=== PATIENT | male | born 1975 | race Caucasian/White ===

== ENCOUNTER → 2016-12-11 | Outpatient (CLI) | payer OTHER, MEDICARE ==
[~2016-12-11] MED LIST: CEFD300C3 PO
== END ==
LOC: NWCC 10:12
PROVIDERS: ATTEND Surgery
DX: L89.893 Pressure ulcer of other site, stage 3 (principal); G82.21 Paraplegia, complete
CPT/HCPCS: 97605; A6209; A6237

== ENCOUNTER → 2016-12-15 | Outpatient (CLI) | payer OTHER, MEDICARE | LOC: NWCC 13:33 | PROVIDERS: ATTEND Surgery | DX: L89.893 Pressure ulcer of other site, stage 3 (principal); G82.21 Paraplegia, complete | CPT/HCPCS: 97605; A6237 ==

== ENCOUNTER → 2016-12-18 | Outpatient (CLI) | payer OTHER, MEDICARE | LOC: NWCC 10:17 | PROVIDERS: ATTEND Surgery | DX: L89.893 Pressure ulcer of other site, stage 3 (principal); G82.21 Paraplegia, complete | CPT/HCPCS: 97605 ==

== ENCOUNTER → 2016-12-22 | Outpatient (CLI) | payer OTHER, MEDICARE | LOC: NWCC 10:47 | PROVIDERS: ATTEND Surgery | DX: L89.894 Pressure ulcer of other site, stage 4 (principal); G82.21 Paraplegia, complete | CPT/HCPCS: 11042; 97605 ==

== ENCOUNTER 2016-12-25 12:00 | Inpatient (IN) | payer MEDICARE, OTHER ==
[~2016-12-25] VITALS: Ht 175.3 cm; Wt 105.8 kg
[~2016-12-25 12:00] MED LIST changes: -ACET-2723 PO; -ASCO500T9 PO; -BISA10SU8 RECTALLY; -CEFT2FRO3 IV; -Calcium Acetate PO; -FERR324T4 PO; -MAGN400O4 PO; -METR500T PO; -NYST10PO TOP; -POLY17PO18 PO; -VITA1TAB15 PO
--- NOTE | 2016-12-25 12:05 | NUR ---
ADMISSION TO MEDICAL UNIT LOW GRADE TEMP 99.0, TACHYCARDIC IN THE 120S. OTHERWISE, VSS. DENIES PAIN. TRANSFERRED SELF FROM WHEELCHAIR TO BED. PATIENT IS A PARAPLEGIC BUT VERY INDEPENDENT. ISSAC RIZO RN PRESENT TO PLACE NEW WOUND VAC.
--- OUTSIDE RECORDS SUMMARY | 2016-12-25 12:05 | XMS REPORT | Referral Summary ---
Author Author [facility] Organization [facility] Address Unknown Phone Unavailable Care Team Providers Care Nozzle Tender Name Role Phone Ariela Rio Primary Care Physician [phone] Encounter Date(s): 10/16/16 - 10/16/16 [facility] [address] [place], [place] [address] Discharge Diagnosis: S/P plastic surgery Discharge Disposition: 01-Home or Self Care Attending Physician: Kang Braxton MD Admitting Physician: Kang Braxton MD Vital Signs No data available for this section Problem List Condition Effective Dates Status Health Status Informant Obesity(Confirmed) Active patient Paraplegia following Resolved spinal cord injury(Confirmed)1 Decubitus ulcer of Active right ischial area(Confirmed) 1Forklift accident/traumatic injury on 07/19/2002. Injury at the T7-T8 level with subsequent paralysis distal to that. Allergies, Adverse Reactions, Alerts Substance Reaction Severity Status Keflex Rash Active Levaquin Active Medications Daily Multivitamins oral tablet 1 tabs, Oral, Daily, # 30 tabs, 0 Refill(s) Start Date: 07/03/16 Status: Ordered Results No data available for this section Immunizations No data available for this section Procedures Procedure Date Related Diagnosis Body Site Excision, ischial pressure ulcer, with 09/10/16 ostectomy, in preparation for muscle or myocutaneous flap or skin graft closure1 Cystoscopy using panendoscope 06/10/15 Stabilization of spinal dislocation2 1Right Buttock Pressure Ulcer DX 689.319 done @ [facility] 2Following spinal injury in 2001 Social History Social History Type Response Smoking Status Former smoker; Type: Cigarettes Assessment and Plan Extracted from: Title: Office Visit Note Author: Kang Braxton MD Date: 10/16/16 Assessment/Plan The patient can discontinue bedrest at this time. He will be sent for seat mapping of theRoho pillow. Patient has no restrictions at this time.
--- OUTSIDE RECORDS SUMMARY | 2016-12-25 12:05 | XMS REPORT | Continuity of Care Document ---
Author Author [facility] Address Unknown Phone Unavailable Allergies Active Description Code Type Severity Reaction Onset Reported/Identified Relationship to Patient Clinical Status Yes Levaquin NKMA N/A N/A 04/17/2014 Yes levofloxacin [id number] Drug Allergy Severe Severe Diarrhea 05/25/2015 Yes Keflex NKMA N/A Rash 07/03/2016 Medications Problems Procedures Results Encounters ACCT No. Visit Date/Time Discharge Status Pt. Type Provider Facility Loc./Unit Complaint [id number] 05/25/2015 19:48:00 2014 20:41:00 [facility]
--- OUTSIDE RECORDS SUMMARY | 2016-12-25 12:05 | XMS REPORT | Continuity of Care Document ---
Author Author [facility] Organization [facility] Address Unknown Phone Unavailable Support Name Relationship Address Phone FEBRUARYYSABEL DO Caregiver [address] [facility] [place] [address] Unavailable EREN SO MD Caregiver [address] [place] [address] Unavailable ERIKA RODRIGUEZ Next Of Kin [address] [place] [address] Insurance Providers Guarantor Duncan Rodriguez V Address [address] [place] [address] Email [email or web address] Policy Number [id number] Subscriber's Name Erika Rodriguez E Relationship 01 Spouse Group Number [id number] Payer Medicare Policy Number [id number] Subscriber's Name Duncan Rodriguez V Relationship 18 Self Chief Complaint and Reason for Visit Chief Complaint Lower Extremity Injury Reason for Visit Open wound of toe with avulsion of toenail Problems Active Problems Medical Problem Onset Date Status Anemia Unknown Chronic urinary tract infection Unknown Chronic Neurogenic bladder Unknown Chronic Neurogenic bowel Unknown Chronic Obesity (BMI 30-39.9) Unknown Chronic Paraplegia at T9 level Unknown Chronic Pressure ulcer of left buttock, stage 4 Unknown Sepsis Unknown Resolved Past Problems Medical Problem Onset Date Ankle sprain Unknown Decubitus ulcer of buttock, stage 4 ~03/2016 Encounter for removal of urinary catheter Unknown Erosion of penis Unknown Open wound of toe with avulsion of toenail Unknown UTI (urinary tract infection) Unknown Medications Current Home Medications Medication Dose Units Route Directions Days Qty Instructions Start Date Cefdinir 300 Mg Capsule 300 Mg Oral Twice A Day 14 07/10/16 Past Home Medications Medication Directions Ordered Status Cephalexin (Keflex) 500 Mg Capsule, 1 Cap Oral Twice A Day for Uti 06/30/16 Discontinued No Routine Meds , 06/24/16 Discontinued Social History Social History Problem Response Recorded Date/Time Onset Date Status Hx Substance Use No 07/10/2016 11:10pm Not Applicable Not Applicable Hx Alcohol Use No 07/10/2016 11:10pm Not Applicable Not Applicable Has the pt used tobacco in the last 12 months No 04/30/2016 4:25pm Not Applicable Not Applicable Tobacco Usage none 03/26/2016 10:06am Not Applicable Not Applicable Query Response Start Date Stop Date Smoking Status Never smoker Hospital Discharge Instructions No hospital discharge instructions. Plan of Care Discharge Date 07/10/16 11:39pm Disposition 01 DISCHARGED HOME, SELF-CARE Condition at Discharge Improved Instructions/Education Provided DI for Nail Avulsion Injury Prescriptions See Medication Section Referrals EREN SO MD Address: [address] [address] Additional Instructions/Education Wash toes gently daily. Apply triple antibiotic ointment to wound/nail bed, telfa and 4x4 daily. Check with your physician for when you last tetanus was on Wednesday. Follow treatment plan. Monitor for signs/symptoms of infection (fever, chill, swelling, streaking up foot/leg, pus drainage from wound). Follow with [facility] wound care center on Wednesday appointment for evaluation of left great toe. Care Plan and Goals Physician Care Plan Problem: Avulsion injury with open wound to toe Goal: Follow up with primary care provider Instructions: Take medications and follow care plan as discussed/written Functional Status No functional status results. Allergies, Adverse Reactions, Alerts Allergen Type Severity Reaction Status Last Updated Cephalexin Allergy Unknown HIVES Active 07/10/16 Levofloxacin Adverse Reaction Unknown SEVERE GI DISTRESS Active 07/10/16 Immunizations Query Response on File Recorded Date/Time Hx Influenza Vaccination No 04/30/16 4:25pm Hx Pneumococcal Vaccination No 04/30/16 4:25pm Hx Influenza Vaccination No 04/30/16 4:25pm Influenza Vaccine Hx declines 07/10/16 11:10pm Tdap Vaccine Hx UNKNOWN 06/24/16 12:30pm Vital Signs Acute Vital Signs Vital Response Date/Time Temperature (Fahrenheit) 99.0 deg F (96.8 - 99.1) 07/10/2016 11:39pm Temperature (Calculated Celsius) 37.97069 degrees C (36.0 - 37.3) 07/10/2016 11:39pm Temperature Source Oral 04/23/2016 3:08pm Pulse Rate (adult) 101 bpm (60 - 100) 07/10/2016 11:39pm Respiratory Rate 18 breaths/min (10 - 20) 07/10/2016 11:39pm O2 Sat by Pulse Oximetry 100 % (90 - 100) 07/10/2016 11:39pm Oxygen Delivery Method Room Air 04/23/2016 5:15pm Oxygen Delivery Method Room Air 05/05/2016 1:14pm Blood Pressure 163/92 mm Hg 07/10/2016 11:39pm Blood Pressure Source Automatic Cuff 05/05/2016 1:14pm Height (Feet) 5 feet 07/10/2016 10:06pm Height (Inches) 9.00 inches 07/10/2016 10:06pm Weight (Kilograms) 104.500 kg 07/10/2016 10:06pm Body Mass Index (BMI) 34.0 07/10/2016 10:06pm Results Laboratory Results Test Name Result Units Flags Reference Collection Date/Time Result Date/ Time Comments White Blood Count 8.8 T/MM3 4.5-11.0 05/05/2016 1:30pm 05/05/2016 1: 52pm Red Blood Count 4.03 M/MM3 L 4.50-5.90 05/05/2016 1:30pm 05/05/2016 1: 52pm Hemoglobin 11.0 GM/DL L 13.5-17.5 05/05/2016 1:30pm 05/05/2016 1:52pm Hematocrit 35.5 % L 41-53 05/05/2016 1:30pm 05/05/2016 1:52pm Mean Corpuscular Volume 88.1 UM3 80-100 05/05/2016 1:30pm 05/05/2016 1: 52pm Mean Corpuscular Hemoglobin 27.3 UUG 26-34 05/05/2016 1:30pm 2015 1:52pm Mean Corpuscular Hemoglobin Concent 31.0 GM/DL 31-37 05/05/2016 1:30pm 05/05/2016 1:52pm RDW Standard Deviation 40.0 FL 36.9-50.2 05/05/2016 1:30pm 05/05/2016 1 :52pm Platelet Count 470 T/MM3 H 130-400 05/05/2016 1:30pm 05/05/2016 1:52pm Mean Platelet Volume 8.5 UM3 L 9.4-12.4 05/05/2016 1:30pm 05/05/2016 1: 52pm Neutrophils % (Manual) 75.0 % H 33-66 05/05/2016 1:30pm 05/05/2016 2: 03pm Band Neutrophils % 2.0 % 0-6 05/05/2016 1:30pm 05/05/2016 2:03pm Lymphocytes % (Manual) 16.0 % L 23-45 05/05/2016 1:30pm 05/05/2016 2: 03pm Monocytes % (Manual) 6.0 % 0-9.0 05/05/2016 1:30pm 05/05/2016 2:03pm Eosinophils % (Manual) 1.0 % 0-4 05/05/2016 1:30pm 05/05/2016 2:03pm Basophils % (Manual) 1.0 % 0-2 04/30/2016 3:54pm 04/30/2016 4:20pm Band Neutrophils # 0.2 T/MM3 05/05/2016 1:30pm 05/05/2016 2:03pm Absolute Neutrophils (Manual) 6.6 T/MM3 1.8-7.7 05/05/2016 1:30pm 05/05 2:03pm Lymphocytes # (Manual) 1.4 T/MM3 1-4.8 05/05/2016 1:30pm 05/05/2016 2: 03pm Monocytes # (Manual) 0.5 T/MM3 0-0.8 05/05/2016 1:30pm 05/05/2016 2: 03pm Eosinophils # (Manual) 0.1 T/MM3 0-0.5 05/05/2016 1:30pm 05/05/2016 2: 03pm Basophils # (Manual) 0.1 T/MM3 0-0.2 04/30/2016 3:54pm 04/30/2016 4: 20pm Red Cell Morphology Comment NORMAL 05/05/2016 1:30pm 05/05/2016 2: 03pm Icterus Index < 2 0-7 05/05/2016 1:30pm 05/05/2016 3:02pm Chemistry Specimen Hemolysis < 15 0-25 05/05/2016 1:30pm 05/05/2016 3 :02pm 0-25: Specimen Exhibited No Hemolysis. Turbidity < 20 0-20 05/05/2016 1:30pm 05/05/2016 3:02pm Sodium Level 141 MEQ/L 134-144 05/05/2016 1:30pm 05/05/2016 3:02pm Potassium Level 4.0 MEQ/L 3.6-5 05/05/2016 1:30pm 05/05/2016 3:02pm Chloride Level 104 MEQ/L 98-107 05/05/2016 1:30pm 05/05/2016 3:02pm Carbon Dioxide Level 25 MEQ/L -05/05/2016 1:30pm 05/05/2016 3: 02pm Anion Gap 12 MEQ/L 5-05/05/2016 1:30pm 05/05/2016 3:02pm Blood Urea Nitrogen 6.0 MG/DL L 9-05/05/2016 1:30pm 05/05/2016 3: 02pm Creatinine 0.7 MG/DL L 0.8-1.5 05/05/2016 1:30pm 05/05/2016 3:02pm BUN/Creatinine Ratio 9 RATIO 04-0505/05/2016 1:30pm 05/05/2016 3:02pm Glomerular Filtration Rate Calc 126 05/05/2016 1:30pm 05/05/2016 3: 02pm Glucose Level 85 MG/DL 75-110 05/05/2016 1:30pm 05/05/2016 3:02pm Calculated Osmolality 268 MOSM/KG 261-280 05/05/2016 1:30pm 05/05/2016 3:02pm Calcium Level 8.2 MG/DL L 8.4-10.2 05/05/2016 1:30pm 05/05/2016 3:02pm C-Reactive Protein 52.5 MG/L H 0-9 05/05/2016 1:30pm 05/05/2016 3:02pm Vancomycin Level Trough 39.73 UG/ML H 15-05/05/2016 1:30pm 2015 2:07pm Erythrocyte Sedimentation Rate 101 mm/h H 0-15 05/05/2016 1:30pm 2015 10:34pm Sedimentation Rate performed at [facility] Reference Lab, [address] , [place] [address] Neurocritical Care Physician Destiny Willingham DO Urine Collection Type STRAIGHT CATH 06/30/2016 12:17pm 06/30/2016 12:30pm Urine Color YELLOW YELLOW 06/30/2016 12:17pm 06/30/2016 12:30pm Urine Turbidity CLOUDY CLEAR 06/30/2016 12:17pm 06/30/2016 12:30pm Urine Specific [place] >=1.030 H 1.015-1.025 06/30/2016 12:17pm 2015 12:30pm Urine pH 5.5 5.0-8.0 06/30/2016 12:17pm 06/30/2016 12:30pm Urine Leukocyte Esterase 2+ A NEGATIVE 06/30/2016 12:17pm 06/30/2016 12:30pm Urine Nitrite POSITIVE A NEGATIVE 06/30/2016 12:17pm 06/30/2016 12: 30pm Urine Protein 1+ A NEGATIVE 06/30/2016 12:17pm 06/30/2016 12:30pm Urine Glucose (UA) NEGATIVE NEGATIVE 06/30/2016 12:17pm 06/30/2016 12 :30pm Urine Ketones NEGATIVE NEGATIVE 06/30/2016 12:17pm 06/30/2016 12: 30pm Urine Urobilinogen 1.0 EU/DL NORMAL 06/30/2016 12:17pm 06/30/2016 12: 30pm Urine Bilirubin NEGATIVE NEGATIVE 06/30/2016 12:17pm 06/30/2016 12: 30pm Urine Blood 3+ A NEGATIVE 06/30/2016 12:17pm 06/30/2016 12:30pm Urine WBC TNTC /HPF H 0-5 06/30/2016 12:17pm 06/30/2016 12:43pm Urine RBC 5-10 /HPF H 0-3 06/30/2016 12:17pm 06/30/2016 12:43pm Urine Bacteria 1+ H NEGATIVE 06/30/2016 12:17pm 06/30/2016 12:43pm Urine Culture Indicated CULT REFLEXED &SETUP 06/30/2016 12:17pm 12:43pm Microbiology Results Procedure Source Organism/Result Collection Date/Time Result Date/Time Result Status Surgical Culture Bone, Ischium BACTEROIDES FRAGILIS 04/23/2016 1:43pm 04/27 9:17am Final KLEBSIELLA OXYTOCA 04/23/2016 1:43pm 04/27/2016 9:17am Final STAPHYLOCOCCUS EPIDERMIDIS 04/23/2016 1:43pm 04/27/2016 9:17am Final ENTEROCOC FAECALIS - (GROUP D) 04/23/2016 1:43pm 04/27/2016 9:17am Final Urine Culture Urine, Straight Cath PROTEUS SPECIES 06/30/2016 12:43pm 6:33am Final PSEUDOMONAS AERUGINOSA 06/30/2016 12:43pm 07/03/2016 6:33am Final SERRATIA MARCESCENS 06/30/2016 12:43pm 07/03/2016 6:33am Final Procedures Procedure Status Date Provider(s) MIRTA SUBQ TISSUE 20 SQ CM/< Completed 04/14/16 NEG PRESS WOUND TX </=50 CM Completed 04/14/16 698875"ADHESIVE BORDER, EACH DRESSING" Completed 04/14/16 NEG PRESS WOUND TX </=50 CM Completed 04/17/16 921293"ADHESIVE BORDER, EACH DRESSING" Completed 04/17/16 MIRTA MUSC/FASCIA 20 SQ CM/< Completed 04/21/16 NEG PRESS WOUND TX </=50 CM Completed 04/21/16 941871"OSTOMY SKIN BARRIER, PECTIN-BASED, PASTE, PER OUNCE" Completed 385737"ADHESIVE BORDER, EACH DRESSING" Completed 04/21/16 NEG PRESS WOUND TX </=50 CM Completed 04/27/16 MIRTA BONE 20 SQ CM/< Completed 04/23/16 NATHANIEL QUINTANILLA MD, FACS, CWS CULTURE OTHR SPECIMN AEROBIC Completed 04/23/16 CULTR BACTERIA EXCEPT BLOOD Completed 04/23/16 CULTURE ANAEROBE IDENT EACH Completed 04/23/16 CULTURE AEROBIC IDENTIFY Completed 04/23/16 CULTURE AEROBIC IDENTIFY Completed 04/23/16 CULTURE AEROBIC IDENTIFY Completed 04/23/16 MICROBE SUSCEPTIBLE DIFFUSE Completed 04/23/16 MICROBE SUSCEPTIBLE DIFFUSE Completed 04/23/16 MICROBE SUSCEPTIBLE DIFFUSE Completed 04/23/16 MICROBE SUSCEPTIBLE DIFFUSE Completed 04/23/16 MICROBE SUSCEPTIBLE MAKAYLA Completed 04/23/16 MICROBE SUSCEPTIBLE MAKAYLA Completed 04/23/16 MICROBE SUSCEPTIBLE MAKAYLA Completed 04/23/16 SMEAR GRAM STAIN Completed 04/23/16 088238"EQUAL TO 48 SQ. IN., WITHOUT ADHESIVE BORDER, EACH DR Completed 721391"ADHESIVE BORDER, EACH DRESSING" Completed 04/23/16 674429"INJECTION, CEFAZOLIN SODIUM, 500 MG" Completed 04/23/16 525212"INJECTION, MIDAZOLAM HYDROCHLORIDE, PER 1 MG" Completed 04/23/16 731955"INJECTION, FENTANYL CITRATE, 0.1 MG" Completed 04/23/16 854641"INJECTION, FENTANYL CITRATE, 0.1 MG" Completed 04/23/16 538210"INFUSION, NORMAL SALINE SOLUTION , 250 CC" Completed 04/23/16 529088"RINGERS LACTATE INFUSION, UP TO 1000 CC" Completed 04/23/16 935037"INJECTION, BUPIVICAINE HYDROCHLORIDE, 30 ML" Completed 04/23/16 MIRTA BONE 20 SQ CM/< Completed 05/05/16 839004"ADHESIVE BORDER, EACH DRESSING" Completed 05/05/16 NEG PRESS WOUND TX </=50 CM Completed 04/30/16 OFFICE/OUTPATIENT VISIT EST Completed 04/30/16 808634"ADHESIVE BORDER, EACH DRESSING" Completed 04/30/16 INSERT PICC CATH Completed 04/30/16 CLAYTON ACOSTA MD COLLECT BLOOD FROM PICC Completed 04/30/16 CLAYTON ACOSTA MD FLUOROGUIDE FOR VEIN DEVICE Completed 04/30/16 METABOLIC PANEL TOTAL CA Completed 04/30/16 BL SMEAR W/DIFF WBC COUNT Completed 04/30/16 COMPLETE CBC AUTOMATED Completed 04/30/16 RBC SED RATE AUTOMATED Completed 04/30/16 C-REACTIVE PROTEIN Completed 04/30/16 THER/PROPH/DIAG IV INF INIT Completed 04/30/16 THER/PROPH/DIAG IV INF ADDON Completed 04/30/16 THER/PROPH/DIAG IV INF ADDON Completed 04/30/16 318106"ELECTROPHYSIOLOGICAL, NON-LASER" Completed 04/30/16 592511"INJECTION, ERTAPENEM SODIUM, 500 MG" Completed 04/30/16 886676"INJECTION, VANCOMYCIN HCL, 500 MG" Completed 04/30/16 127501"INFUSION, NORMAL SALINE SOLUTION , 250 CC" Completed 04/30/16 METABOLIC PANEL TOTAL CA Completed 04/30/16 ASSAY OF VANCOMYCIN Completed 04/30/16 BL SMEAR W/DIFF WBC COUNT Completed 04/30/16 COMPLETE CBC AUTOMATED Completed 04/30/16 RBC SED RATE AUTOMATED Completed 04/30/16 C-REACTIVE PROTEIN Completed 04/30/16 OFFICE/OUTPATIENT VISIT EST Completed 04/30/16 NEG PRESS WOUND TX </=50 CM Completed 06/18/16 006860"ADHESIVE BORDER, EACH DRESSING" Completed 06/18/16 NEG PRESS WOUND TX </=50 CM Completed 06/25/16 OFFICE/OUTPATIENT VISIT EST Completed 06/25/16 404338"CONVEXITY, EACH" Completed 06/25/16 852248"COLLAGEN DRESSING, PAD SIZE 16 SQ. IN. OR LESS, EACH" Completed 646069"BORDER, EACH DRESSING" Completed 06/25/16 OFFICE/OUTPATIENT VISIT EST Completed 06/30/16 488223"OSTOMY SKIN BARRIER, PECTIN-BASED, PASTE, PER OUNCE" Completed 741406"BORDER, EACH DRESSING" Completed 06/30/16 556960"ADHESIVE BORDER, EACH DRESSING" Completed 06/30/16 X-RAY EXAM OF ANKLE Completed 06/24/16 X-RAY EXAM OF FOOT Completed 06/24/16 EMERGENCY DEPT VISIT Completed 06/24/16 NEG PRESS WOUND TX </=50 CM Completed 07/06/16 OFFICE/OUTPATIENT VISIT EST Completed 07/06/16 103987"BORDER, EACH DRESSING" Completed 07/06/16690466"ADHESIVE BORDER, EACH DRESSING" Completed 07/06/16 INSERT BLADDER CATHETER Completed 06/30/16 SARAH VERNON DO URINALYSIS AUTO W/SCOPE Completed 06/30/16 URINE CULTURE/COLONY COUNT Completed 06/30/16 EMERGENCY DEPT VISIT Completed 06/30/16 Encounters Encounter Location Arrival/Admit Date Discharge/Depart Date Attending Provider Departed Emergency Room [facility] 07/10/16 9:58pm 07/10/16 11: 39pm YSABEL MONTOYA DO [facility] 07/06/16 1:44pm NATHANIEL QUINTANILLA FACS, MD Departed Emergency Room [facility] 06/30/16 11:08am 06/30/16 1: 09pm SARAH VERNON DO Registered [facility] 06/30/16 9:04am NATHANIEL QUINTANILLA FACS, MD Registered [facility] 06/25/16 1:12pm NATHANIEL QUINTANILLA FACS, MD Departed Emergency Room [facility] 06/24/16 12:03pm 06/24/16 1: 27pm YSABEL MONTOYA DO [facility] 06/18/16 1:23pm NATHANIEL QUINTANILLA FACS, MD Registered [facility] 05/05/16 10:57am NATHANIEL QUINTANILLA FACS, MD Discharged Recurring [facility] 04/30/16 2:11pm 06/19/16 11:59pm CLAYTON ACOSTA MD Registered [facility] 04/30/16 1:23pm NATHANIEL QUINTANILLA FACS, MD Registered [facility] 04/29/16 9:05am CLAYTON ACOSTA MD Registered [facility] 04/27/16 10:13am NATHANIEL QUINTANILLA FACS, MD Departed Surgical Day Care [facility] 04/23/16 8:37am 04/23/16 5: 40pm NATHANIEL QUINTANILLA FACS, MD Registered [facility] 04/21/16 10:16am NATHANIEL QUINTANILLA FACS, MD Registered [facility] 04/17/16 10:32am NATHANIEL QUINTANILLA FACS, MD Registered [facility] 04/14/16 11:10am NATHANIEL QUINTANILLA FACS, MD Recent Diagnosis
--- OUTSIDE RECORDS SUMMARY | 2016-12-25 12:05 | XMS REPORT | Referral Summary ---
Author Author [facility] Organization [facility] Address Unknown Phone Unavailable Care Team Providers Care Meat Specialist Name Role Phone Ariela Rio Primary Care Physician [phone] Encounter Date(s): 07/03/16 - 07/03/16 [facility] [address] [place], [place] [address] Discharge Diagnosis: Decubitus ulcer of ischial area Discharge Disposition: 01-Home or Self Care Attending Physician: Kang Braxton MD Admitting Physician: Kang Braxton MD Referring Physician: Sourav Tyson MD Vital Signs No data available for this section Problem List Condition Effective Dates Status Health Status Informant Obesity(Confirmed) Active patient Paraplegia following Resolved spinal cord injury(Confirmed)1 1Forklift accident/traumatic injury on 07/19/2002. Injury at [...] Procedures Procedure Date Related Diagnosis Body Site Cystoscopy using panendoscope 06/10/15 Stabilization of spinal dislocation1 1Following spinal injury in 2001 Social History Social History Type Response Smoking Status Former smoker; Type: Cigarettes Assessment and Plan Extracted from: Title: Office Visit Note Author: Kang Braxton MD Date: 07/03/16 Assessment/Plan 40-year-old with rightinitial wound. This is a very clean appearing wound. Don't see any exposed bone at this time. There is definitely fascia and muscle that is exposed. The area is large enough for think a posterior thigh flap would be a good option for him. I like to set up a debridementfrom Dr. Tyson prior to theclosure. We'll get himwashed out one more time and cultures taken. As long as these are negative then we'll close this with a flap. I expect the patient that he'll require bed rest for 6 weeks after the operation. He'll be in thespital for 6-7 days followed by 5 more days of bedrest on a [place] bed. I explained to him that the surgery willbe performed under general anesthesia. The biggest risks of the procedure would be loss of flap, continued wound,infection, need for further surgery. I explained that this will be done as an inpatient setting. We'll get the patient scheduled and set up a time that works best for both myself and Dr. Thornton.
--- OUTSIDE RECORDS SUMMARY | 2016-12-25 12:05 | XMS REPORT | Continuity of Care Document ---
Author Author [facility] Organization [facility] Address Unknown Phone Unavailable Support Name Relationship Address Phone EREN SO MD Caregiver [address] [place] [address] JENNIFER CLIVE Next Of Kin [address] [place] [address] Insurance Providers Payer Name Policy Number Subscriber Name Relationship Self Pay JenniferDuncan V 18 Self / Same As Patient Chief Complaint and Reason for Visit Chief Complaint Skin Condition Reason for Visit [id number] Problems Medical Problems Problem Onset Date Status Paronychia of third finger, left ~05/25/2015 Active Medications Medication Dose Route Sig Days/Qty Instructions Order Date Discontinued Date Status [No home medications] 05/25/15 Active Cephalexin 500 Mg ORAL TWICE A DAY 05/25/15 Active Sulfamethoxazole/Trimethoprim 1 Tab ORAL TWICE A DAY 10 Days 05/25/15 Active Mupirocin (Bactroban Ointment) 22 Gm TOPICAL TWICE A DAY 22 Qty Active Social History No social history. Hospital Discharge Instructions No hospital discharge instructions. Plan of Care Discharge Date 05/25/15 8:41pm Disposition 01 HOME OR SELF-CARE Condition at Discharge Stable Instructions/Education Provided Paronychia (ED) Prescriptions See Medications Section Additional Instructions/Education Stop Keflex. Bactrim DS as Rx'd, twice a day for 10 days, one refill. Bactroban Ointment as Rx'd, twice a day topically until healed. Cultured tonight; results should be available by Wednesday. Daily soap and water, air dry, then Bactroban. Follow up in office as needed for this issue. Some of your test results may not be complete prior to your leaving the Emergency Department. The Emergency Department is not authorized to give test results over the phone. Please contact the doctor's office listed in this packet of information for your final results. Follow up with your primary care physician or return to the Emergency Department for worsening or worrisome symptoms. * Emergency Department phone number: [phone], x [phone]* MEDICAL RECORD If you need copies of your X-rays, call [phone]. If you need copies of your medical record, including lab results, a signed authorization for release of records will be required. A telephone call for release of Health Information is not allowed. BILLING Billing can sometimes be confusing and frustrating. To help avoid confusion in the future, please take a moment to acquaint yourself with the billing parties for services. [facility]ICE [employer] Emergency Room Services [facility] Physician Services [facility] X-rays [facility] Patients will receive bills for services from the appropriate provider. If you have any questions about your [facility] bill, our staff will be happy to assist you. Please call [phone], and ask for the billing department. THANK YOU for choosing [facility] as your emergency care provider! Functional Status No functional status results. Allergies, Adverse Reactions, Alerts Allergen Type Severity Reaction Status Last Updated levofloxacin Allergy Severe Severe Diarrhea, dehydration Active 05/25/15 Immunizations No immunization records. Vital Signs Acute Vital Signs Vital Response Date/Time Temperature (Fahrenheit) 98.0 Pulse 88 bpm Respirations 18 Height 5 ft 9 in Weight 219 lb Body Mass Index 32.0 kg/m^2 Results No known relevant diagnostic tests, laboratory data and/or discharge summary. Procedures No known history of procedures. Encounters Encounter Location Date/Time Departed Emergency Room [facility] 05/25/15 7:48pm Recent Diagnosis
[2016-12-25 12:13] VITALS: BP 129/66; PULSE 121; RESP 18; TEMP 99; O2SAT 98
[2016-12-25 12:18] VITALS: Ht 175.3 cm; Wt 105.8 kg
[2016-12-25 12:27] VITALS: PULSE 121; RESP 18
--- NOTE | 2016-12-25 13:09 | HPPDOC ---
HANS HUGO V GYROSCOPE REPAIRER 12/25/16 1309: HPI - Adult Date DATE: 12/25/16 TIME: 13:09 General Chief Complaint: Right hip/buttock wound History of Present Illness Joe is a very pleasant 41-year-old gentleman who has been under the care of outpatient wound center since July 2016. He had previously had a decubitus ulcer to the right ischium in March 2016. This was initially treated and had a surgical flap placed over this area last fall. Patient did well following this treatment. However, last July developed a secondary wound in the right posterior upper thigh/buttock region at different location. He has continued with the outpatient wound treatments. However, today upon evaluation was found to have worsening wound with tunneling and concern for osteomyelitis. The hospitalist services were contacted and accepted patient for direct admission for further evaluation and treatment. Labs were obtained this morning. The WBC count was found to be slightly elevated at 12.9, hemoglobin 11.4, hematocrit 36.3, platelet count 551, 79% neutrophils. Sodium is 140, potassium 3.7, BUN 10 , creatinine 0.8. CRP 260.7. Venous lactate was found to be 1.3, and pro- calcitonin 0.39. Blood cultures were obtained at that time. On arrival to the medical unit. Patient was found to be tachycardic with a pulse of 101, temperature 90.9, respiration rate 18, blood pressure 126/66, room air saturations 98%. Patient is seen on initial examination. He is alert and oriented and pleasant. He reports having a fever early this morning of 101 and did take some Aleve prior to coming to the wound care center. Past Medical History Past Medical History Paraplegia at T9 neurogenic bladder- chronic straight catheter neurogenic bowel chronic urinary tract infections History of decubitus ulcer to the right buttock Hx C-diff Surgical History Patient's Surgical History: Right Knee Scope (95?) Maxx placement T7-T9 (2001) - following accident August 2016- Skin flap to right Buttock Allergies: Coded Allergies: cephalexin (Verified Allergy, Unknown, HIVES, 07/10/16) levofloxacin (Verified Adverse Reaction, Unknown, SEVERE GI DISTRESS, 12/25) Family History Family History: Mother - Alive and well Father - Alive and well Daughter (13) - Alive and Well Paternal Great Grandfather - Diabetes Social History Smoking Status: Never smoker Does patient use chewing tobac: No Substance Use Type: does not use Alcohol Intake: none Sexuality: female partner Housing: house Household Members: significant other Service: No Occupational Hazard: No Advance Directives: No DPOA for Healthcare Only Social History Comments Primary care provider, Dr. Morales in [place] Review of Systems Constitutional: REPORTS: chills, fever Pulmonary Respiratory: cough Integumentary Comments Right hip/ posterior thigh All Other Systems All Other Systems: Reviewed (remainder of 10-point ROS Neg.) Physical Exam General General Nourishment: well nourished, well developed Vital Signs Vital Signs Date Time Temp Pulse Resp B/P Pulse Ox O2 Delivery O2 Flow Rate FiO2 12/25/16 12:27 121 18 12/25/16 12:13 99.0 129/66 98 Room Air Height (Feet): 5 Height (Inches): 9.00 Eyes Brief: FOUND: EOMI, PERRL Neck Brief: FOUND: midline, NOT FOUND: adenopathy, carotid bruits, tracheal deviation Respiratory Brief: FOUND: clear all burroughs, equal bilaterally, NOT FOUND: wheezes Cardiovascular (brief) Cardiac Brief: FOUND: regular rate, regular rhythm, NOT FOUND: murmur, pedal edema Abdomen (brief) Abdominal Brief: FOUND: BS normo active x4, soft, NOT FOUND: distended, tender Integumentary (brief) Integumentary Brief: FOUND: dry, pink, warm Comments Right posterior hip, thigh, pressure ulcer, wound VAC intact Neurologic (brief) Neurological Brief: FOUND: cranial 2-12 intact Neurologic RN Documented GCS Eye Opening: Verbal: Motor: Total: Psychiatric (brief) FOUND: alert, attentive, normal affect, oriented Sepsis Diagnostic Criteria Sepsis Confirmed/Suspected Infection: Yes SIRS Criteria: Pulse >= 90 beats/min, WBC >=12,000 or <=4,000 Assessment & Plan Problems: (1) Sepsis Status: Acute Assessment & Plan: Manifestations of sepsis include the following- 1. Right buttock/hip wound-worsening with tunneling 2. Leukocytosis, W BBC count 12.9 3. Tachycardia- 121 on admission (2) Pressure ulcer of right buttock Status: Chronic (3) Coughing Status: Acute (4) Neurogenic bowel Status: Chronic (5) Neurogenic bladder Status: Chronic (6) Paraplegia at T9 level Status: Chronic (7) Chronic urinary tract infection Status: Chronic Plan/Intensity of Service Place patient to inpatient status under the care of Dr. Herbert for sepsis, right hip/buttocks wound, pressure ulcer We'll continue with consultation with wound center and with Dr. Tyson for ongoing treatment. Did discuss case with Dr. Palma, and she is planning to see patient later today. Will start vancomycin now. Place Pinto catheter given the patient has a history of urine. Neurogenic bladder and requires frequent straight caths Given coughing will obtain chest xray. Also obtain UA on admission IV fluids, 500 ml bolus and then 100ml/hr for ongoing hydration. Will recheck a venous lactate at 1630 per sepsis protocol. Will have infusion team place a PICC line, as patient will likely need long- term antibiotics. SCDs to bilateral lower extremity for DVT prophylaxis. Patient may have regular diet. Will monitor patient on cardiac telemetry given tachycardia. Will recheck CBC and BMP tomorrow morning to follow blood counts, renal function and electrolytes. Will discuss further plan of care with Dr Herbert. At time of discharge medical care will return to primary care provider, Dr. Morales DVT Prophylaxis: SCD'S Code Status Hospital Course Summary Disclaimer The hospital course summary below is not to be considered part of the above Progress Note. Hospital Course Summary Place patient to inpatient status under the care of Dr. Herbert for sepsis, right hip/buttocks wound, pressure ulcer We'll continue with consultation with wound center and with Dr. Tyson for ongoing treatment. Did discuss case with Dr. Palma, and she is planning to see patient later today. Will start vancomycin now. Place Pinto catheter given the patient has a history of urine. Neurogenic bladder and requires frequent straight caths Given coughing will obtain chest xray. Also obtain UA on admission IV fluids, 500 ml bolus and then 100ml/hr for ongoing hydration. Will recheck a venous lactate at 1630 per sepsis protocol. Will have infusion team place a PICC line, as patient will likely need long- term antibiotics. SCDs to bilateral lower extremity for DVT prophylaxis. Patient may have regular diet. Will monitor patient on cardiac telemetry given tachycardia. Will recheck CBC and BMP tomorrow morning to follow blood counts, renal function and electrolytes. Will discuss further plan of care with Dr Herbert. At time of discharge medical care will return to primary care provider, CARLOS ALBERTO Tabares MD 12/25/16 3856: Past Medical History Allergies: Coded Allergies: cephalexin (Verified Allergy, Unknown, HIVES, 07/10/16) levofloxacin (Verified Adverse Reaction, Unknown, SEVERE GI DISTRESS, 12/25) Assessment & Plan Problems: (1) Sepsis Status: Acute Assessment & Plan: Manifestations of sepsis include the following- 1. Right buttock/hip wound-worsening with tunneling 2. Leukocytosis, W BBC count 12.9 3. Tachycardia- 121 on admission (2) Pressure ulcer of right buttock Status: Chronic Assessment & Plan: Appears to be infected with increased amount of drainage, increased purulence and increased foul smell (3) Coughing Status: Acute (4) Neurogenic bowel Status: Chronic (5) Neurogenic bladder Status: Chronic (6) Paraplegia at T9 level Status: Chronic (7) Chronic urinary tract infection Status: Chronic (8) Thrombocytosis Status: Chronic (9) Microcytic anemia Status: Acute Assessment 12/25/2016-I reviewed this chart, the patient history, and the GYROSCOPE REPAIRER's/PA's documented findings as above. We discussed and formulated the assessment and plan as above with the additions below.-Dr. Herbert Patient states that he started feeling fatigued yesterday and checked his temperature and noted he had a fever. This morning his temperature was 101. He went into the wound clinic and was found to have tachycardia but fever had resolved after taking Aleve at home. In the wound care clinic his wound was evaluated and he was found to have tunneling down to bone with concerns for osteomyelitis. He was noted to have increased amount and increased purulence of drainage as well as increase in foul smell of his wound. I was called and asked to admit the patient for infected decubitus wound/osteomyelitis and possible sepsis. The patient states that he is feeling okay at this time. He has had a cough but denies any shortness of breath. He has been eating and drinking okay. He has felt fatigued. He denies any nausea, vomiting or diarrhea. He straight catheters himself and notices that his urine is darker than usual. He denies any other recent symptoms or complaints. Patient states he is on no home medications On exam he is alert and oriented 3 and in no acute distress. HEENT reveals sclerae to be anicteric and oropharynx is moist. Neck is supple. Chest is clear to auscultation. Cardiovascular reveals a regular rate and rhythm without murmur. Abdomen is soft and nontender with positive bowel sounds. Extremities are free of edema. Wound VAC is in place over the right buttock and there is some mild surrounding erythema. Impression Osteomyelitis/infected decubitus wound right buttock Fever Cough Probably chronic UTI Paraplegia Thrombocytosis Microcytic anemia neurogenic bladder Neurogenic colon Plan Admit as inpatient. Consult Dr. Palma for IV antibiotic recommendations. Consult Dr. Tyson regarding wound. Continue wound VAC for now. PICC line placement. Check viral respiratory panel regarding cough and fever. Cautious IV fluids. Repeat lactate. Urine culture and wound culture are pending. Check iron panel regarding microcytic anemia. Recheck lab tomorrow. Pinto catheter placed for urinary retention. HANS HUGO APRN Dec 25, 2016 13:09 CARLOS ALBERTO HERBERT MD Dec 25, 2016 16:48
--- NOTE | 2016-12-25 13:44 | PDWOUND ---
Wound Documentation Wound Management Wound : Location Modifier: Right, Upper Wound Location: Thigh Wound Type: Pressure Ulcer Wound Dressing Frequency: two times per week Wound Duration: > one month Wound Dressing Status: FOUND: Moist Wound Drainage Amount: Copious Wound Drainage Description: Purulent Wound Drainage Odor: Foul Odor Wound General Appearance: FOUND Draining, FOUND Muscle Visible, FOUND Reddened, FOUND Unapproximated Wound Bed: gran red, slough Periwound Description: Dark Red, Purple Wound Length (cm): 10 Wound Width (cm): 7 Wound Depth (cm): 6 Exposed: bone Wound Cleanser: NS Wound Solution/Irrigant: Saline Irrigant Wound Packing Type: FOUND: Black Foam Wound Primary Dressing Type: Clear Adhesive Cover Wound Tunneling : Sinus/Tunnels (cm): 7 Tunneling Location (o'clock): 12 Wound Undermining : Wound Undermining (cm): 3 Undermining Location (o'clock): 12-4 Comments Pt is well known to the wound clinic, this wound is POA from wound clinic. When pt placed in room wound clinic RN in to place a Veraflow wound vac. NS instillation 150cc, Q 3 hrs for 20min dwell time. Pt tolerated placed well. Also verbalized understanding of laying on his sides to offload wound. Dr Tyson gave a verbal order to start Veraflow Instill vac on pt, upon arrival. ATTUM RIZO RN Dec 25, 2016 13:43
--- NOTE | 2016-12-25 13:59 | NUR ---
CULTURES THIS RN CONFIRMED WITH LAB THAT BLOOD AND WOUND CULTURES WERE DRAWN IN WOUND CENTER PRIOR TO ADMISSION TO [facility].
[2016-12-25] MEDS ORDERED: ACETAMINOPHEN 500 MG TABLET PO PRN (14:00)
[2016-12-25] MEDS: VANCOMYCIN 2,000 MG in NORMAL SALINE 500 ML IV SCH (14:23)
[2016-12-25] MEDS: NORMAL SALINE 1,000 ML IV SCH (14:23)
[2016-12-25] MEDS ORDERED: NORMAL SALINE 500 ML IV SCH (14:30)
--- NOTE | 2016-12-25 14:42 | CONSPD ---
Consultation Info Date DATE: 12/25/16 TIME: 14:33 Date of Consultation: Dec 25, 2016 Reason for Consultation: wound care HPI - Adult Date DATE: 12/25/16 TIME: 14:33 General Chief Complaint: Right hip/buttock wound History of Present Illness per Dr. Tyson Past Medical History Past Medical History Patient's Medical History: (1) Pressure ulcer of left buttock, stage 4 (2) Anemia (3) Sepsis (4) Paraplegia at T9 level (5) Obesity (BMI 30-39.9) (6) Chronic urinary tract infection (7) Neurogenic bladder (8) Neurogenic bowel Surgical History Patient's Surgical History: Right Knee Scope (95?) Maxx placement T7-T9 (2001) - following accident 04-24-2016 surgical debridemnt of stage IV ulcer right buttock/ischium and placement of wound vac Allergies: Coded Allergies: cephalexin (Verified Allergy, Unknown, HIVES, 07/10/16) levofloxacin (Verified Adverse Reaction, Unknown, SEVERE GI DISTRESS, 12/25) Family History Family History: Mother - Alive and well Father - Alive and well Daughter (13) - Alive and Well Paternal Great Grandfather - Diabetes maternal grandfather -prostate cancer Social History Smoking Status: Former smoker Does patient use chewing tobac: No Substance Use Type: does not use Alcohol Intake: none Sexuality: female partner Housing: house Household Members: significant other Service: No Occupational Hazard: No Advance Directives: No DPOA for Healthcare Only GS Review of Systems General REPORTS fever Gastrointestional REPORTS other (neuroggenic bowel) Genitourinary REPORTS other (frequent/chronic UTI, neurgenic bladder and self cths) Neurological REPORTS other (T7-T9 paraplegia) 10-point Review of Systems otherwise negative except HPI GS Physical Exam Vital Signs Date Time Temp Pulse Resp B/P Pulse Ox O2 Delivery O2 Flow Rate FiO2 12/25/16 12:27 121 18 12/25/16 12:13 99.0 129/66 98 Room Air Height (Feet): 5 Height (Inches): 9.00 Weight (Kilograms): 97.800 BMI 31.8 Wound Management Wound : Location Modifier: Right, Upper Wound Location: Thigh Wound Type: Pressure Ulcer Wound Dressing Frequency: two times per week Wound Duration: > one month Wound Dressing Status: FOUND: Moist Wound Drainage Amount: Copious Wound Drainage Description: Purulent Wound Drainage Odor: Foul Odor Wound General Appearance: FOUND Draining, FOUND Muscle Visible, FOUND Reddened, FOUND Unapproximated Wound Bed: gran red, slough Periwound Description: Dark Red, Purple Wound Length (cm): 10 Wound Width (cm): 7 Wound Depth (cm): 6 Exposed: bone Wound Cleanser: NS Wound Solution/Irrigant: Saline Irrigant Wound Packing Type: FOUND: Black Foam Wound Primary Dressing Type: Clear Adhesive Cover Wound Tunneling : Sinus/Tunnels (cm): 7 Tunneling Location (o'clock): 12 Wound Undermining : Wound Undermining (cm): 3 Undermining Location (o'clock): 12-4 SHARRI VILLEDA APRN, [facility] Dec 25, 2016 14:36
[2016-12-25] MEDS: MENTHOL COUGH DROPS (RICOLA) MM PRN ×2 (14:52→21:06)
--- NOTE | 2016-12-25 14:52 | NUR ---
DE SOUZA CATHETER 16 F DE SOUZA CATHETER INSERTED WITHOUT PROBLEM. PT TOLERATED WELL. ELMA CARE DONE PRIOR TO INSERTION. STERILE TECHNIQUE USED. IMMEDIATELY RECEIVED CLOUDY, STRAW COLORED URINE WITH SEDIMENT. UA COLLECTED.
[2016-12-25 15:06] LABS: BLOOD, URINE 2+ (NEGATIVE); COLOR,URINE YELLOW (YELLOW); LEUKOCYTE ESTERASE ,URINE 2+ (NEGATIVE); NITRITE,URINE POSITIVE (NEGATIVE)
[2016-12-25 15:17] LABS: BACTERIA,URINE 3+ (NEGATIVE); RBC,URINE 50-200 /HPF (0-3); WBC,URINE TNTC /HPF (0-5)
[2016-12-25 15:27] VITALS: PULSE 95; RESP 18
--- NOTE | 2016-12-25 15:42 | NUR ---
STATUS TACHYCARDIA IMPROVING, NOW 90S, SR. DE SOUZA CATHETER PATENT AND DRAINING. ABX INFUSING IN PERIPHERAL. INFUSION THERAPY CURRENTLY PLACING PICC. PATIENT HAS A GOOD APPETITE. RESTING IN BED.
[2016-12-25 16:00] VITALS: BP 119/67; PULSE 96; RESP 20; TEMP 100.1
[2016-12-25] MEDS: PIPERACILLIN/TAZOBACTAM 3.375 G in NORMAL SALINE 100 ML IV SCH ×2 (17:48→21:00)
--- NOTE | 2016-12-25 18:12 | NUR ---
SHIFT SUMMARY PICC LINE PLACED IN LEFT ARM WITH FLUIDS RUNNING. PT ALERT AND ORIENTATED X3, TRANSFERS SELF FROM WHEELCHAIR TO BED, PARAPLEGIC. DE SOUZA WITH ADEQUATE OUTPUT. WOUND VAC ON RIGHT SIDE FOR ISCHIAL WOUND, STAGE 4. PT ON ROOM AIR AND TELE. SCDS AND CARSON HOSE IN USE. HX OF C.DIFF. PT REPORTED COUGH WHEN ON LEFT SIDE. CALL LIGHT WITHIN REACH.
--- NOTE | 2016-12-25 18:12 | CONSF ---
DATE OF CONSULTATION 12/25/2016 FINDINGS Mr. Cosby is a 41-year-old gentleman who is very well known to my wound care/surgical practice. Mr. Cosby presented to the wound care facility today in followup in regards to progressive necrosis of his myocutaneous flap involving his right buttock/posterior thigh region. The patient had shared with staff that he has been intermittently having fevers over the course of the last couple of the evenings. He did not appear his "normal self." Patient states that he has had some chills. Upon visualization it did appear that his wound was progressively becoming worse and the hospitalist system was contacted for possible admission given his possible sepsis from wound complication. The patient has been currently admitted to the medical unit. Upon entering the room he did not appear to be in acute distress. He states he has been feeling "not like himself." He states he has been extremely tired. The patient is paraplegic. He is therefore unaware in regard to any element of pain that could be present involving his wound. PAST MEDICAL HISTORY, PAST SURGICAL HISTORY,MEDICATIONS, ALLERGIES, SOCIAL HISTORY, FAMILY HISTORY, REVIEW OF SYSTEMS Performed by my nurse practitioner, Dao Hauser APRN . PHYSICAL EXAMINATION GENERAL: Mr. Cosby is a 41-year-old gentleman who currently did not appear to be in acute distress. Vitals: Temperature 99.0. The patient was tachycardic with a pulse of 121. Respiratory rate 18, blood pressure 129/66, SAO2 98% on room air. HEENT: Normocephalic. PERRLA. NECK: Supple without lymphadenopathy. CHEST: Clear to auscultation bilaterally. HEART: Rate and rhythm. Normal S1, S2. ABDOMEN: Soft, nontender. EXTREMITIES: Without clubbing or cyanosis. The patient had a wound VAC already applied to his wound involving the right buttocks. Therefore, the wound VAC was not removed today. I did see the patient earlier this week in the wound care clinic and he was unfortunately found to have progressive necrosis involving the distal aspect of his myocutaneous flap overlying the ischial tuberosity. On Wednesday the bone was not exposed and there was still a component of fascia and subcutaneous tissues covering the bone although the bone itself was able to be palpated perhaps a centimeter or less beneath the residual/remaining subcutaneous tissues. On Wednesday earlier this week there was no periwound erythema nor purulent drainage from the wound itself. Apparently earlier today there was some purulent material noted by the wound physician. NEUROLOGIC: Cranial nerves II-XII grossly intact. Patient's upper extremities are neurovascularly intact. Patient without sensation or motor function involving lower extremities. LABORATORY/RADIOGRAPHIC EVALUATION The patient had a CBC today upon admission. His white count was elevated at 12.9. Did have a left shift with 75% neutrophils. Plasma lactate was normal at 1.3. Procalcitonin was normal at 0.39. Order has been placed to place a Pinto catheter and obtain UA as well. ASSESSMENT 41-year-old paraplegic gentleman with the misfortune of developing progressive necrosis of prior myocutaneous flap involving right buttock/right posterior thigh. Patient with probable sepsis as a result of soft tissue infection. PLAN Earlier today I did inform the wound staff that I would like to go ahead and place a VeraFlo wound VAC following his admission. Would recommend placing the patient on broad-spectrum antibiotics. Currently the patient is on vancomycin. I will actually be leaving town tomorrow morning. Will be checking out to Dr. Buck. It is my thought that we continue with the VeraFlo wound VAC over the course of the weekend and that the VAC could be removed on Wednesday and the wound reevaluated at that time. Further need for surgical intervention could then be ascertained at that time. LOREE
[2016-12-25 20:00] VITALS: PULSE 96; RESP 20
--- NOTE | 2016-12-25 20:28 | CONSF ---
DATE OF CONSULTATION 12/25/2016 CHIEF COMPLAINT Infectious Disease consultation was requested by Dr. Herbert for antibiotic recommendations for stage IV decubitus ulcer and sepsis. HISTORY OF PRESENT ILLNESS Mr. Cosby is a 41-year-old man with history of paraplegia from an accident that occurred in 2001. He has a history of right ischial decubitus ulcer and osteomyelitis there last summer. He was hospitalized at [facility] in March. He had a wound culture obtained March 25 which had multiple organisms including Proteus mirabilis, Proteus vulgaris, Serratia marcescens, Pseudomonas aeruginosa, Klebsiella oxytoca and Bacteroides fragilis. None of those organisms were particularly drug resistant. He underwent debridement by Dr. Tyson. However, at that time the wound did not go down to bone and there was no concern for osteomyelitis. However, his wound worsened and I saw him on April 29 of last summer in the wound clinic and at that point he had undergone debridement on April 23 which extended down to bone. There was a bone culture from his surgery April 23 that showed Staph epidermis, Enterococcus faecalis group D, Bacteroides fragilis and Klebsiella oxytoca. When I saw him initially on April 29 I recommended a PICC line and IV antibiotics for six weeks. I started him initially on Invanz and vancomycin because he was going to be receiving this as an outpatient. Not long after I evaluated him, however, arrangements were made for him to be admitted to [facility]. He was followed by my partner Dr. Evy Cruz while he was at [facility]. He received six weeks of IV antibiotics although he cannot recall exactly which antibiotics he received. Following that admission he was put on oral Keflex and he had some "red bumps" that apparently were thought to be from the Keflex. He was referred to Dr. Braxton, Plastic Surgery, and underwent a flap in August 2016. He believes this was done at [facility]. He did well until about October when he states there was an area on the flap that looked like a scratch. This continued to worsen and he states that there was an area that looked like the skin "." He has been following with Dr. Tyson in the wound clinic over the last two months and the wound has continued to progress and become deeper with some necrotic tissue present. He was seen in the wound clinic earlier today and the wound was felt to go down to bone. There was a wound culture obtained today in the wound clinic with results pending. The patient also reports he started having fever yesterday. He had blood cultures obtained earlier this morning. He was admitted for further evaluation. He has not had any documented fever here. However, his pulse initially was 121. His white count is elevated at 12.9. He was also noted to have some pyuria on his urinalysis although he does straight-cath himself. PAST MEDICAL HISTORY History of complete paraplegia at T9 level since 2001 following an accident when he was pinned between a forklift and a wall. History of neurogenic bladder and neurogenic bowel. History of chronic urinary tract infection. Obesity. History of decubitus ulcer of the buttock involving the right ischium, stage IV , status post six weeks of IV antibiotics during the summer of 2015. History of Clostridium difficile colitis in approximately 2001 associated with Levaquin. PAST SURGICAL HISTORY Right knee scope. Maxx placement T7-T9 in 2001. Right ischial flap procedure in approximately August [address] Braxton. ALLERGIES Levaquin is listed. However, this was associated with Clostridium difficile in 2001. Keflex caused a rash. SOCIAL HISTORY He is . He lives in [place]. 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 No history of tobacco, alcohol or drug use. FAMILY HISTORY Both of his parents are alive. His great-grandfather had diabetes. CURRENT MEDICATIONS Reviewed in the electronic medical record. He has been started on vancomycin. REVIEW OF SYSTEMS He reports fever that started yesterday. He denies any chills. He did have some sweats yesterday. He denies any headache or visual changes. He denies any upper respiratory symptoms to me. However, he apparently reported cough to the admitting team. Denies shortness of breath or chest pain. Denies any abdominal pain. He denies any pain associated with his wound but he does have paraplegia. Denies any recent nausea, vomiting or diarrhea. The rest of the review of systems is negative other than that mentioned above. PHYSICAL EXAMINATION VITAL SIGNS: Temperature 99.0, blood pressure 129/66. Pulse 121. Respirations 18. Oxygen saturation 98% on room air. Height is 69 inches. Weight is 98 kg. GENERAL: He appears comfortable and in no acute distress. HEENT: Pupils equal, round, reactive to light. Extraocular movements intact. Oropharynx is clear. Dentition is fair. NECK: Supple. HEART: Regular rate and rhythm. No murmurs noted. LUNGS: Clear to auscultation bilaterally anteriorly. ABDOMEN: Soft, nontender. He has bowel sounds present. No guarding or rebound. EXTREMITIES: No joint effusions are noted. He does have muscle wasting noted of the lower extremities bilaterally. He is wearing BILL hose. No joint effusions are noted. : No Pinto catheter is in place. NEUROLOGIC: Exam is grossly nonfocal. He is alert and oriented x 3. Speech is normal. He does have paraplegia. SKIN: He has a wound over the right ischium which is covered with a wound VAC. There is mild erythema surrounding this wound. He has a healed incision from his flap on the right posterior thigh. No rash is noted. PSYCHIATRIC: Mood and affect are appropriate. LABORATORY White blood cell count of 12.9, hemoglobin 11.4, platelets 551,000. Sed rate is pending. Creatinine 0.8. C-reactive protein is 261. Albumin is 3.2. Lactate is 1.3. Procalcitonin is 0.39. Urinalysis has kqv-[id number]-[id number]- count white cells, 50-200 red cells, 2+ leukocyte esterase , 3+ bacteria. Respiratory viral panel is pending. Blood cultures are pending. Chest x-ray is pending. IMPRESSION 1. Right ischial decubitus ulcer stage IV with concern for osteomyelitis. 2. Sepsis secondary to skin and soft tissue source. 3. History of osteomyelitis of the right ischium status post debridement, six weeks of IV antibiotics followed by flap procedure in August 2016. 3. Paraplegia at T9 from an accident that occurred in 2001. 4. Neurogenic bladder with self-catheterization. 5. Neurogenic bowel. 6. History of urinary tract infections. 7. History of Clostridium difficile infection related to levofloxacin. 8. Allergy to Keflex, rash. RECOMMENDATIONS I would recommend using Zosyn and vancomycin initially. Once cultures were obtained his antibiotics could be narrowed. Dr. Tyson has been consulted as well to see if the wound needs any additional debridement. I would recommend six weeks of IV antibiotics again to treat osteomyelitis. Recommend PICC line. My recommendations were discussed with the primary team. Thank you for allowing me to participate in the care of this patient. [facility] MEDICAL CENTERKhang
[2016-12-25 20:54] VITALS: BP 120/64; PULSE 97; RESP 16; TEMP 99.6; O2SAT 99
[2016-12-25] MEDS: BENZONATATE 100 MG CAPSULE PO PRN (21:06)
[2016-12-26] VITALS (8 sets, daily range): BP systolic 104–125; BP diastolic 59–68; PULSE 81–91; RESP 14–16; TEMP 98.6–99.6; O2SAT 96–99
[2016-12-26] MEDS: VANCOMYCIN 2,000 MG in NORMAL SALINE 500 ML IV SCH ×3 (02:00→18:22)
[2016-12-26] MEDS: PIPERACILLIN/TAZOBACTAM 3.375 G in NORMAL SALINE 100 ML IV SCH ×4 (03:00→21:28)
[2016-12-26] MEDS: MENTHOL COUGH DROPS (RICOLA) MM PRN ×3 (05:10→21:27)
[2016-12-26] MEDS: BENZONATATE 100 MG CAPSULE PO PRN (05:10)
[2016-12-26 06:19] LABS: BASOPHILS % (AUTO) 0.3 % (0-2); EOSINOPHILS # (AUTO) 0.1 T/MM3 (0-0.5); EOSINOPHILS % (AUTO) 1.9 % (0-4); HCT - HEMATOCRIT 31.2 % (41-53); HGB - HEMOGLOBIN 9.8 GM/DL (13.5-17.5); IMMATURE GRANULOCYTE # (AUTO) 0.01 T/MM3 (0.00-0.03); IMMATURE GRANULOCYTE % (AUTO) 0.1 % (0.0-0.5); MEAN CORPUSCULAR HGB 24.6 UUG (26-34); MEAN CORPUSCULAR HGB CONC(MCHC 31.4 GM/DL (31-37); MEAN CORPUSCULAR VOLUME 78.2 UM3 (80-100); MEAN PLATELET VOLUME 8.9 UM3 (9.4-12.4); MONOCYTES # (AUTO) 0.6 T/MM3 (0-0.8); NEUTROPHILS % (AUTO) 73.7 % (33-66); RED BLOOD COUNT 3.99 M/MM3 (4.50-5.90); WBC - WHITE BLOOD COUNT 6.8 T/MM3 (4.5-11.0)
[2016-12-26 06:36] LABS: ANION GAP 8 MEQ/L (5-15); BUN/CREATININE RATIO 11 RATIO (6-26); CHLORIDE 106 MEQ/L (98-107); CO2 - CARBON DIOXIDE 23 MEQ/L (22-30); CREATININE 0.8 MG/DL (0.8-1.5); GLOMERULAR FILTRATION RATE 108; GLUCOSE 105 MG/DL (75-110); POTASSIUM 3.5 MEQ/L (3.6-5); SODIUM 137 MEQ/L (134-144)
[2016-12-26] MEDS: NORMAL SALINE 1,000 ML IV SCH (06:55)
--- NOTE | 2016-12-26 08:36 | NUR ---
SHIFT SUMMARY PT IS A/O X 3. ON ROOM AIR, V.S. STABLE. PT IS PARAPLEGIC FROM INJURY 15 YR AGO. PT IS ABLE TO MOVE HIS ARM, HANDS AND HEAD. PT ASKED FOR CHERYL BASSETT AND STEWART CHRISTINA X 2 THROUGH THE NIGHT FOR COUGHING. PT STATES IT IS HELPFUL. IVF INFUSING PER PICC/PURPLE PORT IN HIS LEFT ARM. WOUND VAC IN PLACE TO RIGHT BUTDOCK. WORKING WELL 600 ML OUT OF LIGHT/YELLOW DRAINAGE. CALL LIGHT WITHIN REACH. Addendum: 12/27/16 at 0630 by SAUNDRA LUX RN WOUND VAC IN PLACE TO RIGHT BUTTOCK.
[2016-12-26] MEDS ORDERED: POTASSIUM CHLORIDE 20 MEQ TABLET PO ONE (08:45)
--- NOTE | 2016-12-26 10:56 | DI ---
Indication: ITS.REASON: coughing PROCEDURE: CHEST 1 VIEW: Encounter: Initial Comparison: March 26, 2016 Findings: The lungs are stable in appearance without new focal airspace consolidation. There is no pleural effusion or pneumothorax. Left PICC line in place with the tip projecting over the mid SVC. The heart size, pulmonary vascularity and mediastinal contours are unchanged. Thoracic spine hardware. IMPRESSION: New left PICC line, otherwise stable appearance of the chest without acute cardiopulmonary disease. .
--- NOTE | 2016-12-26 12:11 | NUR ---
VANCOMYCIN CONSULT: 41 y.o. male with stage IV decubitus ulcer and sepsis. Vancomycin 2 gm IV Q12H started 12/25/16 by Kun. 12/26/16 Pharmacy was consulted to manage dosing. goal trough range= 15-20 mcg/ml. Current Renal Fx: SCr = 0.8 mg/dl. est CrCl <120 ml/min Will increase dose to Vancomycin 2,000 mg IV q8hrs. This dose gives an estimated trough of 18 mcg/ml. Pharmacy will continue to monitor and adjust regimen to maintain therapeutic levels. Thank you for the consult, Jennifer Romero [facility]
--- NOTE | 2016-12-26 12:50 | PNPDOC ---
CLARENCE DUTTA [employer]OR[employer] BOOK[employer]KER 12/26/16 1234: Subjective Date DATE: 12/26/16 TIME: 12:31 Subjective Joe is feeling about the same as yesterday. He's had some low grade temperature elevations since yesterday afternoon. He's noticed a cough, which he states goes along with his UTI for reasons he can't explain - he just knows that these 2 always occur together. He denies chest pain or SOA. No abdominal pain or nausea but he states his appetite isn't where it should be. He is planning on using a suppository this afternoon. Objective Vital Signs Vital signs Vital Signs Date Time Temp Pulse Resp B/P Pulse Ox O2 Delivery O2 Flow Rate FiO2 12/26/16 09:56 85 14 12/26/16 07:06 99.0 121/68 97 Room Air Height (Feet): 5 Height (Inches): 9.00 Weight (Kilograms): 98.200 General General Appearance: Alert, Obese, Orientated x 3, Well Nourished, Well Developed, No Acute Distress Eyes (Brief) Eyes: FOUND: PERRL, NOT FOUND: scleral icterus ENMT (Brief) ENMT: FOUND: mucosa moist, NOT FOUND: pharnyx erythema Respiratory (Brief) Respiratory: FOUND: clear all burroughs, equal bilaterally Cardiovascular (Brief) Cardiac: FOUND: regular rate, regular rhythm Abdomen (Brief) Abdominal: FOUND: BS normo active x4, soft, NOT FOUND: distended, tender Extremities (Brief) Extremity : Extremity Finding: NOT FOUND: edema Musculoskeletal (Brief) Musculoskeletal: FOUND: loss of motion (paraplegia at T9 level) Integumentary (Brief) Integumentary: FOUND: dry, pink, warm Comments wound vac to right hip area; +purulent drainage in vac container Psychiatric (Brief) Psychiatric: FOUND: alert, attentive, normal affect, oriented Laboratory Laboratory Laboratory Tests 12/25/16 11:21 12/26/16 05:23 Laboratory Tests 12/26/16 05:23 Microbiology Microbiology Microbiology Date/Time Source Procedure Growth Status 12/25/16 15:17 Urine, Pinto Indwelling Urine Culture - Preliminary CULTURE INITIATED - RESULTS PENDING Resulted Sepsis Diagnostic Criteria Sepsis Confirmed/Suspected Infection: Yes SIRS Criteria: Pulse >= 90 beats/min, WBC >=12,000 or <=4,000 Assessment & Plan Problems: (1) Sepsis Status: Acute Assessment & Plan: Manifestations of sepsis include the following- 1. Right buttock/hip wound-worsening with tunneling 2. Leukocytosis, WBC count 12.9 3. Tachycardia- 121 on admission (2) Pressure ulcer of right buttock Status: Chronic Qualifiers: Pressure ulcer stage: stage 4 Qualified Codes: L89.314 - Pressure ulcer of right buttock, stage 4 Assessment & Plan: Stage IV ischial decub. ulcer with possible osteomyelitis (3) Microcytic anemia Status: Acute (4) Coughing Status: Acute (5) Neurogenic bowel Status: Chronic (6) Neurogenic bladder Status: Chronic (7) Paraplegia at T9 level Status: Chronic (8) Chronic urinary tract infection Status: Chronic (9) Thrombocytosis Status: Chronic Plan/Intensity of Service Dr. Palma is recommending 6 weeks of IV antibiotics for right ischial stage IV decub ulcer with possible osteomyelitis. Currently on Zosyn and Vancomycin, which will be narrowed pending cx results. Dr. Tyson will evaluate wound on Wednesday. Continue wound VAC. Also with UTI - C&S pending. Pinto inserted on admission, but pt has hx of neurogenic bladder requiring straight cath. Sepsis/SIRS: WBC normal - 6.8. Tachycardia resolved. BP occasionally with low- normal readings; 121/68 this am. IVF on hold. Lactate was normal. Mild hypokalemia (3.5) - replaced orally. Iron studies pending for microcytic anemia. Discussed with Dr. Herbert. DVT Prophylaxis: SCD'S Code Status Full Code Hospital Course Summary Disclaimer The hospital course summary below is not to be considered part of the above Progress Note. Hospital Course Summary Place patient to inpatient status under the care of Dr. Herbert for sepsis, right hip/buttocks wound, pressure ulcer We'll continue with consultation with wound center and with Dr. Tyson for ongoing treatment. Did discuss case with Dr. Palma, and she is planning to see patient later today. Will start vancomycin now. Place Pinto catheter given the patient has a history of urine. Neurogenic bladder and requires frequent straight caths Given coughing will obtain chest xray. Also obtain UA on admission IV fluids, 500 ml bolus and then 100ml/hr for ongoing hydration. Will recheck a venous lactate at 1630 per sepsis protocol. Will have infusion team place a PICC line, as patient will likely need long- term antibiotics. SCDs to bilateral lower extremity for DVT prophylaxis. Patient may have regular diet. Will monitor patient on cardiac telemetry given tachycardia. Will recheck CBC and BMP tomorrow morning to follow blood counts, renal function and electrolytes. Will discuss further plan of care with Dr Herbert. At time of discharge medical care will return to primary care provider, Dr. Morales 12/26/16 Dr. Palma is recommending 6 weeks of IV antibiotics for right ischial stage IV decub ulcer with possible osteomyelitis. Currently on Zosyn and Vancomycin, which will be narrowed pending cx results. Dr. Tyson will evaluate wound on Wednesday. Continue wound VAC. Also with UTI - C&S pending. Pinto inserted on admission, but pt has hx of neurogenic bladder requiring straight cath. Sepsis/SIRS: WBC normal - 6.8. Tachycardia resolved. BP occasionally with low- normal readings; 121/68 this am. IVF on hold. Lactate was normal. Mild hypokalemia (3.5) - replaced orally. Iron studies pending for microcytic anemia. CARLOS ALBERTO HERBERT MD 12/26/16 2005: Assessment & Plan Assessment 12/26/2016-I reviewed this chart, the patient history, and the SPORTS BOOKMAKER's/PA's documented findings as above. We discussed and formulated the assessment and plan as above with the additions below.-Dr. Herbert The patient states he feels about the same today as yesterday. He continues to have a nonproductive cough which is common for him when he has a UTI. Will make Tessalon Perles scheduled instead of when necessary. His fluid intake is okay and urine output is good even after discontinuation of IV fluids. He still feels tired out today. He denies any fevers or chills. He denies shortness of breath. Viral respiratory panel was negative. On exam he is alert and in no acute distress. He does have a nonproductive cough. Chest is clear to auscultation. Cardiovascular reveals a regular rate and rhythm. Abdomen is soft and nontender. Extremities reveal no edema. Change Tessalon Perles to scheduled Give Dulcolax suppository tonight Continue antibiotics and await urine culture. CLARENCE DUTTA [employer] Dec 26, 2016 12:34 CARLOS ALBERTO HERBERT MD Dec 26, 2016 20:05
--- NOTE | 2016-12-26 13:35 | NUR ---
SARAHI CM VISITED PT. CM EXPLAINED ROLE AND PROVIDED CONTACT INFORMATION. PT PLANS TO RETURN HOME POST HOSPITAL STAY. PT UNSURE IF NEEDS HOME HEALTH AT THIS TIME. PT IS AWARE OF IV NEEDS POST HOSPITAL STAY. 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 PT DOES HAVE A [employer] HOME WOUND VAC HERE AT [facility]. PT IS AWARE TO CONTACT CM IF NEEDS ARISE.
--- NOTE | 2016-12-26 17:44 | NUR ---
SHIFT SUMMARY PT ALERT AND ORIENTATED X3, PARAPLEGIC. PT HAS WOUND VAC IN RIGHT ISCHIAL WOUND ON BUTTOCKS, PREFERS TO LAY ON LEFT SIDE. PICC IN LEFT UPPER ARM WITH ANTIBIOTICS AND FLUIDS RUNNING. VANCO TROUGH DUE 12/27 AT 0130. PT MOVED TO AIR MATTRESS. DE SOUZA CATHETER PRESENT WITH YELLOW, CLEAR URINE DRAINING. TELE SHOWS SINUS RHYTHM. IV IN LEFT HAND THAT IS LOCKED. PT RECEIVED PRN RICOLA COUGH DROPS PER REQUEST FROM PATIENT. SCDS AND CARSON HOSE IN PLACE. CALL LIGHT WITHIN REACH. Addendum: 12/26/16 at 1801 by CARLOS ALBERTO CORREA RN CARSON HOSE ARE NOT ON AT THIS TIME. SCD'S ARE ON. CONCUR WITH STAFF RADIOLOGIST.
[2016-12-26] MEDS ORDERED: BISACODYL 5 MG E.C. TABLET PO ONE (20:15)
[2016-12-26] MEDS ORDERED: BISACODYL 10 MG SUPPOSITORY RECTALLY PRN (20:15)
[2016-12-26] MEDS: BENZONATATE 100 MG CAPSULE PO SCH (21:26)
[2016-12-27 01:45] LABS: BASOPHILS % (AUTO) 0.4 % (0-2); EOSINOPHILS # (AUTO) 0.1 T/MM3 (0-0.5); EOSINOPHILS % (AUTO) 2.1 % (0-4); HGB - HEMOGLOBIN 10.2 GM/DL (13.5-17.5); IMMATURE GRANULOCYTE # (AUTO) 0.01 T/MM3 (0.00-0.03); IMMATURE GRANULOCYTE % (AUTO) 0.1 % (0.0-0.5); LYMPHOCYTES % (AUTO) 15.4 % (23-45); MEAN CORPUSCULAR HGB 24.9 UUG (26-34); MEAN CORPUSCULAR HGB CONC(MCHC 31.9 GM/DL (31-37); MEAN PLATELET VOLUME 8.9 UM3 (9.4-12.4); MONOCYTES # (AUTO) 0.7 T/MM3 (0-0.8); MONOCYTES % (AUTO) 10.3 % (0-9.0); NEUTROPHILS #(AUTO)-ABSOLUTE 4.8 T/MM3 (1.8-7.7); NEUTROPHILS % (AUTO) 71.7 % (33-66); WBC - WHITE BLOOD COUNT 6.7 T/MM3 (4.5-11.0)
[2016-12-27 01:51] LABS: ANION GAP 9 MEQ/L (5-15); BUN/CREATININE RATIO 7 RATIO (6-26); CHLORIDE 112 MEQ/L (98-107); CO2 - CARBON DIOXIDE 20 MEQ/L (22-30); CREATININE 1.5 MG/DL (0.8-1.5); GLOMERULAR FILTRATION RATE 52; GLUCOSE 107 MG/DL (75-110); POTASSIUM 3.8 MEQ/L (3.6-5); SODIUM 141 MEQ/L (134-144)
[2016-12-27] MEDS: VANCOMYCIN 2,000 MG in NORMAL SALINE 500 ML IV SCH (02:00)
[2016-12-27 06:53] VITALS: BP 128/73; PULSE 76; RESP 16; TEMP 97.6; O2SAT 98
[2016-12-27] MEDS: BENZONATATE 100 MG CAPSULE PO SCH ×3 (06:56→21:12)
[2016-12-27] MEDS: PIPERACILLIN/TAZOBACTAM 3.375 G in NORMAL SALINE 100 ML IV SCH ×4 (06:56→21:13)
[2016-12-27 07:59] LABS: CREATININE 1.5 MG/DL (0.8-1.5)
[2016-12-27 08:00] VITALS: PULSE 76; RESP 16
--- NOTE | 2016-12-27 08:22 | NUR ---
STATUS PT IS A/O X 3. HE IS ABLE TO LET STAFF KNOW HIS NEEDS AND WANTS. PT IS A PARAPLEGIC. PICC IN HIS LEFT ARM FLUSHING WITHOUT DIFFICULT. POSITION WITH 2 ASSIST EVERY 2 HOURS AND PRN. PT REST ON HIS LEFT SIDE MOST OF THE TIME.WOUND VAC. TO RIGHT BUTTOCK, ISCHIAL WOUND. TROUGH WAS HIGH 63.80. NOTIFIED DR LEAL OF THE LEVEL. ASKED IF THE VANCOCIN COULD BE HELD AT 0200. DR LEAL OK TO HOLD THE 0200 DOSE AND HAVE PHARMACY REVIEW THE DOSE.
[2016-12-27 08:49] LABS: VANCOMYCIN,RANDOM 51.44 UG/ML (0-40)
[2016-12-27] MEDS: NORMAL SALINE 1,000 ML IV SCH ×2 (09:07→21:14)
--- NOTE | 2016-12-27 09:16 | NUR ---
VANCOMYCIN CONSULT: day 3 Vancomycin Trough = 63.8 mcg/ml Today's SCr = 1.5 mg/dl Appropriate vancomycin dose was miscalculated. Patient is paraplegic and thus has reduced muscle mass. The normal CrCl calculations are inappropriate for this patient and should not be used for this specific patient. Vancomycin is on hold until trough level drops to an appropriate level. Will check Vancomycin level with 12/28/16 a.m. labs and dose from there. Pharmacy will continue to monitor and make adjustments accordingly. Thank you, Jennifer Romero [facility]
[2016-12-27 11:19] VITALS: PULSE 76; RESP 16
--- NOTE | 2016-12-27 11:25 | PNPDOC ---
HANS HUGO V CARDIOGRAPHER 12/27/16 1114: Subjective Date DATE: 12/27/16 TIME: 11:11 Subjective Joe is seen this morning while resting in bed watching a movie. He is pleasant and alert during examination without any specific complaints. He denies having short of breath. Continues to have wick cath to DD and is having good output. Is using scheduled suppositories to stimulate bowel movements. Large bowel movement reported this morning. BP 128/73. Objective Vital Signs Vital signs Vital Signs Date Time Temp Pulse Resp B/P Pulse Ox O2 Delivery O2 Flow Rate FiO2 12/27/16 08:00 76 16 12/27/16 06:53 97.6 128/73 98 Room Air Height (Feet): 5 Height (Inches): 9.00 Weight (Kilograms): 98.000 General General Appearance: Alert, Orientated x 3, Cooperative, No Acute Distress Eyes (Brief) Eyes: FOUND: EOMI ENMT (Brief) ENMT: FOUND: mucosa moist, normal dentition, NOT FOUND: pharnyx erythema Neck (Brief) Neck: FOUND: midline, NOT FOUND: adenopathy, carotid bruits, tracheal deviation Respiratory (Brief) Respiratory: FOUND: clear all burroughs, equal bilaterally, NOT FOUND: wheezes Cardiovascular (Brief) Cardiac: FOUND: regular rate, regular rhythm, NOT FOUND: murmur, pedal edema Capillary Refill: <2 sec Abdomen (Brief) Abdominal: FOUND: BS normo active x4, soft, NOT FOUND: distended, tender Lymphatic (Brief) Lymphatic: NOT FOUND: adenopathy Musculoskeletal (Brief) Musculoskeletal: NOT FOUND: tenderness Integumentary (Brief) Integumentary: FOUND: dry, pink, warm Neurologic (Brief) Neurological: FOUND: cranial 2-12 intact Comments Paraplegia Psychiatric (Brief) Psychiatric: FOUND: alert, attentive, normal affect, oriented Laboratory Laboratory Laboratory Tests 12/25/16 11:21 12/26/16 05:23 12/27/16 01:26 12/27/16 07:05 Laboratory Tests 12/26/16 05:23 12/27/16 01:26 Microbiology Microbiology Microbiology Date/Time Source Procedure Growth Status 12/25/16 15:17 Urine, Wick Indwelling Urine Culture - Final Escherichia Coli Complete Sepsis Diagnostic Criteria Sepsis Confirmed/Suspected Infection: Yes SIRS Criteria: Pulse >= 90 beats/min, WBC >=12,000 or <=4,000 Assessment & Plan Problems: (1) Sepsis Status: Acute Assessment & Plan: Manifestations of sepsis include the following- 1. Right buttock/hip wound-worsening with tunneling 2. Leukocytosis, WBC count 12.9 3. Tachycardia- 121 on admission (2) Pressure ulcer of right buttock Status: Chronic Qualifiers: Pressure ulcer stage: stage 4 Qualified Codes: L89.314 - Pressure ulcer of right buttock, stage 4 Assessment & Plan: Stage IV ischial decub. ulcer with possible osteomyelitis (3) Microcytic anemia Status: Acute (4) Coughing Status: Acute (5) Neurogenic bowel Status: Chronic (6) Neurogenic bladder Status: Chronic (7) Paraplegia at T9 level Status: Chronic (8) Chronic urinary tract infection Status: Chronic (9) Thrombocytosis Status: Chronic Plan/Intensity of Service 12/27/16 Appreciate ID recommendations by Dr Palma. She recommends 6 weeks of antibiotic therapy for treatment of Right decub ulcer with possible osteomyelitis. Wound culture continues to be pending. Vanco Trough this morning was 63.8. Will hold Vanco at this time and continue with Zosyn. Urine culture does revel evidence of E-Coli which is pansensitive. Manager Operations And Procurement did increase today from 0.8 to 1.5. We will continue to monitor renal function carefully and recheck BMP at 1400.Continue with Scheduled Tessalon Perles for coughing Iron studies pending for microcytic anemia. Will discuss further plan of care with Dr Herbert Code Status Full Code Hospital Course Summary Disclaimer The hospital course summary below is not to be considered part of the above Progress Note. Hospital Course Summary Place patient to inpatient status under the care of Dr. Herbert for sepsis, right hip/buttocks wound, pressure ulcer We'll continue with consultation with wound center and with Dr. Tyson for ongoing treatment. Did discuss case with Dr. Palma, and she is planning to see patient later today. Will start vancomycin now. Place Wick catheter given the patient has a history of urine. Neurogenic bladder and requires frequent straight caths Given coughing will obtain chest xray. Also obtain UA on admission IV fluids, 500 ml bolus and then 100ml/hr for ongoing hydration. Will recheck a venous lactate at 1630 per sepsis protocol. Will have infusion team place a PICC line, as patient will likely need long- term antibiotics. SCDs to bilateral lower extremity for DVT prophylaxis. Patient may have regular diet. Will monitor patient on cardiac telemetry given tachycardia. Will recheck CBC and BMP tomorrow morning to follow blood counts, renal function and electrolytes. Will discuss further plan of care with Dr Herbert. At time of discharge medical care will return to primary care provider, Dr. Morales 12/26/16 Dr. Palma is recommending 6 weeks of IV antibiotics for right ischial stage IV decub ulcer with possible osteomyelitis. Currently on Zosyn and Vancomycin, which will be narrowed pending cx results. Dr. Tyson will evaluate wound on Wednesday. Continue wound VAC. Also with UTI - C&S pending. Wick inserted on admission, but pt has hx of neurogenic bladder requiring straight cath. Sepsis/SIRS: WBC normal - 6.8. Tachycardia resolved. BP occasionally with low- normal readings; 121/68 this am. IVF on hold. Lactate was normal. Mild hypokalemia (3.5) - replaced orally. Iron studies pending for microcytic anemia. 12/27/16 Appreciate ID recommendations by Dr Palma. She recommends 6 weeks of antibiotic therapy for treatment of Right decub ulcer with possible osteomyelitis. Wound culture continues to be pending. Vanco Trough this morning was 63.8. Will hold Vanco at this time and continue with Zosyn. Urine culture does revel evidence of E-Coli which is pansensitive. Manager Operations And Proc[employer]ment did increase today from 0.8 to 1.5. We will continue to monitor renal function carefully and recheck BMP at 1400.Continue with Scheduled Tessalon Perles for coughing Iron studies pending for microcytic anemia. Will discuss further plan of care with Dr Keon HERBERT,CARLOS ALBERTO Varma MD 12/27/16 1913: Assessment & Plan Assessment 12/27/2016-I reviewed this chart, the patient history, and the CARDIOGRAPHER's/PA's documented findings as above. We discussed and formulated the assessment and plan as above with the additions below.-Dr. Herbert Patient states that he feels about the same today. He had some mild nausea earlier but that is gone. He still feels tired. His cough is a little better. He did have a high Vanco trough this morning and creatinine increased from 0.8 yesterday to 1.5 early this morning. Recheck creatinine later this morning was 1.5 and this afternoon was still stable at 1.5, fortunately. Urine output has been great with over 5 L out yesterday and over 3 L out today so far. Will decrease IV fluids to 40 ML's per hour. Possibly discontinue tomorrow if renal function remained stable. He is taking oral intake well. On exam he is alert and oriented and in no acute distress. Chest is clear to auscultation. Cardiovascular reveals a regular rate and rhythm. Abdomen is soft and nontender. Continue with current care plan. Recheck CBC and renal panel tomorrow. Vanco per pharmacy to resume when Vanco trough has normalized. Discussed today with the pharmacist. HANS HUGO APRN Dec 27, 2016 11:14 CARLOS ALBERTO HERBERT MD Dec 27, 2016 19:13
[2016-12-27 14:03] LABS: ANION GAP 9 MEQ/L (5-15); BUN/CREATININE RATIO 7 RATIO (6-26); CALCIUM 8.1 MG/DL (8.4-10.2); CHLORIDE 112 MEQ/L (98-107); CO2 - CARBON DIOXIDE 22 MEQ/L (22-30); CREATININE 1.5 MG/DL (0.8-1.5); GLOMERULAR FILTRATION RATE 52; GLUCOSE 141 MG/DL (75-110); POTASSIUM 3.9 MEQ/L (3.6-5); SODIUM 143 MEQ/L (134-144)
[2016-12-27 15:34] VITALS: BP 124/73; PULSE 84; RESP 16; TEMP 96.8; O2SAT 100
[2016-12-27] MEDS: MENTHOL COUGH DROPS (RICOLA) MM PRN (15:36)
--- NOTE | 2016-12-27 18:07 | NUR ---
SHIFT SUMMARY PT ALERT AND ORIENTATED X3. PICC LINE IN LEFT ARM WITH FLUIDS AND ANTIBIOTICS RUNNING. VANCO HELD FOR THE DAY DUE TO ELEVATED VANCO TROUGH. LAB REPORTED THAT THE BLOOD DRAWN IN THE WOUND CARE CLINIC CAME BACK POSITIVE FOR STREP AND THEY ARE GOING TO CULTURE IT TO MONITOR FOR GROWTH, WILL REPORT FINDINGS. WOUND VAC CANISTER CHANGED AROUND 1400. PATIENT HAS DE SOUZA AND IS DRAINING YELLOW AND CLEAR URINE. PATIENT IS PARAPLEGIC, WAS OFFERED TURNING BUT PREFERRED LEFT SIDE. PATIENT IS ON ROOM AIR AND TELE. CARSON HOSE OFF AND DRYING IN THE BATHROOM, SCDS IN PLACE. ALARMS ON AT ALL TIMES AND CALL LIGHT WITHIN REACH.
--- NOTE | 2016-12-27 19:45 | NUR ---
Report received pt care assumed. Pt is ALERT AND ORIENTED X3, no complaints of pain. Pt is here with a R hip wound with vac. Pt is recieving IV abx to treat the wound infection. Pt has a SHU PICC with fluids continuous. Pt is paraplegic, fall precautions are in place, call light is in reach. Continuing to monitor.
[2016-12-28] VITALS: BP 111/61; PULSE 71; RESP 14; TEMP 97.3; O2SAT 98
[2016-12-28 01:23] LABS: IRON 12 UG/DL (49-181)
[2016-12-28 02:36] LABS: IRON % SAT (TRANSF %SAT)(CALC) 4 % (13-59); TOTAL IRON BINDING CAPACITY 325 UG/DL (261-497)
[2016-12-28] MEDS: PIPERACILLIN/TAZOBACTAM 3.375 G in NORMAL SALINE 100 ML IV SCH ×4 (02:36→21:20)
--- NOTE | 2016-12-28 02:42 | NUR ---
Pt is resting with eyes closed, easily arousable to voice. IV ABX infusing. Pt refused repositioning, and denies pain. Wound vac is patent. Continuing to monitor.
[2016-12-28] MEDS: BENZONATATE 100 MG CAPSULE PO SCH ×4 (05:33→21:15)
[2016-12-28 05:57] LABS: HCT - HEMATOCRIT 31.4 % (41-53); HGB - HEMOGLOBIN 9.8 GM/DL (13.5-17.5); MEAN CORPUSCULAR HGB 24.7 UUG (26-34); MEAN CORPUSCULAR HGB CONC(MCHC 31.2 GM/DL (31-37); MEAN CORPUSCULAR VOLUME 79.1 UM3 (80-100); MEAN PLATELET VOLUME 8.8 UM3 (9.4-12.4); RED BLOOD COUNT 3.97 M/MM3 (4.50-5.90); WBC - WHITE BLOOD COUNT 5.9 T/MM3 (4.5-11.0)
[2016-12-28 06:05] LABS: ALBUMIN 2.5 G/DL (3.5-5.0); ANION GAP 8 MEQ/L (5-15); BUN/CREATININE RATIO 7 RATIO (6-26); CALCIUM 8.2 MG/DL (8.4-10.2); CHLORIDE 114 MEQ/L (98-107); CO2 - CARBON DIOXIDE 22 MEQ/L (22-30); CREATININE 1.7 MG/DL (0.8-1.5); GLOMERULAR FILTRATION RATE 45; GLUCOSE 92 MG/DL (75-110); PHOSPHORUS 4.8 MG/DL (2.5-4.5); POTASSIUM 4.1 MEQ/L (3.6-5); SODIUM 144 MEQ/L (134-144)
[2016-12-28 06:30] LABS: BAND NEUTROPHILS # 0.1 T/MM3; EOSINOPHILS # (MANUAL) 0.4 T/MM3 (0-0.5); LYMPHOCYTES # (MANUAL) 1.3 T/MM3 (1-4.8); MONOCYTES # (MANUAL) 0.6 T/MM3 (0-0.8); NEUTROPHILS #(MANUAL)-ABSOLUTE 3.5 T/MM3 (1.8-7.7); TOTAL CELLS COUNTED 100 %
--- NOTE | 2016-12-28 07:12 | PNF ---
DATE OF VISIT 12/26/2016 REASON FOR VISIT Covering surgical care for Dr. Tyson. KAREL Diaz is a 41-year-old male who is a wound patient of Dr. Tyson. He recently had a myocutaneous flap involving his right buttock and posterior thigh region. He had been seen in the wound center yesterday and due to concerns for sepsis he was admitted to the hospital under the hospitalist service. Dr. Tyson had recommended a VeraFlo wound VAC be applied. He had last done a debridement on 12/22/2016. Joe says he is doing well. He had no complaints on evaluation this afternoon. OBJECTIVE VITAL SIGNS: Temperature 99.0. Pulse 85. Blood pressure 121/68. Respiratory rate 14. Oxygen saturation 97%. GENERAL: The patient is awake and alert. He is in no acute distress. SKIN: His wound VAC has a good seal with no evidence of leak. ASSESSMENT 1. Paraplegia. 2. Progressive necrosis of myocutaneous flap involving the right buttock/right posterior thigh region. 3. Sepsis. PLAN 1. Continue with wound VAC until Wednesday. I will reevaluate the patient on Wednesday in coordination with the wound team and see if he is in need of further debridement or simply ongoing wound VAC therapy. 2. Dr. Tysno will be absent next week. FLAQUITOD
--- NOTE | 2016-12-28 07:15 | NUR ---
Report given to oncoming RN, Care surrendered.
[2016-12-28 07:57] VITALS: BP 125/67; PULSE 67; RESP 18; TEMP 96.8; O2SAT 98
[2016-12-28 08:03] VITALS: PULSE 67; RESP 18
--- NOTE | 2016-12-28 09:31 | NUR ---
SARAHI RAMIREZ IS 8 Addendum: 12/28/16 at 0932 by TRINITY BAUTISTA Amended: Links added.
[2016-12-28] MEDS: VITAMIN B COMP + C TABLET PO SCH (10:07)
[2016-12-28] MEDS: FERROUS SULFATE 324 MG TABLET PO SCH (10:07)
--- NOTE | 2016-12-28 10:44 | NUR ---
High Risk Screen R/T to Pressure wound Diet: Regular, Intake: 50%-100% Patient stated that he just hasn't had much of an appetite during his stay in the hospital. Patient was agreeable to adding chocolate mighty shakes to his snack order at 10AM,2,and 8PM. M/E- Intake will continue to monitor. OLIVIA available at 1406 Addendum: 12/28/16 at [address] Student charting has been reviewed by OLIVIA.
--- NOTE | 2016-12-28 13:32 | PNPDOC ---
CLARENCE DUTTA ENGINE GENERATOR ASSEMBLER 12/28/16 1255: Subjective Date DATE: 12/28/16 TIME: 12:49 Subjective Joe feels about the same. He still has a mild cough and a poor appetite. He denies feeling short of breath or having chest discomfort. No abdominal pain or nausea (he did have nausea briefly yesterday but none since then - resolved after he had a bowel movement). He is waiting on a specialty bed that he describes as "like sand" - he's had it before and it has been helpful in protecting his skin and pressure points. We reviewed labs, including elevated creatinine level. He has been drinking plenty of water and has had excellent UO. Objective Vital Signs Vital signs Vital Signs Date Time Temp Pulse Resp B/P Pulse Ox O2 Delivery O2 Flow Rate FiO2 12/28/16 08:03 67 18 12/28/16 07:57 96.8 125/67 98 Room Air Height (Feet): 5 Height (Inches): 9.00 Weight (Kilograms): 104.300 General General Appearance: Alert, Obese, Orientated x 3, Well Nourished, Well Developed, No Acute Distress Eyes (Brief) Eyes: FOUND: PERRL, NOT FOUND: scleral icterus ENMT (Brief) ENMT: FOUND: mucosa moist, NOT FOUND: pharnyx erythema Respiratory (Brief) Respiratory: FOUND: clear all burroughs, equal bilaterally Comments decreased Cardiovascular (Brief) Cardiac: FOUND: regular rate, regular rhythm Abdomen (Brief) Abdominal: FOUND: BS normo active x4, soft, NOT FOUND: distended, tender Extremities (Brief) Extremity : Side: Bilateral Extremity: foot Extremity Finding: FOUND: edema Musculoskeletal (Brief) Musculoskeletal: FOUND: loss of motion (paraplegia) Comments wound vac in place Integumentary (Brief) Integumentary: FOUND: dry, pink, warm Psychiatric (Brief) Psychiatric: FOUND: alert, attentive, normal affect, oriented Laboratory Laboratory Laboratory Tests 12/27/16 01:26 12/27/16 07:05 12/27/16 13:36 12/28/16 05:20 Laboratory Tests 12/27/16 01:26 12/28/16 05:20 Microbiology Microbiology Microbiology Date/Time Source Procedure Growth Status 12/25/16 15:17 Urine, Pinto Indwelling Urine Culture - Final Escherichia Coli Complete Sepsis Diagnostic Criteria Sepsis Confirmed/Suspected Infection: Yes SIRS Criteria: Pulse >= 90 beats/min, WBC >=12,000 or <=4,000 Assessment & Plan Problems: (1) MANDY (acute kidney injury) Status: Acute (2) E. coli UTI Status: Acute (3) Pressure ulcer of right buttock Status: Chronic Qualifiers: Pressure ulcer stage: stage 4 Qualified Codes: L89.314 - Pressure ulcer of right buttock, stage 4 Assessment & Plan: Stage IV ischial decub. ulcer with possible osteomyelitis (4) Microcytic anemia Status: Acute Assessment & Plan: iron deficient anemia (5) Sepsis Status: Resolved Assessment & Plan: Manifestations of sepsis include the following- 1. Right buttock/hip wound-worsening with tunneling 2. Leukocytosis, WBC count 12.9 3. Tachycardia- 121 on admission (6) Coughing Status: Acute (7) Neurogenic bowel Status: Chronic (8) Neurogenic bladder Status: Chronic (9) Paraplegia at T9 level Status: Chronic (10) Chronic urinary tract infection Status: Chronic (11) Thrombocytosis Status: Chronic Plan/Intensity of Service MANDY - Dr. Herbert has already discussed this with Dr. Carpenter (neph). Vanc is being held until trough is <15. Urine eosinophils have been ordered to see if Zosyn might be the cause. He has had very good UO. Continues on NS at 40 ml/hr. Right ischial decub. ulcer with poss. osteomyelitis - Dr. Palma following; cont. Zosyn. E. coli UTI - pansensitive Microcytic anemia - iron and % sat were both low - iron was started today. Wound care per Dr. Buck. CM exploring discharge options. DVT Prophylaxis: SCD'S Code Status Full Code Hospital Course Summary Disclaimer The hospital course summary below is not to be considered part of the above Progress Note. Hospital Course Summary Place patient to inpatient status under the care of Dr. Herbert for sepsis, right hip/buttocks wound, pressure ulcer We'll continue with consultation with wound center and with Dr. Tyson for ongoing treatment. Did discuss case with Dr. Palma, and she is planning to see patient later today. Will start vancomycin now. Place Pinto catheter given the patient has a history of urine. Neurogenic bladder and requires frequent straight caths Given coughing will obtain chest xray. Also obtain UA on admission IV fluids, 500 ml bolus and then 100ml/hr for ongoing hydration. Will recheck a venous lactate at 1630 per sepsis protocol. Will have infusion team place a PICC line, as patient will likely need long- term antibiotics. SCDs to bilateral lower extremity for DVT prophylaxis. Patient may have regular diet. Will monitor patient on cardiac telemetry given tachycardia. Will recheck CBC and BMP tomorrow morning to follow blood counts, renal function and electrolytes. Will discuss further plan of care with Dr Herbert. At time of discharge medical care will return to primary care provider, Dr. Morales 12/26/16 Dr. Palma is recommending 6 weeks of IV antibiotics for right ischial stage IV decub ulcer with possible osteomyelitis. Currently on Zosyn and Vancomycin, which will be narrowed pending cx results. Dr. Tyson will evaluate wound on Wednesday. Continue wound VAC. Also with UTI - C&S pending. Pinto inserted on admission, but pt has hx of neurogenic bladder requiring straight cath. Sepsis/SIRS: WBC normal - 6.8. Tachycardia resolved. BP occasionally with low- normal readings; 121/68 this am. IVF on hold. Lactate was normal. Mild hypokalemia (3.5) - replaced orally. Iron studies pending for microcytic anemia. 12/27/16 Appreciate ID recommendations by Dr Palma. She recommends 6 weeks of antibiotic therapy for treatment of Right decub ulcer with possible osteomyelitis. Wound culture continues to be pending. Vanco Trough this morning was 63.8. Will hold Vanco at this time and continue with Zosyn. Urine culture does revel evidence of E-Coli which is pansensitive. Polishing Pad Mounter did increase today from 0.8 to 1.5. We will continue to monitor renal function carefully and recheck BMP at 1400.Continue with Scheduled Tessalon Perles for coughing Iron studies pending for microcytic anemia. Will discuss further plan of care with Dr Herbert 12/28/16 MANDY - Dr. Herbert has already discussed this with Dr. Carpenter (neph). Vanc is being held until trough is <15. Urine eosinophils have been ordered to see if Zosyn might be the cause. He has had very good UO. Continues on NS at 40 ml/hr. Right ischial decub. ulcer with poss. osteomyelitis - Dr. Palma following; cont. Zosyn. E. coli UTI - pansensitive Microcytic anemia - iron and % sat were both low - iron was started today. Wound care per Dr. Buck. CM exploring discharge options. CARLOS ALBERTO HERBERT MD 12/28/16 2241: Assessment & Plan Assessment 12/28/2016-I reviewed this chart, the patient history, and the ENGINE GENERATOR ASSEMBLER's/PA's documented findings as above. We discussed and formulated the assessment and plan as above with the additions below.-Dr. Herbert The patient states that he's feeling about the same. He is eating and drinking okay but appetite is not back to normal. He denies any pain. His cough is better. He denies any nausea or vomiting. He has had good urine output. On exam he is alert and oriented and in no acute distress. Chest is clear to auscultation. Cardiovascular reveals a regular rate and rhythm. Abdomen is soft and nontender with positive bowel sounds. Creatinine did increase from 1.5 yesterday to 1.7 today. Urine output has been almost 5 L a day. I did talk with Dr. Bee Ricks as noted above. Urine eosinophils were 0. If creatinine is not trending down, would recommend calling Dr. Ricks for further recommendations. Her help has been greatly appreciated. CLARENCE DUTTA APRN Dec 28, 2016 12:55 CARLOS ALBERTO HERBERT MD Dec 28, 2016 22:41
[2016-12-28] MEDS: MENTHOL COUGH DROPS (RICOLA) MM PRN (15:37)
[2016-12-28 15:39] VITALS: BP 130/72; PULSE 88; RESP 18; TEMP 98.1; O2SAT 100
--- NOTE | 2016-12-28 16:20 | PNF ---
DATE OF VISIT 12/28/2016 REASON FOR VISIT Follow pressure ulcer of the right ischium. SUBJECTIVE Joe is doing well. He has no complaints today other than being hungry since he is having his wound VAC changed at the time of lunch. SUBJECTIVE VITAL SIGNS: Temperature sure 96.8, pulse 67, blood pressure 125/67, respiratory rate 18, oxygen saturation 98% on room air. GENERAL: The patient is awake and alert. He is in no acute distress. SKIN: His wound VAC had been removed by the wound team. He has excellent granulation tissue throughout the visible portion of the wound. There is a tunnel that extends 7 cm superiorly from the open portion of the wound in the wound depth. This tracks along the ischial tuberosity. No significant necrotic tissue was noted in the visible portions of the wound. ASSESSMENT Stage IV pressure ulcer of the right ischium with prior necrosis of the myocutaneous flap that had been used for closure. He now has a resultant wound which remains a stage IV wound. PLAN 1. Continue wound VAC with instillation of fluid. This seems to be doing well for the wound cavity. 2. I will recheck his wound at the next VAC change if I am able to be available. This may be difficult as Wednesday is my surgery day. 3. Continue other care. LOREE
--- NOTE | 2016-12-28 18:00 | NUR ---
SHIFT SUMMARY VSS. RA. DENIES PAIN. DENIES NAUSEA. MEAGER INTAKE TODAY, PATIENT SAYS HE "JUST DOESN'T HAVE MUCH OF AN APPETITE." DE SOUZA CATHETER HAS EXCELLED OUTPUT. ONE BM TODAY. WOUND VAC REMAINS IN PLACE. NS INFUSING AT 40ML/HR. ASSISTING PATIENT IN TURNING AND REPOSITIONING. BED ALARM IN USE. USES CALL LIGHT APPROPRIATELY.
[2016-12-28] MEDS: POLYETHYL.GLYCOL 3350 PACKET 17gm PO SCH (18:17)
[2016-12-28] MEDS ORDERED: ONDANSETRON 4mg/2ml INJECTION IV PRN (18:30)
--- NOTE | 2016-12-28 19:19 | NUR ---
SPECIALTY BED ARRIVED
--- NOTE | 2016-12-28 20:00 | NUR ---
bed transferred to rotating bed, pt. instructed on purpose and use. Denies pain
[2016-12-28] MEDS: NORMAL SALINE 1,000 ML IV SCH (21:20)
[2016-12-29 00:01] VITALS: BP 114/65; PULSE 84; RESP 18; TEMP 98.2; O2SAT 97
[2016-12-29] MEDS: PIPERACILLIN/TAZOBACTAM 3.375 G in NORMAL SALINE 100 ML IV SCH ×4 (03:46→20:54)
[2016-12-29 04:52] LABS: BASOPHILS % (AUTO) 0.5 % (0-2); EOSINOPHILS # (AUTO) 0.2 T/MM3 (0-0.5); EOSINOPHILS % (AUTO) 2.9 % (0-4); HCT - HEMATOCRIT 31.2 % (41-53); IMMATURE GRANULOCYTE # (AUTO) 0.01 T/MM3 (0.00-0.03); IMMATURE GRANULOCYTE % (AUTO) 0.2 % (0.0-0.5); LYMPHOCYTES # (AUTO) 1.3 T/MM3 (1-4.8); LYMPHOCYTES % (AUTO) 19.9 % (23-45); MEAN CORPUSCULAR HGB 25.4 UUG (26-34); MEAN CORPUSCULAR HGB CONC(MCHC 32.1 GM/DL (31-37); MEAN CORPUSCULAR VOLUME 79.2 UM3 (80-100); MEAN PLATELET VOLUME 8.5 UM3 (9.4-12.4); MONOCYTES # (AUTO) 0.8 T/MM3 (0-0.8); MONOCYTES % (AUTO) 12.5 % (0-9.0); NEUTROPHILS #(AUTO)-ABSOLUTE 4.2 T/MM3 (1.8-7.7); RED BLOOD COUNT 3.94 M/MM3 (4.50-5.90); WBC - WHITE BLOOD COUNT 6.6 T/MM3 (4.5-11.0)
--- NOTE | 2016-12-29 04:57 | NUR ---
rest sleeps for long intervals, resp. easy. Rotating bed from side to side, wound vac in place with NS flush. Pt. arouses easily, denies pain
[2016-12-29 05:12] LABS: ANION GAP 12 MEQ/L (5-15); BUN/CREATININE RATIO 8 RATIO (6-26); CALCIUM 7.9 MG/DL (8.4-10.2); CHLORIDE 112 MEQ/L (98-107); CO2 - CARBON DIOXIDE 23 MEQ/L (22-30); CREATININE 1.7 MG/DL (0.8-1.5); GLOMERULAR FILTRATION RATE 45; GLUCOSE 84 MG/DL (75-110); POTASSIUM 4.4 MEQ/L (3.6-5); SODIUM 147 MEQ/L (134-144)
[2016-12-29 05:19] LABS: VANCOMYCIN,RANDOM 20.57 UG/ML (0-40)
[2016-12-29] MEDS: BENZONATATE 100 MG CAPSULE PO SCH ×3 (05:55→20:54)
[2016-12-29 07:39] VITALS: BP 115/73; PULSE 65; RESP 20; TEMP 98.4; O2SAT 98
[2016-12-29 08:00] VITALS: PULSE 65; RESP 20
--- NOTE | 2016-12-29 08:46 | NUR ---
VANCOMYCIN CONSULT (DAY ) S: 41 y/o M with paraplegia and hx of osteomyelitis from right ischial decubitus ulcer last summer. Has followed [facility]; admitted now after the wound has continued to progress. Started on vancomycin and pip/tazo empirically for right decubitus ulcer with possible osteomyelitis. Pharmacy consulted to manage vancomycin therapy. O: Ht=69, Eg=362.1 kg SCr=1.7 mg/dL WBC=5.9 T/mm3 Urine eosinophils=0 Urine culture: E. coli, mayfield-suceptible Vancomycin random concentration~20.6 mcg/mL A/P: Day 5 pip/tazo and vancomycin empirically for right decubitus ulcer with possible osteomyelitis. Planned 6 weeks of therapy. Creatinine clearance difficult to assess due to paraplegia. Pt developed an acute renal injury within 36 hours of starting vancomycin and pip/tazo. Random vancomycin concentration this morning was ~21 mcg/mL. Will not restart vancomycin until random concentration is < 15 mcg/mL. Nephrology also recommended waiting to administer vancomycin until serum creatinine is improving. Likely random concentration tomorrow will be < 15 mcg/mL; if serum creatinine is steady or trending up will check with hospitalist team before ordering any vancomycin. Linda Coe, PharmD, BCPS
[2016-12-29] MEDS: POLYETHYL.GLYCOL 3350 PACKET 17gm PO SCH (08:59)
[2016-12-29] MEDS: FERROUS SULFATE 324 MG TABLET PO SCH (08:59)
[2016-12-29] MEDS: VITAMIN B COMP + C TABLET PO SCH (09:00)
[2016-12-29] MEDS ORDERED: MILK OF MAGNESIA 30 ML SUSP PO PRN (09:45)
[2016-12-29 10:05] VITALS: PULSE 65; RESP 20
[2016-12-29] MEDS: 1/2 NS 1,000 ML IV SCH (10:26)
--- NOTE | 2016-12-29 11:12 | PDWOUND ---
Wound Documentation Wound Management Wound : Location Modifier: Right, Upper Wound Location: Thigh Wound Type: Pressure Ulcer Wound Dressing Frequency: two times per week Wound Duration: > one month Wound Dressing Status: FOUND: Changed Wound Drainage Amount: Copious Wound Drainage Description: Serosanguineous Wound Drainage Odor: Mild Odor Wound General Appearance: FOUND Draining, FOUND Muscle Visible, FOUND Reddened, FOUND Unapproximated Wound Bed: gran red, slough Periwound Description: Indurated, Tunnelling, Undermined Wound Length (cm): 8.6 Wound Width (cm): 6 Wound Depth (cm): 8 Exposed: muscle, bone Wound Cleanser: NS Wound Solution/Irrigant: Saline Irrigant Wound Packing Type: FOUND: Black Foam Wound Primary Dressing Type: Clear Adhesive Cover Wound Tunneling : Sinus/Tunnels (cm): 7 Tunneling Location (o'clock): 12 Wound Undermining : Wound Undermining (cm): 3 Undermining Location (o'clock): 12-4 Comments Late entry for 12/28/16 Dr Garcia in to see pt assess wound, orders to continue Veraflow instillation with NS. Pt offloaded with special bed. Asking for orders from Dr Beach to use a Low Loss Air Mattress that turns pt. New Veraflow Cleans drsg applied and good suction obtained. Will instill NS 150cc q 3 hrs and dwell time will be 20 minutes. Will change on 12/30/16. TATUM RIZO RN Dec 29, 2016 11:12
--- NOTE | 2016-12-29 11:12 | PNPDOC ---
CLARENCE DUTTA INSULATOR HELPER 12/29/16 1107: Subjective Date DATE: 12/29/16 TIME: 11:01 Subjective Joe was resting in his specialty bed, that repositions him every 30 minutes. He feels about the same as yesterday - still waiting on appetite to return. Cough is a little better. He denies feeling short of breath. We discussed renal functions and excellent UO - pt reports that at home he usually drinks about as much pepsi as he's been drinking water here. He had caffeine withdrawal headaches a few days ago but they've resolved. Last bowel movement 3 was yesterday. Objective Vital Signs Vital signs Vital Signs Date Time Temp Pulse Resp B/P Pulse Ox O2 Delivery O2 Flow Rate FiO2 12/29/16 10:05 65 20 12/29/16 07:39 98.4 115/73 98 Room Air Height (Feet): 5 Height (Inches): 9.00 Weight (Kilograms): 108.100 General General Appearance: Alert, Obese, Orientated x 3, Well Nourished, Well Developed, No Acute Distress Eyes (Brief) Eyes: FOUND: PERRL, NOT FOUND: scleral icterus ENMT (Brief) ENMT: FOUND: mucosa moist, NOT FOUND: pharnyx erythema Respiratory (Brief) Respiratory: FOUND: clear all burroughs, equal bilaterally Comments decreased anteriorly Cardiovascular (Brief) Cardiac: FOUND: regular rate, regular rhythm Abdomen (Brief) Abdominal: FOUND: BS normo active x4, soft, NOT FOUND: distended, tender Extremities (Brief) Extremity : Side: Bilateral Extremity: leg Extremity Finding: FOUND: edema Comments wound vac Musculoskeletal (Brief) Musculoskeletal: FOUND: loss of motion (T9 level paraplegia) Integumentary (Brief) Integumentary: FOUND: dry, pink, warm Psychiatric (Brief) Psychiatric: FOUND: alert, attentive, normal affect, oriented Laboratory Laboratory Laboratory Tests 12/27/16 13:36 12/28/16 05:20 12/29/16 04:31 Laboratory Tests 12/28/16 05:20 12/29/16 04:31 Sepsis Diagnostic Criteria Sepsis Confirmed/Suspected Infection: Yes SIRS Criteria: Pulse >= 90 beats/min, WBC >=12,000 or <=4,000 Assessment & Plan Problems: (1) MANDY (acute kidney injury) Status: Acute (2) E. coli UTI Status: Acute (3) Pressure ulcer of right buttock Status: Chronic Qualifiers: Pressure ulcer stage: stage 4 Qualified Codes: L89.314 - Pressure ulcer of right buttock, stage 4 Assessment & Plan: Stage IV ischial decub. ulcer with possible osteomyelitis (4) Microcytic anemia Status: Acute Assessment & Plan: iron deficient anemia (5) Sepsis Status: Resolved Assessment & Plan: Manifestations of sepsis include the following- 1. Right buttock/hip wound-worsening with tunneling 2. Leukocytosis, WBC count 12.9 3. Tachycardia- 121 on admission (6) Coughing Status: Acute (7) Neurogenic bowel Status: Chronic (8) Neurogenic bladder Status: Chronic (9) Paraplegia at T9 level Status: Chronic (10) Chronic urinary tract infection Status: Chronic (11) Thrombocytosis Status: Chronic Plan/Intensity of Service MANDY - Cr same as yesterday, 1.7. Vanco trough trending down. He's had good oral intake and excellent urine output. Urine eos were neg. He is on 1/2 NS at 75 ml/ hr. Right ischial decub. ulcer with poss. osteomyelitis - Dr. Palma following; cont. Zosyn. Restart vanco when trough <15. E. coli UTI - pansensitive Wound care per wound team/Dr. Buck. CM exploring discharge options; pending renal improvement and ID recommendations. DVT Prophylaxis: SCD'S Code Status Full Code Hospital Course Summary Disclaimer The hospital course summary below is not to be considered part of the above Progress Note. Hospital Course Summary Place patient to inpatient status under the care of Dr. Herbert for sepsis, right hip/buttocks wound, pressure ulcer We'll continue with consultation with wound center and with Dr. Tyson for ongoing treatment. Did discuss case with Dr. Palma, and she is planning to see patient later today. Will start vancomycin now. Place Pinto catheter given the patient has a history of urine. Neurogenic bladder and requires frequent straight caths Given coughing will obtain chest xray. Also obtain UA on admission IV fluids, 500 ml bolus and then 100ml/hr for ongoing hydration. Will recheck a venous lactate at 1630 per sepsis protocol. Will have infusion team place a PICC line, as patient will likely need long- term antibiotics. SCDs to bilateral lower extremity for DVT prophylaxis. Patient may have regular diet. Will monitor patient on cardiac telemetry given tachycardia. Will recheck CBC and BMP tomorrow morning to follow blood counts, renal function and electrolytes. Will discuss further plan of care with Dr Herbert. At time of discharge medical care will return to primary care provider, Dr. Morlaes 12/26/16 Dr. Palma is recommending 6 weeks of IV antibiotics for right ischial stage IV decub ulcer with possible osteomyelitis. Currently on Zosyn and Vancomycin, which will be narrowed pending cx results. Dr. Tyson will evaluate wound on Wednesday. Continue wound VAC. Also with UTI - C&S pending. Pinto inserted on admission, but pt has hx of neurogenic bladder requiring straight cath. Sepsis/SIRS: WBC normal - 6.8. Tachycardia resolved. BP occasionally with low- normal readings; 121/68 this am. IVF on hold. Lactate was normal. Mild hypokalemia (3.5) - replaced orally. Iron studies pending for microcytic anemia. 12/27/16 Appreciate ID recommendations by Dr Palma. She recommends 6 weeks of antibiotic therapy for treatment of Right decub ulcer with possible osteomyelitis. Wound culture continues to be pending. Vanco Trough this morning was 63.8. Will hold Vanco at this time and continue with Zosyn. Urine culture does revel evidence of E-Coli which is pansensitive. Comparative Sociology Professor did increase today from 0.8 to 1.5. We will continue to monitor renal function carefully and recheck BMP at 1400.Continue with Scheduled Tessalon Perles for coughing Iron studies pending for microcytic anemia. Will discuss further plan of care with Dr Herbert 12/28/16 MANDY - Dr. Herbert has already discussed this with Dr. Carpenter (neph). Vanc is being held until trough is <15. Urine eosinophils have been ordered to see if Zosyn might be the cause. He has had very good UO. Continues on NS at 40 ml/hr. Right ischial decub. ulcer with poss. osteomyelitis - Dr. Plama following; cont. Zosyn. E. coli UTI - pansensitive Microcytic anemia - iron and % sat were both low - iron was started today. Wound care per Dr. Buck. CM exploring discharge options. 12/28/2016-I reviewed this chart, the patient history, and the INSULATOR HELPER's/PA's documented findings as above. We discussed and formulated the assessment and plan as above with the additions below.-Dr. Herbert The patient states that he's feeling about the same. He is eating and drinking okay but appetite is not back to normal. He denies any pain. His cough is better. He denies any nausea or vomiting. He has had good urine output. On exam he is alert and oriented and in no acute distress. Chest is clear to auscultation. Cardiovascular reveals a regular rate and rhythm. Abdomen is soft and nontender with positive bowel sounds. Creatinine did increase from 1.5 yesterday to 1.7 today. Urine output has been almost 5 L a day. I did talk with Dr. Bee Ricks as noted above. Urine eosinophils were 0. If creatinine is not trending down, would recommend calling Dr. Ricks for further recommendations. Her help has been greatly appreciated. 12/29/16 MANDY - Cr same as yesterday, 1.7. Vanco trough trending down. He's had good oral intake and excellent urine output. Urine eos were neg. He is on 1/2 NS at 75 ml/ hr. Right ischial decub. ulcer with poss. osteomyelitis - Dr. Palma following; cont. Zosyn. Restart vanco when trough <15. E. coli UTI - pansensitive Wound care per wound team/Dr. Buck. CM exploring discharge options; pending renal improvement and ID recommendations. LENY SO MD 12/29/16 5887: Assessment & Plan Plan/Intensity of Service Have independently interviewed and examined pt. Chart reviewed. Case discussed with CM and my INSULATOR HELPER. Care plan developed with my supervision; agree with above. Doing okay. Notes cough, non-productive but bothersome. Not with SOA or congestion. Appetite decreased; nothing sounds good. Taking liquids in well. Stools slow (not uncommon for him). NO f/c. Lungs: decreased, no distress CV: regular AB: soft nt BS decreased MSE: awake alert appropriate Plan: Continue with Zosyn - Vanco troths trending down. Continue with IVF for support of MANDY. Recheck lab in am. Continue wound care. CLARENCE DUTTA APRN Dec 29, 2016 11:07 LENY SO MD Dec 29, 2016 17:27
--- NOTE | 2016-12-29 11:35 | NUR ---
CM SPOKE WITH PT, INTRODUCED SELF, EXPLAINED ROLE. PT'S DC PLAN IS STILL TO RETURN HOME TO AND 14 YEAR OLD DAUGHTER. HE SAID HE HAS DONE HOME INFUSIONS FOR IV ANTIBIOTICS IN THE PAST AND COULD DO THIS AGAIN IF NEEDED. EXPLAINED DC OPTIONS ARE PENDING, BASED IN IV ANTIBIOTIC SCHEDULE. HE SAID HE CAN RESUME DRIVING HIMSELF PLACES ONCE HE GETS HIS WHEELCHAIR FIXED (HE NEEDS THIS FOR IN/OUT OF THE CAR). HE SAID HE HAS ALL OF THE DME THAT HE NEEDS.
--- NOTE | 2016-12-29 11:53 | NUR ---
Malnutrition Screen F/U Diet: Regular Patient was recorded having consumed 75% of breakfast, however patient states he doesn't recall breakfast. Patient states he had one chocolate mighty shake yesterday and liked it. Patient agreed to continue chocolate mighty shakes as his snack order at 10AM, 2PM,8PM. RD available at 1406 Addendum: 12/29/16 at 1655 [address] Student charting reviewed by Activity Therapy Specialist.
[2016-12-29 15:28] VITALS: BP 131/74; PULSE 85; RESP 18; TEMP 97.1; O2SAT 100
--- NOTE | 2016-12-29 17:14 | NUR ---
SHIFT PT HAS BEEN PLEASANT AND COOPERATIVE ALL SHIFT. PT IS A&OX3, TURNED BY BED [id number]. PT DENIES PAIN, N/V AND SOA AT THIS TIME. PT IS ON ROOM AIR. PT EATS 100% OF MEALS. WOUND VAC IN PLACE AND DRAINING SEROUS FLUID. NO OTHER CHANGES SINCE PREVIOUS SHIFT. ALARMS IN USE AND CALL LIGHT WITH IN REACH.
--- NOTE | 2016-12-29 22:00 | NUR ---
comfort visits pleasantly w/ family this sree. Denies pain or dyspnea. Good appetite this sree
[2016-12-30 00:01] VITALS: BP 126/72; PULSE 70; RESP 16; TEMP 96.2; O2SAT 98
[2016-12-30] MEDS: 1/2 NS 1,000 ML IV SCH ×2 (01:44→14:29)
[2016-12-30] MEDS: PIPERACILLIN/TAZOBACTAM 3.375 G in NORMAL SALINE 100 ML IV SCH (02:55)
--- NOTE | 2016-12-30 04:37 | NUR ---
rest sleeps for long intervals, bed continues to rotate pt. Denies pain or dyspnea
[2016-12-30 05:15] LABS: BASOPHILS % (AUTO) 0.6 % (0-2); EOSINOPHILS # (AUTO) 0.2 T/MM3 (0-0.5); EOSINOPHILS % (AUTO) 3.3 % (0-4); HCT - HEMATOCRIT 31.7 % (41-53); HGB - HEMOGLOBIN 9.9 GM/DL (13.5-17.5); IMMATURE GRANULOCYTE # (AUTO) 0.04 T/MM3 (0.00-0.03); IMMATURE GRANULOCYTE % (AUTO) 0.6 % (0.0-0.5); LYMPHOCYTES # (AUTO) 1.5 T/MM3 (1-4.8); MEAN CORPUSCULAR HGB 24.7 UUG (26-34); MEAN CORPUSCULAR HGB CONC(MCHC 31.2 GM/DL (31-37); MEAN CORPUSCULAR VOLUME 79.1 UM3 (80-100); MEAN PLATELET VOLUME 8.8 UM3 (9.4-12.4); MONOCYTES # (AUTO) 0.8 T/MM3 (0-0.8); MONOCYTES % (AUTO) 11.9 % (0-9.0); NEUTROPHILS #(AUTO)-ABSOLUTE 4.4 T/MM3 (1.8-7.7); NEUTROPHILS % (AUTO) 62.6 % (33-66); RED BLOOD COUNT 4.01 M/MM3 (4.50-5.90)
[2016-12-30 05:34] LABS: ALBUMIN 2.6 G/DL (3.5-5.0); ALBUMIN/GLOBULIN RATIO 0.7 RATIO (1.1-2.2); ALKALINE PHOSPHATASE 43 U/L (38-126); ALT (SGPT) 26 U/L (21-72); ANION GAP 9 MEQ/L (5-15); AST (SGOT) 19 U/L (17-59); BUN/CREATININE RATIO 8 RATIO (6-26); CALCIUM 7.9 MG/DL (8.4-10.2); CHLORIDE 110 MEQ/L (98-107); CO2 - CARBON DIOXIDE 25 MEQ/L (22-30); CREATININE 1.9 MG/DL (0.8-1.5); GLOMERULAR FILTRATION RATE 40; GLUCOSE 85 MG/DL (75-110); MAGNESIUM 2.1 MG/DL (1.6-2.3); POTASSIUM 4.3 MEQ/L (3.6-5); SODIUM 144 MEQ/L (134-144); TOTAL PROTEIN 6.6 G/DL (6.3-8.2)
[2016-12-30 05:47] LABS: VANCOMYCIN,RANDOM 15.41 UG/ML (0-40)
[2016-12-30] MEDS: BENZONATATE 100 MG CAPSULE PO SCH ×3 (06:44→19:52)
[2016-12-30 07:18] VITALS: BP 129/80; PULSE 72; RESP 16; TEMP 97.1; O2SAT 96
[2016-12-30 07:19] VITALS: PULSE 72; RESP 16
--- NOTE | 2016-12-30 07:48 | NUR ---
RENAL DOSING: Zosyn Today's SCr = 1.9 mg/dl. with patient's paraplegia it is difficult to calculate est. CrCl. However, patient appears to have acute renal failure considering baseline SCr= 0.8 mg/dL. Adjusted Zosyn to 2.25 GM IV Q8H. Pharmacy will continue to monitor and adjust as needed. Thank you, Jennifer Romero [facility]
[2016-12-30 08:00] VITALS: PULSE 72; RESP 16
[2016-12-30] MEDS: FERROUS SULFATE 324 MG TABLET PO SCH (08:41)
[2016-12-30] MEDS: POLYETHYL.GLYCOL 3350 PACKET 17gm PO SCH (08:42)
[2016-12-30] MEDS: VITAMIN B COMP + C TABLET PO SCH (08:42)
--- NOTE | 2016-12-30 09:28 | NUR ---
VANCOMYCIN CONSULT (DAY 6) S: 41 y/o M with paraplegia and hx of osteomyelitis from right ischial decubitus ulcer last summer. [facility] admitted now after the wound has continued to progress. Started on vancomycin and pip/tazo empirically for right decubitus ulcer with possible osteomyelitis. Pharmacy consulted to manage vancomycin therapy. O: Ht=69", Fs=828.1 kg SCr=1.7 mg/dL WBC=5.9 T/mm3 Urine eosinophils=0 Urine culture: E. coli, mayfield-susceptible Vancomycin random concentration~15.4 mcg/mL A/P: Day 6 pip/tazo and vancomycin empirically for right decubitus ulcer with possible osteomyelitis. Planned 6 weeks of therapy. Creatinine clearance difficult to assess due to paraplegia. Pt developed an acute renal injury within 36 hours of starting vancomycin and pip/tazo. Random vancomycin concentration this morning was ~15 mcg/mL. Serum creatinine did increase from yesterday. Will continue to hold vancomycin; will not restart vancomycin until random concentration is < 15 mcg/mL. Nephrology also recommended waiting to administer vancomycin until serum creatinine is improving. Will obtain another random vancomycin concentration with tomorrow AM labs. Sree Curtis PharmD, ANDRES Addendum: 12/30/16 at 0931 by SREE CURTIS PHA CORRECTION: SCr=1.9 mg/dL WBC=7.0
[2016-12-30] MEDS: PIPERACILLIN/TAZOBACTAM 2.25 G in NORMAL SALINE 100 ML IV SCH ×2 (10:50→19:53)
--- NOTE | 2016-12-30 12:48 | PNPDOC ---
Subjective Date DATE: 12/30/16 TIME: 12:41 Subjective F/U: Pressure ulcer to right buttocks Doing well overall. No new problems or concerns. Cough decreasing. Breathing well. Appetite stable. No nausea. Taking liquids in well. No f/c. Objective Vital Signs Vital signs Vital Signs Date Time Temp Pulse Resp B/P Pulse Ox O2 Delivery O2 Flow Rate FiO2 12/30/16 08:00 72 16 12/30/16 07:18 97.1 129/80 96 Room Air Height (Feet): 5 Height (Inches): 9.00 Weight (Kilograms): 108.000 General General Appearance: Alert, Obese, Orientated x 3, Well Nourished, Well Developed, Cooperative, Looks Stated Age Eyes (Brief) Eyes: FOUND: EOMI, PERRL, NOT FOUND: scleral icterus ENMT (Brief) ENMT: FOUND: hearing intact, mucosa moist (No thrush ) Neck (Brief) Neck: FOUND: midline, NOT FOUND: nuchal rigidity, spasm Respiratory (Brief) Respiratory: FOUND: clear all burroughs, equal bilaterally, NOT FOUND: rales, wheezes Cardiovascular (Brief) Cardiac: FOUND: regular rate, regular rhythm Abdomen (Brief) Abdominal: FOUND: BS normo active x4, soft, NOT FOUND: distended, tender (Brief) Male: FOUND: other (Pinto in place ) Extremities (Brief) Extremity : Side: Bilateral Extremity: leg Extremity Finding: FOUND: other (SCD) Musculoskeletal (Brief) Musculoskeletal: FOUND: loss of motion (LE-chronic) Neurologic (Brief) Neurological: FOUND: cranial 2-12 intact, motor (Upper ext motor function intact. ) Psychiatric (Brief) Psychiatric: FOUND: alert, attentive, normal affect, oriented Laboratory Laboratory Laboratory Tests 12/29/16 04:31 12/30/16 03:55 Laboratory Tests 12/29/16 04:31 12/30/16 03:55 Sepsis Diagnostic Criteria Sepsis Confirmed/Suspected Infection: Yes SIRS Criteria: Pulse >= 90 beats/min, WBC >=12,000 or <=4,000 Assessment & Plan Problems: (1) Pressure ulcer of right buttock Status: Chronic Qualifiers: Pressure ulcer stage: stage 4 Qualified Codes: L89.314 - Pressure ulcer of right buttock, stage 4 Assessment & Plan: Stage IV ischial decub. 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 coli UTI Status: Acute (3) MANDY (acute kidney injury) Status: Acute (4) Microcytic anemia Status: Acute Assessment & Plan: iron deficient anemia (5) Sepsis Status: Resolved Assessment & Plan: Manifestations of sepsis include the following- 1. Right buttock/hip wound-worsening with tunneling 2. Leukocytosis, WBC count 12.9 3. Tachycardia- 121 on admission (6) Coughing Status: Acute (7) Neurogenic bowel Status: Chronic (8) Neurogenic bladder Status: Chronic (9) Paraplegia at T9 level Status: Chronic (10) Chronic urinary tract infection Status: Chronic (11) Thrombocytosis Status: Chronic Plan/Intensity of Service Continue Zosyn - dose decreased secondary to MANDY. Vanco remains on hold. Continue 1/2NS at 75 cc/hr due to MANDY. Continue wound vac and wound care. Occult stools negative. Continue oral iron-add Vit C with iron. Recheck BMP and phos in am due to MANDY. Repeat CBC in am to monitor blood counts due to infection. DVT Prophylaxis: SCD'S Code Status Full Code Hospital Course Summary Disclaimer The hospital course summary below is not to be considered part of the above Progress Note. Hospital Course Summary 12/25 Place patient to inpatient status under the care of Dr. Herbert for sepsis, right hip/buttocks wound, pressure ulcer We'll continue with consultation with wound center and with Dr. Tyson for ongoing treatment. Did discuss case with Dr. Palma, and she is planning to see patient later today. Will start vancomycin now. Place Pinto catheter given the patient has a history of urine. Neurogenic bladder and requires frequent straight caths Given coughing will obtain chest xray. Also obtain UA on admission IV fluids, 500 ml bolus and then 100ml/hr for ongoing hydration. Will recheck a venous lactate at 1630 per sepsis protocol. Will have infusion team place a PICC line, as patient will likely need long- term antibiotics. SCDs to bilateral lower extremity for DVT prophylaxis. Patient may have regular diet. Will monitor patient on cardiac telemetry given tachycardia. Will recheck CBC and BMP tomorrow morning to follow blood counts, renal function and electrolytes. Will discuss further plan of care with Dr Herbert. At time of discharge medical care will return to primary care provider, Dr. Morales 12/26/16 Dr. Palma is recommending 6 weeks of IV antibiotics for right ischial stage IV decub ulcer with possible osteomyelitis. Currently on Zosyn and Vancomycin, which will be narrowed pending cx results. Dr. Tyson will evaluate wound on Wednesday. Continue wound VAC. Also with UTI - C&S pending. Pinto inserted on admission, but pt has hx of neurogenic bladder requiring straight cath. Sepsis/SIRS: WBC normal - 6.8. Tachycardia resolved. BP occasionally with low- normal readings; 121/68 this am. IVF on hold. Lactate was normal. Mild hypokalemia (3.5) - replaced orally. Iron studies pending for microcytic anemia. 12/27/16 Appreciate ID recommendations by Dr Palma. She recommends 6 weeks of antibiotic therapy for treatment of Right decub ulcer with possible osteomyelitis. Wound culture continues to be pending. Vanco Trough this morning was 63.8. Will hold Vanco at this time and continue with Zosyn. Urine culture does revel evidence of E-Coli which is pansensitive. High Density Finishing Operator did increase today from 0.8 to 1.5. We will continue to monitor renal function carefully and recheck BMP at 1400.Continue with Scheduled Tessalon Perles for coughing Iron studies pending for microcytic anemia. Will discuss further plan of care with Dr Herbert 12/28/16 MANDY - Dr. Herbert has already discussed this with Dr. Carpenter (neph). Vanc is being held until trough is <15. Urine eosinophils have been ordered to see if Zosyn might be the cause. He has had very good UO. Continues on NS at 40 ml/hr. Right ischial decub. ulcer with poss. osteomyelitis - Dr. Palma following; cont. Zosyn. E. coli UTI - pansensitive Microcytic anemia - iron and % sat were both low - iron was started today. Wound care per Dr. Buck. CM exploring discharge options. 12/28/2016-I reviewed this chart, the patient history, and the LOCKER OPERATOR's/PA's documented findings as above. We discussed and formulated the assessment and plan as above with the additions below.-Dr. Herbert The patient states that he's feeling about the same. He is eating and drinking okay but appetite is not back to normal. He denies any pain. His cough is better. He denies any nausea or vomiting. He has had good urine output. On exam he is alert and oriented and in no acute distress. Chest is clear to auscultation. Cardiovascular reveals a regular rate and rhythm. Abdomen is soft and nontender with positive bowel sounds. Creatinine did increase from 1.5 yesterday to 1.7 today. Urine output has been almost 5 L a day. I did talk with Dr. Bee Ricks as noted above. Urine eosinophils were 0. If creatinine is not trending down, would recommend calling Dr. Ricks for further recommendations. Her help has been greatly appreciated. 12/29/16 MANDY - Cr same as yesterday, 1.7. Vanco trough trending down. He's had good oral intake and excellent urine output. Urine eos were neg. He is on 1/2 NS at 75 ml/ hr. Right ischial decub. ulcer with poss. osteomyelitis - Dr. Palma following; cont. Zosyn. Restart vanco when trough <15. E. coli UTI - pansensitive Wound care per wound team/Dr. Buck. CM exploring discharge options; pending renal improvement and ID recommendations. 12/30 Doing well overall. No new problems or concerns. Cough decreasing. Breathing well. Appetite stable. No nausea. Taking liquids in well. No f/c. Creatinine 1.9. Vanco on hold. Continue Zosyn - dose decreased secondary to MANDY. Vanco remains on hold. Continue 1/2NS at 75 cc/hr due to MANDY. Continue wound vac and wound care. Occult stools negative. Continue oral iron-add Vit C with iron. Recheck BMP and phos in am due to MANDY. Repeat CBC in am to monitor blood counts due to infection. LENY SO MD Dec 30, 2016 12:44
--- NOTE | 2016-12-30 14:19 | PDWOUND ---
Wound Documentation Wound Management Wound : Location Modifier: Right, Upper Wound Location: Thigh Wound Type: Pressure Ulcer Wound Dressing Frequency: two times per week Wound Duration: > one month Wound Dressing Status: FOUND: Changed Wound Drainage Amount: Copious Wound Drainage Description: Serosanguineous Wound Drainage Odor: Mild Odor Wound General Appearance: FOUND Draining, FOUND Muscle Visible, FOUND Reddened, FOUND Unapproximated Wound Bed: gran red, slough Periwound Description: Indurated, Tunnelling, Undermined Wound Length (cm): 7.2 Wound Width (cm): 5 Wound Depth (cm): 5 Exposed: muscle, bone Wound Cleanser: NS Wound Solution/Irrigant: Saline Irrigant Wound Packing Type: FOUND: Black Foam Wound Primary Dressing Type: Clear Adhesive Cover Wound Tunneling : Sinus/Tunnels (cm): 7 Tunneling Location (o'clock): 12 Wound Undermining : Wound Undermining (cm): 2 Undermining Location (o'clock): 12-4 Comments Wound Vac removed and wound assessed. Dr Beach in to see pt and assess wound. At this time no need for debridment. Periwound skin prepped and draped. Gonzalez Veriflow cleans foam placed in wound bed and tunnels. Wound vac foam covered with Clear occlusive drsg, then sensor track applied. Obtained goo suction and changed instil for 10min dwell time 100cc of NS instilled and q 3 hrs. Will reassess on Wednesday. TATUM RIZO RN Dec 30, 2016 14:18
[2016-12-30 16:00] VITALS: BP 132/88; PULSE 87; RESP 16; O2SAT 96
--- NOTE | 2016-12-30 17:00 | NUR ---
Received report Patient is resting watching TV with family at bedside.
--- NOTE | 2016-12-30 19:07 | NUR ---
EOS Patient resting in bed in no apparent distress. Report given to oncoming nurse.
--- NOTE | 2016-12-30 22:00 | NUR ---
status visits pleasantly w/ family this sree. Denies pain or dyspnea
[2016-12-31 00:06] VITALS: BP 112/74; PULSE 74; RESP 16; TEMP 95.9; O2SAT 95
[2016-12-31] MEDS: PIPERACILLIN/TAZOBACTAM 2.25 G in NORMAL SALINE 100 ML IV SCH ×3 (03:01→19:21)
[2016-12-31] MEDS: 1/2 NS 1,000 ML IV SCH ×3 (03:01→16:18)
--- NOTE | 2016-12-31 04:50 | NUR ---
rest sleeps for long intervals, resp easy
[2016-12-31 05:32] LABS: ANION GAP 10 MEQ/L (5-15); BUN/CREATININE RATIO 9 RATIO (6-26); CALCIUM 8.1 MG/DL (8.4-10.2); CHLORIDE 109 MEQ/L (98-107); CO2 - CARBON DIOXIDE 26 MEQ/L (22-30); CREATININE 1.9 MG/DL (0.8-1.5); GLOMERULAR FILTRATION RATE 40; GLUCOSE 88 MG/DL (75-110); POTASSIUM 4.2 MEQ/L (3.6-5); SODIUM 145 MEQ/L (134-144)
[2016-12-31 05:36] LABS: BASOPHILS % (AUTO) 0.6 % (0-2); EOSINOPHILS # (AUTO) 0.3 T/MM3 (0-0.5); EOSINOPHILS % (AUTO) 4.4 % (0-4); HCT - HEMATOCRIT 32.3 % (41-53); IMMATURE GRANULOCYTE # (AUTO) 0.04 T/MM3 (0.00-0.03); IMMATURE GRANULOCYTE % (AUTO) 0.6 % (0.0-0.5); LYMPHOCYTES % (AUTO) 27.8 % (23-45); MEAN CORPUSCULAR HGB 24.5 UUG (26-34); MEAN CORPUSCULAR VOLUME 79.2 UM3 (80-100); MEAN PLATELET VOLUME 8.9 UM3 (9.4-12.4); MONOCYTES # (AUTO) 0.8 T/MM3 (0-0.8); MONOCYTES % (AUTO) 11.5 % (0-9.0); NEUTROPHILS % (AUTO) 55.1 % (33-66); RED BLOOD COUNT 4.08 M/MM3 (4.50-5.90); WBC - WHITE BLOOD COUNT 7.2 T/MM3 (4.5-11.0)
[2016-12-31] MEDS: BENZONATATE 100 MG CAPSULE PO SCH ×3 (06:45→21:40)
--- NOTE | 2016-12-31 07:18 | PNF ---
DATE OF VISIT 12/30/2016 REASON FOR VISIT Follow right ischial decubitus ulcer. SUBJECTIVE Joe denies any complaints. He is hoping that his wound is doing well. OBJECTIVE VITALS: Temperature 97.1. Pulse 87. Blood pressure 132/88. Respiratory 16. Oxygen saturation 96% on room air. GENERAL: The patient is awake and alert, in no acute distress. SKIN: He has a full-thickness decubitus ulcer in the right ischial region extending down to bone. There is still significant undermining in the tract superiorly. No significant necrotic tissue is noted. There is excellent granulation within the wound of the visible portion. ASSESSMENT Stage IV pressure ulcer of the right ischium with prior necrosis of the myocutaneous flap that had been used for closure. PLAN 1. Continue VeraFlo wound V.A.C. 2. Next wound V.A.C. change on Wednesday. 2. Continue other care per the hospitalist team. LOREE
[2016-12-31 08:29] VITALS: BP 138/86; PULSE 71; RESP 18; TEMP 97.5; O2SAT 96
[2016-12-31] MEDS: FERROUS SULFATE 324 MG TABLET PO SCH (08:41)
[2016-12-31] MEDS: ASCORBIC ACID 500 MG TABLET PO SCH (08:44)
[2016-12-31] MEDS: POLYETHYL.GLYCOL 3350 PACKET 17gm PO SCH (08:44)
[2016-12-31] MEDS: VITAMIN B COMP + C TABLET PO SCH (08:44)
[2016-12-31 09:34] VITALS: PULSE 71; RESP 18
[2016-12-31] MEDS: CALCIUM ACETATE 667 MG CAPSULE PO SCH ×2 (12:43→17:45)
--- NOTE | 2016-12-31 13:16 | PNPDOC ---
Subjective Date DATE: 12/31/16 TIME: 13:07 Subjective F/U: Pressure ulcer to right buttocks Doing well overall. Cough decreasing; not sore in chest or ab from coughing. Breathing well. Appetite improving slowly. Drinking well. No nausea or stomatitis. No f/c. Not having pains/discomfort. Objective Vital Signs Vital signs Vital Signs Date Time Temp Pulse Resp B/P Pulse Ox O2 Delivery O2 Flow Rate FiO2 12/31/16 09:34 71 18 12/31/16 08:29 97.5 138/86 96 Room Air Height (Feet): 5 Height (Inches): 9.00 Weight (Kilograms): 108.000 General General Appearance: Alert, Obese, Orientated x 3, Well Nourished, Well Developed, Cooperative, Moderate Distress Eyes (Brief) Eyes: FOUND: EOMI, PERRL, NOT FOUND: scleral icterus ENMT (Brief) ENMT: FOUND: hearing intact, mucosa moist Neck (Brief) Neck: FOUND: midline, NOT FOUND: nuchal rigidity, spasm Respiratory (Brief) Respiratory: FOUND: clear all burroughs, equal bilaterally, NOT FOUND: rales, wheezes Cardiovascular (Brief) Cardiac: FOUND: regular rate, regular rhythm Abdomen (Brief) Abdominal: FOUND: BS normo active x4, soft, NOT FOUND: distended, tender (Brief) Male: FOUND: other (wick in place ) Extremities (Brief) Extremity : Side: Bilateral Extremity: leg Extremity Finding: FOUND: other (SCD in place ) Integumentary (Brief) Integumentary: FOUND: dry, warm Neurologic (Brief) Neurological: FOUND: cranial 2-12 intact, motor (Upper ext intact ) Psychiatric (Brief) Psychiatric: FOUND: alert, attentive, normal affect, oriented Laboratory Laboratory Laboratory Tests 12/30/16 03:55 12/31/16 04:14 Laboratory Tests 12/30/16 03:55 12/31/16 04:14 Sepsis Diagnostic Criteria Sepsis Confirmed/Suspected Infection: Yes SIRS Criteria: Pulse >= 90 beats/min, WBC >=12,000 or <=4,000 Assessment & Plan Problems: (1) Pressure ulcer of right buttock Status: Chronic Qualifiers: Pressure ulcer stage: stage 4 Qualified Codes: L89.314 - Pressure ulcer of right buttock, stage 4 Assessment & Plan: Stage IV ischial decub. 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 coli UTI Status: Acute (3) MANDY (acute kidney injury) Status: Acute (4) Microcytic anemia Status: Acute Assessment & Plan: iron deficient anemia (5) Sepsis Status: Resolved Assessment & Plan: Manifestations of sepsis include the following- 1. Right buttock/hip wound-worsening with tunneling 2. Leukocytosis, WBC count 12.9 3. Tachycardia- 121 on admission (6) Coughing Status: Acute (7) Neurogenic bowel Status: Chronic (8) Neurogenic bladder Status: Chronic (9) Paraplegia at T9 level Status: Chronic (10) Chronic urinary tract infection Status: Chronic (11) Thrombocytosis Status: Chronic Plan/Intensity of Service Continue Zosyn for antimicrobial coverage. Vanco on hold, troth decrease but I'm hesitant to restart as creatinine still 1.9. Will increase 1/2NS to 125cc/hr help renal function as output has been greater than intake. PhosLo started TID as phosphorus elevated. Continue with Wound Vac and wound care. Recheck lab in am. Time spent with pt care 25 minutes. DVT Prophylaxis: SCD'S Code Status Full Code Hospital Course Summary Disclaimer The hospital course summary below is not to be considered part of the above Progress Note. Hospital Course Summary 12/25 Place patient to inpatient status under the care of Dr. Herbert for sepsis, right hip/buttocks wound, pressure ulcer We'll continue with consultation with wound center and with Dr. Tyson for ongoing treatment. Did discuss case with Dr. Palma, and she is planning to see patient later today. Will start vancomycin now. Place Wick catheter given the patient has a history of urine. Neurogenic bladder and requires frequent straight caths Given coughing will obtain chest xray. Also obtain UA on admission IV fluids, 500 ml bolus and then 100ml/hr for ongoing hydration. Will recheck a venous lactate at 1630 per sepsis protocol. Will have infusion team place a PICC line, as patient will likely need long- term antibiotics. SCDs to bilateral lower extremity for DVT prophylaxis. Patient may have regular diet. Will monitor patient on cardiac telemetry given tachycardia. Will recheck CBC and BMP tomorrow morning to follow blood counts, renal function and electrolytes. Will discuss further plan of care with Dr Herbert. At time of discharge medical care will return to primary care provider, Dr. Morales 12/26/16 Dr. Palma is recommending 6 weeks of IV antibiotics for right ischial stage IV decub ulcer with possible osteomyelitis. Currently on Zosyn and Vancomycin, which will be narrowed pending cx results. Dr. Tyson will evaluate wound on Wednesday. Continue wound VAC. Also with UTI - C&S pending. Wick inserted on admission, but pt has hx of neurogenic bladder requiring straight cath. Sepsis/SIRS: WBC normal - 6.8. Tachycardia resolved. BP occasionally with low- normal readings; 121/68 this am. IVF on hold. Lactate was normal. Mild hypokalemia (3.5) - replaced orally. Iron studies pending for microcytic anemia. 12/27/16 Appreciate ID recommendations by Dr Palma. She recommends 6 weeks of antibiotic therapy for treatment of Right decub ulcer with possible osteomyelitis. Wound culture continues to be pending. Vanco Trough this morning was 63.8. Will hold Vanco at this time and continue with Zosyn. Urine culture does revel evidence of E-Coli which is pansensitive. Tattoo And Body Artist did increase today from 0.8 to 1.5. We will continue to monitor renal function carefully and recheck BMP at 1400.Continue with Scheduled Tessalon Perles for coughing Iron studies pending for microcytic anemia. Will discuss further plan of care with Dr Herbert 12/28/16 MANDY - Dr. Herbert has already discussed this with Dr. Carpenter (neph). Vanc is being held until trough is <15. Urine eosinophils have been ordered to see if Zosyn might be the cause. He has had very good UO. Continues on NS at 40 ml/hr. Right ischial decub. ulcer with poss. osteomyelitis - Dr. Palma following; cont. Zosyn. E. coli UTI - pansensitive Microcytic anemia - iron and % sat were both low - iron was started today. Wound care per Dr. Buck. CM exploring discharge options. 12/28/2016-I reviewed this chart, the patient history, and the SIZE CUTTER's/PA's documented findings as above. We discussed and formulated the assessment and plan as above with the additions below.-Dr. Herbert The patient states that he's feeling about the same. He is eating and drinking okay but appetite is not back to normal. He denies any pain. His cough is better. He denies any nausea or vomiting. He has had good urine output. On exam he is alert and oriented and in no acute distress. Chest is clear to auscultation. Cardiovascular reveals a regular rate and rhythm. Abdomen is soft and nontender with positive bowel sounds. Creatinine did increase from 1.5 yesterday to 1.7 today. Urine output has been almost 5 L a day. I did talk with Dr. Bee Ricks as noted above. Urine eosinophils were 0. If creatinine is not trending down, would recommend calling Dr. Ricks for further recommendations. Her help has been greatly appreciated. 12/29/16 MANDY - Cr same as yesterday, 1.7. Vanco trough trending down. He's had good oral intake and excellent urine output. Urine eos were neg. He is on 1/2 NS at 75 ml/ hr. Right ischial decub. ulcer with poss. osteomyelitis - Dr. Palma following; cont. Zosyn. Restart vanco when trough <15. E. coli UTI - pansensitive Wound care per wound team/Dr. Buck. CM exploring discharge options; pending renal improvement and ID recommendations. 12/30 Doing well overall. No new problems or concerns. Cough decreasing. Breathing well. Appetite stable. No nausea. Taking liquids in well. No f/c. Creatinine 1.9. Vanco on hold. Continue Zosyn - dose decreased secondary to MANDY. Vanco remains on hold. Continue 1/2NS at 75 cc/hr due to MANDY. Continue wound vac and wound care. Occult stools negative. Continue oral iron-add Vit C with iron. Recheck BMP and phos in am due to MANDY. Repeat CBC in am to monitor blood counts due to infection. 12/31 Doing well overall. Cough decreasing; not sore in chest or ab from coughing. Breathing well. Appetite improving slowly. Drinking well. No nausea or stomatitis. No f/c. Not having pains/discomfort. Creatinine 1.9. Continue Zosyn for antimicrobial coverage. Vanco on hold, troth decrease but I'm hesitant to restart as creatinine still 1.9. Will increase 1/2NS to 125cc/hr help renal function as output has been greater than intake. PhosLo started TID as phosphorus elevated. Continue with Wound Vac and wound care. Recheck lab in am. LENY SO MD Dec 31, 2016 13:13
[2016-12-31 15:18] VITALS: BP 154/94; PULSE 83; RESP 18; TEMP 96.5; O2SAT 97
--- NOTE | 2016-12-31 15:36 | NUR ---
Malnutrition screen F/U Diet: Regular Patient's appetite has improved since last visit. The patient's intake record indicated 100% consumption. recording studio intern spoke with the patient about his appetite and he revealed he's been eating foot long German Sourav sub-sandwiches bought by his each day. Patient states he still enjoys the chocolate mighty shakes and would like to continue having them as daily snacks at 10AM,2PM,8PM. FANS notified to continue to send mighty shakes at 10 am, 2 pm, and [address] available @ 1092 Addendum: 12/31/16 at [address] Student charting reviewed by Mental Hygienist.
--- NOTE | 2016-12-31 18:50 | NUR ---
shift status Continues on air flow matteres denies any pain,no bm this shift, ate breakfast well did not eat lunch states he has a poor appeitie. did take 1 mighty shake ordered pizza for dinner. wound vac intact continue to observe.
[2016-12-31 21:54] VITALS: PULSE 71; RESP 18
[2017-01-01 00:28] VITALS: BP 150/85; PULSE 82; RESP 16; TEMP 97.6; O2SAT 96
[2017-01-01] MEDS: 1/2 NS 1,000 ML IV SCH ×4 (01:05→20:26)
[2017-01-01] MEDS: PIPERACILLIN/TAZOBACTAM 2.25 G in NORMAL SALINE 100 ML IV SCH ×3 (03:02→18:11)
--- NOTE | 2017-01-01 06:16 | NUR ---
Status Bed rotates patient throughout night. Denies pain, nausea, vomiting. Wound vac intact. Denies significant cough. Adequate urine output. Will continue to monitor.
[2017-01-01] MEDS: BENZONATATE 100 MG CAPSULE PO SCH (06:30)
--- NOTE | 2017-01-01 06:50 | NUR ---
Med refused Refused benzonatate this morning. States he does not have a cough.
[2017-01-01 07:45] VITALS: BP 149/65; PULSE 63; RESP 16; TEMP 95.9; O2SAT 96
[2017-01-01 08:00] VITALS: PULSE 63; RESP 16
[2017-01-01] MEDS: VITAMIN B COMP + C TABLET PO SCH (09:16)
[2017-01-01] MEDS: FERROUS SULFATE 324 MG TABLET PO SCH (09:17)
[2017-01-01] MEDS: CALCIUM ACETATE 667 MG CAPSULE PO SCH ×3 (09:17→17:40)
[2017-01-01] MEDS: ASCORBIC ACID 500 MG TABLET PO SCH (09:17)
[2017-01-01] MEDS: POLYETHYL.GLYCOL 3350 PACKET 17gm PO SCH (09:18)
[2017-01-01 10:37] LABS: BASOPHILS % (AUTO) 0.5 % (0-2); EOSINOPHILS # (AUTO) 0.3 T/MM3 (0-0.5); EOSINOPHILS % (AUTO) 4.1 % (0-4); HCT - HEMATOCRIT 34.8 % (41-53); HGB - HEMOGLOBIN 10.8 GM/DL (13.5-17.5); IMMATURE GRANULOCYTE # (AUTO) 0.05 T/MM3 (0.00-0.03); IMMATURE GRANULOCYTE % (AUTO) 0.7 % (0.0-0.5); LYMPHOCYTES # (AUTO) 2.1 T/MM3 (1-4.8); LYMPHOCYTES % (AUTO) 28.3 % (23-45); MEAN CORPUSCULAR HGB 24.4 UUG (26-34); MEAN CORPUSCULAR VOLUME 78.7 UM3 (80-100); MEAN PLATELET VOLUME 8.3 UM3 (9.4-12.4); MONOCYTES # (AUTO) 0.3 T/MM3 (0-0.8); MONOCYTES % (AUTO) 4.7 % (0-9.0); NEUTROPHILS #(AUTO)-ABSOLUTE 4.5 T/MM3 (1.8-7.7); NEUTROPHILS % (AUTO) 61.7 % (33-66); RED BLOOD COUNT 4.42 M/MM3 (4.50-5.90); WBC - WHITE BLOOD COUNT 7.3 T/MM3 (4.5-11.0)
[2017-01-01 10:49] LABS: ANION GAP 12 MEQ/L (5-15); BUN/CREATININE RATIO 9 RATIO (6-26); C-REACTIVE PROTEIN 38.1 MG/L (0-9); CALCIUM 8.6 MG/DL (8.4-10.2); CHLORIDE 107 MEQ/L (98-107); CO2 - CARBON DIOXIDE 25 MEQ/L (22-30); CREATININE 1.9 MG/DL (0.8-1.5); GLOMERULAR FILTRATION RATE 40; GLUCOSE 131 MG/DL (75-110); POTASSIUM 4.2 MEQ/L (3.6-5); SODIUM 144 MEQ/L (134-144)
[2017-01-01] MEDS ORDERED: BENZONATATE 100 MG CAPSULE PO PRN (12:00)
--- NOTE | 2017-01-01 13:55 | PDWOUND ---
Wound Documentation Wound Management Wound : Location Modifier: Right, Upper Wound Location: Thigh Wound Type: Pressure Ulcer Wound Dressing Frequency: two times per week Wound Duration: > one month Wound Dressing Status: FOUND: Changed Wound Drainage Amount: Copious Wound Drainage Description: Serosanguineous Wound Drainage Odor: Mild Odor Wound General Appearance: FOUND Draining, FOUND Muscle Visible, FOUND Reddened, FOUND Unapproximated Wound Bed: gran red Periwound Description: Indurated, Tunnelling, Undermined Wound Length (cm): 7.2 Wound Width (cm): 5 Wound Depth (cm): 8 Exposed: muscle, bone Wound Cleanser: NS Wound Solution/Irrigant: Saline Irrigant Wound Packing Type: FOUND: Black Foam Wound Primary Dressing Type: Clear Adhesive Cover Wound Tunneling : Sinus/Tunnels (cm): 9 Tunneling Location (o'clock): 12 Wound Undermining : Wound Undermining (cm): 6 Undermining Location (o'clock): 12-4 Comments In to change wound vac, Dr Garcia here to see pt, wound is beef red, vascular with bleeding. Pt has had instill vac with veracleanse foam. At this time skin is prepped and covered with Vac Drape. Black veriflow foam was placed at this time. Covered with clear occlusive drsg. Sensor track applied good suction and instill w/o leaks. Will change on Wednesday after Dr Tyson in to see pt. TATUM RIZO RN Jan 01, 2017 13:55
[2017-01-01] MEDS ORDERED: VANCOMYCIN 1,000 MG in NORMAL SALINE 250 ML IV ONE (14:00)
[2017-01-01 14:49] VITALS: BP 171/99; PULSE 79; RESP 18; TEMP 97.2; O2SAT 98
--- NOTE | 2017-01-01 17:51 | PNPDOC ---
Subjective Date DATE: 01/01/17 TIME: 17:42 Subjective F/U: Stage IV ischial decub. ulcer to right buttocks Doing well overall. Tolerating wound vac changes-with his paraplegia he has no pain. No f/c. Breathing well; cough decreasing. No nausea or ab pain; appetite still decreased (family bringing in food from outside to help). No new problems or concerns. Objective Vital Signs Vital signs Vital Signs Date Time Temp Pulse Resp B/P Pulse Ox O2 Delivery O2 Flow Rate FiO2 01/01/17 14:49 97.2 79 18 171/99 98 Room Air Height (Feet): 5 Height (Inches): 9.00 Weight (Kilograms): 104.800 General General Appearance: Alert, Obese, Orientated x 3, Well Nourished, Well Developed, Cooperative, Looks Stated Age Eyes (Brief) Eyes: FOUND: EOMI, PERRL, NOT FOUND: scleral icterus ENMT (Brief) ENMT: FOUND: hearing intact, mucosa moist Neck (Brief) Neck: FOUND: midline, NOT FOUND: nuchal rigidity, spasm Respiratory (Brief) Respiratory: FOUND: clear all burroughs, equal bilaterally, NOT FOUND: rales, wheezes Cardiovascular (Brief) Cardiac: FOUND: regular rate, regular rhythm Abdomen (Brief) Abdominal: FOUND: soft, NOT FOUND: BS normo active x4 (decreased ), distended, tender (Brief) Male: FOUND: other (Pinto in place ) Extremities (Brief) Extremity : Side: Bilateral Extremity: leg Extremity Finding: FOUND: edema (+1 ) Musculoskeletal (Brief) Musculoskeletal: FOUND: loss of motion (LE - chronic) Integumentary (Brief) Integumentary: FOUND: dry, warm Neurologic (Brief) Neurological: FOUND: cranial 2-12 intact, motor (Upper arms intact ) Psychiatric (Brief) Psychiatric: FOUND: alert, attentive, normal affect, oriented Laboratory Laboratory Laboratory Tests 12/31/16 04:14 01/01/17 10:21 Laboratory Tests 12/31/16 04:14 01/01/17 10:21 Sepsis Diagnostic Criteria Sepsis Confirmed/Suspected Infection: Yes SIRS Criteria: Pulse >= 90 beats/min, WBC >=12,000 or <=4,000 Assessment & Plan Problems: (1) Pressure ulcer of right buttock Status: Chronic Qualifiers: Pressure ulcer stage: stage 4 Qualified Codes: L89.314 - Pressure ulcer of right buttock, stage 4 Assessment & Plan: Stage IV ischial decub. 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 coli UTI Status: Acute (3) MANDY (acute kidney injury) Status: Acute (4) Microcytic anemia Status: Acute Assessment & Plan: iron deficient anemia (5) Sepsis Status: Resolved Assessment & Plan: Manifestations of sepsis include the following- 1. Right buttock/hip wound-worsening with tunneling 2. Leukocytosis, WBC count 12.9 3. Tachycardia- 121 on admission (6) Coughing Status: Resolved (7) Neurogenic bowel Status: Chronic (8) Neurogenic bladder Status: Chronic (9) Paraplegia at T9 level Status: Chronic (10) Chronic urinary tract infection Status: Chronic (11) Thrombocytosis Status: Chronic Plan/Intensity of Service Continue Zosyn for antimicrobial coverage. Will give 1000mg IV vanco x1 - check random level in am. Continue IVF of 1/2NS at 125cc/hr help renal function. Change Tessalon Perle to prn as coughing decreased. Encourage intake of good nutrients to help wound healing. Continue with Wound Vac and wound care. Wound Vac changed today - anticipate changing again on 01/04. Recheck lab in am. Time spent with pt care 25 minutes. DVT Prophylaxis: SCD'S Code Status Full Code Hospital Course Summary Disclaimer The hospital course summary below is not to be considered part of the above Progress Note. Hospital Course Summary 12/25 Place patient to inpatient status under the care of Dr. Herbert for sepsis, right hip/buttocks wound, pressure ulcer We'll continue with consultation with wound center and with Dr. Tyson for ongoing treatment. Did discuss case with Dr. Palma, and she is planning to see patient later today. Will start vancomycin now. Place Pinto catheter given the patient has a history of urine. Neurogenic bladder and requires frequent straight caths Given coughing will obtain chest xray. Also obtain UA on admission IV fluids, 500 ml bolus and then 100ml/hr for ongoing hydration. Will recheck a venous lactate at 1630 per sepsis protocol. Will have infusion team place a PICC line, as patient will likely need long- term antibiotics. SCDs to bilateral lower extremity for DVT prophylaxis. Patient may have regular diet. Will monitor patient on cardiac telemetry given tachycardia. Will recheck CBC and BMP tomorrow morning to follow blood counts, renal function and electrolytes. Will discuss further plan of care with Dr Herbert. At time of discharge medical care will return to primary care provider, Dr. Morales 12/26/16 Dr. Palma is recommending 6 weeks of IV antibiotics for right ischial stage IV decub ulcer with possible osteomyelitis. Currently on Zosyn and Vancomycin, which will be narrowed pending cx results. Dr. Tyson will evaluate wound on Wednesday. Continue wound VAC. Also with UTI - C&S pending. Pinto inserted on admission, but pt has hx of neurogenic bladder requiring straight cath. Sepsis/SIRS: WBC normal - 6.8. Tachycardia resolved. BP occasionally with low- normal readings; 121/68 this am. IVF on hold. Lactate was normal. Mild hypokalemia (3.5) - replaced orally. Iron studies pending for microcytic anemia. 12/27/16 Appreciate ID recommendations by Dr Palma. She recommends 6 weeks of antibiotic therapy for treatment of Right decub ulcer with possible osteomyelitis. Wound culture continues to be pending. Vanco Trough this morning was 63.8. Will hold Vanco at this time and continue with Zosyn. Urine culture does revel evidence of E-Coli which is pansensitive. Basin Cleaner did increase today from 0.8 to 1.5. We will continue to monitor renal function carefully and recheck BMP at 1400.Continue with Scheduled Tessalon Perles for coughing Iron studies pending for microcytic anemia. Will discuss further plan of care with Dr Herbert 12/28/16 MANDY - Dr. Herbert has already discussed this with Dr. Carpenter (neph). Vanc is being held until trough is <15. Urine eosinophils have been ordered to see if Zosyn might be the cause. He has had very good UO. Continues on NS at 40 ml/hr. Right ischial decub. ulcer with poss. osteomyelitis - Dr. Palma following; cont. Zosyn. E. coli UTI - pansensitive Microcytic anemia - iron and % sat were both low - iron was started today. Wound care per Dr. Buck. CM exploring discharge options. 12/28/2016-I reviewed this chart, the patient history, and the VASCULAR SURGERY PHYSICIAN's/PA's documented findings as above. We discussed and formulated the assessment and plan as above with the additions below.-Dr. Herbert The patient states that he's feeling about the same. He is eating and drinking okay but appetite is not back to normal. He denies any pain. His cough is better. He denies any nausea or vomiting. He has had good urine output. On exam he is alert and oriented and in no acute distress. Chest is clear to auscultation. Cardiovascular reveals a regular rate and rhythm. Abdomen is soft and nontender with positive bowel sounds. Creatinine did increase from 1.5 yesterday to 1.7 today. Urine output has been almost 5 L a day. I did talk with Dr. Bee Ricks as noted above. Urine eosinophils were 0. If creatinine is not trending down, would recommend calling Dr. Ricks for further recommendations. Her help has been greatly appreciated. 12/29/16 MANDY - Cr same as yesterday, 1.7. Vanco trough trending down. He's had good oral intake and excellent urine output. Urine eos were neg. He is on 1/2 NS at 75 ml/ hr. Right ischial decub. ulcer with poss. osteomyelitis - Dr. Palma following; cont. Zosyn. Restart vanco when trough <15. E. coli UTI - pansensitive Wound care per wound team/Dr. Buck. CM exploring discharge options; pending renal improvement and ID recommendations. 12/30 Doing well overall. No new problems or concerns. Cough decreasing. Breathing well. Appetite stable. No nausea. Taking liquids in well. No f/c. Creatinine 1.9. Vanco on hold. Continue Zosyn - dose decreased secondary to MANDY. Vanco remains on hold. Continue 1/2NS at 75 cc/hr due to MANDY. Continue wound vac and wound care. Occult stools negative. Continue oral iron-add Vit C with iron. Recheck BMP and phos in am due to MANDY. Repeat CBC in am to monitor blood counts due to infection. 12/31 Doing well overall. Cough decreasing; not sore in chest or ab from coughing. Breathing well. Appetite improving slowly. Drinking well. No nausea or stomatitis. No f/c. Not having pains/discomfort. Creatinine 1.9. Continue Zosyn for antimicrobial coverage. Vanco on hold, troth decrease but I'm hesitant to restart as creatinine still 1.9. Will increase 1/2NS to 125cc/hr help renal function as output has been greater than intake. PhosLo started TID as phosphorus elevated. Continue with Wound Vac and wound care. Recheck lab in am. 01/01 Doing well overall. Tolerating wound vac changes-with his paraplegia he has no pain. No f/c. Breathing well; cough decreasing. No nausea or ab pain; appetite still decreased (family bringing in food from outside to help). No new problems or concerns. Creatinine 1.9. Continue Zosyn for antimicrobial coverage. Will give 1000mg IV vanco x1 - check random level in am. Continue IVF of 1/2NS at 125cc/hr help renal function. Change Tessalon Perle to prn as coughing decreased. Encourage intake of good nutrients to help wound healing. Continue with Wound Vac and wound care. Wound Vac changed today - anticipate changing again on 01/04. Recheck lab in am. LENY SO MD Jan 01, 2017 17:45
--- NOTE | 2017-01-01 17:51 | NUR ---
SHIFT SUMMARY PT A&O X3, AND PARAPLEGIC FROM THE WAIST DOWN. SPECIALITY MATTRESS IN PLACE THAT AUTOMATICALLY TURNS PATIENT Q30 MINS. PT HAD LOW APPETITE TODAY, EATING ABOUT HALF OF LUNCH. PICC LINE IN PLACE IN LEFT UPPER ARM WITH FLUIDS RUNNING IN THE PURPLE PORT, RED PORT LOCKED. HEMOCULT X1 STILL NEEDED, NO BM FOR THIS SHIFT. PT HAS A DE SOUZA WITH COPIOUS OUTPUT OF YELLOW AND CLEAR URINE. LIGHTER CAPTAIN IN PLACE. WOUND VAC INTACT FOR RIGHT ISCHIAL WOUND. FAMILY IN ROOM AND CALL LIGHT WITHIN REACH.
[2017-01-01 23:33] VITALS: PULSE 76; RESP 12
[2017-01-01 23:42] VITALS: BP 132/77; PULSE 74; RESP 12; TEMP 95.7; O2SAT 98
[2017-01-02] MEDS: NORMAL SALINE 1,000 ML IV PRN (01:04)
[2017-01-02] MEDS: PIPERACILLIN/TAZOBACTAM 2.25 G in NORMAL SALINE 100 ML IV SCH ×3 (03:11→18:57)
--- NOTE | 2017-01-02 05:06 | NUR ---
Status Pt denied needs throughout shift. No significant changes during shift. Double lumen PICC flushes and aspirates well. IVF running as charted. Appeared to rest well. Will continue to monitor.
[2017-01-02 05:13] LABS: BASOPHILS # (AUTO) 0.1 T/MM3 (0-0.2); BASOPHILS % (AUTO) 0.8 % (0-2); EOSINOPHILS # (AUTO) 0.4 T/MM3 (0-0.5); EOSINOPHILS % (AUTO) 4.2 % (0-4); HCT - HEMATOCRIT 33.8 % (41-53); HGB - HEMOGLOBIN 10.4 GM/DL (13.5-17.5); IMMATURE GRANULOCYTE # (AUTO) 0.06 T/MM3 (0.00-0.03); IMMATURE GRANULOCYTE % (AUTO) 0.7 % (0.0-0.5); LYMPHOCYTES % (AUTO) 35.2 % (23-45); MEAN CORPUSCULAR HGB 24.4 UUG (26-34); MEAN CORPUSCULAR HGB CONC(MCHC 30.8 GM/DL (31-37); MEAN CORPUSCULAR VOLUME 79.2 UM3 (80-100); MEAN PLATELET VOLUME 8.4 UM3 (9.4-12.4); MONOCYTES # (AUTO) 0.7 T/MM3 (0-0.8); MONOCYTES % (AUTO) 7.8 % (0-9.0); NEUTROPHILS #(AUTO)-ABSOLUTE 4.3 T/MM3 (1.8-7.7); NEUTROPHILS % (AUTO) 51.3 % (33-66); RED BLOOD COUNT 4.27 M/MM3 (4.50-5.90); WBC - WHITE BLOOD COUNT 8.4 T/MM3 (4.5-11.0)
[2017-01-02 05:15] LABS: ANION GAP 9 MEQ/L (5-15); BUN/CREATININE RATIO 11 RATIO (6-26); CALCIUM 8.6 MG/DL (8.4-10.2); CHLORIDE 108 MEQ/L (98-107); CO2 - CARBON DIOXIDE 26 MEQ/L (22-30); CREATININE 1.9 MG/DL (0.8-1.5); GLOMERULAR FILTRATION RATE 40; GLUCOSE 90 MG/DL (75-110); POTASSIUM 4.3 MEQ/L (3.6-5); SODIUM 143 MEQ/L (134-144)
[2017-01-02] MEDS: 1/2 NS 1,000 ML IV SCH ×2 (05:34→15:24)
[2017-01-02 08:33] VITALS: BP 140/94; PULSE 70; RESP 16; TEMP 96.9; O2SAT 97
[2017-01-02] MEDS: ASCORBIC ACID 500 MG TABLET PO SCH (09:24)
[2017-01-02] MEDS: VITAMIN B COMP + C TABLET PO SCH (09:24)
[2017-01-02] MEDS: POLYETHYL.GLYCOL 3350 PACKET 17gm PO SCH (09:25)
[2017-01-02] MEDS: CALCIUM ACETATE 667 MG CAPSULE PO SCH ×3 (09:25→17:29)
[2017-01-02] MEDS: FERROUS SULFATE 324 MG TABLET PO SCH (09:30)
[2017-01-02] MEDS ORDERED: NORMAL SALINE IV ONE (14:00)
[2017-01-02] MEDS ORDERED: VANCOMYCIN IV ONE (14:00)
--- NOTE | 2017-01-02 14:04 | PNPDOC ---
Subjective Date DATE: 01/02/17 TIME: 13:58 Subjective F/U: Stage IV ischial decub. ulcer to right buttocks Doing well. No new problems. Breathing well. Not having congestion, SOA, and cough has resolved. No pain with breathing or chest pain. No nausea or ab pain. Appetite still with decrease-hard to find foods than sound appealing. No pain or discomfort. No f/c. Objective Vital Signs Vital signs Vital Signs Date Time Temp Pulse Resp B/P Pulse Ox O2 Delivery O2 Flow Rate FiO2 01/02/17 08:33 96.9 70 16 140/94 97 Room Air Height (Feet): 5 Height (Inches): 9.00 Weight (Kilograms): 104.800 General General Appearance: Alert, Obese, Orientated x 3, Well Nourished, Well Developed, Cooperative, Looks Stated Age Eyes (Brief) Eyes: FOUND: EOMI, PERRL, NOT FOUND: scleral icterus ENMT (Brief) ENMT: FOUND: hearing intact, mucosa moist Neck (Brief) Neck: FOUND: midline, NOT FOUND: nuchal rigidity, spasm Respiratory (Brief) Respiratory: FOUND: clear all burroughs, equal bilaterally, NOT FOUND: rales, wheezes Cardiovascular (Brief) Cardiac: FOUND: regular rate, regular rhythm Abdomen (Brief) Abdominal: FOUND: BS normo active x4, soft, NOT FOUND: distended, tender (Brief) Male: FOUND: other (Pinto in place ) Extremities (Brief) Extremity : Side: Bilateral Extremity: leg Extremity Finding: FOUND: other (scd), NOT FOUND: edema Musculoskeletal (Brief) Musculoskeletal: FOUND: loss of motion (LE - chronic ) Neurologic (Brief) Neurological: FOUND: cranial 2-12 intact, motor (Intact ) Psychiatric (Brief) Psychiatric: FOUND: alert, attentive, normal affect, oriented Laboratory Laboratory Laboratory Tests 01/01/17 10:21 01/02/17 04:26 Laboratory Tests 01/01/17 10:21 01/02/17 04:26 Sepsis Diagnostic Criteria Sepsis Confirmed/Suspected Infection: Yes SIRS Criteria: Pulse >= 90 beats/min, WBC >=12,000 or <=4,000 Assessment & Plan Problems: (1) Pressure ulcer of right buttock Status: Chronic Qualifiers: Pressure ulcer stage: stage 4 Qualified Codes: L89.314 - Pressure ulcer of right buttock, stage 4 Assessment & Plan: Stage IV ischial decub. 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 coli UTI Status: Acute (3) MANDY (acute kidney injury) Status: Acute (4) Microcytic anemia Status: Acute Assessment & Plan: iron deficient anemia (5) Sepsis Status: Resolved Assessment & Plan: Manifestations of sepsis include the following- 1. Right buttock/hip wound-worsening with tunneling 2. Leukocytosis, WBC count 12.9 3. Tachycardia- 121 on admission (6) Coughing Status: Resolved (7) Neurogenic bowel Status: Chronic (8) Neurogenic bladder Status: Chronic (9) Paraplegia at T9 level Status: Chronic (10) Chronic urinary tract infection Status: Chronic (11) Thrombocytosis Status: Chronic Plan/Intensity of Service Continue Zosyn for antimicrobial coverage. Vanco level okay; Pharm to give Vanco 750mg IV x1 today and monitor. Continue IVF of 1/2NS at 125cc/hr help renal function. Continue with Wound Vac and wound care. Wound Vac changed today - anticipate changing again on 01/04. Recheck lab in am. Time spent with pt care 20 minutes. DVT Prophylaxis: SCD'S Code Status Full Code Hospital Course Summary Disclaimer The hospital course summary below is not to be considered part of the above Progress Note. Hospital Course Summary 12/25 Place patient to inpatient status under the care of Dr. Herbert for sepsis, right hip/buttocks wound, pressure ulcer We'll continue with consultation with wound center and with Dr. Tyson for ongoing treatment. Did discuss case with Dr. Palma, and she is planning to see patient later today. Will start vancomycin now. Place Pinto catheter given the patient has a history of urine. Neurogenic bladder and requires frequent straight caths Given coughing will obtain chest xray. Also obtain UA on admission IV fluids, 500 ml bolus and then 100ml/hr for ongoing hydration. Will recheck a venous lactate at 1630 per sepsis protocol. Will have infusion team place a PICC line, as patient will likely need long- term antibiotics. SCDs to bilateral lower extremity for DVT prophylaxis. Patient may have regular diet. Will monitor patient on cardiac telemetry given tachycardia. Will recheck CBC and BMP tomorrow morning to follow blood counts, renal function and electrolytes. Will discuss further plan of care with Dr Herbert. At time of discharge medical care will return to primary care provider, Dr. Morales 12/26/16 Dr. Palma is recommending 6 weeks of IV antibiotics for right ischial stage IV decub ulcer with possible osteomyelitis. Currently on Zosyn and Vancomycin, which will be narrowed pending cx results. Dr. Tyson will evaluate wound on Wednesday. Continue wound VAC. Also with UTI - C&S pending. Pinto inserted on admission, but pt has hx of neurogenic bladder requiring straight cath. Sepsis/SIRS: WBC normal - 6.8. Tachycardia resolved. BP occasionally with low- normal readings; 121/68 this am. IVF on hold. Lactate was normal. Mild hypokalemia (3.5) - replaced orally. Iron studies pending for microcytic anemia. 12/27/16 Appreciate ID recommendations by Dr Palma. She recommends 6 weeks of antibiotic therapy for treatment of Right decub ulcer with possible osteomyelitis. Wound culture continues to be pending. Vanco Trough this morning was 63.8. Will hold Vanco at this time and continue with Zosyn. Urine culture does revel evidence of E-Coli which is pansensitive. Audiology Assistant did increase today from 0.8 to 1.5. We will continue to monitor renal function carefully and recheck BMP at 1400.Continue with Scheduled Tessalon Perles for coughing Iron studies pending for microcytic anemia. Will discuss further plan of care with Dr Herbert 12/28/16 MANDY - Dr. Herbert has already discussed this with Dr. Carpenter (neph). Vanc is being held until trough is <15. Urine eosinophils have been ordered to see if Zosyn might be the cause. He has had very good UO. Continues on NS at 40 ml/hr. Right ischial decub. ulcer with poss. osteomyelitis - Dr. Palma following; cont. Zosyn. E. coli UTI - pansensitive Microcytic anemia - iron and % sat were both low - iron was started today. Wound care per Dr. Buck. CM exploring discharge options. 12/28/2016-I reviewed this chart, the patient history, and the MATHEMATICAL PHYSICIST's/PA's documented findings as above. We discussed and formulated the assessment and plan as above with the additions below.-Dr. Herbert The patient states that he's feeling about the same. He is eating and drinking okay but appetite is not back to normal. He denies any pain. His cough is better. He denies any nausea or vomiting. He has had good urine output. On exam he is alert and oriented and in no acute distress. Chest is clear to auscultation. Cardiovascular reveals a regular rate and rhythm. Abdomen is soft and nontender with positive bowel sounds. Creatinine did increase from 1.5 yesterday to 1.7 today. Urine output has been almost 5 L a day. I did talk with Dr. Bee Ricks as noted above. Urine eosinophils were 0. If creatinine is not trending down, would recommend calling Dr. Ricks for further recommendations. Her help has been greatly appreciated. 12/29/16 MANDY - Cr same as yesterday, 1.7. Vanco trough trending down. He's had good oral intake and excellent urine output. Urine eos were neg. He is on 1/2 NS at 75 ml/ hr. Right ischial decub. ulcer with poss. osteomyelitis - Dr. Palma following; cont. Zosyn. Restart vanco when trough <15. E. coli UTI - pansensitive Wound care per wound team/Dr. Buck. CM exploring discharge options; pending renal improvement and ID recommendations. 12/30 Doing well overall. No new problems or concerns. Cough decreasing. Breathing well. Appetite stable. No nausea. Taking liquids in well. No f/c. Creatinine 1.9. Vanco on hold. Continue Zosyn - dose decreased secondary to MANDY. Vanco remains on hold. Continue 1/2NS at 75 cc/hr due to MANDY. Continue wound vac and wound care. Occult stools negative. Continue oral iron-add Vit C with iron. Recheck BMP and phos in am due to MANDY. Repeat CBC in am to monitor blood counts due to infection. 12/31 Doing well overall. Cough decreasing; not sore in chest or ab from coughing. Breathing well. Appetite improving slowly. Drinking well. No nausea or stomatitis. No f/c. Not having pains/discomfort. Creatinine 1.9. Continue Zosyn for antimicrobial coverage. Vanco on hold, troth decrease but I'm hesitant to restart as creatinine still 1.9. Will increase 1/2NS to 125cc/hr help renal function as output has been greater than intake. PhosLo started TID as phosphorus elevated. Continue with Wound Vac and wound care. Recheck lab in am. 01/01 Doing well overall. Tolerating wound vac changes-with his paraplegia he has no pain. No f/c. Breathing well; cough decreasing. No nausea or ab pain; appetite still decreased (family bringing in food from outside to help). No new problems or concerns. Creatinine 1.9. Continue Zosyn for antimicrobial coverage. Will give 1000mg IV vanco x1 - check random level in am. Continue IVF of 1/2NS at 125cc/hr help renal function. Change Tessalon Perle to prn as coughing decreased. Encourage intake of good nutrients to help wound healing. Continue with Wound Vac and wound care. Wound Vac changed today - anticipate changing again on 01/04. Recheck lab in am. 01/02 Doing well. No new problems. Breathing well. Not having congestion, SOA, and cough has resolved. No pain with breathing or chest pain. No nausea or ab pain. Appetite still with decrease-hard to find foods than sound appealing. No pain or discomfort. No f/c. Creatinine 1.9. Continue Zosyn for antimicrobial coverage. Vanco level okay; Pharm to give Vanco 750mg IV x1 today and monitor. Continue IVF of 1/2NS at 125cc/hr help renal function. Continue with Wound Vac and wound care. Wound Vac changed today - anticipate changing again on 01/04. Recheck lab in am. LENY SO MD Jan 02, 2017 14:03
[2017-01-02 16:46] VITALS: BP 152/84; PULSE 80; RESP 20; TEMP 97.1; O2SAT 100
--- NOTE | 2017-01-02 19:00 | NUR ---
SHIFT SUMMARY PATIENT ALERT AND ORIENTED X 3. PATIENT HAD NO C/O PAIN. WOUND VAC WITH SALINE FLUSH IN PLACE, DRAINAGE SEROUS SANGUINOUS. PATIENT ON SPECIALTY AIR BED THAT TURN Q30 MIN. 2 SMALL BMS TODAY, DE SOUZA WITH COPIOUS URINE OUTPUT. SHU DL PICC POSITIVE FLUSH AND BLOOD RETURN. BED IN LOCKED POSITION, CALL LIGHT WITHIN REACH. WILL CONT TO MONITOR.
[2017-01-03] VITALS: BP 138/81; PULSE 74; RESP 14; TEMP 95.8; O2SAT 96
[2017-01-03] MEDS: 1/2 NS 1,000 ML IV SCH ×4 (00:21→21:15)
[2017-01-03] MEDS: NORMAL SALINE 1,000 ML IV PRN (00:24)
[2017-01-03] MEDS: PIPERACILLIN/TAZOBACTAM 2.25 G in NORMAL SALINE 100 ML IV SCH ×3 (04:19→19:27)
--- NOTE | 2017-01-03 06:38 | NUR ---
SUMMARY PT ALERT AND ORIENTED. DENIES PAIN, DENIES NAUSEA. DENIES SOA. PT IS TURNED EVERY 30 MINUTES IN THE AUTO ROTATE BED. WOUND VAC IN PLACE, SALINE BAG REPLACED. DE SOUZA IN PLACE AND DRAINING LIGHT YELLOW URINE. .45 NS RUNNING AT 125 IN THE UPPER RIGHT ARM PICC, BOTH LUMENS FLUSHED AND ASPIRATED. VSS.
[2017-01-03 07:57] VITALS: BP 145/94; PULSE 76; RESP 18; TEMP 96.1; O2SAT 98
[2017-01-03 09:15] VITALS: RESP 16
[2017-01-03] MEDS: ASCORBIC ACID 500 MG TABLET PO SCH (09:25)
[2017-01-03] MEDS: VITAMIN B COMP + C TABLET PO SCH (09:25)
[2017-01-03] MEDS: CALCIUM ACETATE 667 MG CAPSULE PO SCH ×3 (09:25→18:09)
[2017-01-03] MEDS: POLYETHYL.GLYCOL 3350 PACKET 17gm PO SCH (09:26)
[2017-01-03] MEDS: FERROUS SULFATE 324 MG TABLET PO SCH (09:26)
[2017-01-03 12:23] LABS: ANION GAP 10 MEQ/L (5-15); BUN/CREATININE RATIO 13 RATIO (6-26); CALCIUM 9.2 MG/DL (8.4-10.2); CHLORIDE 108 MEQ/L (98-107); CO2 - CARBON DIOXIDE 26 MEQ/L (22-30); CREATININE 1.8 MG/DL (0.8-1.5); GLOMERULAR FILTRATION RATE 42; GLUCOSE 98 MG/DL (75-110); POTASSIUM 4.7 MEQ/L (3.6-5); SODIUM 144 MEQ/L (134-144)
[2017-01-03 12:28] LABS: VANCOMYCIN,RANDOM 16.58 UG/ML (0-40)
[2017-01-03] MEDS ORDERED: VANCOMYCIN IV ONE (14:00)
[2017-01-03] MEDS ORDERED: NORMAL SALINE IV ONE (14:00)
[2017-01-03 16:04] VITALS: BP 144/90; PULSE 77; RESP 16; TEMP 97.2; O2SAT 97
--- NOTE | 2017-01-03 16:30 | NUR ---
WOUND VAC BEDDING UNDER PT'S WOUND VAC DRESSING APPEARS TO BE WET. NO ALARMS SOUNDING FROM WOUND VAC, DRESSING IN PLACE AND APPEARS DRY. NO SKIN BREAKDOWN NOTED. BEDDING REPLACED. DRESSING REINFORCED, WILL CONTINUE TO MONITOR.
--- NOTE | 2017-01-03 17:46 | PNPDOC ---
Subjective Date DATE: 01/03/17 TIME: 17:39 Subjective F/U: Stage IV ischial decub. ulcer to right buttocks Doing well. Breathing stable-no SOA, cough or congestion. No chest pressure or pain. Denies ab pain or nausea. Nursing help remove stool today. Eating slightly better-finding some foods on the menu that are appealing. No f/c. Objective Vital Signs Vital signs Vital Signs Date Time Temp Pulse Resp B/P Pulse Ox O2 Delivery O2 Flow Rate FiO2 01/03/17 16:04 97.2 77 16 144/90 97 Room Air Height (Feet): 5 Height (Inches): 9.00 Weight (Kilograms): 104.000 General General Appearance: Alert, Obese, Orientated x 3, Well Nourished, Well Developed, Cooperative, Looks Stated Age Eyes (Brief) Eyes: FOUND: EOMI, PERRL, NOT FOUND: scleral icterus Neck (Brief) Neck: FOUND: midline, NOT FOUND: nuchal rigidity, spasm Respiratory (Brief) Respiratory: FOUND: clear all burroughs, equal bilaterally, NOT FOUND: rales, wheezes Cardiovascular (Brief) Cardiac: FOUND: regular rate, regular rhythm, NOT FOUND: pedal edema Abdomen (Brief) Abdominal: FOUND: BS normo active x4, soft, NOT FOUND: distended, tender (Brief) Male: FOUND: other (Pinto in place ) Extremities (Brief) Extremity : Side: Bilateral Extremity: leg Extremity Finding: FOUND: other (SCD ), NOT FOUND: edema Musculoskeletal (Brief) Musculoskeletal: FOUND: loss of motion (LE - chronic) Neurologic (Brief) Neurological: FOUND: cranial 2-12 intact, motor (upper ext motion intact ) Psychiatric (Brief) Psychiatric: FOUND: alert, attentive, normal affect, oriented Laboratory Laboratory Laboratory Tests 01/02/17 04:26 01/03/17 11:59 Laboratory Tests 01/02/17 04:26 Sepsis Diagnostic Criteria Sepsis Confirmed/Suspected Infection: Yes SIRS Criteria: Pulse >= 90 beats/min, WBC >=12,000 or <=4,000 Assessment & Plan Problems: (1) Pressure ulcer of right buttock Status: Chronic Qualifiers: Pressure ulcer stage: stage 4 Qualified Codes: L89.314 - Pressure ulcer of right buttock, stage 4 Assessment & Plan: Stage IV ischial decub. 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 coli UTI Status: Acute (3) MANDY (acute kidney injury) Status: Acute (4) Microcytic anemia Status: Acute Assessment & Plan: iron deficient anemia (5) Sepsis Status: Resolved Assessment & Plan: Manifestations of sepsis include the following- 1. Right buttock/hip wound-worsening with tunneling 2. Leukocytosis, WBC count 12.9 3. Tachycardia- 121 on admission (6) Coughing Status: Resolved (7) Neurogenic bowel Status: Chronic (8) Neurogenic bladder Status: Chronic (9) Paraplegia at T9 level Status: Chronic (10) Chronic urinary tract infection Status: Chronic (11) Thrombocytosis Status: Chronic Plan/Intensity of Service Continue Zosyn for antimicrobial coverage. Pharm to gave Vanco 750mg IV x1 today. Monitor levels. Continue IVF of 1/2NS at 125cc/hr help renal function. Good urine output. No signs of volume overload. Encourage good nutritional intake to help with wound healing. Continue with Wound Vac and wound care. Recheck lab in am. Time spent with pt care 20 minutes. DVT Prophylaxis: SCD'S Code Status Full Code Hospital Course Summary Disclaimer The hospital course summary below is not to be considered part of the above Progress Note. Hospital Course Summary 12/25 Place patient to inpatient status under the care of Dr. Herbert for sepsis, right hip/buttocks wound, pressure ulcer We'll continue with consultation with wound center and with Dr. Tyson for ongoing treatment. Did discuss case with Dr. Palma, and she is planning to see patient later today. Will start vancomycin now. Place Pinto catheter given the patient has a history of urine. Neurogenic bladder and requires frequent straight caths Given coughing will obtain chest xray. Also obtain UA on admission IV fluids, 500 ml bolus and then 100ml/hr for ongoing hydration. Will recheck a venous lactate at 1630 per sepsis protocol. Will have infusion team place a PICC line, as patient will likely need long- term antibiotics. SCDs to bilateral lower extremity for DVT prophylaxis. Patient may have regular diet. Will monitor patient on cardiac telemetry given tachycardia. Will recheck CBC and BMP tomorrow morning to follow blood counts, renal function and electrolytes. Will discuss further plan of care with Dr Herbert. At time of discharge medical care will return to primary care provider, Dr. Morales 12/26/16 Dr. Palma is recommending 6 weeks of IV antibiotics for right ischial stage IV decub ulcer with possible osteomyelitis. Currently on Zosyn and Vancomycin, which will be narrowed pending cx results. Dr. Tyson will evaluate wound on Wednesday. Continue wound VAC. Also with UTI - C&S pending. Pinto inserted on admission, but pt has hx of neurogenic bladder requiring straight cath. Sepsis/SIRS: WBC normal - 6.8. Tachycardia resolved. BP occasionally with low- normal readings; 121/68 this am. IVF on hold. Lactate was normal. Mild hypokalemia (3.5) - replaced orally. Iron studies pending for microcytic anemia. 12/27/16 Appreciate ID recommendations by Dr Palma. She recommends 6 weeks of antibiotic therapy for treatment of Right decub ulcer with possible osteomyelitis. Wound culture continues to be pending. Vanco Trough this morning was 63.8. Will hold Vanco at this time and continue with Zosyn. Urine culture does revel evidence of E-Coli which is pansensitive. Manager Education did increase today from 0.8 to 1.5. We will continue to monitor renal function carefully and recheck BMP at 1400.Continue with Scheduled Tessalon Perles for coughing Iron studies pending for microcytic anemia. Will discuss further plan of care with Dr Herbert 12/28/16 MANDY - Dr. Herbert has already discussed this with Dr. Carpenter (neph). Vanc is being held until trough is <15. Urine eosinophils have been ordered to see if Zosyn might be the cause. He has had very good UO. Continues on NS at 40 ml/hr. Right ischial decub. ulcer with poss. osteomyelitis - Dr. Palma following; cont. Zosyn. E. coli UTI - pansensitive Microcytic anemia - iron and % sat were both low - iron was started today. Wound care per Dr. Buck. CM exploring discharge options. 12/28/2016-I reviewed this chart, the patient history, and the COMMERCIAL BANKER's/PA's documented findings as above. We discussed and formulated the assessment and plan as above with the additions below.-Dr. Herbert The patient states that he's feeling about the same. He is eating and drinking okay but appetite is not back to normal. He denies any pain. His cough is better. He denies any nausea or vomiting. He has had good urine output. On exam he is alert and oriented and in no acute distress. Chest is clear to auscultation. Cardiovascular reveals a regular rate and rhythm. Abdomen is soft and nontender with positive bowel sounds. Creatinine did increase from 1.5 yesterday to 1.7 today. Urine output has been almost 5 L a day. I did talk with Dr. Bee Ricks as noted above. Urine eosinophils were 0. If creatinine is not trending down, would recommend calling Dr. Ricks for further recommendations. Her help has been greatly appreciated. 12/29/16 MANDY - Cr same as yesterday, 1.7. Vanco trough trending down. He's had good oral intake and excellent urine output. Urine eos were neg. He is on 1/2 NS at 75 ml/ hr. Right ischial decub. ulcer with poss. osteomyelitis - Dr. Palma following; cont. Zosyn. Restart vanco when trough <15. E. coli UTI - pansensitive Wound care per wound team/Dr. Buck. CM exploring discharge options; pending renal improvement and ID recommendations. 12/30 Doing well overall. No new problems or concerns. Cough decreasing. Breathing well. Appetite stable. No nausea. Taking liquids in well. No f/c. Creatinine 1.9. Vanco on hold. Continue Zosyn - dose decreased secondary to MANDY. Vanco remains on hold. Continue 1/2NS at 75 cc/hr due to MANDY. Continue wound vac and wound care. Occult stools negative. Continue oral iron-add Vit C with iron. Recheck BMP and phos in am due to MANDY. Repeat CBC in am to monitor blood counts due to infection. 12/31 Doing well overall. Cough decreasing; not sore in chest or ab from coughing. Breathing well. Appetite improving slowly. Drinking well. No nausea or stomatitis. No f/c. Not having pains/discomfort. Creatinine 1.9. Continue Zosyn for antimicrobial coverage. Vanco on hold, troth decrease but I'm hesitant to restart as creatinine still 1.9. Will increase 1/2NS to 125cc/hr help renal function as output has been greater than intake. PhosLo started TID as phosphorus elevated. Continue with Wound Vac and wound care. Recheck lab in am. 01/01 Doing well overall. Tolerating wound vac changes-with his paraplegia he has no pain. No f/c. Breathing well; cough decreasing. No nausea or ab pain; appetite still decreased (family bringing in food from outside to help). No new problems or concerns. Creatinine 1.9. Continue Zosyn for antimicrobial coverage. Will give 1000mg IV vanco x1 - check random level in am. Continue IVF of 1/2NS at 125cc/hr help renal function. Change Tessalon Perle to prn as coughing decreased. Encourage intake of good nutrients to help wound healing. Continue with Wound Vac and wound care. Wound Vac changed today - anticipate changing again on 01/04. Recheck lab in am. 01/02 Doing well. No new problems. Breathing well. Not having congestion, SOA, and cough has resolved. No pain with breathing or chest pain. No nausea or ab pain. Appetite still with decrease-hard to find foods than sound appealing. No pain or discomfort. No f/c. Creatinine 1.9. Continue Zosyn for antimicrobial coverage. Vanco level okay; Pharm to give Vanco 750mg IV x1 today and monitor. Continue IVF of 1/2NS at 125cc/hr help renal function. Continue with Wound Vac and wound care. Recheck lab in am. 01/03 Doing well. Breathing stable-no SOA, cough or congestion. No chest pressure or pain. Denies ab pain or nausea. Nursing help remove stool today. Eating slightly better-finding some foods on the menu that are appealing. No f/c. Creatinine 1.8. Continue Zosyn for antimicrobial coverage. Pharm to gave Vanco 750mg IV x1 today. Monitor levels. Continue IVF of 1/2NS at 125cc/hr help renal function. Good urine output. No signs of volume overload. Encourage good nutritional intake to help with wound healing. Continue with Wound Vac and wound care. Recheck lab in am. LENY SO MD Jan 03, 2017 17:42
--- NOTE | 2017-01-03 18:35 | NUR ---
SHIFT SUMMARY PT ALERT AND ORIENTED X3. PT ON RA, DENIES SOA. DENIES PAIN, DENIES N/V. MATTRESS TURNS PT, PT ABLE TO MAKE NEEDS KNOWN. DE SOUZA PATENT, ADEQUATE URINE OUTPUT. BM THIS SHIFT. WOUND VAC SUCTION SET AT 150. IVF INFUSING ORDERED INTO LEFT BASILIC PICC LINE PURPLE PORT, RED PORT IVL AND ABLE TO ASPIRATE FROM BOTH LUMENS. CALL LIGHT WITHIN REACH.
[2017-01-03 20:18] VITALS: RESP 16
[2017-01-03 23:15] VITALS: BP 138/77; PULSE 84; RESP 16; TEMP 97.8; O2SAT 97
[2017-01-04] MEDS: NORMAL SALINE 1,000 ML IV PRN (00:29)
[2017-01-04] MEDS: PIPERACILLIN/TAZOBACTAM 2.25 G in NORMAL SALINE 100 ML IV SCH (02:34)
[2017-01-04] MEDS: 1/2 NS 1,000 ML IV SCH ×3 (04:52→22:13)
[2017-01-04 05:48] LABS: BASOPHILS % (AUTO) 0.4 % (0-2); EOSINOPHILS # (AUTO) 0.4 T/MM3 (0-0.5); EOSINOPHILS % (AUTO) 4.4 % (0-4); HCT - HEMATOCRIT 33.1 % (41-53); HGB - HEMOGLOBIN 10.3 GM/DL (13.5-17.5); IMMATURE GRANULOCYTE # (AUTO) 0.04 T/MM3 (0.00-0.03); IMMATURE GRANULOCYTE % (AUTO) 0.5 % (0.0-0.5); LYMPHOCYTES # (AUTO) 2.6 T/MM3 (1-4.8); LYMPHOCYTES % (AUTO) 30.9 % (23-45); MEAN CORPUSCULAR HGB 24.5 UUG (26-34); MEAN CORPUSCULAR HGB CONC(MCHC 31.1 GM/DL (31-37); MEAN CORPUSCULAR VOLUME 78.6 UM3 (80-100); MEAN PLATELET VOLUME 8.7 UM3 (9.4-12.4); MONOCYTES # (AUTO) 0.6 T/MM3 (0-0.8); MONOCYTES % (AUTO) 6.4 % (0-9.0); NEUTROPHILS #(AUTO)-ABSOLUTE 4.9 T/MM3 (1.8-7.7); NEUTROPHILS % (AUTO) 57.4 % (33-66); RED BLOOD COUNT 4.21 M/MM3 (4.50-5.90); WBC - WHITE BLOOD COUNT 8.5 T/MM3 (4.5-11.0)
[2017-01-04 05:52] LABS: ANION GAP 9 MEQ/L (5-15); BUN/CREATININE RATIO 13 RATIO (6-26); CALCIUM 8.7 MG/DL (8.4-10.2); CHLORIDE 107 MEQ/L (98-107); CO2 - CARBON DIOXIDE 26 MEQ/L (22-30); GLOMERULAR FILTRATION RATE 37; GLUCOSE 89 MG/DL (75-110); MAGNESIUM 2.2 MG/DL (1.6-2.3); PHOSPHORUS 5.3 MG/DL (2.5-4.5); POTASSIUM 4.2 MEQ/L (3.6-5); SODIUM 142 MEQ/L (134-144)
--- NOTE | 2017-01-04 06:45 | NUR ---
Shift Summary Patient alert and oriented x3. VSS. On RA. Denies pain. Wound vac leaking, dressing reinforced and no signs of leakage after reinforcement. One incontinent BM. Pinto catheter patent and draining large amount of clear, yellow urine. IV infusing as ordered through left PICC line. Both lumens flushed and aspirated well. Patient rested between cares.
[2017-01-04 07:54] VITALS: BP 135/83; PULSE 72; RESP 14; TEMP 95.7; O2SAT 96
[2017-01-04 08:30] VITALS: PULSE 72; RESP 14
[2017-01-04] MEDS: VITAMIN B COMP + C TABLET PO SCH (08:31)
[2017-01-04] MEDS: FERROUS SULFATE 324 MG TABLET PO SCH (08:32)
[2017-01-04] MEDS: CALCIUM ACETATE 667 MG CAPSULE PO SCH ×3 (08:32→19:01)
[2017-01-04] MEDS: POLYETHYL.GLYCOL 3350 PACKET 17gm PO SCH (08:32)
[2017-01-04] MEDS: ASCORBIC ACID 500 MG TABLET PO SCH (08:32)
--- NOTE | 2017-01-04 10:27 | PNPDOC ---
Subjective Date DATE: 01/04/17 TIME: 10:16 Subjective Mr. Cosby denies any fevers, chills, N/V/D. He is waiting for Dr. Quintanilla to look at his wound today. He reports that it's gotten smaller and the tunnelling has decreased. Objective Vital Signs: RN Vital Signs have been reviewed: Yes, Temperature: 95.7, Heart Rate: 72, Respiratory Rate: 14, BP: 135/83, Pulse Oximetry: 96 Height (Feet): 5 Height (Inches): 9.00 General: FOUND: Alert, NOT FOUND: Acute Distress Skin: NOT FOUND: Rash HEENT: FOUND NC/AT Neck: NOT FOUND: Meningismus Cardiac: FOUND: Regular Rate/Rhythm, NOT FOUND: Murmur, Pitting Edema Lungs: FOUND: Clear to Auscultation, Symmetrical Expansion, NOT FOUND: Respiratory Distress Abdomen: FOUND: Non-tender, Normal Bowel Sounds, Soft : FOUND: Pinto Extremities: NOT FOUND Edema (Bilateral Lower Extremitites) Neurological: FOUND A/A/A, FOUND Other (paraplegia) Psychological: FOUND Intact and Appropriate Wound L buttock area with beefy red granuloation tissue. There is some tunnelling superiorly and I don't think I could completely see the base of the wound, but I did not see any bone. No purulence. No surrounding erythema. IV Site: PICC (LUE) Antbiotics Vancomycin and Zosyn since 12/25 Laboratory Laboratory Tests 01/04/17 04:48 Laboratory Tests 01/03/17 11:59 01/04/17 04:48 Cultures Blood cultures 11/12 on 12/25 with S. intermedius Specimen: [id number] Collected: 12/25/16 Received: 12/25/16-[address]: NATHANIEL QUINTANILLA MD, FACS, CWS Source: UNKNOWN Procedure Result Verified MICROBIOLOGY GRAM STAIN [facility] Final 12/27/16-120 RESULT GRAM POSITIVE COCCI IN CHAINS GRAM STAIN [facility] Final (changed) 12/26/16 RESULT GRAM POSITIVE COCCI IN CHAINS BLOOD CULTURE. Final 12/30/16 Organism 1 STREPTOCOCCUS INTERMEDIUS CULTURE COMMENT: GROWTH IN THE AEROBIC BOTTLE CULTURE COMMENT: GROWTH IN THE ANAEROBIC BOTTLE S INTERMED INTERP MAKAYLA ------ --------- AMPICILLIN S <=0.25 CLINDAMYCIN S <=0.25 ERYTHROMYCIN S <=0.12 LEVOFLOXACIN S <=0.25 LINEZOLID S <=2 BENZYLPENICILL S <=0.06 TETRACYCLINE S 0.5 VANCOMYCIN S 0.25 Wound culture 12/25: Specimen: [id number] Collected: 12/25/16 Received: 12/25/[address]: NATHANIEL QUINTANILLA MD, FACS, CWS Source: UNKNOWN Procedure Result Verified MICROBIOLOGY GRAM STAIN Final 12/26/16-1504 RESULT FEW GRAM NEGATIVE RODS FEW GRAM POSITIVE RODS FEW GRAM POSITIVE COCCI MANY NEUTROPHILS WOUND CULTURE DEEP TISS-AER/AN Final 01/01/17-1032 Organism 1 PROTEUS VULGARIS GROUP QUANTITY: MODERATE GROWTH Organism 2 ENTEROCOC FAECALIS - (GROUP D) QUANTITY: MODERATE GROWTH Organism 3 BACTEROIDES FRAGILIS QUANTITY: MODERATE GROWTH Organism 4 ANAEROCOCCUS PREVOTII QUANTITY: MODERATE GROWTH Organism 5 DIPHTHEROID BACILLUS ORGANISM COMMENT: SENSITIVITY NOT PERFORMED Reviewed: Medications, Consult/Progress Notes Sepsis Diagnostic Criteria Sepsis Confirmed/Suspected Infection: Yes SIRS Criteria: Pulse >= 90 beats/min, WBC >=12,000 or <=4,000 Assessment & Plan Assessment IMPRESSION 1. Right ischial decubitus ulcer stage IV with concern for osteomyelitis. 2. Sepsis secondary to skin and soft tissue source. 3. Septicemia with Strep intemedius 12/25/16. 4. MANDY with peripheral eosinophilia, ? AIN. 5. History of osteomyelitis of the right ischium status post debridement, six weeks of IV antibiotics followed by flap procedure in August 2016. 6. Paraplegia at T9 from an accident that occurred in 2001. 7. Neurogenic bladder with self-catheterization. 8. Neurogenic bowel. 9. History of urinary tract infections. 10. History of Clostridium difficile infection related to levofloxacin. 11. Allergy to Keflex, rash. Plan/Intensity of Service RECOMMENDATIONS: Repeat urine eosinophils. Will D/C Vancomycin since there is no MRSA isolated from his wound culture. Will change antibiotics due to concern for AIN. I'll try ceftriaxone and flagyl. He is okay with this, despite his h/o rash with keflex. If he develops a rash, would change the ceftriaxone to ertapenem. I would recommend six weeks of IV antibiotics to treat osteomyelitis, starting from his admission date. Await surgical input. If there is debridement done, I 'd consider changing the stop date of the IV antibiotics to 6 weeks post- debridement. CLAYTON ACOSTA MD Jan 04, 2017 10:20
--- NOTE | 2017-01-04 11:13 | NUR ---
Malnutrition Screen F/U Diet: Regular Patient states his appetite is getting back to normal. He reports liking the pot roast and even ordered it twice yesterday for lunch and dinner. He states he would like to continue receiving chocolate mighty shakes. RD available @ [phone] Addendum: 01/04/17 at [address] Student charting reviewed by Repair Service Clerk.
[2017-01-04] MEDS: METRONIDAZOLE 500 MG TABLET PO SCH ×2 (11:18→21:34)
[2017-01-04] MEDS: NYSTATIN POWDER 15gm BOTTLE TOP SCH ×3 (11:19→21:34)
[2017-01-04] MEDS: CEFTRIAXONE 2 G in NORMAL SALINE 100 ML IV SCH (11:19)
--- NOTE | 2017-01-04 11:39 | PNF ---
DATE OF VISIT 01/01/2017 REASON FOR VISIT Follow right ischial decubitus ulcer. SUBJECTIVE Joe still is not having any problems that he complains about. His wound VAC has been working well. OBJECTIVE VITALS: Temperature 95.. Pulse 63. Blood pressure 149/65. Respiratory rate 16. Oxygen saturation 96% on room air. GENERAL: The patient is awake, alert, in no acute distress. SKIN: There is continued full-thickness decubitus ulcer in the right ischial region extending down to bone. The tunneling that tracts superiorly may be slightly smaller. There is improved granulation with increased vascularity compared to two days ago. ASSESSMENT Stage IV pressure ulcer of the right ischium with prior necrosis of myocutaneous flap that had been used for closure previously. His wound is making appropriate progress and there is no evidence of ongoing necrosis that would indicate need of current surgical debridement. PLAN 1. Continue VeraFlo wound VAC. 2. Dr. Tyson will be returning to resume wound care on Wednesday01/04/2017. LOREE
--- NOTE | 2017-01-04 13:37 | PNPDOC ---
HANS HUGO V CIVIL ENGINEERING PROFESSIONAL 01/04/17 1329: Subjective Date DATE: 01/04/17 TIME: 13:24 Subjective Joe is seen today in follow-up for decubitus ulcer. He is resting in bed without complains currently. Denies feeling short of breath or having pain. Continues with Pinto catheter, bowels are moving regularly. Blood pressure this morning 135/83. Objective Vital Signs Vital signs Vital Signs Date Time Temp Pulse Resp B/P Pulse Ox O2 Delivery O2 Flow Rate FiO2 01/04/17 10:27 72 14 96 01/04/17 07:54 95.7 135/83 Room Air Height (Feet): 5 Height (Inches): 9.00 Weight (Kilograms): 104.500 General General Appearance: Alert, Orientated x 3, Cooperative, No Acute Distress Eyes (Brief) Eyes: FOUND: EOMI ENMT (Brief) ENMT: FOUND: mucosa moist, normal dentition, NOT FOUND: pharnyx erythema Neck (Brief) Neck: FOUND: midline, NOT FOUND: adenopathy, carotid bruits, tracheal deviation Respiratory (Brief) Respiratory: FOUND: clear all burroughs, equal bilaterally, NOT FOUND: wheezes Cardiovascular (Brief) Cardiac: FOUND: regular rate, regular rhythm, NOT FOUND: murmur, pedal edema Capillary Refill: <2 sec Abdomen (Brief) Abdominal: FOUND: BS normo active x4, soft, NOT FOUND: distended, tender Lymphatic (Brief) Lymphatic: NOT FOUND: adenopathy Musculoskeletal (Brief) Musculoskeletal: NOT FOUND: tenderness Integumentary (Brief) Integumentary: FOUND: dry, pink, warm Neurologic (Brief) Neurological: FOUND: cranial 2-12 intact Comments Paraplegia Psychiatric (Brief) Psychiatric: FOUND: alert, attentive, normal affect, oriented Laboratory Laboratory Laboratory Tests 01/03/17 11:59 01/04/17 04:48 Laboratory Tests 01/04/17 04:48 Sepsis Diagnostic Criteria Sepsis Confirmed/Suspected Infection: Yes SIRS Criteria: Pulse >= 90 beats/min, WBC >=12,000 or <=4,000 Assessment & Plan Problems: (1) Pressure ulcer of right buttock Status: Chronic Qualifiers: Pressure ulcer stage: stage 4 Qualified Codes: L89.314 - Pressure ulcer of right buttock, stage 4 Assessment & Plan: Stage IV ischial decub. 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 coli UTI Status: Acute (3) MANDY (acute kidney injury) Status: Acute (4) Microcytic anemia Status: Acute Assessment & Plan: iron deficient anemia (5) Sepsis Status: Resolved Assessment & Plan: Manifestations of sepsis include the following- 1. Right buttock/hip wound-worsening with tunneling 2. Leukocytosis, WBC count 12.9 3. Tachycardia- 121 on admission (6) Coughing Status: Resolved (7) Neurogenic bowel Status: Chronic (8) Neurogenic bladder Status: Chronic (9) Paraplegia at T9 level Status: Chronic (10) Chronic urinary tract infection Status: Chronic (11) Thrombocytosis Status: Chronic Plan/Intensity of Service 01/04/[address] Palma with infectious disease today. She did discontinue vancomycin. Will continue with IV Rocephin and PO Flagyl. Will monitor carefully for evidence of rash or ALLERGIC reaction. Given patient's history of rash with Keflex. Patient will require 6 weeks of antibiotics, end date 02/06/17. If debridement is required may consider extending stop date. Appreciate continued surgical evaluation and recommendation by Dr. Tyson and Dr. Buck. Continued wound care management by Wound team Nystatin powder 4 times a day for fungal type rash to groin Obtain eosinophil count in urine for evaluation of possible Acute Interstitial Nephritis (AIN). [employer] Wafers today is 2.0. May be related to Vancomycin. Continue with MiraLAX daily for ongoing bowel motivate patient and Dulcolax suppositories as needed. Will recheck CBC and BMP tomorrow to follow blood counts, renal function and electrolytes Code Status Full Code Hospital Course Summary Disclaimer The hospital course summary below is not to be considered part of the above Progress Note. Hospital Course Summary 12/25 Place patient to inpatient status under the care of Dr. Herbert for sepsis, right hip/buttocks wound, pressure ulcer We'll continue with consultation with wound center and with Dr. Tyson for ongoing treatment. Did discuss case with Dr. Palma, and she is planning to see patient later today. Will start vancomycin now. Place Pinto catheter given the patient has a history of urine. Neurogenic bladder and requires frequent straight caths Given coughing will obtain chest xray. Also obtain UA on admission IV fluids, 500 ml bolus and then 100ml/hr for ongoing hydration. Will recheck a venous lactate at 1630 per sepsis protocol. Will have infusion team place a PICC line, as patient will likely need long- term antibiotics. SCDs to bilateral lower extremity for DVT prophylaxis. Patient may have regular diet. Will monitor patient on cardiac telemetry given tachycardia. Will recheck CBC and BMP tomorrow morning to follow blood counts, renal function and electrolytes. Will discuss further plan of care with Dr Herbert. At time of discharge medical care will return to primary care provider, Dr. Morales 12/26/16 Dr. Palma is recommending 6 weeks of IV antibiotics for right ischial stage IV decub ulcer with possible osteomyelitis. Currently on Zosyn and Vancomycin, which will be narrowed pending cx results. Dr. Tyson will evaluate wound on Wednesday. Continue wound VAC. Also with UTI - C&S pending. Pinto inserted on admission, but pt has hx of neurogenic bladder requiring straight cath. Sepsis/SIRS: WBC normal - 6.8. Tachycardia resolved. BP occasionally with low- normal readings; 121/68 this am. IVF on hold. Lactate was normal. Mild hypokalemia (3.5) - replaced orally. Iron studies pending for microcytic anemia. 12/27/16 Appreciate ID recommendations by Dr Palma. She recommends 6 weeks of antibiotic therapy for treatment of Right decub ulcer with possible osteomyelitis. Wound culture continues to be pending. Vanco Trough this morning was 63.8. Will hold Vanco at this time and continue with Zosyn. Urine culture does revel evidence of E-Coli which is pansensitive. [employer] Wafers did increase today from 0.8 to 1.5. We will continue to monitor renal function carefully and recheck BMP at 1400.Continue with Scheduled Tessalon Perles for coughing Iron studies pending for microcytic anemia. Will discuss further plan of care with Dr Herbert 12/28/16 MANDY - Dr. Herbert has already discussed this with Dr. Carpenter (neph). Vanc is being held until trough is <15. Urine eosinophils have been ordered to see if Zosyn might be the cause. He has had very good UO. Continues on NS at 40 ml/hr. Right ischial decub. ulcer with poss. osteomyelitis - Dr. Palma following; cont. Zosyn. E. coli UTI - pansensitive Microcytic anemia - iron and % sat were both low - iron was started today. Wound care per Dr. Buck. CM exploring discharge options. 12/28/2016-I reviewed this chart, the patient history, and the CIVIL ENGINEERING PROFESSIONAL's/PA's documented findings as above. We discussed and formulated the assessment and plan as above with the additions below.-Dr. Herbert The patient states that he's feeling about the same. He is eating and drinking okay but appetite is not back to normal. He denies any pain. His cough is better. He denies any nausea or vomiting. He has had good urine output. On exam he is alert and oriented and in no acute distress. Chest is clear to auscultation. Cardiovascular reveals a regular rate and rhythm. Abdomen is soft and nontender with positive bowel sounds. Creatinine did increase from 1.5 yesterday to 1.7 today. Urine output has been almost 5 L a day. I did talk with Dr. Bee Ricks as noted above. Urine eosinophils were 0. If creatinine is not trending down, would recommend calling Dr. Ricks for further recommendations. Her help has been greatly appreciated. 12/29/16 MANDY - Cr same as yesterday, 1.7. Vanco trough trending down. He's had good oral intake and excellent urine output. Urine eos were neg. He is on 1/2 NS at 75 ml/ hr. Right ischial decub. ulcer with poss. osteomyelitis - Dr. Palma following; cont. Zosyn. Restart vanco when trough <15. E. coli UTI - pansensitive Wound care per wound team/Dr. Buck. CM exploring discharge options; pending renal improvement and ID recommendations. 12/30 Doing well overall. No new problems or concerns. Cough decreasing. Breathing well. Appetite stable. No nausea. Taking liquids in well. No f/c. Creatinine 1.9. Vanco on hold. Continue Zosyn - dose decreased secondary to MANDY. Vanco remains on hold. Continue 1/2NS at 75 cc/hr due to MANDY. Continue wound vac and wound care. Occult stools negative. Continue oral iron-add Vit C with iron. Recheck BMP and phos in am due to MANDY. Repeat CBC in am to monitor blood counts due to infection. 12/31 Doing well overall. Cough decreasing; not sore in chest or ab from coughing. Breathing well. Appetite improving slowly. Drinking well. No nausea or stomatitis. No f/c. Not having pains/discomfort. Creatinine 1.9. Continue Zosyn for antimicrobial coverage. Vanco on hold, troth decrease but I'm hesitant to restart as creatinine still 1.9. Will increase 1/2NS to 125cc/hr help renal function as output has been greater than intake. PhosLo started TID as phosphorus elevated. Continue with Wound Vac and wound care. Recheck lab in am. 01/01 Doing well overall. Tolerating wound vac changes-with his paraplegia he has no pain. No f/c. Breathing well; cough decreasing. No nausea or ab pain; appetite still decreased (family bringing in food from outside to help). No new problems or concerns. Creatinine 1.9. Continue Zosyn for antimicrobial coverage. Will give 1000mg IV vanco x1 - check random level in am. Continue IVF of 1/2NS at 125cc/hr help renal function. Change Tessalon Perle to prn as coughing decreased. Encourage intake of good nutrients to help wound healing. Continue with Wound Vac and wound care. Wound Vac changed today - anticipate changing again on 01/04. Recheck lab in am. 01/02 Doing well. No new problems. Breathing well. Not having congestion, SOA, and cough has resolved. No pain with breathing or chest pain. No nausea or ab pain. Appetite still with decrease-hard to find foods than sound appealing. No pain or discomfort. No f/c. Creatinine 1.9. Continue Zosyn for antimicrobial coverage. Vanco level okay; Pharm to give Vanco 750mg IV x1 today and monitor. Continue IVF of 1/2NS at 125cc/hr help renal function. Continue with Wound Vac and wound care. Recheck lab in am. 01/03 Doing well. Breathing stable-no SOA, cough or congestion. No chest pressure or pain. Denies ab pain or nausea. Nursing help remove stool today. Eating slightly better-finding some foods on the menu that are appealing. No f/c. Creatinine 1.8. Continue Zosyn for antimicrobial coverage. Pharm to gave Vanco 750mg IV x1 today. Monitor levels. Continue IVF of 1/2NS at 125cc/hr help renal function. Good urine output. No signs of volume overload. Encourage good nutritional intake to help with wound healing. Continue with Wound Vac and wound care. Recheck lab in am. 01/04/[address] Palma with infectious disease today. She did discontinue vancomycin. Will continue with IV Rocephin and PO Flagyl. Will monitor carefully for evidence of rash or ALLERGIC reaction. Given patient's history of rash with Keflex. Patient will require 6 weeks of antibiotics, end date 02/06/17. If debridement is required may consider extending stop date. Appreciate continued surgical evaluation and recommendation by Dr. Tyson and Dr. Buck. Continued wound care management by Wound team Nystatin powder 4 times a day for fungal type rash to groin Obtain eosinophil count in urine for evaluation of possible Acute Interstitial Nephritis (AIN). [employer] Wafers today is 2.0. May be related to Vancomycin. Continue with MiraLAX daily for ongoing bowel motivate patient and Dulcolax suppositories as needed. Will recheck CBC and BMP tomorrow to follow blood counts, renal function and electrolytes LENY SO MD 01/04/17 1700: Assessment & Plan Plan/Intensity of Service Have independently interviewed and examined pt. Chart reviewed. Case discussed with CM and my CIVIL ENGINEERING PROFESSIONAL. Care plan developed with my supervision; agree with above. Doing well today other than a Headache-frontal; no sinus pressure or congestion. Breathing well. No cough or congestion. No nausea. Drinking well. No f/c. Lungs: clear bilaterally; no distress CV: regular AB: soft nt/nd +BS MSE: awake alert appropriate Plan: Antibiotics change to Rocephin and metronidazole by ID-monitor for rash/ side effects. Continue with wound care. Continue 1/2NS at 125cc/hr. Monitor lab. Continue with supportive care. HANS HUGO APRN Jan 04, 2017 13:29 LENY SO MD Jan 04, 2017 17:00
--- NOTE | 2017-01-04 13:49 | PDWOUND ---
Wound Documentation Wound Management Wound : Location Modifier: Right, Upper Wound Location: Thigh Wound Type: Pressure Ulcer Wound Dressing Frequency: three times per week Wound Duration: > one month Wound Dressing Status: FOUND: Changed Wound Drainage Amount: Copious Wound Drainage Description: Serosanguineous Wound Drainage Odor: None/Absent Wound General Appearance: FOUND Draining, FOUND Muscle Visible, FOUND Reddened, FOUND Unapproximated Wound Bed: gran red Periwound Description: Indurated, Tunnelling, Undermined Wound Length (cm): 5.8 Wound Width (cm): 3.5 Wound Depth (cm): 5.5 Exposed: muscle Wound Cleanser: NS Wound Solution/Irrigant: Saline Irrigant Wound Packing Type: FOUND: Black Foam Wound Primary Dressing Type: Clear Adhesive Cover Wound Tunneling : Sinus/Tunnels (cm): 6 Tunneling Location (o'clock): 12 Wound Undermining : Wound Undermining (cm): 2 Undermining Location (o'clock): 12-4 Comments Wound vac removed wound bed beefy red and measurements significantly smaller. Dr Tyson in to see pt. Dr Tyson in and wants to continue Feraflow wound vac and specialty bed. TATUM RIZO RN Jan 04, 2017 09:29
[2017-01-04 16:14] VITALS: BP 148/98; PULSE 76; RESP 16; TEMP 95.8; O2SAT 96
--- NOTE | 2017-01-04 17:30 | NUR ---
STATUS PT A/O X3. BED TURNS PT Q30MIN. WOUND VAC AT 125 CONTINUOUS WITH NS FLUID ATTACHED. WOUND VAC DRESSING CHANGED BY ISSAC RIZO RN FROM WOUND CLINIC TODAY, PT TOLERATED WELL. DE SOUZA PATENT AND DRAINING. GOOD OUTPUT. GOOD APPETITE. INCONT OF BM. PT RESTING IN BED WITH ALARM. CALL LIGHT WITHIN REACH. WILL CONTINUE TO MONITOR.
--- NOTE | 2017-01-04 19:49 | PNF ---
DATE OF SERVICE 01/04/2017 FINDINGS Mr. Cosby was in good spirits earlier today. Patient without complaints. EXAM Vitals: Afebrile, normotensive. Last recorded vitals include temperature 95.8, pulse 76, respirations 16, blood pressure 148/98, SAO2 96% room air. CHEST: Clear to auscultation bilaterally. HEART: Regular rate and rhythm. Normal S1 and S2 without gallops, murmurs or clicks. BUTTOCKS: Attention was focused to the area of concern involving the pressure ulceration overlying the right ischial tuberosity/right buttock region. Wound VAC was removed. I was quite pleased to see the significant improvement in the appearance of his wound from a week ago when I had seen him last. There was excellent granulation tissue that has now formed throughout the wound bed. The wound still tunnels medially about 4-5 cm. There is no necrotic tissue present within the wound itself. The bone is not palpable or visible. There is good granulation tissue overlying the ischial tuberosity. LABORATORY/RADIOGRAPHIC EVALUATION The patient had a CBC today that was unremarkable. Hemoglobin is stable at 10.3. White count is stable at 8.5. BMP was obtained and his creatinine and BUN are elevated at 2.0 and 26.0, respectively. ASSESSMENT 41-year-old paraplegic gentleman status post myocutaneous flap secondary to history of stage IV pressure ulceration involving right buttock/ischial region. The patient's wound has made marked improvement with utilization of negative wound pressure therapy. PLAN From a wound standpoint I am quite pleased with the patient's progress. I appreciate the hospitalist system in regards to medical management of this patient. The hospitalist system is managing his E. coli urinary tract infection and his acute kidney injury. Will continue to follow along in the patient's care at this point in time. LOREE
[2017-01-04 21:05] VITALS: PULSE 72
[2017-01-05 00:20] VITALS: BP 131/81; PULSE 88; RESP 20; TEMP 97.2; O2SAT 97
--- NOTE | 2017-01-05 05:17 | NUR ---
Status Pt denied pain or nausea. Bed turns pt q30 minutes. No significant changes during shift. Uses call light appropriately. Will continue to monitor.
[2017-01-05] MEDS: 1/2 NS 1,000 ML IV SCH ×2 (06:48→19:55)
[2017-01-05] MEDS: ASCORBIC ACID 500 MG TABLET PO SCH (08:57)
[2017-01-05] MEDS: VITAMIN B COMP + C TABLET PO SCH (08:59)
[2017-01-05] MEDS: POLYETHYL.GLYCOL 3350 PACKET 17gm PO SCH (08:59)
[2017-01-05] MEDS: FERROUS SULFATE 324 MG TABLET PO SCH (08:59)
[2017-01-05] MEDS: METRONIDAZOLE 500 MG TABLET PO SCH ×2 (08:59→19:55)
[2017-01-05 09:00] VITALS: PULSE 74; RESP 20
[2017-01-05] MEDS: CALCIUM ACETATE 667 MG CAPSULE PO SCH ×3 (09:01→18:28)
[2017-01-05] MEDS: NYSTATIN POWDER 15gm BOTTLE TOP SCH ×4 (09:01→19:56)
[2017-01-05 09:07] VITALS: BP 153/94; PULSE 74; RESP 16; TEMP 97.8; O2SAT 99
[2017-01-05] MEDS: CEFTRIAXONE 2 G in NORMAL SALINE 100 ML IV SCH (09:07)
[2017-01-05 10:18] LABS: ALBUMIN 3.2 G/DL (3.5-5.0); ANION GAP 10 MEQ/L (5-15); BUN/CREATININE RATIO 14 RATIO (6-26); CALCIUM 8.8 MG/DL (8.4-10.2); CHLORIDE 107 MEQ/L (98-107); CO2 - CARBON DIOXIDE 25 MEQ/L (22-30); CREATININE 1.6 MG/DL (0.8-1.5); GLOMERULAR FILTRATION RATE 48; GLUCOSE 127 MG/DL (75-110); PHOSPHORUS 4.7 MG/DL (2.5-4.5); SODIUM 142 MEQ/L (134-144)
--- NOTE | 2017-01-05 10:57 | PNPDOC ---
[facility] 01/05/17 1052: Subjective Date DATE: 01/05/17 TIME: 10:49 Subjective Joe states that he is feeling fine, but admits that he is getting bored with his hospital stay. He passes the time by watching TV, looking at his phone, or sleeping. He has been sleeping more here at the hospital compared to what he does at home. He reports that his appetite has been improved, though he is losing interest in the hospital food. Denies any nausea or abdominal pain. He denies any shortness of breath. He was pleased to hear that his wound is improving, per Dr. Tyson. Objective Vital Signs Vital signs Vital Signs Date Time Temp Pulse Resp B/P Pulse Ox O2 Delivery O2 Flow Rate FiO2 01/05/17 09:07 97.8 74 16 153/94 99 Room Air Height (Feet): 5 Height (Inches): 9.00 Weight (Kilograms): 105.000 General General Appearance: Alert, Obese, Orientated x 3, Well Nourished, Well Developed, No Acute Distress Eyes (Brief) Eyes: FOUND: PERRL, NOT FOUND: scleral icterus ENMT (Brief) ENMT: FOUND: mucosa moist, NOT FOUND: pharnyx erythema Respiratory (Brief) Respiratory: FOUND: clear all burroughs, equal bilaterally Comments Decreased air movement Cardiovascular (Brief) Cardiac: FOUND: regular rate, regular rhythm Abdomen (Brief) Abdominal: FOUND: BS normo active x4, soft, NOT FOUND: distended, tender Extremities (Brief) Extremity : Side: Bilateral Extremity: leg Extremity Finding: FOUND: edema Musculoskeletal (Brief) Musculoskeletal: FOUND: loss of motion (paraplegic) Integumentary (Brief) Integumentary: FOUND: dry, pink, warm Comments Wound VAC Psychiatric (Brief) Psychiatric: FOUND: alert, normal affect, oriented, NOT FOUND: attentive (flat) Laboratory Laboratory Laboratory Tests 01/03/17 11:59 01/04/17 04:48 01/05/17 09:46 Laboratory Tests 01/04/17 04:48 Sepsis Diagnostic Criteria Sepsis Confirmed/Suspected Infection: Yes SIRS Criteria: Pulse >= 90 beats/min, WBC >=12,000 or <=4,000 Assessment & Plan Problems: (1) Pressure ulcer of right buttock Status: Chronic Qualifiers: Pressure ulcer stage: stage 4 Qualified Codes: L89.314 - Pressure ulcer of right buttock, stage 4 Assessment & Plan: Stage IV ischial decub. 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 coli UTI Status: Acute (3) MANDY (acute kidney injury) Status: Acute (4) Microcytic anemia Status: Acute Assessment & Plan: iron deficient anemia (5) Sepsis Status: Resolved Assessment & Plan: Manifestations of sepsis include the following- 1. Right buttock/hip wound-worsening with tunneling 2. Leukocytosis, WBC count 12.9 3. Tachycardia- 121 on admission (6) Coughing Status: Resolved (7) Neurogenic bowel Status: Chronic (8) Neurogenic bladder Status: Chronic (9) Paraplegia at T9 level Status: Chronic (10) Chronic urinary tract infection Status: Chronic (11) Thrombocytosis Status: Chronic Plan/Intensity of Service Acute kidney injury: Creatinine improved to 1.6 today. Will decrease the rate of IV fluids to 60 mL per hour. His weight has increased about 8 kg since day of admission. Continue with Rocephin and metronidazole, per Dr. Palma. There is no MRSA isolated from wound culture, so no need to continue vancomycin. She recommends six weeks of IV antibiotics to treat osteomyelitis, starting from his admission date (12/25). If debridement is done, I'd consider changing the stop date of the IV antibiotics to 6 weeks post-debridement. Stage IV pressure ulceration of right buttock/ischial region: Per Dr. Tyson , marked improvement seen with wound VAC. Sinus rhythm noted on telemetry without any hemodynamic instability. We'll discontinue telemetry. We'll discuss further orders with Dr. Herbert. DVT Prophylaxis: SCD'S Code Status Full Code Hospital Course Summary Disclaimer The hospital course summary below is not to be considered part of the above Progress Note. Hospital Course Summary 12/25 Place patient to inpatient status under the care of Dr. Herbert for sepsis, right hip/buttocks wound, pressure ulcer We'll continue with consultation with wound center and with Dr. Tyson for ongoing treatment. Did discuss case with Dr. Palma, and she is planning to see patient later today. Will start vancomycin now. Place Pinto catheter given the patient has a history of urine. Neurogenic bladder and requires frequent straight caths Given coughing will obtain chest xray. Also obtain UA on admission IV fluids, 500 ml bolus and then 100ml/hr for ongoing hydration. Will recheck a venous lactate at 1630 per sepsis protocol. Will have infusion team place a PICC line, as patient will likely need long- term antibiotics. SCDs to bilateral lower extremity for DVT prophylaxis. Patient may have regular diet. Will monitor patient on cardiac telemetry given tachycardia. Will recheck CBC and BMP tomorrow morning to follow blood counts, renal function and electrolytes. Will discuss further plan of care with Dr Herbert. At time of discharge medical care will return to primary care provider, Dr. Morales 12/26/16 Dr. Palma is recommending 6 weeks of IV antibiotics for right ischial stage IV decub ulcer with possible osteomyelitis. Currently on Zosyn and Vancomycin, which will be narrowed pending cx results. Dr. Tyson will evaluate wound on Wednesday. Continue wound VAC. Also with UTI - C&S pending. Pinto inserted on admission, but pt has hx of neurogenic bladder requiring straight cath. Sepsis/SIRS: WBC normal - 6.8. Tachycardia resolved. BP occasionally with low- normal readings; 121/68 this am. IVF on hold. Lactate was normal. Mild hypokalemia (3.5) - replaced orally. Iron studies pending for microcytic anemia. 12/27/16 Appreciate ID recommendations by Dr Palma. She recommends 6 weeks of antibiotic therapy for treatment of Right decub ulcer with possible osteomyelitis. Wound culture continues to be pending. Vanco Trough this morning was 63.8. Will hold Vanco at this time and continue with Zosyn. Urine culture does revel evidence of E-Coli which is pansensitive. Shell Press Operator did increase today from 0.8 to 1.5. We will continue to monitor renal function carefully and recheck BMP at 1400.Continue with Scheduled Tessalon Perles for coughing Iron studies pending for microcytic anemia. Will discuss further plan of care with Dr Herbert 12/28/16 MANDY - Dr. Herbert has already discussed this with Dr. Carpenter (neph). Vanc is being held until trough is <15. Urine eosinophils have been ordered to see if Zosyn might be the cause. He has had very good UO. Continues on NS at 40 ml/hr. Right ischial decub. ulcer with poss. osteomyelitis - Dr. Palma following; cont. Zosyn. E. coli UTI - pansensitive Microcytic anemia - iron and % sat were both low - iron was started today. Wound care per Dr. Buck. CM exploring discharge options. 12/28/2016-I reviewed this chart, the patient history, and the HEALTH WORKERS's/PA's documented findings as above. We discussed and formulated the assessment and plan as above with the additions below.-Dr. Herbert The patient states that he's feeling about the same. He is eating and drinking okay but appetite is not back to normal. He denies any pain. His cough is better. He denies any nausea or vomiting. He has had good urine output. On exam he is alert and oriented and in no acute distress. Chest is clear to auscultation. Cardiovascular reveals a regular rate and rhythm. Abdomen is soft and nontender with positive bowel sounds. Creatinine did increase from 1.5 yesterday to 1.7 today. Urine output has been almost 5 L a day. I did talk with Dr. Bee Ricks as noted above. Urine eosinophils were 0. If creatinine is not trending down, would recommend calling Dr. Ricks for further recommendations. Her help has been greatly appreciated. 12/29/16 MANDY - Cr same as yesterday, 1.7. Vanco trough trending down. He's had good oral intake and excellent urine output. Urine eos were neg. He is on 1/2 NS at 75 ml/ hr. Right ischial decub. ulcer with poss. osteomyelitis - Dr. Palma following; cont. Zosyn. Restart vanco when trough <15. E. coli UTI - pansensitive Wound care per wound team/Dr. Buck. CM exploring discharge options; pending renal improvement and ID recommendations. 12/30 Doing well overall. No new problems or concerns. Cough decreasing. Breathing well. Appetite stable. No nausea. Taking liquids in well. No f/c. Creatinine 1.9. Vanco on hold. Continue Zosyn - dose decreased secondary to MANDY. Vanco remains on hold. Continue 1/2NS at 75 cc/hr due to MANDY. Continue wound vac and wound care. Occult stools negative. Continue oral iron-add Vit C with iron. Recheck BMP and phos in am due to MANDY. Repeat CBC in am to monitor blood counts due to infection. 12/31 Doing well overall. Cough decreasing; not sore in chest or ab from coughing. Breathing well. Appetite improving slowly. Drinking well. No nausea or stomatitis. No f/c. Not having pains/discomfort. Creatinine 1.9. Continue Zosyn for antimicrobial coverage. Vanco on hold, troth decrease but I'm hesitant to restart as creatinine still 1.9. Will increase 1/2NS to 125cc/hr help renal function as output has been greater than intake. PhosLo started TID as phosphorus elevated. Continue with Wound Vac and wound care. Recheck lab in am. 01/01 Doing well overall. Tolerating wound vac changes-with his paraplegia he has no pain. No f/c. Breathing well; cough decreasing. No nausea or ab pain; appetite still decreased (family bringing in food from outside to help). No new problems or concerns. Creatinine 1.9. Continue Zosyn for antimicrobial coverage. Will give 1000mg IV vanco x1 - check random level in am. Continue IVF of 1/2NS at 125cc/hr help renal function. Change Tessalon Perle to prn as coughing decreased. Encourage intake of good nutrients to help wound healing. Continue with Wound Vac and wound care. Wound Vac changed today - anticipate changing again on 01/04. Recheck lab in am. 01/02 Doing well. No new problems. Breathing well. Not having congestion, SOA, and cough has resolved. No pain with breathing or chest pain. No nausea or ab pain. Appetite still with decrease-hard to find foods than sound appealing. No pain or discomfort. No f/c. Creatinine 1.9. Continue Zosyn for antimicrobial coverage. Vanco level okay; Pharm to give Vanco 750mg IV x1 today and monitor. Continue IVF of 1/2NS at 125cc/hr help renal function. Continue with Wound Vac and wound care. Recheck lab in am. 01/03 Doing well. Breathing stable-no SOA, cough or congestion. No chest pressure or pain. Denies ab pain or nausea. Nursing help remove stool today. Eating slightly better-finding some foods on the menu that are appealing. No f/c. Creatinine 1.8. Continue Zosyn for antimicrobial coverage. Pharm to gave Vanco 750mg IV x1 today. Monitor levels. Continue IVF of 1/2NS at 125cc/hr help renal function. Good urine output. No signs of volume overload. Encourage good nutritional intake to help with wound healing. Continue with Wound Vac and wound care. Recheck lab in am. 01/04/[address] Palma with infectious disease today. She did discontinue vancomycin. Will continue with IV Rocephin and PO Flagyl. Will monitor carefully for evidence of rash or ALLERGIC reaction. Given patient's history of rash with Keflex. Patient will require 6 weeks of antibiotics, end date 02/06/17. If debridement is required may consider extending stop date. Appreciate continued surgical evaluation and recommendation by Dr. Tyson and Dr. Buck. Continued wound care management by Wound team Nystatin powder 4 times a day for fungal type rash to groin Obtain eosinophil count in urine for evaluation of possible Acute Interstitial Nephritis (AIN). Shell Press Operator today is 2.0. May be related to Vancomycin. Continue with MiraLAX daily for ongoing bowel motivate patient and Dulcolax suppositories as needed. Will recheck CBC and BMP tomorrow to follow blood counts, renal function and electrolytes 01/05/17 Acute kidney injury: Creatinine improved to 1.6 today. Will decrease the rate of IV fluids to 60 mL per hour. His weight has increased about 8 kg since day of admission. Continue with Rocephin and metronidazole, per Dr. Palma. There is no MRSA isolated from wound culture, so no need to continue vancomycin. She recommends six weeks of IV antibiotics to treat osteomyelitis, starting from his admission date (12/25). If debridement is done, I'd consider changing the stop date of the IV antibiotics to 6 weeks post-debridement Stage IV pressure ulceration of right buttock/ischial region: Per Dr. Tyson , marked improvement seen with wound VAC. Sinus rhythm noted on telemetry without any hemodynamic instability. We'll discontinue telemetry. We'll discuss further orders with Dr. Herbert. CARLOS ALBERTO HERBERT MD 01/05/17 2136: Assessment & Plan Assessment 01/05/2017-I reviewed this chart, the patient history, and the HEALTH WORKERS's/PA's documented findings as above. We discussed and formulated the assessment and plan as above with the additions below.-Dr. Herbert Patient was seen this evening in his room accompanied by his and 14-year- old daughter. He states he is feeling much better. His cough is resolved. His appetite has improved. He is using the specialty bed but does not think it would fit in his house. He wondered if he could stay here in the hospital until his wound has healed and he is no longer needing the wound VAC. I stated that I would talk with his shoe parts caser regarding possible swing bed. Will also need to talk with Dr. Tyson about how long he would recommend the specialty bed and when the patient could start using his wheelchair again. Currently he does not have his wheelchair because it is in [place] getting fitted for a new cushion. He thinks the cushion was not correct on his wheelchair and lead to his decubitus wound. Urine output has remained good. Creatinine was down today. Will decrease IV fluid rate. Recheck creatinine tomorrow. Urine eosinophils were elevated at 6%. When checked last week it was 0%. Will discuss with Dr. Palma tomorrow. On exam the patient is alert and oriented and in no acute distress. HEENT reveals sclerae to be anicteric and oropharynx is moist. Neck is supple. Chest is clear to auscultation. Cardiovascular reveals a regular rate and rhythm. Abdomen is soft and nontender. Continue current treatment for now. CLARENCE DUTTA APRN Jan 05, 2017 10:52 CARLOS ALBERTO HERBERT MD Jan 05, 2017 21:36
[2017-01-05 15:38] VITALS: BP 141/99; PULSE 87; RESP 16; TEMP 97.3; O2SAT 100
--- NOTE | 2017-01-05 17:22 | NUR ---
CM SPOKE WITH PT, RE: DC PLANNING. REVIEWED DC DATE IS EXPECTED TO BE SOON, AND PT WILL NEED IV ROCEPHIN DAILY. ( OF NOW). REVIEWED PT'S OPTIONS OF: HOME WITH HH FOR THIS, HOME WITH [facility], OR COME [place] [facility] [place]. PT SAID HIS PREFERENCE WOULD BE HOME WITH HOME HEALTH, AND HE WOULD DO THE INFUSION HIMSELF. (HE SAID HE IS CAPABLE OF THIS, AND HAS DONE THIS IN THE PAST FOR HIMSELF). REVIEWED RECOMMENDATION OF PT HAVING A SPECIAL AIRMATTRESS AT HOME. HE WAS RESISTENT TO THIS DUE TO HIS LIVING SITUATION (PT, , AND DAUGHTER LIVING WITH 'S MOTHER. TIGHT LIVING QUARTERS, NO ROOM FOR THE MATTRESS/BED). DISCUSSED THIS AT LENGTH WITH PT, REVIEWING THE RECOMMENDATION OF HAVING THAT MATTRESS AND THE REASON WHY. PT STATED HE UNDERSTANDS ALL OF THAT, AND HE IS CONCERNED FOR HIS HEALTH, ALSO. HOWEVER, HE SAID HE DOES NOT THINK HE WILL BE ABLE TO ACCOMMODATE THAT SPECIAL MATTRESS. HE DID GIVE PERMISSION FOR THIS WORKER TO CONTACT [employer] TO SEE IF THE MATTRESS WOULD BE COVERED UNDER INSURANCE. HE ALSO GAVE PERMISSION FOR HOME HEALTH AGENCIES ([facility], SINCE HE THINKS HE USED THEM IN THE PAST) AND [facility] TO BE CONTACTED. CALLED [facility], SPOKE WITH SAAD. SHE WILL OBTAIN [facility] FOR HOME [facility]ION. CALLED [facility], SPOKE WITH VICTORINO. SHE WILL OBTAIN [facility] FOR HOME HEALTH.
--- NOTE | 2017-01-05 19:20 | NUR ---
Summary Pt is A/O X 3 and . Pt affect sad and blunted this morning, Pt asked if depressed and needed to talk. Pt states, "I'm just tired of being here." Pt denies any suicide ideation or plan. Pt starting to joke and increase in good mood throughout the day. Pt would be on his phone or watching a movie when this RN entered the room. Pt assist x 2 when turning and checking Pt for incontinent bowel. Pt had 2 BM's this shift, both moderate and soft/brown. Pt states "I put this brief on myself at home." Pt bag bath done today, Pt able to do upper body and help turn with cares and bath. 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 Pt took all meds without difficulty. Pt continues to have PICC line flushing without difficulty, both ports able to aspirate, but blood getting harder to pull out without hemolysing specimen. Caps changed on both ports of PICC line. Pt SCD's on with foam boots and pillow to help with turning. Pt has specialty bed that helps turn him and off loads areas of his body. Wound Vac stayed in place today with NS flushing well. Pt had 100ml out of wound vac this shift. Pt remains to have red scrotum, barrier cream applied with every BM and repositioning of Pt. Pt family here at this time. No other c/o voiced. Denies pain all shift. Will continue to monitor. Pt uses call light appropriately. Bed locked. Bed alarm not on due to specialty bed.
[2017-01-05 20:00] VITALS: PULSE 72
[2017-01-06 00:01] VITALS: BP 139/88; PULSE 94; RESP 16; TEMP 98.2; O2SAT 98
--- NOTE | 2017-01-06 05:52 | NUR ---
Status Pt had two BM's this shift. Compliant with cares. Able to rest during night. and daughter to visit in evening. No significant changes during shift. VS's stable. Adequate output from wick. Speciality bed turns patient q30min. Will continue to monitor.
[2017-01-06 05:55] LABS: ANION GAP 10 MEQ/L (5-15); BUN/CREATININE RATIO 15 RATIO (6-26); CALCIUM 8.6 MG/DL (8.4-10.2); CHLORIDE 107 MEQ/L (98-107); CO2 - CARBON DIOXIDE 25 MEQ/L (22-30); CREATININE 1.7 MG/DL (0.8-1.5); GLOMERULAR FILTRATION RATE 45; GLUCOSE 91 MG/DL (75-110); POTASSIUM 4.2 MEQ/L (3.6-5); SODIUM 142 MEQ/L (134-144)
[2017-01-06 07:57] VITALS: BP 144/100; PULSE 72; RESP 16; TEMP 96.2; O2SAT 97
[2017-01-06] MEDS: 1/2 NS 1,000 ML IV SCH ×2 (08:23→14:45)
[2017-01-06] MEDS: CEFTRIAXONE 2 G in NORMAL SALINE 100 ML IV SCH (08:36)
--- NOTE | 2017-01-06 08:40 | PNPDOC ---
Subjective Date DATE: 01/06/17 TIME: 08:40 Subjective He denies any problems, and is tolerating the antibiotics without any issues. No N/V/D. His urine eosinophils returned positive at 6%. Objective Vital Signs: RN Vital Signs have been reviewed: Yes, Temperature: 96.2, Heart Rate: 72, Respiratory Rate: 16, BP: 144/100, Pulse Oximetry: 97 Height (Feet): 5 Height (Inches): 9.00 General: FOUND: Alert, NOT FOUND: Acute Distress Skin: NOT FOUND: Rash HEENT: FOUND NC/AT Neck: NOT FOUND: Meningismus Cardiac: FOUND: Regular Rate/Rhythm, NOT FOUND: Murmur, Pitting Edema Lungs: FOUND: Clear to Auscultation, Symmetrical Expansion, NOT FOUND: Respiratory Distress Abdomen: FOUND: Non-tender, Normal Bowel Sounds, Soft : FOUND: Pinto Extremities: NOT FOUND Edema (Bilateral Lower Extremitites) Neurological: FOUND A/A/A, FOUND Other (paraplegia) Psychological: FOUND Intact and Appropriate Wound VAC on IV Site: PICC (LUE) Antbiotics Vancomycin and Zosyn . Ceftriaxone and po flagyl since 01/04 Laboratory Laboratory Tests 01/05/17 09:46 01/06/17 05:06 Cultures Blood cultures 11/12 on 12/25 with S. intermedius Specimen: [id number] Collected: 12/25/16 Received: 12/25/[address]: NATHANIEL QUINTANILLA MD, FACS, CWS Source: UNKNOWN Procedure Result Verified MICROBIOLOGY GRAM STAIN [facility] Final 12/27/16-1201 RESULT GRAM POSITIVE COCCI IN CHAINS GRAM STAIN W Final (changed) 12/26/16-1803 RESULT GRAM POSITIVE COCCI IN CHAINS BLOOD CULTURE. Final 12/30/16-943 Organism 1 STREPTOCOCCUS INTERMEDIUS CULTURE COMMENT: GROWTH IN THE AEROBIC BOTTLE CULTURE COMMENT: GROWTH IN THE ANAEROBIC BOTTLE S INTERMED INTERP MAKAYLA ------ --------- AMPICILLIN S <=0.25 CLINDAMYCIN S <=0.25 ERYTHROMYCIN S <=0.12 LEVOFLOXACIN S <=0.25 LINEZOLID S <=2 BENZYLPENICILL S <=0.06 TETRACYCLINE S 0.5 VANCOMYCIN S 0.25 Wound culture 12/25: Specimen: [id number] Collected: 12/25/16 Received: 12/25/[address]: NATHANIEL QUINTANILLA MD, FACS, CWS Source: UNKNOWN Procedure Result Verified MICROBIOLOGY GRAM STAIN Final 12/26/16-150 RESULT FEW GRAM NEGATIVE RODS FEW GRAM POSITIVE RODS FEW GRAM POSITIVE COCCI MANY NEUTROPHILS WOUND CULTURE DEEP TISS-AER/AN Final 01/01/17-1032 Organism 1 PROTEUS VULGARIS GROUP QUANTITY: MODERATE GROWTH Organism 2 ENTEROCOC FAECALIS - (GROUP D) QUANTITY: MODERATE GROWTH Organism 3 BACTEROIDES FRAGILIS QUANTITY: MODERATE GROWTH Organism 4 ANAEROCOCCUS PREVOTII QUANTITY: MODERATE GROWTH Organism 5 DIPHTHEROID BACILLUS ORGANISM COMMENT: SENSITIVITY NOT PERFORMED Reviewed: Medications, Consult/Progress Notes Discussed With: Beth Raphael Sepsis Diagnostic Criteria Sepsis Confirmed/Suspected Infection: Yes SIRS Criteria: Pulse >= 90 beats/min, WBC >=12,000 or <=4,000 Assessment & Plan Assessment IMPRESSION 1. Right ischial decubitus ulcer stage IV with concern for osteomyelitis. 2. Sepsis secondary to skin and soft tissue source. 3. Septicemia with Strep intemedius 12/25/16. 4. MANDY with peripheral and urine eosinophilia, suspect AIN, likely due to Zosyn. 5. History of osteomyelitis of the right ischium status post debridement, six weeks of IV antibiotics followed by flap procedure in August 2016. 6. Paraplegia at T9 from an accident that occurred in 2001. 7. Neurogenic bladder with self-catheterization. 8. Neurogenic bowel. 9. History of urinary tract infections. 10. History of Clostridium difficile infection related to levofloxacin. 11. Allergy to Keflex, rash. Plan/Intensity of Service Recommend continuing with ceftriaxone and po flagyl. I would continue to monitor his creatinine at least twice a week. If it doesn't seem to continue to improve, then we could change the antibiotics to Invanz 1gm daily. Recommend 6 weeks of treatment, through 02/04/17. I would recommend checking CBC with diff, CMP, and CRP weekly while on IV antibiotics. These labs can be faxed to my office at [phone]. I can also follow up with him in the [facility]. CLAYTON ACOSTA MD Jan 06, 2017 08:40
[2017-01-06] MEDS: POLYETHYL.GLYCOL 3350 PACKET 17gm PO SCH (08:54)
[2017-01-06] MEDS: ASCORBIC ACID 500 MG TABLET PO SCH (08:57)
[2017-01-06] MEDS: VITAMIN B COMP + C TABLET PO SCH (08:58)
[2017-01-06] MEDS: METRONIDAZOLE 500 MG TABLET PO SCH ×2 (08:58→20:54)
[2017-01-06] MEDS: CALCIUM ACETATE 667 MG CAPSULE PO SCH ×3 (08:58→17:32)
[2017-01-06] MEDS: FERROUS SULFATE 324 MG TABLET PO SCH (08:58)
--- NOTE | 2017-01-06 10:28 | NUR ---
Status Patient alert and oriented. Denies pain/n/SOA. Patient on an air mattress that turns him frequently. Wound vac continues.
[2017-01-06] MEDS: NYSTATIN POWDER 15gm BOTTLE TOP SCH ×4 (11:48→20:54)
--- NOTE | 2017-01-06 13:21 | PNPDOC ---
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 He verbalizes concern about being discharged home and questions about [place] [facility] [place] and [place]. Overall he is doing well and he denies having any pain or shortness of breath. Bowels are moving daily, Pinto cath remains intact. Objective Vital Signs Vital signs Vital Signs Date Time Temp Pulse Resp B/P Pulse Ox O2 Delivery O2 Flow Rate FiO2 01/06/17 07:57 96.2 72 16 144/100 97 Room Air Height (Feet): 5 Height (Inches): 9.00 Weight (Kilograms): 104.700 General General Appearance: Alert, Orientated x 3, Cooperative, No Acute Distress Eyes (Brief) Eyes: FOUND: EOMI ENMT (Brief) ENMT: FOUND: mucosa moist, normal dentition, NOT FOUND: pharnyx erythema Neck (Brief) Neck: FOUND: midline, NOT FOUND: adenopathy, carotid bruits, tracheal deviation Respiratory (Brief) Respiratory: FOUND: clear all burroughs, equal bilaterally, NOT FOUND: wheezes Cardiovascular (Brief) Cardiac: FOUND: regular rate, regular rhythm, NOT FOUND: murmur, pedal edema Capillary Refill: <2 sec Abdomen (Brief) Abdominal: FOUND: BS normo active x4, soft, NOT FOUND: distended, tender Extremities (Brief) Extremity : Comments Wound Vac intact Lymphatic (Brief) Lymphatic: NOT FOUND: adenopathy Musculoskeletal (Brief) Musculoskeletal: NOT FOUND: tenderness Integumentary (Brief) Integumentary: FOUND: dry, pink, warm Neurologic (Brief) Neurological: FOUND: cranial 2-12 intact Psychiatric (Brief) Psychiatric: FOUND: alert, attentive, normal affect, oriented Laboratory Laboratory Laboratory Tests 01/05/17 09:46 01/06/17 05:06 Sepsis Diagnostic Criteria Sepsis Confirmed/Suspected Infection: Yes SIRS Criteria: Pulse >= 90 beats/min, WBC >=12,000 or <=4,000 Assessment & Plan Problems: (1) Pressure ulcer of right buttock Status: Chronic Qualifiers: Pressure ulcer stage: stage 4 Qualified Codes: L89.314 - Pressure ulcer of right buttock, stage 4 Assessment & Plan: Stage IV ischial decub. 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 coli UTI Status: Acute (3) MANDY (acute kidney injury) Status: Acute (4) Microcytic anemia Status: Acute Assessment & Plan: iron deficient anemia (5) Sepsis Status: Resolved Assessment & Plan: Manifestations of sepsis include the following- 1. Right buttock/hip wound-worsening with tunneling 2. Leukocytosis, WBC count 12.9 3. Tachycardia- 121 on admission (6) Coughing Status: Resolved (7) Neurogenic bowel Status: Chronic (8) Neurogenic bladder Status: Chronic (9) Paraplegia at T9 level Status: Chronic (10) Chronic urinary tract infection Status: Chronic (11) Thrombocytosis Status: Chronic Plan/Intensity of Service 01/06/17 Overall Joe is feeling good. Spoke with CM regarding possible discharge options versus swing Appreciate Dr Palma continued recommendations. Will continue on PO Flagyl and IV Rocephin daily at this point. Will need to continue out antibiotic therapy through 02/04/17. 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 will need to continue Foot[employer] Production Machine Operator twice a day and if renal function does not improve may changed to Invanz. At time of discharge he will need CBC with diff CMP and CRP weekly while on antibiotic. These labs will need to be sent to Dr Palma. Code Status Full Code Hospital Course Summary Disclaimer The hospital course summary below is not to be considered part of the above Progress Note. Hospital Course Summary 12/25 Place patient to inpatient status under the care of Dr. Herbert for sepsis, right hip/buttocks wound, pressure ulcer We'll continue with consultation with wound center and with Dr. Tyson for ongoing treatment. Did discuss case with Dr. Palma, and she is planning to see patient later today. Will start vancomycin now. Place Pinto catheter given the patient has a history of urine. Neurogenic bladder and requires frequent straight caths Given coughing will obtain chest xray. Also obtain UA on admission IV fluids, 500 ml bolus and then 100ml/hr for ongoing hydration. Will recheck a venous lactate at 1630 per sepsis protocol. Will have infusion team place a PICC line, as patient will likely need long- term antibiotics. SCDs to bilateral lower extremity for DVT prophylaxis. Patient may have regular diet. Will monitor patient on cardiac telemetry given tachycardia. Will recheck CBC and BMP tomorrow morning to follow blood counts, renal function and electrolytes. Will discuss further plan of care with Dr Herbert. At time of discharge medical care will return to primary care provider, Dr. Morales 12/26/16 Dr. Palma is recommending 6 weeks of IV antibiotics for right ischial stage IV decub ulcer with possible osteomyelitis. Currently on Zosyn and Vancomycin, which will be narrowed pending cx results. Dr. Tyson will evaluate wound on Wednesday. Continue wound VAC. Also with UTI - C&S pending. Pinto inserted on admission, but pt has hx of neurogenic bladder requiring straight cath. Sepsis/SIRS: WBC normal - 6.8. Tachycardia resolved. BP occasionally with low- normal readings; 121/68 this am. IVF on hold. Lactate was normal. Mild hypokalemia (3.5) - replaced orally. Iron studies pending for microcytic anemia. 12/27/16 Appreciate ID recommendations by Dr Palma. She recommends 6 weeks of antibiotic therapy for treatment of Right decub ulcer with possible osteomyelitis. Wound culture continues to be pending. Vanco Trough this morning was 63.8. Will hold Vanco at this time and continue with Zosyn. Urine culture does revel evidence of E-Coli which is pansensitive. Footwear Production Machine Operator did increase today from 0.8 to 1.5. We will continue to monitor renal function carefully and recheck BMP at 1400.Continue with Scheduled Tessalon Perles for coughing Iron studies pending for microcytic anemia. Will discuss further plan of care with Dr Herbert 12/28/16 MANDY - Dr. Herbert has already discussed this with Dr. Carpenter (neph). Vanc is being held until trough is <15. Urine eosinophils have been ordered to see if Zosyn might be the cause. He has had very good UO. Continues on NS at 40 ml/hr. Right ischial decub. ulcer with poss. osteomyelitis - Dr. Palma following; cont. Zosyn. E. coli UTI - pansensitive Microcytic anemia - iron and % sat were both low - iron was started today. Wound care per Dr. Buck. CM exploring discharge options. 12/28/2016-I reviewed this chart, the patient history, and the RETAIL ADVERTISING SALES MANAGER's/PA's documented findings as above. We discussed and formulated the assessment and plan as above with the additions below.-Dr. Herbert The patient states that he's feeling about the same. He is eating and drinking okay but appetite is not back to normal. He denies any pain. His cough is better. He denies any nausea or vomiting. He has had good urine output. On exam he is alert and oriented and in no acute distress. Chest is clear to auscultation. Cardiovascular reveals a regular rate and rhythm. Abdomen is soft and nontender with positive bowel sounds. Creatinine did increase from 1.5 yesterday to 1.7 today. Urine output has been almost 5 L a day. I did talk with Dr. Bee Ricks as noted above. Urine eosinophils were 0. If creatinine is not trending down, would recommend calling Dr. Ricks for further recommendations. Her help has been greatly appreciated. 12/29/16 MANDY - Cr same as yesterday, 1.7. Vanco trough trending down. He's had good oral intake and excellent urine output. Urine eos were neg. He is on 1/2 NS at 75 ml/ hr. Right ischial decub. ulcer with poss. osteomyelitis - Dr. Palma following; cont. Zosyn. Restart vanco when trough <15. E. coli UTI - pansensitive Wound care per wound team/Dr. Buck. CM exploring discharge options; pending renal improvement and ID recommendations. 12/30 Doing well overall. No new problems or concerns. Cough decreasing. Breathing well. Appetite stable. No nausea. Taking liquids in well. No f/c. Creatinine 1.9. Vanco on hold. Continue Zosyn - dose decreased secondary to MANDY. Vanco remains on hold. Continue 1/2NS at 75 cc/hr due to MANDY. Continue wound vac and wound care. Occult stools negative. Continue oral iron-add Vit C with iron. Recheck BMP and phos in am due to MANDY. Repeat CBC in am to monitor blood counts due to infection. 12/31 Doing well overall. Cough decreasing; not sore in chest or ab from coughing. Breathing well. Appetite improving slowly. Drinking well. No nausea or stomatitis. No f/c. Not having pains/discomfort. Creatinine 1.9. Continue Zosyn for antimicrobial coverage. Vanco on hold, troth decrease but I'm hesitant to restart as creatinine still 1.9. Will increase 1/2NS to 125cc/hr help renal function as output has been greater than intake. PhosLo started TID as phosphorus elevated. Continue with Wound Vac and wound care. Recheck lab in am. 01/01 Doing well overall. Tolerating wound vac changes-with his paraplegia he has no pain. No f/c. Breathing well; cough decreasing. No nausea or ab pain; appetite still decreased (family bringing in food from outside to help). No new problems or concerns. Creatinine 1.9. Continue Zosyn for antimicrobial coverage. Will give 1000mg IV vanco x1 - check random level in am. Continue IVF of 1/2NS at 125cc/hr help renal function. Change Tessalon Perle to prn as coughing decreased. Encourage intake of good nutrients to help wound healing. Continue with Wound Vac and wound care. Wound Vac changed today - anticipate changing again on 01/04. Recheck lab in am. 01/02 Doing well. No new problems. Breathing well. Not having congestion, SOA, and cough has resolved. No pain with breathing or chest pain. No nausea or ab pain. Appetite still with decrease-hard to find foods than sound appealing. No pain or discomfort. No f/c. Creatinine 1.9. Continue Zosyn for antimicrobial coverage. Vanco level okay; Pharm to give Vanco 750mg IV x1 today and monitor. Continue IVF of 1/2NS at 125cc/hr help renal function. Continue with Wound Vac and wound care. Recheck lab in am. 01/03 Doing well. Breathing stable-no SOA, cough or congestion. No chest pressure or pain. Denies ab pain or nausea. Nursing help remove stool today. Eating slightly better-finding some foods on the menu that are appealing. No f/c. Creatinine 1.8. Continue Zosyn for antimicrobial coverage. Pharm to gave Vanco 750mg IV x1 today. Monitor levels. Continue IVF of 1/2NS at 125cc/hr help renal function. Good urine output. No signs of volume overload. Encourage good nutritional intake to help with wound healing. Continue with Wound Vac and wound care. Recheck lab in am. 01/04/[address] Palma with infectious disease today. She did discontinue vancomycin. Will continue with IV Rocephin and PO Flagyl. Will monitor carefully for evidence of rash or ALLERGIC reaction. Given patient's history of rash with Keflex. Patient will require 6 weeks of antibiotics, end date 02/06/17. If debridement is required may consider extending stop date. Appreciate continued surgical evaluation and recommendation by Dr. Tyson and Dr. Buck. Continued wound care management by Wound team Nystatin powder 4 times a day for fungal type rash to groin Obtain eosinophil count in urine for evaluation of possible Acute Interstitial Nephritis (AIN). Footwear Production Machine Operator today is 2.0. May be related to Vancomycin. Continue with MiraLAX daily for ongoing bowel motivate patient and Dulcolax suppositories as needed. Will recheck CBC and BMP tomorrow to follow blood counts, renal function and electrolytes 01/05/17 Acute kidney injury: Creatinine improved to 1.6 today. Will decrease the rate of IV fluids to 60 mL per hour. His weight has increased about 8 kg since day of admission. Continue with Rocephin and metronidazole, per Dr. Palma. There is no MRSA isolated from wound culture, so no need to continue vancomycin. She recommends six weeks of IV antibiotics to treat osteomyelitis, starting from his admission date (12/25). If debridement is done, I'd consider changing the stop date of the IV antibiotics to 6 weeks post-debridement Stage IV pressure ulceration of right buttock/ischial region: Per Dr. Tyson , marked improvement seen with wound VAC. Sinus rhythm noted on telemetry without any hemodynamic instability. We'll discontinue telemetry. We'll discuss further orders with Dr. Herbert. CARLOS ALBERTO HERBERT MD 01/06/171956: Assessment & Plan Assessment 01/06/2017-I reviewed this chart, the patient history, and the RETAIL ADVERTISING SALES MANAGER's/PA's documented findings as above. We discussed and formulated the assessment and plan as above with the additions below.-Dr. Herbert Patient states he's feeling a little tired as he has all along. He has no other complaints. He denies any pain. He is breathing without difficulties. He is eating without difficulties. He has a Pinto in place with good urine output and urine looks clear. He had 2 bowel movements today. On exam he is alert and oriented and in no acute distress. Chest is clear to auscultation. Cardiovascular reveals regular rate and rhythm. Abdomen is soft and nontender. Extremities are free of edema. Blood pressure is a little elevated. Will monitor but may need to either decrease IV fluids first is try a low-dose antihypertensive. Recheck lab tomorrow. Discuss with case management tomorrow regarding swing bed versus [facility]. HANS HUGO APRN Jan 06, 2017 13:15 CARLOS ALBERTO HERBERT MD Jan 06, 2017 19:57
[2017-01-06] MEDS: NORMAL SALINE 1,000 ML IV PRN (15:02)
[2017-01-06 16:11] VITALS: BP 155/102; PULSE 96; RESP 16; TEMP 96.6; O2SAT 99
--- NOTE | 2017-01-06 16:23 | PDWOUND ---
Wound Documentation Wound Management Wound : Location Modifier: Right, Upper Wound Location: Thigh Wound Type: Pressure Ulcer Wound Dressing Frequency: three times per week Wound Duration: > one month Wound Dressing Status: FOUND: Changed Wound Drainage Amount: Copious Wound Drainage Description: Serosanguineous Wound Drainage Odor: None/Absent Wound General Appearance: FOUND Draining, FOUND Muscle Visible, FOUND Reddened, FOUND Unapproximated Wound Bed: gran red Periwound Description: Indurated, Tunnelling, Undermined Wound Length (cm): 5.4 Wound Width (cm): 3.5 Wound Depth (cm): 5.2 Exposed: muscle Wound Cleanser: NS Wound Solution/Irrigant: Saline Irrigant Wound Packing Type: FOUND: Black Foam Wound Primary Dressing Type: Clear Adhesive Cover Wound Tunneling : Sinus/Tunnels (cm): 7 Tunneling Location (o'clock): 12 Wound Undermining : Wound Undermining (cm): 1 Undermining Location (o'clock): 12-4 Comments In to change wound vac. Measurements obtained, Black foam veraflow applied to wound bed, occlusive drsg and sensor track applied. Good seal obtained. Changed settings on wound vac instill side to 60cc fill, dwell for 15 mins and every 2.5 hours. Discussed possibilities of a new bed at home that would off load side, also possibly going to [facility] again to continue instill wound vac. Will change vac on Wednesday. TATUM RIZO RN Jan 06, 2017 16:23
--- NOTE | 2017-01-06 17:11 | NUR ---
CM RECEIVED CALL FROM [facility]; THEY ARE NOT IN NETWORK RECEIVED CALL FROM MARIKA BRAGA; SHE SAID THEY ARE NOT IN NETWORK BUT PT WOULD PROBABLY HAVE ABOUT A $200.00 PER DAY COST. SPOKE WITH PT, RE: TEAM'S RECOMMENDATION OF AN LTAC AT AM, DUE TO THE WOUND VAC AND IV ANTIBIOTIC. PT WAS AGREEABLE TO THIS AND GAVE PERMISSION FOR THIS WORKER TO CONTACT [facility] [place] ABOUT THIS. ALSO EXPLAINED THERE WAS THE OPTION OF DC HOME AND COMING TO [facility] FOR DAILY INFUSION, BUT PT WAS AGREEABLE TO CONTACT [facility] [place] DUE TO THE WOUND VAC ISSUE.
--- NOTE | 2017-01-06 17:39 | NUR ---
Status No new concerns this shift. Breathing comfortably on RA. Air mattress rotates patient frequently. Wound vac continues, changed by wound team this afternoon. Good appetite.
[2017-01-06 20:09] VITALS: PULSE 90
[2017-01-07 00:17] VITALS: BP 128/83; PULSE 88; RESP 16; TEMP 96.7; O2SAT 97
--- NOTE | 2017-01-07 05:26 | NUR ---
Shift Summary: Pt has remained on room air during the night. Pt is turned q 30min by bed. Per Pt request, kept cares and interruptions to sleep during the night to a minimum. Pt is pleasant and cooperative. Wound vac is sealed and continuous to irrigate with NS. IVF continue to infuse as ordered. Pt denies pain. One moderate BM last evening and one smear. Good urinary output per Pinto. Will continue to monitor.
[2017-01-07] MEDS: 1/2 NS 1,000 ML IV SCH (08:00)
[2017-01-07 08:14] VITALS: BP 143/86; PULSE 79; RESP 18; TEMP 96.4; O2SAT 96
[2017-01-07 09:00] VITALS: PULSE 90
[2017-01-07] MEDS: ASCORBIC ACID 500 MG TABLET PO SCH (09:23)
[2017-01-07] MEDS: FERROUS SULFATE 324 MG TABLET PO SCH (09:23)
[2017-01-07] MEDS: METRONIDAZOLE 500 MG TABLET PO SCH ×2 (09:23→20:40)
[2017-01-07] MEDS: POLYETHYL.GLYCOL 3350 PACKET 17gm PO SCH (09:23)
[2017-01-07] MEDS: VITAMIN B COMP + C TABLET PO SCH (09:23)
[2017-01-07] MEDS: CALCIUM ACETATE 667 MG CAPSULE PO SCH ×3 (09:23→17:25)
[2017-01-07] MEDS: CEFTRIAXONE 2 G in NORMAL SALINE 100 ML IV SCH (09:24)
[2017-01-07] MEDS: NYSTATIN POWDER 15gm BOTTLE TOP SCH ×4 (09:25→20:47)
--- NOTE | 2017-01-07 13:15 | PNPDOC ---
HANS HUGO V DESIGN INSERTER 01/07/17 1307: Subjective Date DATE: 01/07/17 TIME: 13:00 Subjective Joe is seen today in follow up. He is doing good and without complaints. Denies pain, shortness of breath of GI complaints. Pinto cath intact with good urinary output and bowels continue to move regularly. Appetite is good. BP 143/ 86. He wants to discuss discharge plans as he is hopeful to remain [place] [facility] [place]. Objective Vital Signs Vital signs Vital Signs Date Time Temp Pulse Resp B/P Pulse Ox O2 Delivery O2 Flow Rate FiO2 01/07/17 09:00 90 01/07/17 08:14 96.4 18 143/86 96 Room Air Height (Feet): 5 Height (Inches): 9.00 Weight (Kilograms): 105.300 General General Appearance: Alert, Orientated x 3, Cooperative, No Acute Distress Eyes (Brief) Eyes: FOUND: EOMI ENMT (Brief) ENMT: FOUND: mucosa moist, normal dentition, NOT FOUND: pharnyx erythema Neck (Brief) Neck: FOUND: midline, NOT FOUND: adenopathy, carotid bruits, tracheal deviation Respiratory (Brief) Respiratory: FOUND: clear all burroughs, equal bilaterally, NOT FOUND: wheezes Cardiovascular (Brief) Cardiac: FOUND: regular rate, regular rhythm, NOT FOUND: murmur, pedal edema Capillary Refill: <2 sec Abdomen (Brief) Abdominal: FOUND: BS normo active x4, soft, NOT FOUND: distended, tender Lymphatic (Brief) Lymphatic: NOT FOUND: adenopathy Musculoskeletal (Brief) Musculoskeletal: NOT FOUND: tenderness Integumentary (Brief) Integumentary: FOUND: dry, pink, warm Comments Right buttock wound with Vac intact Neurologic (Brief) Neurological: FOUND: cranial 2-12 intact Psychiatric (Brief) Psychiatric: FOUND: alert, attentive, normal affect, oriented Laboratory Laboratory Laboratory Tests 01/06/17 05:06 Sepsis Diagnostic Criteria Sepsis Confirmed/Suspected Infection: Yes SIRS Criteria: Pulse >= 90 beats/min, WBC >=12,000 or <=4,000 Assessment & Plan Problems: (1) Pressure ulcer of right buttock Status: Chronic Qualifiers: Pressure ulcer stage: stage 4 Qualified Codes: L89.314 - Pressure ulcer of right buttock, stage 4 Assessment & Plan: Stage IV ischial decub. 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 coli UTI Status: Acute (3) MANDY (acute kidney injury) Status: Acute (4) Microcytic anemia Status: Acute Assessment & Plan: iron deficient anemia (5) Sepsis Status: Resolved Assessment & Plan: Manifestations of sepsis include the following- 1. Right buttock/hip wound-worsening with tunneling 2. Leukocytosis, WBC count 12.9 3. Tachycardia- 121 on admission (6) Coughing Status: Resolved (7) Neurogenic bowel Status: Chronic (8) Neurogenic bladder Status: Chronic (9) Paraplegia at T9 level Status: Chronic (10) Chronic urinary tract infection Status: Chronic (11) Thrombocytosis Status: Chronic Plan/Intensity of Service 01/07/17 Will continue on PO Flagyl and IV Rocephin daily at this point. Will need to continue out antibiotic therapy through 02/04/17. Will continue to follow renal function closely. Todays lab is currently pending. Wound Vac will be changed monday 01/08 by wound team At time of discharge he will need CBC with diff CMP and CRP weekly while on antibiotic. These labs will need to be faxed to Dr Palma. PT/OT consulted for evaluation for possible swing bed Spoke with CM regarding discharge plans as patient would prefer to stay at [facility] longer-term for ongoing wound treatment and antibiotic therapy. Code Status Full Code Hospital Course Summary Disclaimer The hospital course summary below is not to be considered part of the above Progress Note. Hospital Course Summary 12/25 Place patient to inpatient status under the care of Dr. Herbert for sepsis, right hip/buttocks wound, pressure ulcer We'll continue with consultation with wound center and with Dr. Tyson for ongoing treatment. Did discuss case with Dr. Palma, and she is planning to see patient later today. Will start vancomycin now. Place Pinto catheter given the patient has a history of urine. Neurogenic bladder and requires frequent straight caths Given coughing will obtain chest xray. Also obtain UA on admission IV fluids, 500 ml bolus and then 100ml/hr for ongoing hydration. Will recheck a venous lactate at 1630 per sepsis protocol. Will have infusion team place a PICC line, as patient will likely need long- term antibiotics. SCDs to bilateral lower extremity for DVT prophylaxis. Patient may have regular diet. Will monitor patient on cardiac telemetry given tachycardia. Will recheck CBC and BMP tomorrow morning to follow blood counts, renal function and electrolytes. Will discuss further plan of care with Dr Herbert. At time of discharge medical care will return to primary care provider, Dr. Morales 12/26/16 Dr. Palma is recommending 6 weeks of IV antibiotics for right ischial stage IV decub ulcer with possible osteomyelitis. Currently on Zosyn and Vancomycin, which will be narrowed pending cx results. Dr. Tyson will evaluate wound on Wednesday. Continue wound VAC. Also with UTI - C&S pending. Pinto inserted on admission, but pt has hx of neurogenic bladder requiring straight cath. Sepsis/SIRS: WBC normal - 6.8. Tachycardia resolved. BP occasionally with low- normal readings; 121/68 this am. IVF on hold. Lactate was normal. Mild hypokalemia (3.5) - replaced orally. Iron studies pending for microcytic anemia. 12/27/16 Appreciate ID recommendations by Dr Palma. She recommends 6 weeks of antibiotic therapy for treatment of Right decub ulcer with possible osteomyelitis. Wound culture continues to be pending. Vanco Trough this morning was 63.8. Will hold Vanco at this time and continue with Zosyn. Urine culture does revel evidence of E-Coli which is pansensitive. Information Lead did increase today from 0.8 to 1.5. We will continue to monitor renal function carefully and recheck BMP at 1400.Continue with Scheduled Tessalon Perles for coughing Iron studies pending for microcytic anemia. Will discuss further plan of care with Dr Herbert 12/28/16 MANDY - Dr. Herbert has already discussed this with Dr. Carpenter (neph). Vanc is being held until trough is <15. Urine eosinophils have been ordered to see if Zosyn might be the cause. He has had very good UO. Continues on NS at 40 ml/hr. Right ischial decub. ulcer with poss. osteomyelitis - Dr. Palma following; cont. Zosyn. E. coli UTI - pansensitive Microcytic anemia - iron and % sat were both low - iron was started today. Wound care per Dr. Buck. CM exploring discharge options. 12/28/2016-I reviewed this chart, the patient history, and the DESIGN INSERTER's/PA's documented findings as above. We discussed and formulated the assessment and plan as above with the additions below.-Dr. Herbert The patient states that he's feeling about the same. He is eating and drinking okay but appetite is not back to normal. He denies any pain. His cough is better. He denies any nausea or vomiting. He has had good urine output. On exam he is alert and oriented and in no acute distress. Chest is clear to auscultation. Cardiovascular reveals a regular rate and rhythm. Abdomen is soft and nontender with positive bowel sounds. Creatinine did increase from 1.5 yesterday to 1.7 today. Urine output has been almost 5 L a day. I did talk with Dr. Bee Ricks as noted above. Urine eosinophils were 0. If creatinine is not trending down, would recommend calling Dr. Ricks for further recommendations. Her help has been greatly appreciated. 12/29/16 MANDY - Cr same as yesterday, 1.7. Vanco trough trending down. He's had good oral intake and excellent urine output. Urine eos were neg. He is on 1/2 NS at 75 ml/ hr. Right ischial decub. ulcer with poss. osteomyelitis - Dr. Palma following; cont. Zosyn. Restart vanco when trough <15. E. coli UTI - pansensitive Wound care per wound team/Dr. Buck. CM exploring discharge options; pending renal improvement and ID recommendations. 12/30 Doing well overall. No new problems or concerns. Cough decreasing. Breathing well. Appetite stable. No nausea. Taking liquids in well. No f/c. Creatinine 1.9. Vanco on hold. Continue Zosyn - dose decreased secondary to MANDY. Vanco remains on hold. Continue 1/2NS at 75 cc/hr due to MANDY. Continue wound vac and wound care. Occult stools negative. Continue oral iron-add Vit C with iron. Recheck BMP and phos in am due to MANDY. Repeat CBC in am to monitor blood counts due to infection. 12/31 Doing well overall. Cough decreasing; not sore in chest or ab from coughing. Breathing well. Appetite improving slowly. Drinking well. No nausea or stomatitis. No f/c. Not having pains/discomfort. Creatinine 1.9. Continue Zosyn for antimicrobial coverage. Vanco on hold, troth decrease but I'm hesitant to restart as creatinine still 1.9. Will increase 1/2NS to 125cc/hr help renal function as output has been greater than intake. PhosLo started TID as phosphorus elevated. Continue with Wound Vac and wound care. Recheck lab in am. 01/01 Doing well overall. Tolerating wound vac changes-with his paraplegia he has no pain. No f/c. Breathing well; cough decreasing. No nausea or ab pain; appetite still decreased (family bringing in food from outside to help). No new problems or concerns. Creatinine 1.9. Continue Zosyn for antimicrobial coverage. Will give 1000mg IV vanco x1 - check random level in am. Continue IVF of 1/2NS at 125cc/hr help renal function. Change Tessalon Perle to prn as coughing decreased. Encourage intake of good nutrients to help wound healing. Continue with Wound Vac and wound care. Wound Vac changed today - anticipate changing again on 01/04. Recheck lab in am. 01/02 Doing well. No new problems. Breathing well. Not having congestion, SOA, and cough has resolved. No pain with breathing or chest pain. No nausea or ab pain. Appetite still with decrease-hard to find foods than sound appealing. No pain or discomfort. No f/c. Creatinine 1.9. Continue Zosyn for antimicrobial coverage. Vanco level okay; Pharm to give Vanco 750mg IV x1 today and monitor. Continue IVF of 1/2NS at 125cc/hr help renal function. Continue with Wound Vac and wound care. Recheck lab in am. 01/03 Doing well. Breathing stable-no SOA, cough or congestion. No chest pressure or pain. Denies ab pain or nausea. Nursing help remove stool today. Eating slightly better-finding some foods on the menu that are appealing. No f/c. Creatinine 1.8. Continue Zosyn for antimicrobial coverage. Pharm to gave Vanco 750mg IV x1 today. Monitor levels. Continue IVF of 1/2NS at 125cc/hr help renal function. Good urine output. No signs of volume overload. Encourage good nutritional intake to help with wound healing. Continue with Wound Vac and wound care. Recheck lab in am. 01/04/[address] Palma with infectious disease today. She did discontinue vancomycin. Will continue with IV Rocephin and PO Flagyl. Will monitor carefully for evidence of rash or ALLERGIC reaction. Given patient's history of rash with Keflex. Patient will require 6 weeks of antibiotics, end date 02/06/17. If debridement is required may consider extending stop date. Appreciate continued surgical evaluation and recommendation by Dr. Tyson and Dr. Buck. Continued wound care management by Wound team Nystatin powder 4 times a day for fungal type rash to groin Obtain eosinophil count in urine for evaluation of possible Acute Interstitial Nephritis (AIN). Information Lead today is 2.0. May be related to Vancomycin. Continue with MiraLAX daily for ongoing bowel motivate patient and Dulcolax suppositories as needed. Will recheck CBC and BMP tomorrow to follow blood counts, renal function and electrolytes 01/05/17 Acute kidney injury: Creatinine improved to 1.6 today. Will decrease the rate of IV fluids to 60 mL per hour. His weight has increased about 8 kg since day of admission. Continue with Rocephin and metronidazole, per Dr. Palma. There is no MRSA isolated from wound culture, so no need to continue vancomycin. She recommends six weeks of IV antibiotics to treat osteomyelitis, starting from his admission date (12/25). If debridement is done, I'd consider changing the stop date of the IV antibiotics to 6 weeks post-debridement Stage IV pressure ulceration of right buttock/ischial region: Per Dr. Tyson , marked improvement seen with wound VAC. Sinus rhythm noted on telemetry without any hemodynamic instability. We'll discontinue telemetry. We'll discuss further orders with Dr. Herbert. 01/07/17 Will continue on PO Flagyl and IV Rocephin daily at this point. Will need to continue out antibiotic therapy through 02/04/17. Will continue to follow renal function closely. Todays lab is currently pending. Wound Vac will be changed monday 01/08 by wound team At time of discharge he will need CBC with diff CMP and CRP weekly while on antibiotic. These labs will need to be faxed to Dr Palma. PT/OT consulted for evaluation for possible swing bed Spoke with CM regarding discharge plans as patient would prefer to stay at [facility] longer-term for ongoing wound treatment and antibiotic therapy. CARLOS ALBERTO HERBERT MD 01/07/17 1940: Assessment & Plan Assessment 01/07/2017-I reviewed this chart, the patient history, and the DESIGN INSERTER's/PA's documented findings as above. We discussed and formulated the assessment and plan as above with the additions below.-Dr. Herbert Patient was seen today accompanied by his and daughter. He states he's feeling pretty well except occasionally tired. He is sleeping okay. He is eating well. Chest is clear to auscultation. Cardiovascular reveals a regular rate and rhythm. Abdomen is soft and nontender. PT with current treatment for decubitus wound infection. Continue wound VAC per wound team. I discussed the patients wishes to stay here on swing bed with Brijesh, case management rn and she is in the process of seeing if this is possible. Creatinine improved to 1.4 today. We'll discontinue IV fluids and recheck basic metabolic profile tomorrow. DVT Prophylaxis: SCD'S HANS HUGO APRN Jan 07, 2017 13:07 CARLOS ALBERTO HERBERT MD Jan 07, 2017 19:40
[2017-01-07 13:16] LABS: BASOPHILS % (AUTO) 0.2 % (0-2); EOSINOPHILS # (AUTO) 0.3 T/MM3 (0-0.5); EOSINOPHILS % (AUTO) 2.5 % (0-4); HCT - HEMATOCRIT 35.7 % (41-53); HGB - HEMOGLOBIN 11.3 GM/DL (13.5-17.5); IMMATURE GRANULOCYTE # (AUTO) 0.02 T/MM3 (0.00-0.03); IMMATURE GRANULOCYTE % (AUTO) 0.2 % (0.0-0.5); LYMPHOCYTES # (AUTO) 2.4 T/MM3 (1-4.8); LYMPHOCYTES % (AUTO) 22.6 % (23-45); MEAN CORPUSCULAR HGB 24.7 UUG (26-34); MEAN CORPUSCULAR HGB CONC(MCHC 31.7 GM/DL (31-37); MEAN CORPUSCULAR VOLUME 78.1 UM3 (80-100); MEAN PLATELET VOLUME 8.6 UM3 (9.4-12.4); MONOCYTES # (AUTO) 0.7 T/MM3 (0-0.8); MONOCYTES % (AUTO) 6.2 % (0-9.0); NEUTROPHILS #(AUTO)-ABSOLUTE 7.3 T/MM3 (1.8-7.7); NEUTROPHILS % (AUTO) 68.3 % (33-66); RED BLOOD COUNT 4.57 M/MM3 (4.50-5.90); WBC - WHITE BLOOD COUNT 10.6 T/MM3 (4.5-11.0)
[2017-01-07 13:25] LABS: ANION GAP 12 MEQ/L (5-15); BUN/CREATININE RATIO 17 RATIO (6-26); CALCIUM 9.4 MG/DL (8.4-10.2); CHLORIDE 105 MEQ/L (98-107); CO2 - CARBON DIOXIDE 27 MEQ/L (22-30); CREATININE 1.4 MG/DL (0.8-1.5); GLOMERULAR FILTRATION RATE 56; GLUCOSE 129 MG/DL (75-110); POTASSIUM 4.1 MEQ/L (3.6-5); SODIUM 144 MEQ/L (134-144)
--- NOTE | 2017-01-07 14:07 | NUR ---
wound vac full changed, no leaks or problems noted.
[2017-01-07 16:02] VITALS: BP 151/98; PULSE 101; RESP 16; TEMP 96.4; O2SAT 98
--- NOTE | 2017-01-07 19:23 | NUR ---
status Pt A/O x3, V/S stable on RA. IVF locked this afternoon, PICC 2 aspirating and flushing well. Pt on rotating bed. Pinto to DD, good output, small BM today. Pt eating well, no N/V noted. Wound vac tight and no leaks. No new concerns at this time.
[2017-01-07] MEDS: NORMAL SALINE 1,000 ML IV PRN (22:36)
[2017-01-07 23:41] VITALS: BP 141/90; PULSE 87; RESP 16; TEMP 97.6; O2SAT 98
--- NOTE | 2017-01-08 04:31 | NUR ---
SUMMARY PT ALERT AND ORIENTED. DOUBLE LUMEN PICC TO UPPER LEFT ARM, FLUSHES AND ASPIRATES WELL. WOUND TO RT BUTTOCK, VAC CANISTER CHANGED WITHOUT ISSUES. PT IN GOOD SPIRITS THIS SHIFT, FAMILY WAS AT BEDSIDE MOST OF NIGHT. PT ATE WELL AT DINNER. NO NEW SKIN ISSUES FOUND.
[2017-01-08 05:22] LABS: BASOPHILS # (AUTO) 0.1 T/MM3 (0-0.2); BASOPHILS % (AUTO) 0.5 % (0-2); EOSINOPHILS # (AUTO) 0.3 T/MM3 (0-0.5); EOSINOPHILS % (AUTO) 3.3 % (0-4); HCT - HEMATOCRIT 34.7 % (41-53); HGB - HEMOGLOBIN 10.7 GM/DL (13.5-17.5); IMMATURE GRANULOCYTE # (AUTO) 0.03 T/MM3 (0.00-0.03); IMMATURE GRANULOCYTE % (AUTO) 0.3 % (0.0-0.5); LYMPHOCYTES # (AUTO) 3.2 T/MM3 (1-4.8); LYMPHOCYTES % (AUTO) 31.4 % (23-45); MEAN CORPUSCULAR HGB 24.2 UUG (26-34); MEAN CORPUSCULAR HGB CONC(MCHC 30.8 GM/DL (31-37); MEAN CORPUSCULAR VOLUME 78.3 UM3 (80-100); MEAN PLATELET VOLUME 9.3 UM3 (9.4-12.4); MONOCYTES # (AUTO) 0.8 T/MM3 (0-0.8); MONOCYTES % (AUTO) 7.9 % (0-9.0); NEUTROPHILS #(AUTO)-ABSOLUTE 5.7 T/MM3 (1.8-7.7); NEUTROPHILS % (AUTO) 56.6 % (33-66); RED BLOOD COUNT 4.43 M/MM3 (4.50-5.90); WBC - WHITE BLOOD COUNT 10.1 T/MM3 (4.5-11.0)
[2017-01-08 05:33] LABS: ANION GAP 12 MEQ/L (5-15); BUN/CREATININE RATIO 20 RATIO (6-26); CALCIUM 8.8 MG/DL (8.4-10.2); CHLORIDE 105 MEQ/L (98-107); CO2 - CARBON DIOXIDE 27 MEQ/L (22-30); CREATININE 1.3 MG/DL (0.8-1.5); GLOMERULAR FILTRATION RATE 61; GLUCOSE 88 MG/DL (75-110); POTASSIUM 4.1 MEQ/L (3.6-5); SODIUM 144 MEQ/L (134-144)
[2017-01-08 08:00] VITALS: BP 135/84; PULSE 79; RESP 16; TEMP 96.5; O2SAT 97
[2017-01-08] MEDS: POLYETHYL.GLYCOL 3350 PACKET 17gm PO SCH (09:00)
[2017-01-08] MEDS: FERROUS SULFATE 324 MG TABLET PO SCH (09:38)
[2017-01-08] MEDS: ASCORBIC ACID 500 MG TABLET PO SCH (09:38)
[2017-01-08] MEDS: VITAMIN B COMP + C TABLET PO SCH (09:39)
[2017-01-08] MEDS: CALCIUM ACETATE 667 MG CAPSULE PO SCH ×3 (09:39→17:59)
[2017-01-08] MEDS: CEFTRIAXONE 2 G in NORMAL SALINE 100 ML IV SCH (09:40)
[2017-01-08] MEDS: METRONIDAZOLE 500 MG TABLET PO SCH ×2 (09:40→20:42)
[2017-01-08] MEDS: NYSTATIN POWDER 15gm BOTTLE TOP SCH ×4 (09:40→20:43)
--- NOTE | 2017-01-08 10:04 | NUR ---
CM THIS WORKING IS EXPLORING LTAC AT [facility] IN ADDITION TO AWAITING A FINAL RESPONSE RE: SWING BED. LEFT MESSAGE WITH LON IN ADMISSION AT [facility].
[2017-01-08 13:12] VITALS: PULSE 79; RESP 16
--- NOTE | 2017-01-08 13:15 | PDWOUND ---
Wound Documentation Wound Management Wound : Location Modifier: Right, Upper Wound Location: Thigh Wound Type: Pressure Ulcer Wound Dressing Frequency: three times per week Wound Duration: > one month Wound Dressing Status: FOUND: Changed Wound Drainage Amount: Copious Wound Drainage Description: Serosanguineous Wound Drainage Odor: None/Absent Wound General Appearance: FOUND Draining, FOUND Muscle Visible, FOUND Reddened, FOUND Unapproximated Wound Bed: gran red Periwound Description: Indurated, Tunnelling, Undermined Wound Length (cm): 5.2 Wound Width (cm): 3.5 Wound Depth (cm): 3.8 Exposed: muscle Wound Cleanser: NS Wound Solution/Irrigant: Saline Irrigant Wound Packing Type: FOUND: Black Foam Wound Primary Dressing Type: Clear Adhesive Cover Wound Tunneling : Sinus/Tunnels (cm): 8 (centimeters) Tunneling Location (o'clock): 12 Wound Undermining : Wound Undermining (cm): 1 Undermining Location (o'clock): 12-4 Comments In to change wound vac this day, pt continues to be on rotation bed which is in full turn mode. Wound vac turned off and black foam removed, wound looks better and continues to be beefy red. At this time pt had a stool and was cleaned up then wound team assessed and cleaned wound then applied the black foam in tunnels and in wound bed. Clear occlusive drsg applied, sensor track applied and test cycle ran. Seal and leak seal checked. Pt settings to the instill are changed to 45mm instill, dwell for 15mins every 2 hrs. TATUM RIZO RN Jan 08, 2017 13:14
--- NOTE | 2017-01-08 13:24 | PNPDOC ---
HANS HUGO V [employer]IST 01/08/17 1316: Subjective Date DATE: 01/08/17 TIME: 13:09 Subjective Joe is seen today in follow up. He remains pleasant and without complaints. Denies feeling short of breath or having chest pain. No GI complaints. Adequate urinary output via Pinto catheter. Overall weight has trended down over the past week, however, still up from admission. The pressure this morning 135/84. Objective Vital Signs Vital signs Vital Signs Date Time Temp Pulse Resp B/P Pulse Ox O2 Delivery O2 Flow Rate FiO2 01/08/17 08:00 96.5 79 16 135/84 97 Room Air Height (Feet): 5 Height (Inches): 9.00 Weight (Kilograms): 103.300 General General Appearance: Alert, Orientated x 3, Cooperative, No Acute Distress Eyes (Brief) Eyes: FOUND: EOMI ENMT (Brief) ENMT: FOUND: mucosa moist, normal dentition, NOT FOUND: pharnyx erythema Neck (Brief) Neck: FOUND: midline, NOT FOUND: adenopathy, carotid bruits, tracheal deviation Respiratory (Brief) Respiratory: FOUND: clear all burroughs, equal bilaterally, NOT FOUND: wheezes Cardiovascular (Brief) Cardiac: FOUND: regular rate, regular rhythm, NOT FOUND: murmur, pedal edema Capillary Refill: <2 sec Abdomen (Brief) Abdominal: FOUND: BS normo active x4, soft, NOT FOUND: distended, tender Lymphatic (Brief) Lymphatic: NOT FOUND: adenopathy Musculoskeletal (Brief) Musculoskeletal: NOT FOUND: tenderness Comments Paraplegia Integumentary (Brief) Integumentary: FOUND: dry, pink, warm Neurologic (Brief) Neurological: FOUND: cranial 2-12 intact Psychiatric (Brief) Psychiatric: FOUND: alert, attentive, normal affect, oriented Laboratory Laboratory Laboratory Tests 01/07/17 13:09 01/08/17 04:40 Laboratory Tests 01/07/17 13:09 01/08/17 04:40 Sepsis Diagnostic Criteria Sepsis Confirmed/Suspected Infection: Yes SIRS Criteria: Pulse >= 90 beats/min, WBC >=12,000 or <=4,000 Assessment & Plan Problems: (1) Pressure ulcer of right buttock Status: Chronic Qualifiers: Pressure ulcer stage: stage 4 Qualified Codes: L89.314 - Pressure ulcer of right buttock, stage 4 Assessment & Plan: Stage IV ischial decub. 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 coli UTI Status: Acute (3) MANDY (acute kidney injury) Status: Acute (4) Microcytic anemia Status: Acute Assessment & Plan: iron deficient anemia (5) Sepsis Status: Resolved Assessment & Plan: Manifestations of sepsis include the following- 1. Right buttock/hip wound-worsening with tunneling 2. Leukocytosis, WBC count 12.9 3. Tachycardia- 121 on admission (6) Coughing Status: Resolved (7) Neurogenic bowel Status: Chronic (8) Neurogenic bladder Status: Chronic (9) Paraplegia at T9 level Status: Chronic (10) Chronic urinary tract infection Status: Chronic (11) Thrombocytosis Status: Chronic Plan/Intensity of Service 01/08/17 Renal function continues to improve and [employer] today down to 1.3. Will continue on PO Flagyl and IV Rocephin daily at this point. Will need to continue out antibiotic therapy through 02/04/17. Wound Vac changed this morning by wound team. BP remains stable at 135/84. At time of discharge he will need CBC with diff CMP and CRP weekly while on antibiotic. These labs will need to be faxed to Dr Palma. Spoke with CM regarding discharge plans as patient would prefer to stay at [facility] longer-term for ongoing wound treatment and antibiotic therapy. Recheck BMP daily to follow renal function. Code Status Full Code Hospital Course Summary Disclaimer The hospital course summary below is not to be considered part of the above Progress Note. Hospital Course Summary 12/25 Place patient to inpatient status under the care of Dr. Herbert for sepsis, right hip/buttocks wound, pressure ulcer We'll continue with consultation with wound center and with Dr. Tyson for ongoing treatment. Did discuss case with Dr. Palma, and she is planning to see patient later today. Will start vancomycin now. Place Pinto catheter given the patient has a history of urine. Neurogenic bladder and requires frequent straight caths Given coughing will obtain chest xray. Also obtain UA on admission IV fluids, 500 ml bolus and then 100ml/hr for ongoing hydration. Will recheck a venous lactate at 1630 per sepsis protocol. Will have infusion team place a PICC line, as patient will likely need long- term antibiotics. SCDs to bilateral lower extremity for DVT prophylaxis. Patient may have regular diet. Will monitor patient on cardiac telemetry given tachycardia. Will recheck CBC and BMP tomorrow morning to follow blood counts, renal function and electrolytes. Will discuss further plan of care with Dr Herbert. At time of discharge medical care will return to primary care provider, Dr. Morales 12/26/16 Dr. Palma is recommending 6 weeks of IV antibiotics for right ischial stage IV decub ulcer with possible osteomyelitis. Currently on Zosyn and Vancomycin, which will be narrowed pending cx results. Dr. Tyson will evaluate wound on Wednesday. Continue wound VAC. Also with UTI - C&S pending. Pinto inserted on admission, but pt has hx of neurogenic bladder requiring straight cath. Sepsis/SIRS: WBC normal - 6.8. Tachycardia resolved. BP occasionally with low- normal readings; 121/68 this am. IVF on hold. Lactate was normal. Mild hypokalemia (3.5) - replaced orally. Iron studies pending for microcytic anemia. 12/27/16 Appreciate ID recommendations by Dr Palma. She recommends 6 weeks of antibiotic therapy for treatment of Right decub ulcer with possible osteomyelitis. Wound culture continues to be pending. Vanco Trough this morning was 63.8. Will hold Vanco at this time and continue with Zosyn. Urine culture does revel evidence of E-Coli which is pansensitive. [employer] did increase today from 0.8 to 1.5. We will continue to monitor renal function carefully and recheck BMP at 1400.Continue with Scheduled Tessalon Perles for coughing Iron studies pending for microcytic anemia. Will discuss further plan of care with Dr Herbert 12/28/16 MANDY - Dr. Herbert has already discussed this with Dr. Carpenter (neph). Vanc is being held until trough is <15. Urine eosinophils have been ordered to see if Zosyn might be the cause. He has had very good UO. Continues on NS at 40 ml/hr. Right ischial decub. ulcer with poss. osteomyelitis - Dr. Palma following; cont. Zosyn. E. coli UTI - pansensitive Microcytic anemia - iron and % sat were both low - iron was started today. Wound care per Dr. Buck. CM exploring discharge options. 12/28/2016-I reviewed this chart, the patient history, and the [employer]IST's/PA's documented findings as above. We discussed and formulated the assessment and plan as above with the additions below.-Dr. Herbert The patient states that he's feeling about the same. He is eating and drinking okay but appetite is not back to normal. He denies any pain. His cough is better. He denies any nausea or vomiting. He has had good urine output. On exam he is alert and oriented and in no acute distress. Chest is clear to auscultation. Cardiovascular reveals a regular rate and rhythm. Abdomen is soft and nontender with positive bowel sounds. Creatinine did increase from 1.5 yesterday to 1.7 today. Urine output has been almost 5 L a day. I did talk with Dr. Bee Ricks as noted above. Urine eosinophils were 0. If creatinine is not trending down, would recommend calling Dr. Ricks for further recommendations. Her help has been greatly appreciated. 12/29/16 MANDY - Cr same as yesterday, 1.7. Vanco trough trending down. He's had good oral intake and excellent urine output. Urine eos were neg. He is on 1/2 NS at 75 ml/ hr. Right ischial decub. ulcer with poss. osteomyelitis - Dr. Palma following; cont. Zosyn. Restart vanco when trough <15. E. coli UTI - pansensitive Wound care per wound team/Dr. Buck. CM exploring discharge options; pending renal improvement and ID recommendations. 12/30 Doing well overall. No new problems or concerns. Cough decreasing. Breathing well. Appetite stable. No nausea. Taking liquids in well. No f/c. Creatinine 1.9. Vanco on hold. Continue Zosyn - dose decreased secondary to MANDY. Vanco remains on hold. Continue 1/2NS at 75 cc/hr due to MANDY. Continue wound vac and wound care. Occult stools negative. Continue oral iron-add Vit C with iron. Recheck BMP and phos in am due to MANDY. Repeat CBC in am to monitor blood counts due to infection. 12/31 Doing well overall. Cough decreasing; not sore in chest or ab from coughing. Breathing well. Appetite improving slowly. Drinking well. No nausea or stomatitis. No f/c. Not having pains/discomfort. Creatinine 1.9. Continue Zosyn for antimicrobial coverage. Vanco on hold, troth decrease but I'm hesitant to restart as creatinine still 1.9. Will increase 1/2NS to 125cc/hr help renal function as output has been greater than intake. PhosLo started TID as phosphorus elevated. Continue with Wound Vac and wound care. Recheck lab in am. 01/01 Doing well overall. Tolerating wound vac changes-with his paraplegia he has no pain. No f/c. Breathing well; cough decreasing. No nausea or ab pain; appetite still decreased (family bringing in food from outside to help). No new problems or concerns. Creatinine 1.9. Continue Zosyn for antimicrobial coverage. Will give 1000mg IV vanco x1 - check random level in am. Continue IVF of 1/2NS at 125cc/hr help renal function. Change Tessalon Perle to prn as coughing decreased. Encourage intake of good nutrients to help wound healing. Continue with Wound Vac and wound care. Wound Vac changed today - anticipate changing again on 01/04. Recheck lab in am. 01/02 Doing well. No new problems. Breathing well. Not having congestion, SOA, and cough has resolved. No pain with breathing or chest pain. No nausea or ab pain. Appetite still with decrease-hard to find foods than sound appealing. No pain or discomfort. No f/c. Creatinine 1.9. Continue Zosyn for antimicrobial coverage. Vanco level okay; Pharm to give Vanco 750mg IV x1 today and monitor. Continue IVF of 1/2NS at 125cc/hr help renal function. Continue with Wound Vac and wound care. Recheck lab in am. 01/03 Doing well. Breathing stable-no SOA, cough or congestion. No chest pressure or pain. Denies ab pain or nausea. Nursing help remove stool today. Eating slightly better-finding some foods on the menu that are appealing. No f/c. Creatinine 1.8. Continue Zosyn for antimicrobial coverage. Pharm to gave Vanco 750mg IV x1 today. Monitor levels. Continue IVF of 1/2NS at 125cc/hr help renal function. Good urine output. No signs of volume overload. Encourage good nutritional intake to help with wound healing. Continue with Wound Vac and wound care. Recheck lab in am. 01/04/[address] Palma with infectious disease today. She did discontinue vancomycin. Will continue with IV Rocephin and PO Flagyl. Will monitor carefully for evidence of rash or ALLERGIC reaction. Given patient's history of rash with Keflex. Patient will require 6 weeks of antibiotics, end date 02/06/17. If debridement is required may consider extending stop date. Appreciate continued surgical evaluation and recommendation by Dr. Tyson and Dr. Buck. Continued wound care management by Wound team Nystatin powder 4 times a day for fungal type rash to groin Obtain eosinophil count in urine for evaluation of possible Acute Interstitial Nephritis (AIN). [employer] today is 2.0. May be related to Vancomycin. Continue with MiraLAX daily for ongoing bowel motivate patient and Dulcolax suppositories as needed. Will recheck CBC and BMP tomorrow to follow blood counts, renal function and electrolytes 01/05/17 Acute kidney injury: Creatinine improved to 1.6 today. Will decrease the rate of IV fluids to 60 mL per hour. His weight has increased about 8 kg since day of admission. Continue with Rocephin and metronidazole, per Dr. Palma. There is no MRSA isolated from wound culture, so no need to continue vancomycin. She recommends six weeks of IV antibiotics to treat osteomyelitis, starting from his admission date (12/25). If debridement is done, I'd consider changing the stop date of the IV antibiotics to 6 weeks post-debridement Stage IV pressure ulceration of right buttock/ischial region: Per Dr. Tyson , marked improvement seen with wound VAC. Sinus rhythm noted on telemetry without any hemodynamic instability. We'll discontinue telemetry. We'll discuss further orders with Dr. Herbert. 01/07/17 Will continue on PO Flagyl and IV Rocephin daily at this point. Will need to continue out antibiotic therapy through 02/04/17. Will continue to follow renal function closely. Todays lab is currently pending. Wound Vac will be changed monday 01/08 by wound team At time of discharge he will need CBC with diff CMP and CRP weekly while on antibiotic. These labs will need to be faxed to Dr Palma. PT/OT consulted for evaluation for possible swing bed Spoke with CM regarding discharge plans as patient would prefer to stay at [facility] longer-term for ongoing wound treatment and antibiotic therapy. 01/08/17 Renal function continues to improve and [employer] today down to 1.3. Will continue on PO Flagyl and IV Rocephin daily at this point. Will need to continue out antibiotic therapy through 02/04/17. Wound Vac changed this morning by wound team. BP remains stable at 135/84. At time of discharge he will need CBC with diff CMP and CRP weekly while on antibiotic. These labs will need to be faxed to Dr Palma. Spoke with CM regarding discharge plans as patient would prefer to stay at [facility] longer-term for ongoing wound treatment and antibiotic therapy. Recheck BMP daily to follow renal function. CARLOS ALBERTO HERBERT MD 01/09/17 0006: Assessment & Plan Assessment Late entry. Patient was seen on 01/08/2017 in the evening. The patient states he is feeling well. He is eating and drinking well. He still feels a little fatigued. He denies any other complaints. We are still working on plans for long-term antibiotics and wound care. Case management has been talking with his insurance and we are trying to arrange for swing bed status. [facility]. We hope to your back by Wednesday. Case management has also talked with [facility] and he has been approved to go there. We would rather that he stay here and continue with the same physicians and nurses treating his wound. Visiting the patient in [place] would be much closer for family as well. We'll continue with current treatment here at [facility]. His creatinine continues to improve. IV fluids were discontinued yesterday. Discussed at length with case management today. On exam the patient is alert and oriented and in no acute distress. Chest is clear to auscultation. Cardiovascular reveals a regular rate and rhythm. Abdomen is soft and nontender. Extremities reveal no edema. He continues in a specialty bed for his wound. HANS HUGO APRN Jan 08, 2017 13:16 CARLOS ALBERTO HERBERT MD Jan 09, 2017 00:06
[2017-01-08 15:18] VITALS: BP 155/97; PULSE 87; RESP 14; TEMP 97.3; O2SAT 98
--- NOTE | 2017-01-08 18:52 | NUR ---
Shift Summary Patient alert and oriented x3 this shift. VSS. On RA. Patient turned in bed. Adequate output through wick catheter, several incontient BM today. Wound vac in place with no signs of leakage, draining serous drainage. Changed by wound team today. PICC line in place, locked, flushed and aspirated well. Dressing changed by this RN. SCD's in place. Patient had adequate oral intake. Patient in good spirits, joked with nurses and caretakers today.
[2017-01-08 23:00] VITALS: BP 139/87; PULSE 87; RESP 20; TEMP 96.6; O2SAT 99
--- NOTE | 2017-01-09 04:53 | NUR ---
SUMMARY PT ALERT AND ORIENTED. DENIES PAIN. PATIENT IS COOPERATIVE. WOUND VAC DRAPE REINFORCED AFTER MACHINE BEEPED TO NOTIFY OF LEAK. PICC LINE IN THE UPPER LEFT ARM, BOTH PORTS FLUSH AND ASPIRATE WELL. PT USES ROTATING BED TO PREVENT FURTHER SKIN BREAKDOWN. DE SOUZA IN PLACE AND PATENT.
[2017-01-09 08:00] VITALS: BP 145/86; PULSE 85; RESP 17; TEMP 96.6; O2SAT 98
[2017-01-09] MEDS: VITAMIN B COMP + C TABLET PO SCH (08:53)
[2017-01-09] MEDS: CEFTRIAXONE 2 G in NORMAL SALINE 100 ML IV SCH (08:53)
[2017-01-09] MEDS: FERROUS SULFATE 324 MG TABLET PO SCH (08:54)
[2017-01-09] MEDS: CALCIUM ACETATE 667 MG CAPSULE PO SCH ×3 (08:54→17:36)
[2017-01-09] MEDS: METRONIDAZOLE 500 MG TABLET PO SCH ×2 (08:54→22:27)
[2017-01-09] MEDS: ASCORBIC ACID 500 MG TABLET PO SCH (08:56)
[2017-01-09] MEDS: POLYETHYL.GLYCOL 3350 PACKET 17gm PO SCH (08:57)
[2017-01-09] MEDS: NYSTATIN POWDER 15gm BOTTLE TOP SCH ×4 (12:31→22:27)
[2017-01-09 15:19] VITALS: BP 148/93; PULSE 103; RESP 18; TEMP 96.7; O2SAT 96
--- NOTE | 2017-01-09 18:17 | NUR ---
Summary Patient alert and oriented x3. VSS. On RA. Denies pain. Bed rotates patient automatically. Pinto catheter patent and draining clear, yellow urine. Wound vac in place with suction and saline solution. Patient had adequate oral intake. PICC line flushes hard, however able to flush and aspirate both lumens. Minimal needs from staff. Patient in good spirits, conversational with staff.
[2017-01-09 19:38] VITALS: PULSE 103; RESP 18
--- NOTE | 2017-01-09 21:15 | PNPDOC ---
Subjective Date DATE: 01/09/17 TIME: 21:10 Subjective The patient is stable and has no complaints. Appetite is improving. No difficulties breathing. Urine output is good. No fevers. Objective Vital Signs Vital signs Vital Signs Date Time Temp Pulse Resp B/P Pulse Ox O2 Delivery O2 Flow Rate FiO2 01/09/17 19:38 103 18 01/09/17 15:19 96.7 148/93 96 Room Air GEN-alert, oriented, no acute distress CV-regular rate and rhythm CHEST-clear to auscultation bilaterally ABD-soft, nontender, nondistended with positive bowel sounds -good urine output with Pinto EXT-no edema NEURO-alert and oriented 3, paraplegic SKIN-warm and dry and without rashes Height (Feet): 5 Height (Inches): 9.00 Weight (Kilograms): 106.100 Laboratory Laboratory Laboratory Tests 01/08/17 04:40 Laboratory Tests 01/08/17 04:40 Sepsis Diagnostic Criteria Sepsis Confirmed/Suspected Infection: Yes SIRS Criteria: Pulse >= 90 beats/min, WBC >=12,000 or <=4,000 Assessment & Plan Problems: (1) Pressure ulcer of right buttock Status: Chronic Qualifiers: Pressure ulcer stage: stage 4 Qualified Codes: L89.314 - Pressure ulcer of right buttock, stage 4 Assessment & Plan: Stage IV ischial decub. 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 coli UTI Status: Acute (3) MANDY (acute kidney injury) Status: Acute (4) Microcytic anemia Status: Acute Assessment & Plan: iron deficient anemia (5) Sepsis Status: Resolved Assessment & Plan: Manifestations of sepsis include the following- 1. Right buttock/hip wound-worsening with tunneling 2. Leukocytosis, WBC count 12.9 3. Tachycardia- 121 on admission (6) Coughing Status: Resolved (7) Neurogenic bowel Status: Chronic (8) Neurogenic bladder Status: Chronic (9) Paraplegia at T9 level Status: Chronic (10) Chronic urinary tract infection Status: Chronic (11) Thrombocytosis Status: Chronic Plan/Intensity of Service 01/09/2017 Regarding acute kidney injury with resolution-recheck BMP and CBC tomorrow Continue on specialty bed to take pressure off of wound Continue Rocephin and Flagyl. Blood pressure is borderline elevated-continue to monitor at this time DVT Prophylaxis: SCD'S Code Status Full Code Hospital Course Summary Disclaimer The hospital course summary below is not to be considered part of the above Progress Note. Hospital Course Summary 12/25 Place patient to inpatient status under the care of Dr. Herbert for sepsis, right hip/buttocks wound, pressure ulcer We'll continue with consultation with wound center and with Dr. Tyson for ongoing treatment. Did discuss case with Dr. Palma, and she is planning to see patient later today. Will start vancomycin now. Place Pinto catheter given the patient has a history of urine. Neurogenic bladder and requires frequent straight caths Given coughing will obtain chest xray. Also obtain UA on admission IV fluids, 500 ml bolus and then 100ml/hr for ongoing hydration. Will recheck a venous lactate at 1630 per sepsis protocol. Will have infusion team place a PICC line, as patient will likely need long- term antibiotics. SCDs to bilateral lower extremity for DVT prophylaxis. Patient may have regular diet. Will monitor patient on cardiac telemetry given tachycardia. Will recheck CBC and BMP tomorrow morning to follow blood counts, renal function and electrolytes. Will discuss further plan of care with Dr Herbert. At time of discharge medical care will return to primary care provider, Dr. Morales 12/26/16 Dr. Palma is recommending 6 weeks of IV antibiotics for right ischial stage IV decub ulcer with possible osteomyelitis. Currently on Zosyn and Vancomycin, which will be narrowed pending cx results. Dr. Tyson will evaluate wound on Wednesday. Continue wound VAC. Also with UTI - C&S pending. Pinto inserted on admission, but pt has hx of neurogenic bladder requiring straight cath. Sepsis/SIRS: WBC normal - 6.8. Tachycardia resolved. BP occasionally with low- normal readings; 121/68 this am. IVF on hold. Lactate was normal. Mild hypokalemia (3.5) - replaced orally. Iron studies pending for microcytic anemia. 12/27/16 Appreciate ID recommendations by Dr Palma. She recommends 6 weeks of antibiotic therapy for treatment of Right decub ulcer with possible osteomyelitis. Wound culture continues to be pending. Vanco Trough this morning was 63.8. Will hold Vanco at this time and continue with Zosyn. Urine culture does revel evidence of E-Coli which is pansensitive. Filler And Trimmer did increase today from 0.8 to 1.5. We will continue to monitor renal function carefully and recheck BMP at 1400.Continue with Scheduled Tessalon Perles for coughing Iron studies pending for microcytic anemia. Will discuss further plan of care with Dr Herbert 12/28/16 MANDY - Dr. Herbert has already discussed this with Dr. Carpenter (neph). Vanc is being held until trough is <15. Urine eosinophils have been ordered to see if Zosyn might be the cause. He has had very good UO. Continues on NS at 40 ml/hr. Right ischial decub. ulcer with poss. osteomyelitis - Dr. Palma following; cont. Zosyn. E. coli UTI - pansensitive Microcytic anemia - iron and % sat were both low - iron was started today. Wound care per Dr. Buck. SARAHI exploring discharge options. 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 We discussed and formulated the assessment and plan as above with the additions below.-Dr. Herbert The patient states that he's feeling about the same. He is eating and drinking okay but appetite is not back to normal. He denies any pain. His cough is better. He denies any nausea or vomiting. He has had good urine output. On exam he is alert and oriented and in no acute distress. Chest is clear to auscultation. Cardiovascular reveals a regular rate and rhythm. Abdomen is soft and nontender with positive bowel sounds. Creatinine did increase from 1.5 yesterday to 1.7 today. Urine output has been almost 5 L a day. I did talk with Dr. Bee Ricks as noted above. Urine eosinophils were 0. If creatinine is not trending down, would recommend calling Dr. Ricks for further recommendations. Her help has been greatly appreciated. 12/29/16 MANDY - Cr same as yesterday, 1.7. Vanco trough trending down. He's had good oral intake and excellent urine output. Urine eos were neg. He is on 1/2 NS at 75 ml/ hr. Right ischial decub. ulcer with poss. osteomyelitis - Dr. Palma following; cont. Zosyn. Restart vanco when trough <15. E. coli UTI - pansensitive Wound care per wound team/Dr. Buck. SARAHI exploring discharge options; pending renal improvement and ID recommendations. 12/30 Doing well overall. No new problems or concerns. Cough decreasing. Breathing well. Appetite stable. No nausea. Taking liquids in well. No f/c. Creatinine 1.9. Vanco on hold. Continue Zosyn - dose decreased secondary to MANDY. Vanco remains on hold. Continue 1/2NS at 75 cc/hr due to MANDY. Continue wound vac and wound care. Occult stools negative. Continue oral iron-add Vit C with iron. Recheck BMP and phos in am due to MANDY. Repeat CBC in am to monitor blood counts due to infection. 12/31 Doing well overall. Cough decreasing; not sore in chest or ab from coughing. Breathing well. Appetite improving slowly. Drinking well. No nausea or stomatitis. No f/c. Not having pains/discomfort. Creatinine 1.9. Continue Zosyn for antimicrobial coverage. Vanco on hold, troth decrease but I'm hesitant to restart as creatinine still 1.9. Will increase 1/2NS to 125cc/hr help renal function as output has been greater than intake. PhosLo started TID as phosphorus elevated. Continue with Wound Vac and wound care. Recheck lab in am. 01/01 Doing well overall. Tolerating wound vac changes-with his paraplegia he has no pain. No f/c. Breathing well; cough decreasing. No nausea or ab pain; appetite still decreased (family bringing in food from outside to help). No new problems or concerns. Creatinine 1.9. Continue Zosyn for antimicrobial coverage. Will give 1000mg IV vanco x1 - check random level in am. Continue IVF of 1/2NS at 125cc/hr help renal function. Change Tessalon Perle to prn as coughing decreased. Encourage intake of good nutrients to help wound healing. Continue with Wound Vac and wound care. Wound Vac changed today - anticipate changing again on 01/04. Recheck lab in am. 01/02 Doing well. No new problems. Breathing well. Not having congestion, SOA, and cough has resolved. No pain with breathing or chest pain. No nausea or ab pain. Appetite still with decrease-hard to find foods than sound appealing. No pain or discomfort. No f/c. Creatinine 1.9. Continue Zosyn for antimicrobial coverage. Vanco level okay; Pharm to give Vanco 750mg IV x1 today and monitor. Continue IVF of 1/2NS at 125cc/hr help renal function. Continue with Wound Vac and wound care. Recheck lab in am. 01/03 Doing well. Breathing stable-no SOA, cough or congestion. No chest pressure or pain. Denies ab pain or nausea. Nursing help remove stool today. Eating slightly better-finding some foods on the menu that are appealing. No f/c. Creatinine 1.8. Continue Zosyn for antimicrobial coverage. Pharm to gave Vanco 750mg IV x1 today. Monitor levels. Continue IVF of 1/2NS at 125cc/hr help renal function. Good urine output. No signs of volume overload. Encourage good nutritional intake to help with wound healing. Continue with Wound Vac and wound care. Recheck lab in am. 01/04/[address] Palma with infectious disease today. She did discontinue vancomycin. Will continue with IV Rocephin and PO Flagyl. Will monitor carefully for evidence of rash or ALLERGIC reaction. Given patient's history of rash with Keflex. Patient will require 6 weeks of antibiotics, end date 02/06/17. If debridement is required may consider extending stop date. Appreciate continued surgical evaluation and recommendation by Dr. Tyson and Dr. Buck. Continued wound care management by Wound team Nystatin powder 4 times a day for fungal type rash to groin Obtain eosinophil count in urine for evaluation of possible Acute Interstitial Nephritis (AIN). Filler And Trimmer today is 2.0. May be related to Vancomycin. Continue with MiraLAX daily for ongoing bowel motivate patient and Dulcolax suppositories as needed. Will recheck CBC and BMP tomorrow to follow blood counts, renal function and electrolytes 01/05/17 Acute kidney injury: Creatinine improved to 1.6 today. Will decrease the rate of IV fluids to 60 mL per hour. His weight has increased about 8 kg since day of admission. Continue with Rocephin and metronidazole, per Dr. Palma. There is no MRSA isolated from wound culture, so no need to continue vancomycin. She recommends six weeks of IV antibiotics to treat osteomyelitis, starting from his admission date (12/25). If debridement is done, I'd consider changing the stop date of the IV antibiotics to 6 weeks post-debridement Stage IV pressure ulceration of right buttock/ischial region: Per Dr. Tyson , marked improvement seen with wound VAC. Sinus rhythm noted on telemetry without any hemodynamic instability. We'll discontinue telemetry. We'll discuss further orders with Dr. Herbert. 01/07/17 Will continue on PO Flagyl and IV Rocephin daily at this point. Will need to continue out antibiotic therapy through 02/04/17. Will continue to follow renal function closely. Todays lab is currently pending. Wound Vac will be changed monday 01/08 by wound team At time of discharge he will need CBC with diff CMP and CRP weekly while on antibiotic. These labs will need to be faxed to Dr Palma. PT/OT consulted for evaluation for possible swing bed Spoke with CM regarding discharge plans as patient would prefer to stay at [facility] longer-term for ongoing wound treatment and antibiotic therapy. 01/08/17 Renal function continues to improve and Filler And Trimmer today down to 1.3. Will continue on PO Flagyl and IV Rocephin daily at this point. Will need to continue out antibiotic therapy through 02/04/17. Wound Vac changed this morning by wound team. BP remains stable at 135/84. At time of discharge he will need CBC with diff CMP and CRP weekly while on antibiotic. These labs will need to be faxed to Dr Palma. Spoke with CM regarding discharge plans as patient would prefer to stay at [facility] longer-term for ongoing wound treatment and antibiotic therapy. Recheck BMP daily to follow renal function. Late entry. Patient was seen on 01/08/2017 in the evening. The patient states he is feeling well. He is eating and drinking well. He still feels a little fatigued. He denies any other complaints. We are still working on plans for long-term antibiotics and wound care. Case management has been talking with his insurance and we are trying to arrange for swing bed status. [facility]. We hope to your back by Wednesday. Case management has also talked with [facility] and he has been approved to go there. We would rather that he stay here and continue with the same physicians and nurses treating his wound. Visiting the patient in [place] would be much closer for family as well. We'll continue with current treatment here at [facility]. His creatinine continues to improve. IV fluids were discontinued yesterday. Discussed at length with case management today. On exam the patient is alert and oriented and in no acute distress. Chest is clear to auscultation. Cardiovascular reveals a regular rate and rhythm. Abdomen is soft and nontender. Extremities reveal no edema. He continues in a specialty bed for his wound. CARLOS ALBERTO HERBERT MD Jan 09, 2017 21:14
[2017-01-09] MEDS: NORMAL SALINE 1,000 ML IV PRN (22:49)
[2017-01-10] VITALS: BP 139/87; PULSE 83; RESP 20; TEMP 98.4; O2SAT 97
--- NOTE | 2017-01-10 06:30 | NUR ---
Summary Patient alert and oriented x3. Denies pain. Bed rotates patient automatically. Pinto catheter patent and draining clear, yellow urine. Wound vac in place with suction and saline solution. 120ml of serous drainage out of wound vac this shift Patient had adequate oral intake. PICC line flushes hard, however able to flush and aspirate both lumens. Minimal needs from staff. Patient in good mood, talks with staff and excited about "[place]." Pt asked if depressed and has suicide plan, Pt denied both. Pt took meds whole without difficulty. No other area of skin problems seen except for red coccyx and scrotum; barrier cream helpful and area improving. Still applying nystatin powder on PT. Pt groin responding well with the nystatin. Will continue to monitor. Call light in reach. Bed locked and low.
[2017-01-10 07:25] VITALS: BP 135/91; PULSE 81; RESP 17; TEMP 96.3; O2SAT 97
[2017-01-10] MEDS: VITAMIN B COMP + C TABLET PO SCH (09:44)
[2017-01-10] MEDS: POLYETHYL.GLYCOL 3350 PACKET 17gm PO SCH (09:44)
[2017-01-10] MEDS: CALCIUM ACETATE 667 MG CAPSULE PO SCH ×3 (09:44→17:59)
[2017-01-10] MEDS: METRONIDAZOLE 500 MG TABLET PO SCH ×2 (09:44→21:04)
[2017-01-10] MEDS: CEFTRIAXONE 2 G in NORMAL SALINE 100 ML IV SCH (09:45)
[2017-01-10] MEDS: ASCORBIC ACID 500 MG TABLET PO SCH (09:45)
[2017-01-10] MEDS: FERROUS SULFATE 324 MG TABLET PO SCH (09:45)
[2017-01-10] MEDS: NYSTATIN POWDER 15gm BOTTLE TOP SCH ×4 (09:45→21:04)
[2017-01-10 10:52] LABS: BASOPHILS % (AUTO) 0.5 % (0-2); EOSINOPHILS # (AUTO) 0.3 T/MM3 (0-0.5); EOSINOPHILS % (AUTO) 3.4 % (0-4); HCT - HEMATOCRIT 35.5 % (41-53); HGB - HEMOGLOBIN 11.2 GM/DL (13.5-17.5); IMMATURE GRANULOCYTE # (AUTO) 0.01 T/MM3 (0.00-0.03); IMMATURE GRANULOCYTE % (AUTO) 0.1 % (0.0-0.5); LYMPHOCYTES # (AUTO) 2.2 T/MM3 (1-4.8); LYMPHOCYTES % (AUTO) 26.2 % (23-45); MEAN CORPUSCULAR HGB 24.6 UUG (26-34); MEAN CORPUSCULAR HGB CONC(MCHC 31.5 GM/DL (31-37); MEAN CORPUSCULAR VOLUME 77.9 UM3 (80-100); MEAN PLATELET VOLUME 9.7 UM3 (9.4-12.4); MONOCYTES # (AUTO) 0.3 T/MM3 (0-0.8); MONOCYTES % (AUTO) 3.9 % (0-9.0); NEUTROPHILS #(AUTO)-ABSOLUTE 5.6 T/MM3 (1.8-7.7); NEUTROPHILS % (AUTO) 65.9 % (33-66); RED BLOOD COUNT 4.56 M/MM3 (4.50-5.90); WBC - WHITE BLOOD COUNT 8.5 T/MM3 (4.5-11.0)
[2017-01-10 11:00] LABS: ALBUMIN 3.3 G/DL (3.5-5.0); ALBUMIN/GLOBULIN RATIO 0.9 RATIO (1.1-2.2); ALKALINE PHOSPHATASE 67 U/L (38-126); ALT (SGPT) 44 U/L (21-72); ANION GAP 13 MEQ/L (5-15); AST (SGOT) 50 U/L (17-59); BUN/CREATININE RATIO 18 RATIO (6-26); CALCIUM 8.9 MG/DL (8.4-10.2); CHLORIDE 106 MEQ/L (98-107); CO2 - CARBON DIOXIDE 28 MEQ/L (22-30); CREATININE 1.2 MG/DL (0.8-1.5); GLOMERULAR FILTRATION RATE 67; GLUCOSE 156 MG/DL (75-110); POTASSIUM 3.9 MEQ/L (3.6-5); SODIUM 147 MEQ/L (134-144); TOTAL PROTEIN 7.1 G/DL (6.3-8.2)
[2017-01-10 11:20] LABS: C-REACTIVE PROTEIN 13.7 MG/L (0-9)
[2017-01-10 15:13] VITALS: BP 167/94; PULSE 95; RESP 18; TEMP 98.1; O2SAT 98
--- NOTE | 2017-01-10 18:22 | NUR ---
Shift Summary Patient alert and oriented x3. VSS. On RA. Denies pain, n/v/d. Pt on bedrest. Specialty bed turns patient. Pinto catheter patent and draining clear, yellow urine. Patient had two small incontinent BM today. Patient ate well at meals. Small amount of drainage through wound vac, serous. No leaks noted. Patient is good spirits today, joked with caregivers.
[2017-01-10 20:20] VITALS: PULSE 88; RESP 18
--- NOTE | 2017-01-10 20:38 | PNPDOC ---
Subjective Date DATE: 01/10/17 TIME: 20:31 Subjective The patient was seen this morning in his room. He is doing well. He is eating and drinking without difficulties. Has a Pinto in place. He is having normal bowel movements. He denies any complaints. Objective Vital Signs Vital signs Vital Signs Date Time Temp Pulse Resp B/P Pulse Ox O2 Delivery O2 Flow Rate FiO2 01/10/17 15:13 98.1 95 18 167/94 98 Room Air GEN-, oriented, no acute distress CV-regular rate and rhythm CHEST- ABD-off, nontender with positive bowel sounds -Pinto in place EXT-no edema NEURO-paraplegia SKIN-warm and dry and without rashes Height (Feet): 5 Height (Inches): 9.00 Weight (Kilograms): 105.800 Laboratory Laboratory Laboratory Tests 01/10/17 10:12 Laboratory Tests 01/10/17 10:12 Sepsis Diagnostic Criteria Sepsis Confirmed/Suspected Infection: Yes SIRS Criteria: Pulse >= 90 beats/min, WBC >=12,000 or <=4,000 Assessment & Plan Problems: (1) Pressure ulcer of right buttock Status: Chronic Qualifiers: Pressure ulcer stage: stage 4 Qualified Codes: L89.314 - Pressure ulcer of right buttock, stage 4 Assessment & Plan: Stage IV ischial decub. 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 coli UTI Status: Acute (3) MANDY (acute kidney injury) Status: Acute (4) Microcytic anemia Status: Acute Assessment & Plan: iron deficient anemia (5) Sepsis Status: Resolved Assessment & Plan: Manifestations of sepsis include the following- 1. Right buttock/hip wound-worsening with tunneling 2. Leukocytosis, WBC count 12.9 3. Tachycardia- 121 on admission (6) Coughing Status: Resolved (7) Neurogenic bowel Status: Chronic (8) Neurogenic bladder Status: Chronic (9) Paraplegia at T9 level Status: Chronic (10) Chronic urinary tract infection Status: Chronic (11) Thrombocytosis Status: Chronic Plan/Intensity of Service 01/10/2017 Acute kidney injury-resolved Mild hypernatremia-recheck Wednesday Mild anemia-improving Borderline elevated blood pressure-may need to initiate antihypertensive Decubitus wound-continue treatment with wound VAC per wound team, continue on specialty bed to take pressure off of wound Infected decubitus wound with osteomyelitis-continue Rocephin and Flagyl. C- reactive protein is trending down. It was 38.1 over a week ago and 13.7 now. Neurogenic bladder-continue Pinto Paraplegia at T9 level Thrombocytosis-improving Iron deficiency anemia-improving with vitamin C and oral iron DVT Prophylaxis: SCD'S Code Status Full Code Hospital Course Summary Disclaimer The hospital course summary below is not to be considered part of the above Progress Note. Hospital Course Summary 12/25 Place patient to inpatient status under the care of Dr. Herbert for sepsis, right hip/buttocks wound, pressure ulcer We'll continue with consultation with wound center and with Dr. Tyson for ongoing treatment. Did discuss case with Dr. Palma, and she is planning to see patient later today. Will start vancomycin now. Place Pinto catheter given the patient has a history of urine. Neurogenic bladder and requires frequent straight caths Given coughing will obtain chest xray. Also obtain UA on admission IV fluids, 500 ml bolus and then 100ml/hr for ongoing hydration. Will recheck a venous lactate at 1630 per sepsis protocol. Will have infusion team place a PICC line, as patient will likely need long- term antibiotics. SCDs to bilateral lower extremity for DVT prophylaxis. Patient may have regular diet. Will monitor patient on cardiac telemetry given tachycardia. Will recheck CBC and BMP tomorrow morning to follow blood counts, renal function and electrolytes. Will discuss further plan of care with Dr Herbert. At time of discharge medical care will return to primary care provider, Dr. Morales 12/26/16 Dr. Palma is recommending 6 weeks of IV antibiotics for right ischial stage IV decub ulcer with possible osteomyelitis. Currently on Zosyn and Vancomycin, which will be narrowed pending cx results. Dr. Tyson will evaluate wound on Wednesday. Continue wound VAC. Also with UTI - C&S pending. Pinto inserted on admission, but pt has hx of neurogenic bladder requiring straight cath. Sepsis/SIRS: WBC normal - 6.8. Tachycardia resolved. BP occasionally with low- normal readings; 121/68 this am. IVF on hold. Lactate was normal. Mild hypokalemia (3.5) - replaced orally. Iron studies pending for microcytic anemia. 12/27/16 Appreciate ID recommendations by Dr Palma. She recommends 6 weeks of antibiotic therapy for treatment of Right decub ulcer with possible osteomyelitis. Wound culture continues to be pending. Vanco Trough this morning was 63.8. Will hold Vanco at this time and continue with Zosyn. Urine culture does revel evidence of E-Coli which is pansensitive. Senior Compliance Analyst did increase today from 0.8 to 1.5. We will continue to monitor renal function carefully and recheck BMP at 1400.Continue with Scheduled Tessalon Perles for coughing Iron studies pending for microcytic anemia. Will discuss further plan of care with Dr Herbert 12/28/16 MANDY - Dr. Herbert has already discussed this with Dr. Carpenter (neph). Vanc is being held until trough is <15. Urine eosinophils have been ordered to see if Zosyn might be the cause. He has had very good UO. Continues on NS at 40 ml/hr. Right ischial decub. ulcer with poss. osteomyelitis - Dr. Palma following; cont. Zosyn. E. coli UTI - pansensitive Microcytic anemia - iron and % sat were both low - iron was started today. Wound care per Dr. Buck. CM exploring discharge options. 12/28/2016-I reviewed this chart, the patient history, and the PASSENGER SCREENER's/PA's documented findings as above. We discussed and formulated the assessment and plan as above with the additions below.-Dr. Herbert The patient states that he's feeling about the same. He is eating and drinking okay but appetite is not back to normal. He denies any pain. His cough is better. He denies any nausea or vomiting. He has had good urine output. On exam he is alert and oriented and in no acute distress. Chest is clear to auscultation. Cardiovascular reveals a regular rate and rhythm. Abdomen is soft and nontender with positive bowel sounds. Creatinine did increase from 1.5 yesterday to 1.7 today. Urine output has been almost 5 L a day. I did talk with Dr. Bee Ricks as noted above. Urine eosinophils were 0. If creatinine is not trending down, would recommend calling Dr. Ricks for further recommendations. Her help has been greatly appreciated. 12/29/16 MANDY - Cr same as yesterday, 1.7. Vanco trough trending down. He's had good oral intake and excellent urine output. Urine eos were neg. He is on 1/2 NS at 75 ml/ hr. Right ischial decub. ulcer with poss. osteomyelitis - Dr. Palma following; cont. Zosyn. Restart vanco when trough <15. E. coli UTI - pansensitive Wound care per wound team/Dr. Buck. CM exploring discharge options; pending renal improvement and ID recommendations. 12/30 Doing well overall. No new problems or concerns. Cough decreasing. Breathing well. Appetite stable. No nausea. Taking liquids in well. No f/c. Creatinine 1.9. Vanco on hold. Continue Zosyn - dose decreased secondary to MANDY. Vanco remains on hold. Continue 1/2NS at 75 cc/hr due to MANDY. Continue wound vac and wound care. Occult stools negative. Continue oral iron-add Vit C with iron. Recheck BMP and phos in am due to MANDY. Repeat CBC in am to monitor blood counts due to infection. 12/31 Doing well overall. Cough decreasing; not sore in chest or ab from coughing. Breathing well. Appetite improving slowly. Drinking well. No nausea or stomatitis. No f/c. Not having pains/discomfort. Creatinine 1.9. Continue Zosyn for antimicrobial coverage. Vanco on hold, troth decrease but I'm hesitant to restart as creatinine still 1.9. Will increase 1/2NS to 125cc/hr help renal function as output has been greater than intake. PhosLo started TID as phosphorus elevated. Continue with Wound Vac and wound care. Recheck lab in am. 01/01 Doing well overall. Tolerating wound vac changes-with his paraplegia he has no pain. No f/c. Breathing well; cough decreasing. No nausea or ab pain; appetite still decreased (family bringing in food from outside to help). No new problems or concerns. Creatinine 1.9. Continue Zosyn for antimicrobial coverage. Will give 1000mg IV vanco x1 - check random level in am. Continue IVF of 1/2NS at 125cc/hr help renal function. Change Tessalon Perle to prn as coughing decreased. Encourage intake of good nutrients to help wound healing. Continue with Wound Vac and wound care. Wound Vac changed today - anticipate changing again on 01/04. Recheck lab in am. 01/02 Doing well. No new problems. Breathing well. Not having congestion, SOA, and cough has resolved. No pain with breathing or chest pain. No nausea or ab pain. Appetite still with decrease-hard to find foods than sound appealing. No pain or discomfort. No f/c. Creatinine 1.9. Continue Zosyn for antimicrobial coverage. Vanco level okay; Pharm to give Vanco 750mg IV x1 today and monitor. Continue IVF of 1/2NS at 125cc/hr help renal function. Continue with Wound Vac and wound care. Recheck lab in am. 01/03 Doing well. Breathing stable-no SOA, cough or congestion. No chest pressure or pain. Denies ab pain or nausea. Nursing help remove stool today. Eating slightly better-finding some foods on the menu that are appealing. No f/c. Creatinine 1.8. Continue Zosyn for antimicrobial coverage. Pharm to gave Vanco 750mg IV x1 today. Monitor levels. Continue IVF of 1/2NS at 125cc/hr help renal function. Good urine output. No signs of volume overload. Encourage good nutritional intake to help with wound healing. Continue with Wound Vac and wound care. Recheck lab in am. 01/04/[address] Palma with infectious disease today. She did discontinue vancomycin. Will continue with IV Rocephin and PO Flagyl. Will monitor carefully for evidence of rash or ALLERGIC reaction. Given patient's history of rash with Keflex. Patient will require 6 weeks of antibiotics, end date 02/06/17. If debridement is required may consider extending stop date. Appreciate continued surgical evaluation and recommendation by Dr. Tyson and Dr. Buck. Continued wound care management by Wound team Nystatin powder 4 times a day for fungal type rash to groin Obtain eosinophil count in urine for evaluation of possible Acute Interstitial Nephritis (AIN). Senior Compliance Analyst today is 2.0. May be related to Vancomycin. Continue with MiraLAX daily for ongoing bowel motivate patient and Dulcolax suppositories as needed. Will recheck CBC and BMP tomorrow to follow blood counts, renal function and electrolytes 01/05/17 Acute kidney injury: Creatinine improved to 1.6 today. Will decrease the rate of IV fluids to 60 mL per hour. His weight has increased about 8 kg since day of admission. Continue with Rocephin and metronidazole, per Dr. Palma. There is no MRSA isolated from wound culture, so no need to continue vancomycin. She recommends six weeks of IV antibiotics to treat osteomyelitis, starting from his admission date (12/25). If debridement is done, I'd consider changing the stop date of the IV antibiotics to 6 weeks post-debridement Stage IV pressure ulceration of right buttock/ischial region: Per Dr. Tyson , marked improvement seen with wound VAC. Sinus rhythm noted on telemetry without any hemodynamic instability. We'll discontinue telemetry. We'll discuss further orders with Dr. Herbert. 01/07/17 Will continue on PO Flagyl and IV Rocephin daily at this point. Will need to continue out antibiotic therapy through 02/04/17. Will continue to follow renal function closely. Todays lab is currently pending. Wound Vac will be changed monday 01/08 by wound team At time of discharge he will need CBC with diff CMP and CRP weekly while on antibiotic. These labs will need to be faxed to Dr Palma. PT/OT consulted for evaluation for possible swing bed Spoke with CM regarding discharge plans as patient would prefer to stay at [facility] longer-term for ongoing wound treatment and antibiotic therapy. 01/08/17 Renal function continues to improve and Senior Compliance Analyst today down to 1.3. Will continue on PO Flagyl and IV Rocephin daily at this point. Will need to continue out antibiotic therapy through 02/04/17. Wound Vac changed this morning by wound team. BP remains stable at 135/84. At time of discharge he will need CBC with diff CMP and CRP weekly while on antibiotic. These labs will need to be faxed to Dr Palma. Spoke with CM regarding discharge plans as patient would prefer to stay at [facility] longer-term for ongoing wound treatment and antibiotic therapy. Recheck BMP daily to follow renal function. Late entry. Patient was seen on 01/08/2017 in the evening. The patient states he is feeling well. He is eating and drinking well. He still feels a little fatigued. He denies any other complaints. We are still working on plans for long-term antibiotics and wound care. Case management has been talking with his insurance and we are trying to arrange for swing bed status. [facility]. We hope to your back by Wednesday. Case management has also talked with [facility] and he has been approved to go there. We would rather that he stay here and continue with the same physicians and nurses treating his wound. Visiting the patient in [place] would be much closer for family as well. We'll continue with current treatment here at [facility]. His creatinine continues to improve. IV fluids were discontinued yesterday. Discussed at length with case management today. On exam the patient is alert and oriented and in no acute distress. Chest is clear to auscultation. Cardiovascular reveals a regular rate and rhythm. Abdomen is soft and nontender. Extremities reveal no edema. He continues in a specialty bed for his wound. 01/09/2017 Regarding acute kidney injury with resolution-recheck BMP and CBC tomorrow Continue on specialty bed to take pressure off of wound Continue Rocephin and Flagyl. Blood pressure is borderline elevated-continue to monitor at this time CARLOS ALBERTO HERBERT MD Jan 10, 2017 20:34
[2017-01-10 23:30] VITALS: BP 147/84; PULSE 82; RESP 16; TEMP 97.6; O2SAT 97
--- NOTE | 2017-01-11 04:56 | NUR ---
SHIFT SUMMARY: PT IS A&OX3, FRIENDLY AND COOPERATIVE. VSS. ON RA. PT DENIES SOA, N/V OR PAIN. PT IS ON BEDREST. SPECIALTY BED TURNS PT. DE SOUZA CATHETER IS PATENT AND DRAINING GOOD OUTPUT. PT HAD 1 BM DURING MY SHIFT. MINIMAL AMOUNT OF DRAINAGE FROM WOUND VAC (SEROUS IN COLOR); NO LEAKS. SCD'S ON. DOUBLE LUEMEN PICC - RED DOES NOT FLUSH OR ASPIRATE; PURPLE FLUSHES AND ASPIRATES, BUT IS DIFFICULT TO FLUSH. CALL LIGHT WITHIN REACH, BED ALARM ON.
[2017-01-11 08:00] VITALS: BP 150/101; PULSE 100; RESP 16; RESP 18; TEMP 97.8; O2SAT 97
--- NOTE | 2017-01-11 08:45 | PNPDOC ---
Subjective Date DATE: 01/11/17 TIME: 08:45 Subjective Mr. Cosby denies any problems. He specifically denies any fevers, chills, nausea, diarrhea, itching or rashes. Thinks his wound is improving. Per RN, his PICC is not flushing. Trying to TPA it. Objective Vital Signs: RN Vital Signs have been reviewed: Yes, Temperature: 97.6, Heart Rate: 82, Respiratory Rate: 16, BP: 147/84, Pulse Oximetry: 97 Height (Feet): 5 Height (Inches): 9.00 General: FOUND: Alert, NOT FOUND: Acute Distress Skin: NOT FOUND: Rash HEENT: FOUND NC/AT Neck: NOT FOUND: Meningismus Cardiac: FOUND: Regular Rate/Rhythm, NOT FOUND: Murmur, Pitting Edema Lungs: FOUND: Clear to Auscultation, Symmetrical Expansion, NOT FOUND: Respiratory Distress Abdomen: FOUND: Non-tender, Normal Bowel Sounds, Soft : FOUND: Pinto Extremities: NOT FOUND Edema (Bilateral Lower Extremitites) Neurological: FOUND A/A/A, FOUND Other (paraplegia) Psychological: FOUND Intact and Appropriate IV Site: PICC (LUE) Antbiotics Vancomycin and Zosyn . Ceftriaxone and po flagyl since 01/04 Laboratory Laboratory Tests 01/10/17 10:12 Laboratory Tests 01/10/17 10:12 Cultures Blood cultures 11/12 on 12/25 with S. intermedius sensitive to PCN S INTERMED INTERP MAKAYLA ------ --------- AMPICILLIN S <=0.25 CLINDAMYCIN S <=0.25 ERYTHROMYCIN S <=0.12 LEVOFLOXACIN S <=0.25 LINEZOLID S <=2 BENZYLPENICILL S <=0.06 TETRACYCLINE S 0.5 VANCOMYCIN S 0.25 Wound culture 12/25: Specimen: [id number] Collected: 12/25/16 Received: 12/25/16-[address]: NATHANIEL QUINTANILLA MD, FACS, CWS Source: UNKNOWN Procedure Result Verified MICROBIOLOGY GRAM STAIN Final 12/26/16-1504 RESULT FEW GRAM NEGATIVE RODS FEW GRAM POSITIVE RODS FEW GRAM POSITIVE COCCI MANY NEUTROPHILS WOUND CULTURE DEEP TISS-AER/AN Final 01/01/17-1032 Organism 1 PROTEUS VULGARIS GROUP QUANTITY: MODERATE GROWTH Organism 2 ENTEROCOC FAECALIS - (GROUP D) QUANTITY: MODERATE GROWTH Organism 3 BACTEROIDES FRAGILIS QUANTITY: MODERATE GROWTH Organism 4 ANAEROCOCCUS PREVOTII QUANTITY: MODERATE GROWTH Organism 5 DIPHTHEROID BACILLUS ORGANISM COMMENT: SENSITIVITY NOT PERFORMED Reviewed: Medications, Consult/Progress Notes Sepsis Diagnostic Criteria Sepsis Confirmed/Suspected Infection: Yes SIRS Criteria: Pulse >= 90 beats/min, WBC >=12,000 or <=4,000 Assessment & Plan Assessment IMPRESSION 1. Right ischial decubitus ulcer stage IV with concern for osteomyelitis. 2. Sepsis secondary to skin and soft tissue source. 3. Septicemia with Strep intemedius 12/25/16. 4. MANDY with peripheral and urine eosinophilia, suspect AIN, likely due to Zosyn , although he was also on Vancomycin. 5. History of osteomyelitis of the right ischium status post debridement, six weeks of IV antibiotics followed by flap procedure in August 2016. 6. Paraplegia at T9 from an accident that occurred in 2001. 7. Neurogenic bladder with self-catheterization. 8. Neurogenic bowel. 9. History of urinary tract infections. 10. History of Clostridium difficile infection related to levofloxacin. 11. Allergy to Keflex, rash. Plan/Intensity of Service Continue ceftriaxone and po flagyl. Recommend 6 weeks of treatment, through . I would recommend checking CBC with diff, CMP, and CRP weekly while on IV antibiotics. These labs can be faxed to my office at [phone]. I can also follow up with him in the [facility]. I'm going to add Zosyn to his allergy list due to the AIN. CLAYTON ACOSTA MD Jan 11, 2017 08:45
[2017-01-11] MEDS: POLYETHYL.GLYCOL 3350 PACKET 17gm PO SCH (09:00)
[2017-01-11 09:14] VITALS: BP 152/101; PULSE 86; RESP 16; TEMP 96.9; O2SAT 100
[2017-01-11] MEDS ORDERED: ALTEPLASE (Cathflo*) 2mg vial Injection IV ONE ×2 (09:15)
[2017-01-11] MEDS: NYSTATIN POWDER 15gm BOTTLE TOP SCH ×2 (09:40→13:25)
[2017-01-11] MEDS: METRONIDAZOLE 500 MG TABLET PO SCH (09:41)
[2017-01-11] MEDS: ASCORBIC ACID 500 MG TABLET PO SCH (09:41)
[2017-01-11] MEDS: VITAMIN B COMP + C TABLET PO SCH (09:41)
[2017-01-11] MEDS: CALCIUM ACETATE 667 MG CAPSULE PO SCH ×2 (09:41→13:25)
[2017-01-11] MEDS: FERROUS SULFATE 324 MG TABLET PO SCH (09:41)
--- NOTE | 2017-01-11 09:45 | NUR ---
PICC Nurse requests line evaluation. Previous nurse reported unable to aspirate red port. Attempted to flush ports. Able to flush only 1cc with much difficulty. Unable to flush purple port. Dressing and caps changed without result. Cathflo instilled in both ports.
--- NOTE | 2017-01-11 11:38 | NUR ---
PICC Able to aspirate and flush both ports at this time.
[2017-01-11] MEDS: CEFTRIAXONE 2 G in NORMAL SALINE 100 ML IV SCH (11:46)
--- NOTE | 2017-01-11 12:44 | PDWOUND ---
Wound Documentation Wound Management Wound : Location Modifier: Right, Upper Wound Location: Thigh Wound Type: Pressure Ulcer Wound Dressing Frequency: three times per week Wound Duration: > one month Wound Dressing Status: FOUND: Changed Wound Drainage Amount: Large Wound Drainage Description: Serosanguineous Wound Drainage Odor: None/Absent Wound General Appearance: FOUND Draining, FOUND Muscle Visible, FOUND Reddened, FOUND Unapproximated Wound Bed: gran red Periwound Description: Indurated, Tunnelling, Undermined Wound Length (cm): 4.5 Wound Width (cm): 2.8 Wound Depth (cm): 3.5 Exposed: muscle Wound Cleanser: NS Wound Solution/Irrigant: Saline Irrigant Wound Packing Type: FOUND: Black Foam Wound Primary Dressing Type: Clear Adhesive Cover Wound Tunneling : Sinus/Tunnels (cm): 8 (centimeters) Tunneling Location (o'clock): 12 Wound Undermining : Wound Undermining (cm): 1 Undermining Location (o'clock): 12-4 Comments Wound continues to decrease in size however tunnel is still unchaged. Will change to Veraflow cleanse to see if we can get the tunnel jump started, Dr Tyson in to see pt at this time also. TATUM RIZO RN Jan 11, 2017 12:44
--- NOTE | 2017-01-11 14:00 | NUR ---
shift summary Piccline aspirated and flushed with 20 cc ns wound vac changed by chanda. no co of pain voiced. continue to observe drg is dry and intact.
[2017-01-11] MEDS ORDERED: BISA10SU8 RECTALLY (15:00)
[2017-01-11] MEDS ORDERED: VITA1TAB15 PO (15:00)
[2017-01-11] MEDS ORDERED: MAGN400O4 PO (15:00)
[2017-01-11] MEDS ORDERED: NYST10PO TOP (15:00)
[2017-01-11] MEDS ORDERED: METR500T PO (15:00)
[2017-01-11] MEDS ORDERED: POLY17PO18 PO (15:00)
[2017-01-11] MEDS ORDERED: ACET-2723 PO (15:00)
[2017-01-11] MEDS ORDERED: FERR324T4 PO (15:00)
[2017-01-11] MEDS ORDERED: CEFT2FRO3 IV (15:00)
[2017-01-11] MEDS ORDERED: Calcium Acetate PO (15:00)
[2017-01-11] MEDS ORDERED: ASCO500T9 PO (15:00)
--- NOTE | 2017-01-11 15:15 | NUR ---
discharged to swing bed status.
--- NOTE | 2017-01-11 16:40 | DSPDOC ---
HANS HUGO V AUTOMATIC THREAD WINDER 01/11/17 1640: General Date Date DATE: 01/11/17 TIME: 16:31 Attending Physician Svetlana Herbert MD Admitting Physician Svetlana Herbert MD Consulting Physician Margie Palma MD, Dr. Tyson Admitting Diagnosis SEPSIS, RIGHT BUTTOCK WOUND Discharge Diagnosis Right buttock pressure ulcer, wound Urinary tract infection Paraplegia at T9 Neurogenic bladder, bowel Procedures Placement of wound VAC PICC line placement Laboratory Laboratory Tests Test 01/10/17 10:12 White Blood Count 8.5T/MM3 (4.5-11.0) Red Blood Count 4.56M/MM3 (4.50-5.90) Hemoglobin 11.2GM/DL (13.5-17.5) Hematocrit 35.5% (41-53) Mean Corpuscular Volume 77.9UM3 (80-100) Mean Corpuscular Hemoglobin 24.6UUG (26-34) Mean Corpuscular Hemoglobin Concent 31.5GM/DL (31-37) RDW Standard Deviation 43.8FL (36.9-50.2) Platelet Count 413T/MM3 (130-400) Mean Platelet Volume 9.7UM3 (9.4-12.4) Immature Granulocyte % (Auto) 0.1% (0.0-0.5) Neutrophils (%) (Auto) 65.9% (33-66) Lymphocytes (%) (Auto) 26.2% (23-45) Monocytes (%) (Auto) 3.9% (0-9.0) Eosinophils (%) (Auto) 3.4% (0-4) Basophils (%) (Auto) 0.5% (0-2) Absolute Immature Granulocyte (auto 0.01T/MM3 (0.00-0.03) Absolute Neutrophils (auto) 5.6T/MM3 (1.8-7.7) Absolute Lymphocytes (auto) 2.2T/MM3 (1-4.8) Absolute Monocytes (auto) 0.3T/MM3 (0-0.8) Absolute Eosinophils (auto) 0.3T/MM3 (0-0.5) Absolute Basophils (auto) 0.0T/MM3 (0-0.2) Turbidity < 20 (0-20) Sodium Level 147MEQ/L (134-144) Potassium Level 3.9MEQ/L (3.6-5) Chloride Level 106MEQ/L (98-107) Carbon Dioxide Level 28MEQ/L (22-30) Anion Gap 13MEQ/L (5-15) Blood Urea Nitrogen 22.0MG/DL (9-20) Creatinine 1.2MG/DL (0.8-1.5) Glomerular Filtration Rate Calc 67 BUN/Creatinine Ratio 18RATIO (6-26) Glucose Level 156MG/DL (75-110) Calculated Osmolality 288MOSM/KG (261-280) Calcium Level 8.9MG/DL (8.4-10.2) Total Bilirubin 0.40MG/DL (0.20-1.30) Icterus Index < 2 (0-7) Aspartate Amino Transf (AST/SGOT) 50U/L (17-59) Alanine Aminotransferase (ALT/SGPT) 44U/L (21-72) Alkaline Phosphatase 67U/L (38-126) C-Reactive Protein 13.7MG/L (0-9) Total Protein 7.1G/DL (6.3-8.2) Albumin 3.3G/DL (3.5-5.0) Globulin 3.8G/DL (2.4-3.6) Albumin/Globulin Ratio 0.9RATIO (1.1-2.2) Chemistry Specimen Hemolysis < 15 (0-25) Microbiology PATIENT: DUNCAN RODRIGUEZ V Act#:[id number] Loc: MED [id number]-P Specimen: [id number] Collected: 12/25/16 Received: 12/25/[address]: HANS HUGO APRN Source: [facility] Procedure Result Verified MICROBIOLOGY URINE CULTURE. Final 12/27/16-732 Organism 1 ESCHERICHIA COLI COLONY COUNT >100,000 CFU/ml E COLI INTERP MAKAYLA ------ --------- AMOX/CLAV ACID S 4 AMPICILLIN S 8 CEFAZOLIN S <=4 CEFEPIME S <=1 CEFTAZIDIME S <=1 CEFTRIAXONE S <=1 CIPROFLOXACIN S <=0.25 ERTAPENEM S <=0.5 GENTAMICIN S <=1 LEVOFLOXACIN S <=0.12 NITROFURANTOIN S <=16 TOBRAMYCIN S <=1 TRIMETH/SULFA S <=20 PIPERACILL/TAZO S <=4 URINE CULTURE. Preliminary (changed) 12/26/16-1456 Organism 1 ESCHERICHIA COLI COLONY COUNT >100,000 CFU/ml URINE CULTURE. Preliminary (changed) 12/25/16-1908 CULTURE INITIATED - RESULTS PENDING Radiology 12/25/16-chest x-ray revealing no acute cardiopulmonary disease, left PICC line, intact History of Present Illness Duncan is a very pleasant 41-year-old gentleman who has been under the care of outpatient wound center since July 2016. He had previously had a decubitus ulcer to the right ischium in March 2016. This was initially treated and had a surgical flap placed over this area last fall. Patient did well following this treatment. However, last July developed a secondary wound in the right posterior upper thigh/buttock region at different location. He has continued with the outpatient wound treatments. However, today upon evaluation was found to have worsening wound with tunneling and concern for osteomyelitis. The hospitalist services were contacted and accepted patient for direct admission for further evaluation and treatment. Labs were obtained this morning. The WBC count was found to be slightly elevated at 12.9, hemoglobin 11.4, hematocrit 36.3, platelet count 551, 79% neutrophils. Sodium is 140, potassium 3.7, BUN 10 , creatinine 0.8. CRP 260.7. Venous lactate was found to be 1.3, and pro- calcitonin 0.39. Blood cultures were obtained at that time. On arrival to the medical unit. Patient was found to be tachycardic with a pulse of 101, temperature 90.9, respiration rate 18, blood pressure 126/66, room air saturations 98%. Patient is seen on initial examination. He is alert and oriented and pleasant. He reports having a fever early this morning of 101 and did take some Aleve prior to coming to the wound care center. Hospital Course 12/25 Place patient to inpatient status under the care of Dr. Herbert for sepsis, right hip/buttocks wound, pressure ulcer We'll continue with consultation with wound center and with Dr. Tyson for ongoing treatment. Did discuss case with Dr. Palma, and she is planning to see patient later today. Will start vancomycin now. Place Pinto catheter given the patient has a history of urine. Neurogenic bladder and requires frequent straight caths Given coughing will obtain chest xray. Also obtain UA on admission IV fluids, 500 ml bolus and then 100ml/hr for ongoing hydration. Will recheck a venous lactate at 1630 per sepsis protocol. Will have infusion team place a PICC line, as patient will likely need long- term antibiotics. SCDs to bilateral lower extremity for DVT prophylaxis. Patient may have regular diet. Will monitor patient on cardiac telemetry given tachycardia. Will recheck CBC and BMP tomorrow morning to follow blood counts, renal function and electrolytes. Will discuss further plan of care with Dr Herbert. At time of discharge medical care will return to primary care provider, Dr. Morales 12/26/16 Dr. Palma is recommending 6 weeks of IV antibiotics for right ischial stage IV decub ulcer with possible osteomyelitis. Currently on Zosyn and Vancomycin, which will be narrowed pending cx results. Dr. Tyson will evaluate wound on Wednesday. Continue wound VAC. Also with UTI - C&S pending. Pinto inserted on admission, but pt has hx of neurogenic bladder requiring straight cath. Sepsis/SIRS: WBC normal - 6.8. Tachycardia resolved. BP occasionally with low- normal readings; 121/68 this am. IVF on hold. Lactate was normal. Mild hypokalemia (3.5) - replaced orally. Iron studies pending for microcytic anemia. 12/27/16 Appreciate ID recommendations by Dr Palma. She recommends 6 weeks of antibiotic therapy for treatment of Right decub ulcer with possible osteomyelitis. Wound culture continues to be pending. Vanco Trough this morning was 63.8. Will hold Vanco at this time and continue with Zosyn. Urine culture does revel evidence of E-Coli which is pansensitive. Home Health Care Physician did increase today from 0.8 to 1.5. We will continue to monitor renal function carefully and recheck BMP at 1400.Continue with Scheduled Tessalon Perles for coughing Iron studies pending for microcytic anemia. Will discuss further plan of care with Dr Herbert 12/28/16 MANDY - Dr. Herbert has already discussed this with Dr. Carpenter (neph). Vanc is being held until trough is <15. Urine eosinophils have been ordered to see if Zosyn might be the cause. He has had very good UO. Continues on NS at 40 ml/hr. Right ischial decub. ulcer with poss. osteomyelitis - Dr. Palma following; cont. Zosyn. E. coli UTI - pansensitive Microcytic anemia - iron and % sat were both low - iron was started today. Wound care per Dr. Buck. CM exploring discharge options. 12/28/2016-I reviewed this chart, the patient history, and the AUTOMATIC THREAD WINDER's/PA's documented findings as above. We discussed and formulated the assessment and plan as above with the additions below.-Dr. Herbert The patient states that he's feeling about the same. He is eating and drinking okay but appetite is not back to normal. He denies any pain. His cough is better. He denies any nausea or vomiting. He has had good urine output. On exam he is alert and oriented and in no acute distress. Chest is clear to auscultation. Cardiovascular reveals a regular rate and rhythm. Abdomen is soft and nontender with positive bowel sounds. Creatinine did increase from 1.5 yesterday to 1.7 today. Urine output has been almost 5 L a day. I did talk with Dr. Bee Ricks as noted above. Urine eosinophils were 0. If creatinine is not trending down, would recommend calling Dr. Ricks for further recommendations. Her help has been greatly appreciated. 12/29/16 MANDY - Cr same as yesterday, 1.7. Vanco trough trending down. He's had good oral intake and excellent urine output. Urine eos were neg. He is on 1/2 NS at 75 ml/ hr. Right ischial decub. ulcer with poss. osteomyelitis - Dr. Palma following; cont. Zosyn. Restart vanco when trough <15. E. coli UTI - pansensitive Wound care per wound team/Dr. Buck. CM exploring discharge options; pending renal improvement and ID recommendations. 12/30 Doing well overall. No new problems or concerns. Cough decreasing. Breathing well. Appetite stable. No nausea. Taking liquids in well. No f/c. Creatinine 1.9. Vanco on hold. Continue Zosyn - dose decreased secondary to MANDY. Vanco remains on hold. Continue 1/2NS at 75 cc/hr due to MANDY. Continue wound vac and wound care. Occult stools negative. Continue oral iron-add Vit C with iron. Recheck BMP and phos in am due to MANDY. Repeat CBC in am to monitor blood counts due to infection. 12/31 Doing well overall. Cough decreasing; not sore in chest or ab from coughing. Breathing well. Appetite improving slowly. Drinking well. No nausea or stomatitis. No f/c. Not having pains/discomfort. Creatinine 1.9. Continue Zosyn for antimicrobial coverage. Vanco on hold, troth decrease but I'm hesitant to restart as creatinine still 1.9. Will increase 1/2NS to 125cc/hr help renal function as output has been greater than intake. PhosLo started TID as phosphorus elevated. Continue with Wound Vac and wound care. Recheck lab in am. 01/01 Doing well overall. Tolerating wound vac changes-with his paraplegia he has no pain. No f/c. Breathing well; cough decreasing. No nausea or ab pain; appetite still decreased (family bringing in food from outside to help). No new problems or concerns. Creatinine 1.9. Continue Zosyn for antimicrobial coverage. Will give 1000mg IV vanco x1 - check random level in am. Continue IVF of 1/2NS at 125cc/hr help renal function. Change Tessalon Perle to prn as coughing decreased. Encourage intake of good nutrients to help wound healing. Continue with Wound Vac and wound care. Wound Vac changed today - anticipate changing again on 01/04. Recheck lab in am. 01/02 Doing well. No new problems. Breathing well. Not having congestion, SOA, and cough has resolved. No pain with breathing or chest pain. No nausea or ab pain. Appetite still with decrease-hard to find foods than sound appealing. No pain or discomfort. No f/c. Creatinine 1.9. Continue Zosyn for antimicrobial coverage. Vanco level okay; Pharm to give Vanco 750mg IV x1 today and monitor. Continue IVF of 1/2NS at 125cc/hr help renal function. Continue with Wound Vac and wound care. Recheck lab in am. 01/03 Doing well. Breathing stable-no SOA, cough or congestion. No chest pressure or pain. Denies ab pain or nausea. Nursing help remove stool today. Eating slightly better-finding some foods on the menu that are appealing. No f/c. Creatinine 1.8. Continue Zosyn for antimicrobial coverage. Pharm to gave Vanco 750mg IV x1 today. Monitor levels. Continue IVF of 1/2NS at 125cc/hr help renal function. Good urine output. No signs of volume overload. Encourage good nutritional intake to help with wound healing. Continue with Wound Vac and wound care. Recheck lab in am. 01/04/[address] Palma with infectious disease today. She did discontinue vancomycin. Will continue with IV Rocephin and PO Flagyl. Will monitor carefully for evidence of rash or ALLERGIC reaction. Given patient's history of rash with Keflex. Patient will require 6 weeks of antibiotics, end date 02/06/17. If debridement is required may consider extending stop date. Appreciate continued surgical evaluation and recommendation by Dr. Tyson and Dr. Buck. Continued wound care management by Wound team Nystatin powder 4 times a day for fungal type rash to groin Obtain eosinophil count in urine for evaluation of possible Acute Interstitial Nephritis (AIN). Home Health Care Physician today is 2.0. May be related to Vancomycin. Continue with MiraLAX daily for ongoing bowel motivate patient and Dulcolax suppositories as needed. Will recheck CBC and BMP tomorrow to follow blood counts, renal function and electrolytes 01/05/17 Acute kidney injury: Creatinine improved to 1.6 today. Will decrease the rate of IV fluids to 60 mL per hour. His weight has increased about 8 kg since day of admission. Continue with Rocephin and metronidazole, per Dr. Palma. There is no MRSA isolated from wound culture, so no need to continue vancomycin. She recommends six weeks of IV antibiotics to treat osteomyelitis, starting from his admission date (12/25). If debridement is done, I'd consider changing the stop date of the IV antibiotics to 6 weeks post-debridement Stage IV pressure ulceration of right buttock/ischial region: Per Dr. Tyson , marked improvement seen with wound VAC. Sinus rhythm noted on telemetry without any hemodynamic instability. We'll discontinue telemetry. We'll discuss further orders with Dr. Herbert. 01/07/17 Will continue on PO Flagyl and IV Rocephin daily at this point. Will need to continue out antibiotic therapy through 02/04/17. Will continue to follow renal function closely. Todays lab is currently pending. Wound Vac will be changed monday 01/08 by wound team At time of discharge he will need CBC with diff CMP and CRP weekly while on antibiotic. These labs will need to be faxed to Dr Palma. PT/OT consulted for evaluation for possible swing bed Spoke with CM regarding discharge plans as patient would prefer to stay at [facility] longer-term for ongoing wound treatment and antibiotic therapy. 01/08/17 Renal function continues to improve and Home Health Care Physician today down to 1.3. Will continue on PO Flagyl and IV Rocephin daily at this point. Will need to continue out antibiotic therapy through 02/04/17. Wound Vac changed this morning by wound team. BP remains stable at 135/84. At time of discharge he will need CBC with diff CMP and CRP weekly while on antibiotic. These labs will need to be faxed to Dr Palma. Spoke with CM regarding discharge plans as patient would prefer to stay at [facility] longer-term for ongoing wound treatment and antibiotic therapy. Recheck BMP daily to follow renal function. Late entry. Patient was seen on 01/08/2017 in the evening. The patient states he is feeling well. He is eating and drinking well. He still feels a little fatigued. He denies any other complaints. We are still working on plans for long-term antibiotics and wound care. Case management has been talking with his insurance and we are trying to arrange for swing bed status. [facility]. We hope to your back by Wednesday. Case management has also talked with [facility] and he has been approved to go there. We would rather that he stay here and continue with the same physicians and nurses treating his wound. Visiting the patient in [place] would be much closer for family as well. We'll continue with current treatment here at [facility]. His creatinine continues to improve. IV fluids were discontinued yesterday. Discussed at length with case management today. On exam the patient is alert and oriented and in no acute distress. Chest is clear to auscultation. Cardiovascular reveals a regular rate and rhythm. Abdomen is soft and nontender. Extremities reveal no edema. He continues in a specialty bed for his wound. 01/09/2017 Regarding acute kidney injury with resolution-recheck BMP and CBC tomorrow Continue on specialty bed to take pressure off of wound Continue Rocephin and Flagyl. Blood pressure is borderline elevated-continue to monitor at this time 01/11/17-discharge Patient is seen and examined today. He is without complaints. Planning to discharge patient from acute stay and readmit for swing bed status for ongoing wound treatment and IV antibiotics. Patient is to complete a 6 week course, which will end following the doses on 02/04/17. We will continue to monitor CBC with differential, CMP, and CRP weekly while on antibiotic therapy, as recommended by Dr. Palma. This is a general summation of the patients hospital course. Please refer to the medical record if additional detail is needed. Greater than 35 minutes Problems: (1) Pressure ulcer of right buttock Status: Chronic Assessment & Plan: Stage IV ischial decub. 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 coli UTI Status: Acute (3) MANDY (acute kidney injury) Status: Acute (4) Microcytic anemia Status: Acute Assessment & Plan: iron deficient anemia (5) Sepsis Status: Resolved Assessment & Plan: Manifestations of sepsis include the following- 1. Right buttock/hip wound-worsening with tunneling 2. Leukocytosis, WBC count 12.9 3. Tachycardia- 121 on admission (6) Coughing Status: Resolved (7) Neurogenic bowel Status: Chronic (8) Neurogenic bladder Status: Chronic (9) Paraplegia at T9 level Status: Chronic (10) Chronic urinary tract infection Status: Chronic (11) Thrombocytosis Status: Chronic Code Status Full Code Home Meds Active Scripts Ceftriaxone Na/Dextrose,Iso (Ceftriaxone 2 gm Piggyback) 2 Gm/50 Ml Froz.piggy, 2 G IV DAILY for 24 Days Prov:HANS HUGO APRN 01/11/17 Polyethylene Glycol 3350 (Healthylax) 17 Gm Powd.pack, 17 G PO DAILY for 30 Days Prov:HANS HUGO APRN 01/11/17 Ascorbic Acid (Vitamin C) 500 Mg Tablet, 500 MG PO WB for 30 Days, #30 TAB Prov:HANS HUGO APRN 01/11/17 Vitamin B Comp W-C (Total B with C) 1 Tab Tablet, 1 TAB PO DAILY for 30 Days, # 30 TAB Prov:HANS HUGO APRN 01/11/17 Magnesium Hydroxide (Milk of Magnesia) 400 Mg/5 Ml Oral.susp, 30 ML PO BID Y for CONSTIPATION for 30 Days Prov:HANS HUGO APRN 01/11/17 Bisacodyl (Bisacodyl) 10 Mg Supp.rect, 10 MG RECTALLY DAILY Y for CONSTIPATION for 30 Days Prov:HANS HUGO APRN 01/11/17 [Calcium Acetate] 667 MG CAPSULE No Conflict Check, 1334 MG PO TIDWM for 30 Days Prov:HANS HUGO APRN 01/11/17 Acetaminophen (Tylenol Extra Strength) 500 Mg Tablet, 500 MG PO Q4H Y for PAIN for 30 Days, #180 TAB Prov:HANS HUGO APRN 01/11/17 Ferrous Sulfate (Ferrous Sulfate) 324 Mg Tablet.dr, 324 MG PO WB for 30 Days, # 30 TAB Prov:HANS HUGO APRN 01/11/17 Nystatin (Nystatin) 50,000,000 Unit Powder.ea., 1 APPLIC TOP QID for 30 Days Prov:HANS HUGO APRN 01/11/17 Metronidazole (Flagyl) 500 Mg Tablet, 500 MG PO Q12HR for 24 Days, #48 TAB Prov:HANS HUGO APRN 01/11/17 Face to Face Encounter I met with patient on the day of dismissal and discussed follow up appointments , medications, and safety plan. Discharge Disposition Stable Copies To 1: EREN SO MD,SVETLANA Varma MD 01/11/171957: Hospital Course 01/11/2017-I reviewed this chart, the patient history, and the AUTOMATIC THREAD WINDER's/PA's documented findings as above. We discussed and formulated the assessment and plan as above with the additions below.-Dr. Herbert Patient is doing well today. He has no complaints. He denies any pain. He is eating and drinking well. He's having fair bowel movements. Dr. 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 My nurse practitioner did talk with Dr. Tyson today and he stated it would be okay to start Lovenox for DVT prophylaxis. Will start that on swing bed. On exam today the patient is alert and in no acute distress. Chest is clear to auscultation. Cardiac vascular reveals a regular rate and rhythm. Abdomen is soft and nontender. Extremities reveal no edema. Continue with current care on swing bed status. Add Lovenox 40 mg subcutaneous daily. Acute kidney injury has resolved and the patient is off of IV fluids. Problems: Home Meds Active Scripts Ceftriaxone Na/Dextrose,Iso (Ceftriaxone 2 gm Piggyback) 2 Gm/50 Ml Froz.piggy, 2 G IV DAILY for 24 Days Prov:HANS HUGO APRN 01/11/17 Polyethylene Glycol 3350 (Healthylax) 17 Gm Powd.pack, 17 G PO DAILY for 30 Days Prov:HANS HUGO APRN 01/11/17 Ascorbic Acid (Vitamin C) 500 Mg Tablet, 500 MG PO WB for 30 Days, #30 TAB Prov:HANS HUGO APRN 01/11/17 Vitamin B Comp W-C (Total B with C) 1 Tab Tablet, 1 TAB PO DAILY for 30 Days, # 30 TAB Prov:HANS HUGO APRN 01/11/17 Magnesium Hydroxide (Milk of Magnesia) 400 Mg/5 Ml Oral.susp, 30 ML PO BID Y for CONSTIPATION for 30 Days Prov:HANS HUGO APRN 01/11/17 Bisacodyl (Bisacodyl) 10 Mg Supp.rect, 10 MG RECTALLY DAILY Y for CONSTIPATION for 30 Days Prov:HANS HUGO APRN 01/11/17 [Calcium Acetate] 667 MG CAPSULE No Conflict Check, 1334 MG PO TIDWM for 30 Days Prov:HANS HUGO APRN 01/11/17 Acetaminophen (Tylenol Extra Strength) 500 Mg Tablet, 500 MG PO Q4H Y for PAIN for 30 Days, #180 TAB Prov:HANS HUGO APRN 01/11/17 Ferrous Sulfate (Ferrous Sulfate) 324 Mg Tablet.dr, 324 MG PO WB for 30 Days, # 30 TAB Prov:HANS HUGO APRN 01/11/17 Nystatin (Nystatin) 50,000,000 Unit Powder.ea., 1 APPLIC TOP QID for 30 Days Prov:HANS HUGO APRN 01/11/17 Metronidazole (Flagyl) 500 Mg Tablet, 500 MG PO Q12HR for 24 Days, #48 TAB Prov:HANS HUGO APRN 01/11/17 Copies To 1: EREN SO MD, JULIE V APRN Jan 11, 2017 16:40 SVETLANA HERBERT MD Jan 11, 2017 19:58
== END 2017-01-11 15:15 | disposition swing bed (61) | DRG 871 ==
LOC: MED 12:00 → OBSVTOIN 13:58 → MED 01-03 14:28
PROVIDERS: ADMIT Internal Medicine; ATTEND Internal Medicine
PROC: 02HV33Z Insertion of Infusion Device into Superior Vena Cava, Percutaneous Approach (ICD-10-PCS; principal; 2016-12-25)
PROC: B548ZZA Ultrasonography of Superior Vena Cava, Guidance (ICD-10-PCS; 2016-12-25)
DX: A41.9 Sepsis, unspecified organism (principal); L89.314 Pressure ulcer of right buttock, stage 4; K59.2 Neurogenic bowel, not elsewhere classified; G82.20 Paraplegia, unspecified; N39.0 Urinary tract infection, site not specified; N17.9 Acute kidney failure, unspecified; E87.6 Hypokalemia; N31.9 Neuromuscular dysfunction of bladder, unspecified; D47.3 Essential (hemorrhagic) thrombocythemia; D50.9 Iron deficiency anemia, unspecified; B96.20 Unspecified Escherichia coli [E. coli] as the cause of diseases classified elsewhere
CPT/HCPCS: 36415; 80048; 80053; 80069; 80202; 81001; 82272; 82565; 83540; 83550; 83605; 83735; 84100; 85007; 85025; 85027; 86140; 87086; 87088; 87186; 87205; 87486; 87581; 87633; 87798

== ENCOUNTER → 2016-12-25 | Outpatient (CLI) | payer MEDICARE, OTHER ==
[~2016-12-25] MED LIST changes: +ACET-2723 PO; +ASCO500T9 PO; +BISA10SU8 RECTALLY; +CEFT2FRO3 IV; +Calcium Acetate PO; +FERR324T4 PO; +MAGN400O4 PO; +METR500T PO; +NYST10PO TOP; +POLY17PO18 PO; +VITA1TAB15 PO
[2016-12-25 11:33] LABS: BASOPHILS % (AUTO) 0.2 % (0-2); EOSINOPHILS # (AUTO) 0.1 T/MM3 (0-0.5); HCT - HEMATOCRIT 36.3 % (41-53); HGB - HEMOGLOBIN 11.4 GM/DL (13.5-17.5); IMMATURE GRANULOCYTE # (AUTO) 0.05 T/MM3 (0.00-0.03); IMMATURE GRANULOCYTE % (AUTO) 0.4 % (0.0-0.5); LYMPHOCYTES # (AUTO) 1.5 T/MM3 (1-4.8); LYMPHOCYTES % (AUTO) 11.3 % (23-45); MEAN CORPUSCULAR HGB 24.5 UUG (26-34); MEAN CORPUSCULAR HGB CONC(MCHC 31.4 GM/DL (31-37); MEAN CORPUSCULAR VOLUME 78.1 UM3 (80-100); MEAN PLATELET VOLUME 8.9 UM3 (9.4-12.4); MONOCYTES % (AUTO) 7.9 % (0-9.0); NEUTROPHILS #(AUTO)-ABSOLUTE 10.2 T/MM3 (1.8-7.7); NEUTROPHILS % (AUTO) 79.2 % (33-66); RED BLOOD COUNT 4.65 M/MM3 (4.50-5.90); WBC - WHITE BLOOD COUNT 12.9 T/MM3 (4.5-11.0)
[2016-12-25 11:42] LABS: ALBUMIN 3.2 G/DL (3.5-5.0); ALBUMIN/GLOBULIN RATIO 0.7 RATIO (1.1-2.2); ALKALINE PHOSPHATASE 76 U/L (38-126); ALT (SGPT) 24 U/L (21-72); ANION GAP 14 MEQ/L (5-15); AST (SGOT) 22 U/L (17-59); BUN/CREATININE RATIO 13 RATIO (6-26); CALCIUM 8.8 MG/DL (8.4-10.2); CHLORIDE 103 MEQ/L (98-107); CO2 - CARBON DIOXIDE 23 MEQ/L (22-30); CREATININE 0.8 MG/DL (0.8-1.5); GLOMERULAR FILTRATION RATE 108; GLUCOSE 102 MG/DL (75-110); POTASSIUM 3.7 MEQ/L (3.6-5); SODIUM 140 MEQ/L (134-144)
[2016-12-25 11:44] LABS: LACTATE - LACTIC ACID 1.3 MMOL/L (0.6-2.2)
[2016-12-25 11:58] LABS: C-REACTIVE PROTEIN 260.7 MG/L (0-9)
== END ==
LOC: NWCC 10:39
PROVIDERS: ATTEND Internal Medicine
DX: L89.894 Pressure ulcer of other site, stage 4 (principal); G82.21 Paraplegia, complete; B96.89 Other specified bacterial agents as the cause of diseases classified elsewhere; B95.7 Other staphylococcus as the cause of diseases classified elsewhere; B95.2 Enterococcus as the cause of diseases classified elsewhere; B96.6 Bacteroides fragilis [B. fragilis] as the cause of diseases classified elsewhere
CPT/HCPCS: 36415; 80053; 83605; 84145; 85025; 85652; 86140; 87040; 87070; 87075; 87076; 87077; 87150; 87181; 87186; 87205; 97605

== ENCOUNTER 2017-01-11 15:16 | Inpatient (IN) | payer MEDICARE, OTHER ==
[~2017-01-11] VITALS: Ht 175.3 cm; Wt 107.9 kg
--- NOTE | 2017-01-11 15:15 | NUR ---
admitted to swing bed status no co of pain wick is patent. continue to observe.
[~2017-01-11 15:16] MED LIST changes: +ACET-2723 PO; +ASCO500T9 PO; +BISA10SU8 RECTALLY; -CEFD300C3 PO; +CEFT2FRO3 IV; +Calcium Acetate PO; +FERR324T4 PO; +MAGN400O4 PO; +METR500T PO; +NYST10PO TOP; +POLY17PO18 PO; +VITA1TAB15 PO
--- OUTSIDE RECORDS SUMMARY | 2017-01-11 15:45 | XMS REPORT | Continuity of Care Document ---
Author Author [facility] Address Unknown Phone Unavailable Support Name Relationship Address Phone CARLOS ALBERTO GLASGOW MD Caregiver [address] [place] [address] Unavailable CARLOS ALBERTO GLASGOW MD Caregiver [address] [place] [address] Unavailable EREN SO MD Caregiver [address] [place] [address] Unavailable ERIKA RDORIGUEZ Next Of Kin [address] [place] [address] Insurance Providers Guarantor Duncan Rodriguez V Address [address] [place] [address] Email [email or web address] Payer Medicare Policy Number [id number] Subscriber's Name Duncan Rodriguez V Relationship 18 [facility] Payer [facility] Policy Number [id number] Subscriber's Name Erika Rodriguez Relationship 01 Spouse Group Number [id number] Advance Directives Directive Response Recorded Date/Time Ordered Resuscitation Status Full Code 12/25/16 2:01pm Resuscitation Documents on File No 12/25/16 12:19pm DPOA for Healthcare Only No 12/25/16 2:42pm Living Will No 12/25/16 12:19pm Problems Active Problems Medical Problem Onset Date Status MANDY (acute kidney injury) Unknown Acute Anemia Unknown Chronic urinary tract infection Unknown Chronic Coughing Unknown Resolved E. 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 level Unknown Chronic Pressure ulcer of left buttock, stage 4 Unknown Pressure ulcer of right buttock Unknown Chronic Sepsis Unknown Resolved Thrombocytosis Unknown Chronic Past Problems Medical Problem Onset Date Ankle sprain Unknown Decubitus ulcer of buttock, stage 4 ~03/2016 Encounter for removal of urinary catheter Unknown Erosion of penis Unknown Open wound of toe with avulsion of toenail Unknown UTI (urinary tract infection) Unknown Medications Current Home Medications Medication Dose Units Route Directions Days Qty Instructions Start Date Acetaminophen (Tylenol Extra Strength) 500 Mg Tablet 500 Mg Oral Every 4 Hours as needed for Pain 30 Days 180 Tablet 01/11/17 Ascorbic Acid (Vitamin C) 500 Mg Tablet 500 Mg Oral Give With Breakfast 30 Days 30 Tablet 01/11/17 Bisacodyl 10 Mg Supp.rect 10 Mg Rectally Daily as needed for Constipation 30 Days 01/11/17 Calcium Acetate 667 Mg Capsule 1,334 Mg Oral Three Times Daily With Meals 30 Days 01/11/17 Ceftriaxone Na/Dextrose,Iso (Ceftriaxone 2 Gm Piggyback) 2 Gm/50 Ml Froz.piggy 2 G Intraven Daily 24 Days 01/11/17 Ferrous Sulfate 324 Mg Tablet.dr 324 Mg Oral Give With Breakfast 30 Days 30 Tablet 01/11/17 Magnesium Hydroxide (Milk Of Magnesia) 400 Mg/5 Ml Oral.susp 30 Ml Oral Twice A Day as needed for Constipation 30 Days 01/11/17 Metronidazole (Flagyl) 500 Mg Tablet 500 Mg Oral Every 12 Hours 24 Days 48 Tablet 01/11/17 Nystatin 50,000,000 Unit Powder.ea. 1 Applic Topically Four Times Daily 30 Days 01/11/17 Polyethylene Glycol 3350 (Healthylax) 17 Gm Powd.pack 17 G Oral Daily 30 Days 01/11/17 Vitamin B Comp W-C (Total B With C) 1 Tab Tablet 1 Tab Oral Daily 30 Days 30 Tablet 01/11/17 Past Home Medications Medication Directions Ordered Status Cephalexin (Keflex) 500 Mg Capsule, 1 Cap Oral Twice A Day for Uti 06/30/16 Discontinued No Routine Meds , 06/24/16 Discontinued Social History Social History Problem Response Recorded Date/Time Onset Date Status Reason for Hospitalization Pressure ulcer to right buttock, E-coli UTI, MANDY 01/11/2017 3:13pm Not Applicable Not Applicable Hx Substance Use No 07/10/2016 11:10pm Not Applicable Not Applicable Hx Alcohol Use No 07/10/2016 11:10pm Not Applicable Not Applicable Has the pt used tobacco in the last 12 months No 12/25/2016 12:21pm Not Applicable Not Applicable Tobacco Usage none 03/26/2016 10:06am Not Applicable Not Applicable Query Response Start Date Stop Date Smoking Status Former smoker Hospital Discharge Instructions Instructions: Care Instructions: Reason for Hospitalization: Pressure ulcer to right buttock, E-coli UTI, MANDY I was in the hospital because (patient own words): I HAVE A HOLE IN MY LEG AND THEY THINK IT IS INFECTED Discharge Diet: regular diet Discharge Activity: Activity as tolerated Follow Up Appointments: N/A Pending Lab / Results: No Pending Lab Wound/Incision Care: Continue with wound care and Vac management as per Wound team Pain Management/Treatment: Tylenol as needed for pain control Expected Signs/Symptoms: Continue improvement in wound Notify Physician If: N/A During Business Hours:: N/A After Business Hours:: N/A Condition at time of discharge: Good Plan of Care Discharge Date 01/11/17 3:15pm Disposition 61 TO ANY SWING BED Instructions/Education Provided Sepsis (GEN) Prescriptions See Medication Section Care Plan and Goals See Discharge Instructions Section Functional Status Query Response Date Recorded Mobility Status Bedrest January 11, 2017 3:13pm Assistive Devices Wheelchair January 11, 2017 3:13pm Activity Limitations Weakness January 11, 2017 3:13pm Feeding Ability Independent January 11, 2017 3:13pm Toileting Ability Assist January 11, 2017 3:13pm Grooming Ability Assist January 11, 2017 3:13pm Dressing Ability Independent January 11, 2017 3:13pm Driving Ability Dependent January 11, 2017 3:13pm Housework Ability Dependent January 11, 2017 3:13pm Meal Preparation Ability Assist January 11, 2017 3:13pm Stair Climbing Ability Dependent January 11, 2017 3:13pm Ability to complete ADL's impeded by No change January 11, 2017 3:13pm Cognitive/Perceptual Impairments None January 11, 2017 3:13pm Allergies, Adverse Reactions, Alerts Allergen Type Severity Reaction Status Last Updated Cephalexin Allergy Unknown HIVES Active 07/10/16 Tazobactam Allergy Intermediate acute interstitial nephritis Active Piperacillin Allergy Intermediate acute interstitial nephritis Active 12/25 Levofloxacin Adverse Reaction Unknown SEVERE GI DISTRESS Active 12/25/16 Immunizations Query Response on File Recorded Date/Time Hx Influenza Vaccination No 12/25/16 12:21pm Hx Pneumococcal Vaccination No 12/25/16 12:21pm Hx Influenza Vaccination No 12/25/16 12:21pm Influenza Vaccine Hx declines 07/10/16 11:10pm Tdap Vaccine Hx UNKNOWN 06/24/16 12:30pm Vital Signs Acute Vital Signs Vital Response Date/Time Temperature (Fahrenheit) 96.9 deg F (96.8 - 99.1) 01/11/2017 9:14am Temperature (Calculated Celsius) 36.59345 degrees C (36.0 - 37.3) 01/11/2017 9:14am Pulse Rate (adult) 86 bpm (60 - 100) 01/11/2017 9:14am Respiratory Rate 16 breaths/min (10 - 20) 01/11/2017 9:14am O2 Sat by Pulse Oximetry 100 % (90 - 100) 01/11/2017 9:14am Oxygen Delivery Method Room Air 01/11/2017 9:14am Blood Pressure 152/101 mm Hg 01/11/2017 9:14am Blood Pressure Source Automatic Cuff 01/11/2017 9:14am Height (Feet) 5 feet 01/10/2017 8:38pm Height (Inches) 9.00 inches 01/10/2017 8:38pm Weight (Kilograms) 105.800 kg 01/11/2017 8:00am Body Mass Index (BMI) 31.8 12/25/2016 12:18pm Results Laboratory Results Test Name Result Units Flags Reference Collection Date/Time Result Date/ Time Comments Procalcitonin 0.39 NG/ML 12/25/2016 11:21am 12/25/2016 11:58am PCT < /=0.5 ng/mL - sepsis not likely; PCT >0.5 and </=2 ng/mL - sepsis possible; PCT >2 ng/mL - sepsis likely; PCT >/=10 ng/mL - systemic inflammatory response - sepsis or septic shock highly indicated. Erythrocyte Sedimentation Rate 94 mm/h H 0-15 12/25/2016 11:21am 2016 11:19pm Sedimentation Rate performed at [facility] Reference Lab, [address] [place] [address] Reed Polisher Destiny Willingham DO White Blood Count 8.5 T/MM3 4.5-11.0 01/10/2017 10:12am 01/10/2017 10: 52am Red Blood Count 4.56 M/MM3 4.50-5.90 01/10/2017 10:12am 01/10/2017 10: 52am Hemoglobin 11.2 GM/DL L 13.5-17.5 01/10/2017 10:12am 01/10/2017 10:52am Hematocrit 35.5 % L 41-53 01/10/2017 10:01/10/2017 10:52am Mean Corpuscular Volume 77.9 UM3 L 80-100 01/10/2017 10:01/10/2017 10:52am Mean Corpuscular Hemoglobin 24.6 UUG L 26-34 01/10/2017 10:2016 10:52am Mean Corpuscular Hemoglobin Concent 31.5 GM/DL 31-37 01/10/2017 10:01/10/2017 10:52am RDW Standard Deviation 43.8 FL 36.9-50.2 01/10/2017 10:01/10/2017 10:52am Platelet Count 413 T/MM3 H 130-400 01/10/2017 10:01/10/2017 10: 52am Mean Platelet Volume 9.7 UM3 9.4-12.4 01/10/2017 10:01/10/2017 10: 52am Neutrophils (%) (Auto) 65.9 % 33-66 01/10/2017 10:01/10/2017 10: 52am Lymphocytes (%) (Auto) 26.2 % 23-45 01/10/2017 10:01/10/2017 10: 52am Monocytes (%) (Auto) 3.9 % 0-9.0 01/10/2017 10:01/10/2017 10:52am Eosinophils (%) (Auto) 3.4 % 0-4 01/10/2017 10:01/10/2017 10:52am Basophils (%) (Auto) 0.5 % 0-2 01/10/2017 10:01/10/2017 10:52am Immature Granulocyte % (Auto) 0.1 % 0.0-0.5 01/10/2017 10:2016 10:52am Absolute Neutrophils (auto) 5.6 T/MM3 1.8-7.7 01/10/2017 10:2016 10:52am Absolute Lymphocytes (auto) 2.2 T/MM3 1-4.8 01/10/2017 10:2016 10:52am Absolute Monocytes (auto) 0.3 T/MM3 0-0.8 01/10/2017 10:2016 10:52am Absolute Eosinophils (auto) 0.3 T/MM3 0-0.5 01/10/2017 10:12am 2016 10:52am Absolute Basophils (auto) 0.0 T/MM3 0-0.2 01/10/2017 10:12am 2016 10:52am Absolute Immature Granulocyte (auto 0.01 T/MM3 0.00-0.03 01/10/2017 10: 1201/10/2017 10:52am Neutrophils % (Manual) 59.0 % 33-66 12/28/2016 5:12/28/2016 6: 30am Band Neutrophils % 1.0 % 0-6 12/28/2016 5:12/28/2016 6:30am Lymphocytes % (Manual) 22.0 % L 23-45 12/28/2016 5:12/28/2016 6: 30am Monocytes % (Manual) 11.0 % H 0-9.0 12/28/2016 5:12/28/2016 6:30am Eosinophils % (Manual) 7.0 % H 0-4 12/28/2016 5:12/28/2016 6:30am Band Neutrophils # 0.1 T/MM3 12/28/2016 5:12/28/2016 6:30am Absolute Neutrophils (Manual) 3.5 T/MM3 1.8-7.7 12/28/2016 5:12/28 6:30am Lymphocytes # (Manual) 1.3 T/MM3 1-4.8 12/28/2016 5:12/28/2016 6: 30am Monocytes # (Manual) 0.6 T/MM3 0-0.8 12/28/2016 5:12/28/2016 6: 30am Eosinophils # (Manual) 0.4 T/MM3 0-0.5 12/28/2016 5:12/28/2016 6: 30am Red Cell Morphology Comment NORMAL 12/28/2016 5:12/28/2016 6: 30am Icterus Index < 2 0-7 01/10/2017 10:1201/10/2017 11:00am Chemistry Specimen Hemolysis < 15 0-25 01/10/2017 10:1201/10/2017 11:00am 0-25: Specimen Exhibited No Hemolysis. Turbidity < 20 0-20 01/10/2017 10:12am 01/10/2017 11:00am Sodium Level 147 MEQ/L H 134-144 01/10/2017 10:12am 01/10/2017 11:00am Potassium Level 3.9 MEQ/L 3.6-5 01/10/2017 10:12am 01/10/2017 11:00am Chloride Level 106 MEQ/L 98-107 01/10/2017 10:12am 01/10/2017 11:00am Carbon Dioxide Level 28 MEQ/L 22-30 01/10/2017 10:12am 01/10/2017 11: 00am Anion Gap 13 MEQ/L 5-15 01/10/2017 10:1201/10/2017 11:00am Blood Urea Nitrogen 22.0 MG/DL H 9-20 01/10/2017 10:12am 01/10/2017 11: 00am Creatinine 1.2 MG/DL 0.8-1.5 01/10/2017 10:1201/10/2017 11:00am BUN/Creatinine Ratio 18 RATIO 6-26 01/10/2017 10:12am 01/10/2017 11: 00am Glomerular Filtration Rate Calc 67 01/10/2017 10:12am 01/10/2017 11 :00am Glucose Level 156 MG/DL H 75-110 01/10/2017 10:12am 01/10/2017 11:00am Calculated Osmolality 288 MOSM/KG H 261-280 01/10/2017 10:12am 2016 11:00am Calcium Level 8.9 MG/DL 8.4-10.2 01/10/2017 10:1201/10/2017 11:00am Phosphorus Level 4.7 MG/DL H 2.5-4.5 01/05/2017 9:46am 01/05/2017 10: 18am Total Bilirubin 0.40 MG/DL 0.20-1.30 01/10/2017 10:1201/10/2017 11: 00am Alkaline Phosphatase 67 U/L 38-126 01/10/2017 10:1201/10/2017 11: 00am Total Protein 7.1 G/DL 6.3-8.2 01/10/2017 10:1201/10/2017 11:00am Albumin 3.3 G/DL L 3.5-5.0 01/10/2017 10:12am 01/10/2017 11:00am Globulin 3.8 G/DL H 2.4-3.6 01/10/2017 10:12am 01/10/2017 11:00am Albumin/Globulin Ratio 0.9 RATIO L 1.1-2.2 01/10/2017 10:12am 2016 11:00am Aspartate Amino Transf (AST/SGOT) 50 U/L 17-59 01/10/2017 10:12am 01/10 11:00am Alanine Aminotransferase (ALT/SGPT) 44 U/L 21-72 01/10/2017 10:12am 11/2016 11:00am C-Reactive Protein 13.7 MG/L H 0-9 01/10/2017 10:12am 01/10/2017 11: 20am Magnesium Level 2.2 MG/DL 1.6-2.3 01/04/2017 4:48am 01/04/2017 5:52am Plasma Lactate 1.1 MMOL/L 0.6-2.2 12/25/2016 5:43pm 12/25/2016 6:02pm Iron Level 12 UG/DL L 49-181 12/25/2016 5:39pm 12/28/2016 1:23am Total Iron Binding Capacity 325 UG/DL 261-497 12/25/2016 5:39pm 2016 2:36am Percent Iron Saturation 4 % L 13-59 12/25/2016 5:39pm 12/28/2016 2:36am Random Vancomycin Level 16.58 UG/ML 0-40 01/03/2017 11:59am 01/03/2017 12:28pm Vancomycin Level Trough 63.80 UG/ML *H 15-20 12/27/2016 1:26am 2016 2:06am Stool Occult Blood NEGATIVE 12/29/2016 9:37pm 12/29/2016 9:59pm Adenovirus (PCR) NEGATIVE NEGATIVE 12/25/2016 3:39pm 12/25/2016 5: 31pm Coronavirus Type 229E (PCR) NEGATIVE NEGATIVE 12/25/2016 3:39pm 12/25 5:31pm Coronavirus Type HKU1 (PCR) NEGATIVE NEGATIVE 12/25/2016 3:39pm 12/25 5:31pm Coronavirus Type NL63 (PCR) NEGATIVE NEGATIVE 12/25/2016 3:39pm 12/25 5:31pm Coronavirus Type OC43 (PCR) NEGATIVE NEGATIVE 12/25/2016 3:39pm 12/25 5:31pm Human Metapneumovirus (PCR) NEGATIVE NEGATIVE 12/25/2016 3:39pm 12/25 5:31pm Enterovirus/Rhinovirus (PCR) NEGATIVE NEGATIVE 12/25/2016 3:39pm 5:31pm Influenza Virus Type A (PCR) NEGATIVE NEGATIVE 12/25/2016 3:39pm 5:31pm Influenza Virus Type B (PCR) NEGATIVE NEGATIVE 12/25/2016 3:39pm 5:31pm Parainfluenza Type 1 (PCR) NEGATIVE NEGATIVE 12/25/2016 3:39pm 2016 5:31pm Parainfluenza Type 2 (PCR) NEGATIVE NEGATIVE 12/25/2016 3:39pm 2016 5:31pm Parainfluenza Type 3 (PCR) NEGATIVE NEGATIVE 12/25/2016 3:39pm 2016 5:31pm Parainfluenza Type 4 (PCR) NEGATIVE NEGATIVE 12/25/2016 3:39pm 2016 5:31pm Respiratory Syncytial Virus (PCR) NEGATIVE NEGATIVE 12/25/2016 3:39pm 12/25/2016 5:31pm Bordetella parapertussis DNA (PCR) NEGATIVE NEGATIVE 12/25/2016 3: 39pm 12/25/2016 5:31pm Chlamydia pneumoniae DNA (PCR) NEGATIVE NEGATIVE 12/25/2016 3:39pm 5:31pm Mycoplasma pneumoniae (PCR) NEGATIVE NEGATIVE 12/25/2016 3:39pm 12/25 5:31pm Urine Collection Type DE SOUZA INDWELLING 12/25/2016 2:51pm 2016 3:06pm Urine Color YELLOW YELLOW 12/25/2016 2:51pm 12/25/2016 3:06pm Urine Turbidity TURBID CLEAR 12/25/2016 2:51pm 12/25/2016 3:06pm Urine Specific Scalf 1.025 1.015-1.025 12/25/2016 2:51pm 2016 3:06pm Urine pH 5.5 5.0-8.0 12/25/2016 2:51pm 12/25/2016 3:06pm Urine Leukocyte Esterase 2+ A NEGATIVE 12/25/2016 2:51pm 12/25/2016 3: 06pm Urine Nitrite POSITIVE A NEGATIVE 12/25/2016 2:51pm 12/25/2016 3:06pm Urine Protein 1+ A NEGATIVE 12/25/2016 2:51pm 12/25/2016 3:06pm Urine Glucose (UA) NEGATIVE NEGATIVE 12/25/2016 2:51pm 12/25/2016 3: 06pm Urine Ketones TRACE A NEGATIVE 12/25/2016 2:51pm 12/25/2016 3:06pm Urine Urobilinogen 2.0 EU/DL NORMAL 12/25/2016 2:51pm 12/25/2016 3: 06pm Urine Bilirubin 1+ A NEGATIVE 12/25/2016 2:51pm 12/25/2016 3:06pm Urine Blood 2+ A NEGATIVE 12/25/2016 2:51pm 12/25/2016 3:06pm Urine WBC TNTC /HPF H 0-5 12/25/2016 2:51pm 12/25/2016 3:17pm Urine RBC 50-200 /HPF H 0-3 12/25/2016 2:51pm 12/25/2016 3:17pm Urine Squamous Epithelial Cells 5-10 12/25/2016 2:51pm 12/25/2016 3 :17pm Urine Bacteria 3+ H NEGATIVE 12/25/2016 2:51pm 12/25/2016 3:17pm Urine Culture Indicated CULT REFLEXED &SETUP 12/25/2016 2:51pm 3:17pm Urine Eosinophils 6 % H -1-0 01/04/2017 10:15pm 01/05/2017 7:33pm Eosinophil Count, Urine performed at [facility] Reference Lab, [address] [place] [address] Reed Polisher Destiny Willingham DO Corrected result; previously reported as 0 on 01/05/17 at 19:22 by LUIS Eosinophil Count, Urine performed at [facility] Reference Lab, [facility] [place] [address] Reed Polisher Destiny Willingham DO --- 01/05/17 1933 --- EOSINU-A previously reported as: 0 % Eosinophil Count, Urine performed at [facility] Reference Lab, [address] [place] [address] Reed Polisher Destiny Willingham DO Microbiology Results Procedure Source Organism/Result Collection Date/Time Result Date/Time Result Status WOUND CULTURE DEEP TISS-AER/AN Unknown ANAEROCOCCUS PREVOTII 12/25/2016 11: 05am 01/01/2017 10:32am Final BACTEROIDES FRAGILIS 12/25/2016 11:05am 01/01/2017 10:32am Final DIPHTHEROID BACILLUS 12/25/2016 11:05am 01/01/2017 10:32am Final PROTEUS VULGARIS GROUP 12/25/2016 11:05am 01/01/2017 10:32am Final ENTEROCOC FAECALIS - (GROUP D) 12/25/2016 11:05am 01/01/2017 10:32am Final Blood Culture Unknown STREPTOCOCCUS INTERMEDIUS 12/25/2016 11:21am 2016 6:48am Final Urine Culture Urine, De Souza Indwelling ESCHERICHIA COLI 12/25/2016 3:17pm 12/27/2016 7:33am Final Name: DUNCAN RODRIGUEZ V Unit #: [id number] : 1975 Sex: M Admit Date: 12/25/16 Loc / Svc: MED Discharge Date: DIAGNOSTIC IMAGING REPORT Report #: [id number] [place], [place] Indication: ITS.REASON: coughing PROCEDURE: CHEST 1 VIEW: Encounter: Initial Comparison: March 26, 2016 Findings: The lungs are stable in appearance without new focal airspace consolidation. There is no pleural effusion or pneumothorax. Left PICC line in place with the tip projecting over the mid SVC. The heart size, pulmonary vascularity and mediastinal contours are unchanged. Thoracic spine hardware. IMPRESSION: New left PICC line, otherwise stable appearance of the chest without acute cardiopulmonary disease. . Procedures Procedure Status Date Provider(s) Lynette musc/fascia 20 sq cm/< Completed 11/10/16 [id number]"BORDER, EACH DRESSING" Completed 11/10/16 [id number]"EQUAL TO 48 SQ. IN., WITHOUT ADHESIVE BORDER, EACH DR Completed Neg press wound tx </=50 cm Completed 11/17/16 Office/outpatient visit est Completed 11/17/16 [id number]"ADHESIVE BORDER, EACH DRESSING" Completed 11/17/16 Neg press wound tx </=50 cm Completed 11/20/16 Office/outpatient visit est Completed 11/20/16 Neg press wound tx </=50 cm Completed 11/27/16 Office/outpatient visit est Completed 11/27/16 [id number]"ADHESIVE BORDER, EACH DRESSING" Completed 11/27/16 Neg press wound tx </=50 cm Completed 11/24/16 Office/outpatient visit est Completed 11/24/16 [id number]"BORDER, EACH DRESSING" Completed 11/24/16 [id number]"BORDER, EACH DRESSING" Completed 11/24/16 Lynette musc/fascia 20 sq cm/< Completed 12/01/16 Neg press wound tx </=50 cm Completed 12/01/16 Neg press wound tx </=50 cm Completed 12/04/16 Lynette subq tissue 20 sq cm/< Completed 12/08/16 Lynette subq tissue add-on Completed 12/08/16 Neg press wound tx </=50 cm Completed 12/08/16 Neg press wound tx </=50 cm Completed 12/11/16 [id number]"BORDER, EACH DRESSING" Completed 12/11/16 [id number]"ADHESIVE BORDER, EACH DRESSING" Completed 12/11/16 Neg press wound tx </=50 cm Completed 12/15/16 [id number]"ADHESIVE BORDER, EACH DRESSING" Completed 12/15/16 Neg press wound tx </=50 cm Completed 12/18/16 Lynette subq tissue 20 sq cm/< Completed 12/22/16 Neg press wound tx </=50 cm Completed 12/22/16 Encounters Encounter Location Arrival/Admit Date Discharge/Depart Date Attending Provider Admitted Inpatient [facility] 12/25/16 1:58pm CARLOS ALBERTO GLASGOW MD Registered [facility] 12/25/16 10:39am SILVIO GRIER MD Registered [facility] 12/22/16 10:47am NATHANIEL QUINTANILLA FACS, MD Registered [facility] 12/18/16 10:17am NATHANIEL QUINTANILLA FACS, MD Registered [facility] 12/15/16 1:33pm NATHANIEL QUINTANILLA FACS, MD Registered [facility] 12/11/16 10:12am NATHANIEL QUINTANILLA FACS, MD Registered [facility] 12/08/16 10:07am NATHANIEL QUINTANILLA FACS, MD Registered [facility] 12/04/16 10:16am NATHANIEL QUINTANILLA FACS, MD Registered [facility] 12/01/16 9:18am NATHANIEL QUINTANILLA FACS, MD Registered [facility] 11/27/16 10:25am NATHANIEL QUINTANILLA FACS, MD Registered [facility] 11/24/16 10:38am NATHANIEL QUINTANILLA FACS, MD Registered [facility] 11/20/16 10:47am ANTHANIEL QUINTANILLA FACS, MD Registered [facility] 11/17/16 10:33am NATHANIEL QUINTANILLA FACS, MD Registered [facility] 11/10/16 10:03am NATHANIEL QUINTANILLA FACS, MD
--- OUTSIDE RECORDS SUMMARY | 2017-01-11 15:45 | XMS REPORT | Continuity of Care Document ---
Author Author [facility] Organization [facility] Address Unknown Phone Unavailable Support Name Relationship Address Phone EREN SO MD Caregiver [address] [place] [address] JENNIFER CLIVE Next Of Kin [address] [place] [address] Insurance Providers Payer Name Policy Number Subscriber Name Relationship Self Pay JenniferDuncan V 18 Self / Same As Patient Chief Complaint and Reason for Visit Chief Complaint Skin Condition Reason for Visit [id number] Problems Medical Problems Problem Onset Date Status [...] worrisome symptoms. * Emergency Department phone number: [phone], x [phone]* MEDICAL RECORD If you need copies of your X-rays, call [phone] x [phone]. If you need copies of [...] the billing parties for services. SERVICE BILLING DEMOCRAT Emergency Room Services [facility] Physician Services [facility] X-rays [facility] Patients will receive bills for services from the appropriate provider. If you have any questions about your [facility] bill, our staff will be happy to assist you. Please call [phone], and ask for the billing department. THANK YOU for choosing [facility] as your emergency care provider! Functional Status [...] Encounters Encounter Location Date/Time Departed Emergency Room [facility] 05/25/15 7:48pm Recent Diagnosis
--- OUTSIDE RECORDS SUMMARY | 2017-01-11 15:45 | XMS REPORT | Continuity of Care Document ---
Author Author [facility] Address Unknown Phone Unavailable Allergies Active Description Code Type Severity Reaction Onset Reported/Identified Relationship to Patient Clinical Status Yes Levaquin NKMA N/A N/A 04/17/2014 Yes levofloxacin [id number] Drug Allergy Severe Severe Diarrhea 05/25/2015 Yes Keflex NKMA N/A Rash 07/03/2016 Medications Problems Procedures Results Encounters ACCT No. Visit Date/Time Discharge Status Pt. Type Provider Facility Loc./Unit Complaint [id number] 05/25/2015 19:48:00 2014 20:41:00 [facility]
[2017-01-11 16:23] VITALS: BP 148/96; PULSE 96; RESP 20; TEMP 97; O2SAT 96
[2017-01-11] MEDS ORDERED: MILK OF MAGNESIA 30 ML SUSP PO PRN (16:30)
[2017-01-11] MEDS ORDERED: BISACODYL 10 MG SUPPOSITORY RECTALLY PRN (16:30)
[2017-01-11] MEDS ORDERED: ACETAMINOPHEN 500 MG TABLET PO PRN (16:30)
[2017-01-11 16:46] VITALS: Ht 175.3 cm; Wt 107.9 kg
[2017-01-11] MEDS: CALCIUM ACETATE 667 MG CAPSULE PO SCH (17:18)
[2017-01-11] MEDS: NYSTATIN POWDER 15gm BOTTLE TOP SCH ×2 (17:18→20:27)
[2017-01-11 20:25] VITALS: RESP 18
[2017-01-11] MEDS: METRONIDAZOLE 500 MG TABLET PO SCH (20:27)
[2017-01-12 00:05] VITALS: BP 149/89; PULSE 87; RESP 16; TEMP 97.4; O2SAT 97
--- NOTE | 2017-01-12 03:40 | NUR ---
SHIFT SUMMARY: PT A&OX3, VSS, INDWELLING DE SOUZA CATHETER THAT IS PATENT WITH GOOD OUTPUT. PT HAD 2 BM'S (SMALL AMOUNT) DURING THE NIGHT, IS IV LOCKED, PICC LINE (DOUBLE LUMEN) FLUSHES AND ASPIRATES WELL, ON RA, Q8 VITALS. CALL LIGHT WITHIN REACH, BED ALARM ON.
[2017-01-12 07:12] VITALS: BP 148/97; PULSE 84; RESP 17; TEMP 96; O2SAT 98
[2017-01-12 08:00] VITALS: RESP 20
[2017-01-12] MEDS: METRONIDAZOLE 500 MG TABLET PO SCH ×2 (08:37→22:00)
[2017-01-12] MEDS: VITAMIN B COMP + C TABLET PO SCH (08:37)
[2017-01-12] MEDS: FERROUS SULFATE 324 MG TABLET PO SCH (08:38)
[2017-01-12] MEDS: ASCORBIC ACID 500 MG TABLET PO SCH (08:38)
[2017-01-12] MEDS: ENOXAPARIN 40 MG/0.4 ML INJECTION SQ SCH (08:38)
[2017-01-12] MEDS: CALCIUM ACETATE 667 MG CAPSULE PO SCH ×2 (08:38→12:36)
[2017-01-12] MEDS: CEFTRIAXONE 2 G in NORMAL SALINE 100 ML IV SCH (08:39)
[2017-01-12] MEDS: POLYETHYL.GLYCOL 3350 PACKET 17gm PO SCH (08:39)
[2017-01-12] MEDS: NYSTATIN POWDER 15gm BOTTLE TOP SCH ×4 (08:39→22:00)
[2017-01-12] MEDS ORDERED: DEXTROSE ISO IV SCH (09:00)
[2017-01-12] MEDS ORDERED: CEFTRIAXONE NA IV SCH (09:00)
--- NOTE | 2017-01-12 12:34 | NUR ---
Malnutrition F/U Diet: Regular Patient stated that he was growing tired of receiving three mighty shakes and would only like to receive one a day preferably on lunch time tray. Other alternatives were offered from menu and cafeteria. Patient is willing to try yogurt fruit smoothie with protein powder. Patient's plans to request to bring nuts to snack on. RD available @ [phone] Addendum: 01/12/17 at [address] Student charting reviewed by Electric Appliance Installer.
--- NOTE | 2017-01-12 14:20 | NUR ---
Nutrition Risk F/U Diet Order: Regular Intake 100% of meals eaten Pt tried yogurt fruit smoothie but did not care for it. Pt stated he would prefer the mighty shakes. Pt expressed interest in peanuts for snacks. FANS notified to send mighty shakes BID with lunch and dinner and peanuts for 2pm snacks. RD available at ext [phone]
--- NOTE | 2017-01-12 15:01 | HPPDOC ---
LUZMARIA,CLARENCE Khang DISABILITY PROGRAM NAVIGATOR 01/12/17 0913: HPI - Adult Date DATE: 01/12/17 TIME: 09:10 General Chief Complaint: IV antibiotics History of Present Illness Joe Cosby is a 41-year-old paraplegic male known to our service for an inpatient stay from 12/27/16 through 01/11/17. He was initially admitted for sepsis secondary to right ischial stage IV decub ulcer with possible osteomyelitis and Escherichia coli UTI. Dr. Palma was consulted. A PICC line was placed and he was started on vancomycin and Zosyn. Pinto catheter was inserted on admission because of neurogenic bladder. Dr. Tyson, managed the wound and a wound VAC was placed. The patient developed an acute kidney injury on 12/28/16, and creatinine increased to a maximum value of 2.0. IV fluids were initiated, and antibiotic doses were adjusted. Phosphorus level was also elevated, and he was started on PhosLo on 12/31/16. On 01/04/17, Dr. Palma discontinued vancomycin (Zosyn was discontinued previously), and started him on IV Rocephin and by mouth Flagyl. She recommended to continue these antibiotics through 02/04/17. Finally, on 01/05/17, his creatinine started to show improvement , declining to 1.6. He also was noted to have iron deficiency anemia and was started on ferrous sulfate during his acute course. Discharge arrangements were made for swing bed status, which was done on 01/11/17. The patient was seen in the morning on 01/12/17. He states overall he is feeling much better. His appetite is starting to return. He denies any other or new complaints. No chest pain, difficulty breathing, cough or congestion, abdominal pain, nausea, vomiting or diarrhea. His bowels have been moving regularly here. Pinto catheter is still in place because of neurogenic bladder. Wound VAC continues to be managed by Dr. Tyson. Past Medical History Past Medical History Paraplegia at T9 neurogenic bladder- chronic straight catheter neurogenic bowel chronic urinary tract infections History of decubitus ulcer to the right buttock Hx C-diff Surgical History Patient's Surgical History: Right Knee Scope (95?) Maxx placement T7-T9 (2001) - following accident August 2016- Skin flap to right Buttock Current Medications Home Meds Active Scripts Ceftriaxone Na/Dextrose,Iso (Ceftriaxone 2 gm Piggyback) 2 Gm/50 Ml Froz.piggy, 2 G IV DAILY for 24 Days Prov:HANS HUGO APRN 01/11/17 Polyethylene Glycol 3350 (Healthylax) 17 Gm Powd.pack, 17 G PO DAILY for 30 Days Prov:HANS HUGO APRN 01/11/17 Ascorbic Acid (Vitamin C) 500 Mg Tablet, 500 MG PO WB for 30 Days, #30 TAB Prov:HANS HUGO APRN 01/11/17 Vitamin B Comp W-C (Total B with C) 1 Tab Tablet, 1 TAB PO DAILY for 30 Days, # 30 TAB Prov:HANS HUGO APRN 01/11/17 Magnesium Hydroxide (Milk of Magnesia) 400 Mg/5 Ml Oral.susp, 30 ML PO BID Y for CONSTIPATION for 30 Days Prov:HANS HUGO APRN 01/11/17 Bisacodyl (Bisacodyl) 10 Mg Supp.rect, 10 MG RECTALLY DAILY Y for CONSTIPATION for 30 Days Prov:HANS HUGO APRN 01/11/17 [Calcium Acetate] 667 MG CAPSULE No Conflict Check, 1334 MG PO TIDWM for 30 Days Prov:HANS HUGO APRN 01/11/17 Acetaminophen (Tylenol Extra Strength) 500 Mg Tablet, 500 MG PO Q4H Y for PAIN for 30 Days, #180 TAB Prov:HANS HUGO APRN 01/11/17 Ferrous Sulfate (Ferrous Sulfate) 324 Mg Tablet.dr, 324 MG PO WB for 30 Days, # 30 TAB Prov:HANS HUGO APRN 01/11/17 Nystatin (Nystatin) 50,000,000 Unit Powder.ea., 1 APPLIC TOP QID for 30 Days Prov:HANS HUGO APRN 01/11/17 Metronidazole (Flagyl) 500 Mg Tablet, 500 MG PO Q12HR for 24 Days, #48 TAB Prov:HANS HUGO APRN 01/11/17 Allergies: Coded Allergies: piperacillin (Verified Allergy, Intermediate, acute interstitial nephritis , 01/11/17) tazobactam (Verified Allergy, Intermediate, acute interstitial nephritis, 01/11/17) cephalexin (Verified Allergy, Unknown, HIVES, 07/10/16) levofloxacin (Verified Adverse Reaction, Unknown, SEVERE GI DISTRESS, 12/25) Family History Family History: Mother - Alive and well Father - Alive and well Daughter (13) - Alive and Well Paternal Great Grandfather - Diabetes maternal grandfather -prostate cancer Social History Smoking Status: Never smoker Does patient use chewing tobac: No Substance Use Type: does not use Alcohol Intake: none Sexuality: female partner Housing: house Household Members: significant other Service: No Occupational Hazard: No Advance Directives: No DPOA for Healthcare Only Social History Comments PCP - Dr. Morales Review of Systems Constitutional: REPORTS: appetite decrease (improving), DENIES: chills, dizziness, fever, weakness Eyes Vision: DENIES: vision changes ENMT Sinuses: NOT FOUND: congestion, rhinorrhea Mouth/Throat: DENIES: sore throat Cardiovascular DENIES: chest pain Pulmonary Respiratory: DENIES: cough, dyspnea GI Upper Abdomen: DENIES: hematemesis, nausea Lower Abdomen: DENIES: constipation, diarrhea General: other (Pinto) Musculoskeletal General: atrophy of muscles (lower extremities), DENIES: pain Integumentary Skin: infections Neurological General: paralysis/paresis, DENIES: headache Psychiatric Psychiatric: DENIES: depression Hematologic/Lymphatic DENIES: anemia Allergic/Immunological frequent infections All Other Systems All Other Systems: Reviewed (remainder of 10-point ROS Neg.) Physical Exam General General Nourishment: well nourished, well developed General Body Habitus: well groomed Vital Signs Vital Signs Date Time Temp Pulse Resp B/P Pulse Ox O2 Delivery O2 Flow Rate FiO2 01/12/17 07:12 96.0 84 17 148/97 98 Room Air Height (Feet): 5 Height (Inches): 9.00 Eyes Brief: FOUND: PERRL, NOT FOUND: scleral icterus ENMT Brief: FOUND: mucosa moist, NOT FOUND: lesions, pharnyx erythema Neck Brief: NOT FOUND: adenopathy, nuchal rigidity Respiratory Auscultation: FOUND: normal, NOT FOUND: rales, rhonchi, wheezes Cardiovascular Auscultation: FOUND: S1, S2, regular Peripheral Pulses: 2+: Dorasalis Pedis (L), Dorsalis Pedis (R), Posterior Tibial (L), Posterior Tibial (R), Radial (L), Radial (R) Edema: 0: Anasarca, Arm (L), Arm (R), Face, Leg (L), Leg (R) Abdomen Inspection: NOT FOUND: distention Palpation: FOUND: soft, NOT FOUND: involuntary guarding, rebound, tender, voluntary guarding Auscultation: FOUND: normo active Lymphatic (brief) Lymphatic Brief: NOT FOUND: adenopathy Musculoskeletal (brief) Musculoskeletal Brief: NOT FOUND: extremities move equally (paraplegia) Integumentary (brief) Integumentary Brief: FOUND: dry, other (right great toenail needs trimmed - there is some erythema to the 2nd toe where the nail is rubbing), pink, warm Comments wound vac intact Integumentary General: FOUND: dry, warm Color: FOUND: pink Neurologic (brief) Neurological Brief: FOUND: cranial 2-12 intact (grossly) Neurologic GCS Eye Opening: (4)Spontaneous GCS Verbal: (5)Oriented GCS Motor: (6)Obeys Commands RN Documented GCS Total: 15 Psychiatric (brief) FOUND: alert, attentive, normal affect, oriented Assessment & Plan Problems: (1) Pressure ulcer of left buttock, stage 4 Assessment & Plan: Rocephin and Flagyl through 02/04/17 (2) Hypernatremia Status: Acute (3) Hyperphosphatemia Status: Acute (4) Paraplegia at T9 level Status: Chronic (5) Neurogenic bladder Status: Chronic (6) Neurogenic bowel Status: Chronic (7) Chronic urinary tract infection Status: Chronic (8) Obesity (BMI 30-39.9) Status: Chronic (9) Microcytic anemia Status: Chronic Assessment & Plan: Iron deficiency anemia. Continue ferrous sulfate (10) Thrombocytosis Status: Chronic (11) E. coli UTI Status: Resolved (12) MANDY (acute kidney injury) Status: Resolved (13) Sepsis Status: Resolved Plan/Intensity of Service Admitted to swing bed status under the hospitalist service. Hospitalized from through 01/11/17 as an inpatient at [facility]. 1. Right ischial stage IV decub ulcer with possible osteomyelitis -Continue Rocephin and Flagyl through 02/04/[address] Palma. -Wound care and wound VAC management per Dr. Tyson. 2. T9 paraplegia with neurogenic bowel and bladder. -Pinto catheter in place. 3. Recent sepsis and Escherichia coli UTI - resolved 4. Recent acute kidney injury thought to be secondary to vancomycin administration - resolved. 5. Hyperphosphatemia -Hold PhosLo for now. -Check phosphorus level tomorrow morning, along with CBC and BMP 6. Iron deficiency anemia -Continue ferrous sulfate and vitamin C A/P discussed with Dr. Haskins. DVT Prophylaxis: Lovenox Code Status Full Code Hospital Course Summary Disclaimer The hospital course summary below is not to be considered part of the above Progress Note. Hospital Course Summary 01/12/17 - Admitted to swing bed status under the hospitalist service. Hospitalized from 12/27/16 through 01/11/17 as an inpatient at [facility]. 1. Right ischial stage IV decub ulcer with possible osteomyelitis -Continue Rocephin and Flagyl through 02/04/[address] Palma. -Wound care and wound VAC management per Dr. Tyson. 2. T9 paraplegia with neurogenic bowel and bladder. -Pinto catheter in place. 3. Recent sepsis and Escherichia coli UTI - resolved 4. Recent acute kidney injury thought to be secondary to vancomycin administration - resolved. 5. Hyperphosphatemia -Hold PhosLo for now. -Check phosphorus level tomorrow morning, along with CBC and BMP 6. Iron deficiency anemia -Continue ferrous sulfate and vitamin C BLAKE HASKINS MD 01/12/17 182: Past Medical History Current Medications Home Meds Active Scripts Ceftriaxone Na/Dextrose,Iso (Ceftriaxone 2 gm Piggyback) 2 Gm/50 Ml Froz.piggy, 2 G IV DAILY for 24 Days Prov:HANS HUGO APRN 01/11/17 Polyethylene Glycol 3350 (Healthylax) 17 Gm Powd.pack, 17 G PO DAILY for 30 Days Prov:HANS HUGO APRN 01/11/17 Ascorbic Acid (Vitamin C) 500 Mg Tablet, 500 MG PO WB for 30 Days, #30 TAB Prov:HANS HUGO APRN 01/11/17 Vitamin B Comp W-C (Total B with C) 1 Tab Tablet, 1 TAB PO DAILY for 30 Days, # 30 TAB Prov:HANS HUGO APRN 01/11/17 Magnesium Hydroxide (Milk of Magnesia) 400 Mg/5 Ml Oral.susp, 30 ML PO BID Y for CONSTIPATION for 30 Days Prov:HANS HUGO APRN 01/11/17 Bisacodyl (Bisacodyl) 10 Mg Supp.rect, 10 MG RECTALLY DAILY Y for CONSTIPATION for 30 Days Prov:HANS HUGO APRN 01/11/17 [Calcium Acetate] 667 MG CAPSULE No Conflict Check, 1334 MG PO TIDWM for 30 Days Prov:HANS HUGO APRN 01/11/17 Acetaminophen (Tylenol Extra Strength) 500 Mg Tablet, 500 MG PO Q4H Y for PAIN for 30 Days, #180 TAB Prov:HANS HUGO APRN 01/11/17 Ferrous Sulfate (Ferrous Sulfate) 324 Mg Tablet.dr, 324 MG PO WB for 30 Days, # 30 TAB Prov:HANS HUGO APRN 01/11/17 Nystatin (Nystatin) 50,000,000 Unit Powder.ea., 1 APPLIC TOP QID for 30 Days Prov:HANS HUGO APRN 01/11/17 Metronidazole (Flagyl) 500 Mg Tablet, 500 MG PO Q12HR for 24 Days, #48 TAB Prov:HANS HUGO APRN 01/11/17 Allergies: Coded Allergies: piperacillin (Verified Allergy, Intermediate, acute interstitial nephritis , 01/11/17) tazobactam (Verified Allergy, Intermediate, acute interstitial nephritis, 01/11/17) cephalexin (Verified Allergy, Unknown, HIVES, 07/10/16) levofloxacin (Verified Adverse Reaction, Unknown, SEVERE GI DISTRESS, 12/25) Assessment & Plan Problems: (1) Pressure ulcer of left buttock, stage 4 Assessment & Plan: Possible osteomyelitis, Rocephin and Flagyl through 02/04/17 (2) Hypernatremia Status: Acute (3) Hyperphosphatemia Status: Acute (4) Paraplegia at T9 level Status: Chronic (5) Neurogenic bladder Status: Chronic (6) Neurogenic bowel Status: Chronic (7) Chronic urinary tract infection Status: Chronic (8) Obesity (BMI 30-39.9) Status: Chronic (9) Microcytic anemia Status: Chronic Assessment & Plan: Iron deficiency anemia. Continue ferrous sulfate (10) Thrombocytosis Status: Chronic (11) E. coli UTI Status: Resolved (12) MANDY (acute kidney injury) Status: Resolved (13) Sepsis Status: Resolved Assessment I have independently evaluated and examined this patient. I reviewed the chart, the patient's history, and the DISABILITY PROGRAM NAVIGATOR's documented findings as above. We discussed and formulated the assessment and plan as above with additions as below: Past record reviewed including Dr. Palma original consult note and more recent notes. Joe indicates no immediate concerns and no chronic medical problems unrelated to paraplegia. He currently denies dyspnea or pain and reports no sensation below T8 or T9. Bowels are working adequately and Pinto catheter remains present. On examination the patient is alert and cooperative. Sounds are clear with good airflow, cardiac rhythm regular, and abdomen benign. PICC line insertion site without inflammation left upper extremity. Continue antibiotics through prescribed course, reassess electrolytes as previously described. Significant iron deficiency with development of microcytosis in the past year- will clarify if GI evaluation has been discussed. Monitor CRP weekly. CLARENCE DUTTA APRN Jan 12, 2017 09:13 BLAKE HASKINS MD Jan 12, 2017 18:21
[2017-01-12 16:01] VITALS: BP 145/98; PULSE 90; RESP 12; TEMP 97; O2SAT 97
--- NOTE | 2017-01-12 17:19 | NUR ---
shift status no co voiced, wound intact bed is dry encouraged to eat more protein. denies any pain.delano is patent.
--- NOTE | 2017-01-12 17:51 | NUR ---
CM VISITED WITH PT TO REVIEW SWING BED PAPERWORK. PT STATED HIS DC GOAL IS TO RETURN HOME WITH HIS AND 14 YEAR OLD DAUGHTER IN [place]. HE SAID THEY ARE CURRENTLY STAYING WITH HIS INLAWS. PT STATED HE WANTS TO COMPLETE DPOA AND LIVING WILL. THIS WORKER WILL FOLLOW UP WITH GETTING A NOTARY FOR THIS. PROVIDED CONTACT INFO FOR THIS WORKER. HE HAD NO CURRENT QUESTIONS/NEEDS.
[2017-01-12 20:00] VITALS: PULSE 90; RESP 12
[2017-01-12 23:20] VITALS: BP 145/86; PULSE 98; RESP 20; TEMP 96.8; O2SAT 97
--- NOTE | 2017-01-13 04:34 | NUR ---
SHIFT SUMMARY PT ALERT AND ORIENTED X 3. FAMILY BROUGHT PIZZA FOR SUPPER. PT WAS ENJOYING EATING WITH FAMILY. DENIES PAIN OR DISCOMFORT TO RIGHT BUTTOCK. PT HAS WOUND VAC. TO RIGHT BUTTOCK. DRESSING INTACT, NO LEAKING OF WOUND VAC NOTED. CANISTER WITH GEL CHANGED WITHOUT DIFFICULT. PT TALKED ABOUT GOING HOME AND HOW HE IS LOOKING FORWARD TO IT. CALL LIGHT WITHIN REACH.
[2017-01-13 06:18] LABS: BASOPHILS # (AUTO) 0.1 T/MM3 (0-0.2); EOSINOPHILS # (AUTO) 0.4 T/MM3 (0-0.5); HCT - HEMATOCRIT 34.6 % (41-53); HGB - HEMOGLOBIN 10.7 GM/DL (13.5-17.5); IMMATURE GRANULOCYTE # (AUTO) 0.02 T/MM3 (0.00-0.03); IMMATURE GRANULOCYTE % (AUTO) 0.2 % (0.0-0.5); LYMPHOCYTES % (AUTO) 31.2 % (23-45); MEAN CORPUSCULAR HGB 24.7 UUG (26-34); MEAN CORPUSCULAR HGB CONC(MCHC 30.9 GM/DL (31-37); MEAN CORPUSCULAR VOLUME 79.9 UM3 (80-100); MEAN PLATELET VOLUME 9.6 UM3 (9.4-12.4); MONOCYTES # (AUTO) 0.6 T/MM3 (0-0.8); MONOCYTES % (AUTO) 6.6 % (0-9.0); NEUTROPHILS #(AUTO)-ABSOLUTE 5.4 T/MM3 (1.8-7.7); RED BLOOD COUNT 4.33 M/MM3 (4.50-5.90); WBC - WHITE BLOOD COUNT 9.5 T/MM3 (4.5-11.0)
[2017-01-13 06:28] LABS: ALBUMIN 3.1 G/DL (3.5-5.0); ANION GAP 11 MEQ/L (5-15); BUN/CREATININE RATIO 24 RATIO (6-26); CALCIUM 8.6 MG/DL (8.4-10.2); CHLORIDE 106 MEQ/L (98-107); CO2 - CARBON DIOXIDE 26 MEQ/L (22-30); GLOMERULAR FILTRATION RATE 83; GLUCOSE 93 MG/DL (75-110); PHOSPHORUS 4.8 MG/DL (2.5-4.5); POTASSIUM 4.2 MEQ/L (3.6-5); SODIUM 143 MEQ/L (134-144)
[2017-01-13 08:35] VITALS: BP 156/98; PULSE 90; RESP 12; TEMP 96.3; O2SAT 98
[2017-01-13 08:47] VITALS: PULSE 90; RESP 12
[2017-01-13] MEDS: CEFTRIAXONE 2 G in NORMAL SALINE 100 ML IV SCH (09:04)
[2017-01-13] MEDS: ENOXAPARIN 40 MG/0.4 ML INJECTION SQ SCH (09:05)
[2017-01-13] MEDS: NS 500 ML IV PRN (09:08)
[2017-01-13] MEDS: NYSTATIN POWDER 15gm BOTTLE TOP SCH ×4 (09:18→21:37)
[2017-01-13] MEDS: VITAMIN B COMP + C TABLET PO SCH (09:18)
[2017-01-13] MEDS: POLYETHYL.GLYCOL 3350 PACKET 17gm PO SCH (09:18)
[2017-01-13] MEDS: ASCORBIC ACID 500 MG TABLET PO SCH (09:18)
[2017-01-13] MEDS: FERROUS SULFATE 324 MG TABLET PO SCH (09:18)
[2017-01-13] MEDS: METRONIDAZOLE 500 MG TABLET PO SCH ×2 (09:18→21:37)
--- NOTE | 2017-01-13 12:11 | PDWOUND ---
Wound Documentation Wound Management Wound : Location Modifier: Right, Upper Wound Location: Thigh Wound Type: Pressure Ulcer Wound Dressing Frequency: three times per week Wound Duration: > one month Wound Dressing Status: FOUND: Changed Wound Drainage Amount: Moderate Wound Drainage Description: Serous Wound Drainage Odor: None/Absent Wound General Appearance: FOUND Muscle Visible Wound Bed: gran red Periwound Description: Clear, indurated Wound Length (cm): 4.2 Wound Width (cm): 3.6 Wound Depth (cm): 5.6 Exposed: muscle Wound Cleanser: soap and water Wound Solution/Irrigant: Saline Irrigant Wound Packing Type: FOUND: Black Foam Wound Primary Dressing Type: Clear Adhesive Cover Wound Tunneling : Sinus/Tunnels (cm): 8 Tunneling Location (o'clock): 12 Wound Undermining : Wound Undermining (cm): 2 Undermining Location (o'clock): 12-2 Comments Instill wound vac removed, wound assessed, continues to have good granulation. At this time measurements obtained. Periwound cleaned, wound draped and bhandari veracleans foam placed in wound and tunnel. Clear occlusive KCI drape applied with the sensor track in place. Good suction and no leaks during instill cycle. Instill is set on 44ml, dwell for 15 mins, and to instill every 2 hrs. Pt is on low loss air mattress with full side to side turn on 24 hrs except for dressing changes. Pt is tolerating all well. TATUM RIZO RN Jan 13, 2017 12:11
--- NOTE | 2017-01-13 14:00 | PNPDOC ---
Subjective Date DATE: 01/13/17 TIME: 13:51 Subjective Joe was seen after dressing change earlier this morning. He had no concerns indicating he's having no difficulty breathing, pain, or heartburn. No fevers were recorded overnight and had no difficulty with dressing change. Objective Vital Signs Vital signs Vital Signs Date Time Temp Pulse Resp B/P Pulse Ox O2 Delivery O2 Flow Rate FiO2 01/13/17 08:47 90 12 01/13/17 08:35 96.3 156/98 98 Room Air EXAM General-NAD, alert, cooperative, fluent speech HEENT-conjunctiva clear, sclera anicteric, conjugate gaze Lungs-respirations nonlabored, good airflow, anterior lung burroughs clear Cardiac-regular rhythm, S1 and S2 Abd-soft, nontender, without tenderness on palpation in the epigastrium or lower abdomen (although no sensation below upper abdominal levels) Neuro-T8-T9 sensory level Height (Feet): 5 Height (Inches): 9.00 Weight (Kilograms): 107.400 Laboratory Laboratory Laboratory Tests 01/13/17 05:45 Phosphorus 4.8, albumin 3.1 Laboratory Tests 01/13/17 05:45 Assessment & Plan Problems: (1) Pressure ulcer of left buttock, stage 4 Assessment & Plan: Possible osteomyelitis, Rocephin and Flagyl through 02/04/17 (2) Microcytic anemia Status: Chronic Assessment & Plan: Iron deficiency anemia. Iron 12, TIBC 325, saturation 4% on 12/25/16. Continue ferrous sulfate (3) Hyperphosphatemia Status: Acute (4) Paraplegia at T9 level Status: Chronic (5) Neurogenic bladder Status: Chronic (6) Neurogenic bowel Status: Chronic (7) Chronic urinary tract infection Status: Chronic (8) Obesity (BMI 30-39.9) Status: Chronic (9) Thrombocytosis Status: Chronic Assessment & Plan: c/w iron deficiency (10) E. coli UTI Status: Resolved (11) MANDY (acute kidney injury) Status: Resolved (12) Sepsis Status: Resolved (13) Hypernatremia Status: Resolved Assessment Tolerating antibiotics well, continue same for probable osteomyelitis/wound infection. Wound care notes reviewed, good granulation tissue described and wound on the right upper thigh measured 4.2 x 3.6 x 5.6 cm today. Renal function has improved from acute stay and sodium has normalized. Mild hyperphosphatemia persists, continue PhosLo and reassess early next week. Hemoglobin stable, known iron deficiency with anemia developing since March 2016. Patient denies chronic indigestion or heartburn but requires chronic digital stimulation for bowel movements. He is unaware of any chronic rectal bleeding however and has never had a colonoscopy. May need to pursue in the future if ongoing anemia. Denies family history of colon cancer or other chronic bowel disease. Plan/Intensity of Service Laboratory data reviewed current admission and past admissions. Code Status Full Code Hospital Course Summary Disclaimer The hospital course summary below is not to be considered part of the above Progress Note. Hospital Course Summary 01/12/17 - Admitted to swing bed status under the hospitalist service. Hospitalized from 12/27/16 through 01/11/17 as an inpatient at [facility]. 1. Right ischial stage IV decub ulcer with possible osteomyelitis -Continue Rocephin and Flagyl through 02/04/[address] Palma. -Wound care and wound VAC management per Dr. Tyson. 2. T9 paraplegia with neurogenic bowel and bladder. -Pinto catheter in place. 3. Recent sepsis and Escherichia coli UTI - resolved 4. Recent acute kidney injury thought to be secondary to vancomycin administration - resolved. 5. Hyperphosphatemia -Hold PhosLo for now. -Check phosphorus level tomorrow morning, along with CBC and BMP 6. Iron deficiency anemia -Continue ferrous sulfate and vitamin C 01/13/17-Divine Tolerating antibiotics well, continue same for probable osteomyelitis/wound infection. Wound care notes reviewed, good granulation tissue described and wound on the right upper thigh measured 4.2 x 3.6 x 5.6 cm today. Renal function has improved from acute stay and sodium has normalized. Mild hyperphosphatemia persists, continue PhosLo and reassess early next week. Hemoglobin stable, known iron deficiency with anemia developing since March 2016. Patient denies chronic indigestion or heartburn but requires chronic digital stimulation for bowel movements. He is unaware of any chronic rectal bleeding however and has never had a colonoscopy. May need to pursue in the future if ongoing anemia. Denies family history of colon cancer or other chronic bowel disease. BLAKE VALVERDE MD Jan 13, 2017 13:54
[2017-01-13 15:06] VITALS: BP 141/91; PULSE 83; RESP 16; TEMP 97.9; O2SAT 98
--- NOTE | 2017-01-13 17:39 | NUR ---
CM ASSESSMENT COMPLETED WITH PT ON 01-12-17. 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 HE SAID HE KNOWS HIS WOUND IS HEALING, AND IT IS WORTH IT TO HIM TO REMAIN ON THE MATTRESS. Addendum: 01/13/17 at 1740 by TRINITY BAUTISTA Amended: Links added.
--- NOTE | 2017-01-13 17:40 | NUR ---
CM ASSESSMENT COMPLETED WITH PT ON 01-12-17. Addendum: 01/13/17 at 1740 by TRINITY BAUTISTA Amended: Links added.
--- NOTE | 2017-01-13 17:47 | NUR ---
CM ASSESSMENT COMPLETED WITH PT ON 01-12-17 Addendum: 01/13/17 at 1747 by TRINITY BAUTISTA Amended: Links added.
--- NOTE | 2017-01-13 17:48 | NUR ---
CM DONE WITH PT ON 01-12-17 Addendum: 01/13/17 at 1748 by TRINITY BAUTISTA Amended: Links added.
--- NOTE | 2017-01-13 17:50 | NUR ---
CM ASSESSMENT COMPLETED WITH PT ON 01-12-17 Addendum: 01/13/17 at 1750 by TRINITY BAUTISTA Amended: Links added.
--- NOTE | 2017-01-13 18:01 | NUR ---
SHIFT SUMMARY VSS. RA. A&O X3. AMICABLE MOOD. PT ON SELF-TURNING MATTRESS. GOOD PO INTAKE. ADEQUATE URINE OUTPUT. Addendum: 01/13/17 at 1913 by ANDRESSA PABON RN WOUND VAC UNDER SUCTION. ONE TODAY.
[2017-01-13 20:00] VITALS: PULSE 83; RESP 16
[2017-01-14] VITALS: BP 141/92; PULSE 80; RESP 20; TEMP 96.4; O2SAT 98
--- NOTE | 2017-01-14 05:16 | NUR ---
SHIFT SUMMARY PT ALERT AND ORIENTED X 3. CALLS FOR ASSIST NEEDED. CONTINUE TO USE FLOATING MATTRESS/BED FOR POSITION CHANGE. WOUND VAC INTACT, NEW CANISTER WITH GEL PLACED. PT INCONTINENT OF STOOL MED AND SMALL. DENIES PAIN OR SOA. CALL LIGHT WITHIN REACH.
[2017-01-14 07:30] VITALS: BP 147/98; PULSE 72; RESP 16; TEMP 96.5; O2SAT 98
[2017-01-14] MEDS: POLYETHYL.GLYCOL 3350 PACKET 17gm PO SCH (09:00)
[2017-01-14] MEDS: METRONIDAZOLE 500 MG TABLET PO SCH ×2 (09:11→20:08)
[2017-01-14] MEDS: VITAMIN B COMP + C TABLET PO SCH (09:11)
[2017-01-14] MEDS: CEFTRIAXONE 2 G in NORMAL SALINE 100 ML IV SCH (09:12)
[2017-01-14] MEDS: FERROUS SULFATE 324 MG TABLET PO SCH (09:12)
[2017-01-14] MEDS: ASCORBIC ACID 500 MG TABLET PO SCH (09:12)
[2017-01-14] MEDS: NYSTATIN POWDER 15gm BOTTLE TOP SCH ×4 (09:13→20:09)
[2017-01-14] MEDS: ENOXAPARIN 40 MG/0.4 ML INJECTION SQ SCH (09:13)
[2017-01-14 09:30] VITALS: PULSE 72; RESP 16
--- NOTE | 2017-01-14 09:47 | NUR ---
CM THIS WORKER VISITED PT IN ROOM, WENT OVER DPOA AND LIVING WILL FORMS FOR PT TO REVIEW. PT STATED HIS WOULD BE VISITING HIM THIS EVENING TO REVIEW THE FORMS WITH HIM. PT HAD NO QUESTIONS OR CONCERNS AT THIS TIME. Addendum: 01/14/17 at 0951 by TATUM BAUTISTA THIS WORKER STATED TO PT HE WOULD BE ABLE TO BRING IN HIS XBOX TO HIS ROOM. PT HAD DUMBBELLS ON TABLE FOR THERAPY.
[2017-01-14 15:24] VITALS: BP 155/97; PULSE 100; RESP 12; TEMP 96.8; O2SAT 98
--- NOTE | 2017-01-14 16:14 | PNPDOC ---
CLARENCE DUTTA [employer] 01/14/17 1611: Subjective Date DATE: 01/14/17 TIME: 16:08 Subjective Joe is doing well, no new complaints or issues. He has been told that his wound is healing well. Wound VAC is changed MWF. We discussed his slowly climbing BP - he's never had problems with it before and has never been on antiHTN. He wouldn't mind if we started a BP med. No constipation, and he's been having regular bowel movements without digital stimulation. Objective Vital Signs Vital signs Vital Signs Date Time Temp Pulse Resp B/P Pulse Ox O2 Delivery O2 Flow Rate FiO2 01/14/17 15:24 96.8 100 12 155/97 98 Room Air Height (Feet): 5 Height (Inches): 9.00 Weight (Kilograms): 106.700 General General Appearance: Alert, Obese, Orientated x 3, Well Nourished, Well Developed, No Acute Distress Eyes (Brief) Eyes: FOUND: PERRL, NOT FOUND: scleral icterus ENMT (Brief) ENMT: FOUND: mucosa moist, NOT FOUND: pharnyx erythema Respiratory (Brief) Respiratory: FOUND: clear all burroughs, equal bilaterally Comments clear anteriorly Cardiovascular (Brief) Cardiac: FOUND: regular rate, regular rhythm Abdomen (Brief) Abdominal: FOUND: BS normo active x4, soft, NOT FOUND: distended, tender Extremities (Brief) Extremity : Extremity Finding: NOT FOUND: discoloration Musculoskeletal (Brief) Musculoskeletal: FOUND: loss of motion (T9 paraplegia), NOT FOUND: tenderness Integumentary (Brief) Integumentary: FOUND: dry, pink, warm Comments wound VAC Psychiatric (Brief) Psychiatric: FOUND: alert, attentive, normal affect, oriented Laboratory Laboratory Laboratory Tests 01/13/17 05:45 Laboratory Tests 01/13/17 05:45 Assessment & Plan Problems: (1) Pressure ulcer of left buttock, stage 4 Assessment & Plan: Possible osteomyelitis, Rocephin and Flagyl through 02/04/17 (2) Microcytic anemia Status: Chronic Assessment & Plan: Iron deficiency anemia. Iron 12, TIBC 325, saturation 4% on 12/25/16. Continue ferrous sulfate (3) Hyperphosphatemia Status: Acute (4) Paraplegia at T9 level Status: Chronic (5) Neurogenic bladder Status: Chronic (6) Neurogenic bowel Status: Chronic (7) Chronic urinary tract infection Status: Chronic (8) Obesity (BMI 30-39.9) Status: Chronic (9) Thrombocytosis Status: Chronic Assessment & Plan: c/w iron deficiency (10) E. coli UTI Status: Resolved (11) MANDY (acute kidney injury) Status: Resolved (12) Sepsis Status: Resolved (13) Hypernatremia Status: Resolved Plan/Intensity of Service Right ischial stage IV decub ulcer with possible osteomyelitis-Continue Rocephin and Flagyl through 02/04/17 MANDY resolved and renal function at baseline Elevated BP - will discuss starting an AntiHTN with Dr. Haskins. Code Status Full Code Hospital Course Summary Disclaimer The hospital course summary below is not to be considered part of the above Progress Note. Hospital Course Summary 01/12/17 - Admitted to swing bed status under the hospitalist service. [place] 12/27/16 [place]/11/17 [place] [facility] [place] 1. Right ischial stage IV decub ulcer with possible osteomyelitis -Continue Rocephin and Flagyl through 02/04/[address] Palma. -Wound care and wound VAC management per Dr. Tyson. 2. T9 paraplegia with neurogenic bowel and bladder. -Pinto catheter in place. 3. Recent sepsis and Escherichia coli UTI - resolved 4. Recent acute kidney injury thought to be secondary to vancomycin administration - resolved. 5. Hyperphosphatemia -Hold PhosLo for now. -Check phosphorus level tomorrow morning, along with CBC and BMP 6. Iron deficiency anemia -Continue ferrous sulfate and vitamin C 01/13/17-Divine Tolerating antibiotics well, continue same for probable osteomyelitis/wound infection. Wound care notes reviewed, good granulation tissue described and wound on the right upper thigh measured 4.2 x 3.6 x 5.6 cm today. Renal function has improved from acute stay and sodium has normalized. Mild hyperphosphatemia persists, continue PhosLo and reassess early next week. Hemoglobin stable, known iron deficiency with anemia developing since March 2016. Patient denies chronic indigestion or heartburn but requires chronic digital stimulation for bowel movements. He is unaware of any chronic rectal bleeding however and has never had a colonoscopy. May need to pursue in the future if ongoing anemia. Denies family history of colon cancer or other chronic bowel disease. 01/14/17 Right ischial stage IV decub ulcer with possible osteomyelitis-Continue Rocephin and Flagyl through 02/04/17 MANDY resolved and renal function at baseline Elevated BP - will discuss starting an AntiHTN with Dr. Haskins. BLAKE HASKINS MD 01/14/17 9051: Assessment & Plan Assessment I have independently evaluated and examined this patient. I reviewed the chart, the patient's history, and the [employer]'s documented findings as above. We discussed and formulated the assessment and plan as above with additions as below: No complaints, denies edema or fluid retention. No headaches or pain. Alert, NAD. Regular cardiac rhythm, respirations nonlabored. Blood pressure consistently elevated with mean BP>100 and diastolic typically mid 90s. Initiate low-dose Cozaar and monitor. CLARENCE DUTTA APRN Jan 14, 2017 16:11 BLAKE HASKINS MD Jan 14, 2017 16:41
--- NOTE | 2017-01-14 16:31 | NUR ---
Nutrition Risk F/U Diet: Regular Since patient's appetite has normalized, patient has been ordering food from the cafeteria and finds it acceptable. Patient receiving snacks and supplements as ordered by RD available at 1406 Addendum: 01/14/17 at [address] Student charting reviewed by [employer] Operator.
[2017-01-14] MEDS: LOSARTAN 50 MG TABLET PO SCH (17:22)
--- NOTE | 2017-01-14 18:06 | NUR ---
SHIFT SUMMARY VSS. RA. DENIES PAIN. BED SELF POSITIONS. WOUND VAC IN PLACE, COMPRESSED. GOOD APPETITE AND INTAKE. GOOD URINE OUTPUT. ONE BM TODAY. DOUBLE LUMEN PICC FLUSHES AND ASPIRATES WELL.
[2017-01-14 20:11] VITALS: RESP 16
[2017-01-14 23:48] VITALS: BP 133/77; PULSE 94; RESP 16; TEMP 98.3; O2SAT 98
--- NOTE | 2017-01-15 01:51 | NUR ---
Chart Check 24 hour chart check completed
--- NOTE | 2017-01-15 06:13 | NUR ---
SHIFT SUMMARY PT'S VSS. REMAINS ON RA. DENIED PAIN. BED SELF POSITIONS WITH SPECIAL MATTRESS. WOUND VAC IN PLACE, AT 0430 A SMALL DRAPE APPLIED TO LEAKING APPLIANCE ([id number]).1 INCONTINENT BM SMEAR, WEARING BRIEF. GOOD URINE OUTPUT IN [place].
[2017-01-15 08:00] VITALS: RESP 16
[2017-01-15 08:58] VITALS: BP 144/95; PULSE 80; RESP 16; TEMP 96.7; O2SAT 99
[2017-01-15] MEDS: VITAMIN B COMP + C TABLET PO SCH (09:30)
[2017-01-15] MEDS: ENOXAPARIN 40 MG/0.4 ML INJECTION SQ SCH (09:30)
[2017-01-15] MEDS: LOSARTAN 50 MG TABLET PO SCH (09:30)
[2017-01-15] MEDS: METRONIDAZOLE 500 MG TABLET PO SCH ×2 (09:30→21:38)
[2017-01-15] MEDS: NYSTATIN POWDER 15gm BOTTLE TOP SCH ×4 (09:30→21:38)
[2017-01-15] MEDS: POLYETHYL.GLYCOL 3350 PACKET 17gm PO SCH (09:30)
[2017-01-15] MEDS: CEFTRIAXONE 2 G in NORMAL SALINE 100 ML IV SCH (09:31)
[2017-01-15] MEDS: ASCORBIC ACID 500 MG TABLET PO SCH (09:31)
[2017-01-15] MEDS: FERROUS SULFATE 324 MG TABLET PO SCH (09:31)
--- NOTE | 2017-01-15 15:32 | PDWOUND ---
Wound Documentation Wound Management Wound : Location Modifier: Right, Upper Wound Location: Thigh Wound Type: Pressure Ulcer Wound Dressing Frequency: three times per week Wound Duration: > one month Wound Dressing Status: FOUND: Changed Wound Drainage Amount: Moderate Wound Drainage Description: Serous Wound Drainage Odor: None/Absent Wound General Appearance: FOUND Muscle Visible Wound Bed: gran red Periwound Description: Clear Wound Length (cm): 4.2 Wound Width (cm): 3.6 Wound Depth (cm): 1.3 Exposed: muscle Wound Cleanser: soap and water Wound Solution/Irrigant: Saline Irrigant Wound Packing Type: FOUND: Black Foam Wound Primary Dressing Type: Clear Adhesive Cover Wound Tunneling : Sinus/Tunnels (cm): 8 Tunneling Location (o'clock): 12 Comments Wound vac drsg changed again today continue instill vac. TATUM RIZO RN Jan 15, 2017 15:32
[2017-01-15 16:00] VITALS: BP 151/79; PULSE 101; RESP 17; TEMP 97.5; O2SAT 97
--- NOTE | 2017-01-15 19:26 | NUR ---
no change in condition picc line flushes drg changed and wound vac changed out.
[2017-01-16 00:29] VITALS: BP 145/92; PULSE 88; RESP 20; TEMP 99.1; O2SAT 97
--- NOTE | 2017-01-16 06:36 | NUR ---
SUMMARY. PT IS ALERT AND ORIENTED. NO PRN GIVEN THIS SHIFT. NO CHANGES NOTED. PT IS PARAPLEGIC. ABLE TO VOICE NEEDS TO THE STAFFS.
--- NOTE | 2017-01-16 07:05 | NUR ---
BEGINNING OF SHIFT PT IS SLEEPING AT THIS TIME. REPORT RECEIVED FROM EVANGELIST ZUNIGA. WILL CONTINUE TO MONITOR.
[2017-01-16 08:00] VITALS: BP 169/90; PULSE 87; RESP 16; TEMP 97.7; O2SAT 100
[2017-01-16] MEDS: ASCORBIC ACID 500 MG TABLET PO SCH (09:20)
[2017-01-16] MEDS: METRONIDAZOLE 500 MG TABLET PO SCH ×2 (09:20→22:17)
[2017-01-16] MEDS: VITAMIN B COMP + C TABLET PO SCH (09:20)
[2017-01-16] MEDS: FERROUS SULFATE 324 MG TABLET PO SCH (09:20)
[2017-01-16] MEDS: POLYETHYL.GLYCOL 3350 PACKET 17gm PO SCH (09:20)
[2017-01-16] MEDS: ENOXAPARIN 40 MG/0.4 ML INJECTION SQ SCH (09:21)
[2017-01-16] MEDS: NYSTATIN POWDER 15gm BOTTLE TOP SCH ×4 (09:21→22:17)
[2017-01-16] MEDS: LOSARTAN 50 MG TABLET PO SCH (09:21)
[2017-01-16] MEDS: CEFTRIAXONE 2 G in NORMAL SALINE 100 ML IV SCH (09:21)
--- NOTE | 2017-01-16 15:58 | PNPDOC ---
Subjective Date DATE: 01/16/17 TIME: 15:49 Subjective Mr. Cosby reports that things are going well. He denies any concerns including dyspnea, palpitations, nausea/vomiting, or pain. He indicated preference to keep Pinto in place while hospitalized and on the specialty bed as opposed to returning to straight catheterizations per home regimen. He is noted no symptoms he would consider side effects after initiating Cozaar several days ago. Objective Vital Signs Vital signs Vital Signs Date Time Temp Pulse Resp B/P Pulse Ox O2 Delivery O2 Flow Rate FiO2 01/16/17 08:00 16 01/16/17 08:00 97.7 87 169/90 100 Room Air EXAM General-NAD, alert, fluent speech Lungs-respirations nonlabored, anterior lung burroughs clear with good airflow Cardiac-regular rhythm, S1-S2 Abd-soft, nontender Ext-without edema Neuro-paraplegia Height (Feet): 5 Height (Inches): 9.00 Weight (Kilograms): 107.500 Assessment & Plan Problems: (1) Pressure ulcer of left buttock, stage 4 Assessment & Plan: Possible osteomyelitis, Rocephin and Flagyl through 02/04/17 (2) Hypertension Status: Acute (3) Microcytic anemia Status: Chronic Assessment & Plan: Iron deficiency anemia. Iron 12, TIBC 325, saturation 4% on 12/25/16. Continue ferrous sulfate (4) Hyperphosphatemia Status: Acute (5) Paraplegia at T9 level Status: Chronic (6) Neurogenic bladder Status: Chronic (7) Neurogenic bowel Status: Chronic (8) Chronic urinary tract infection Status: Chronic (9) Obesity (BMI 30-39.9) Status: Chronic (10) Thrombocytosis Status: Chronic Assessment & Plan: c/w iron deficiency (11) E. coli UTI Status: Resolved (12) MANDY (acute kidney injury) Status: Resolved (13) Sepsis Status: Resolved (14) Hypernatremia Status: Resolved Assessment Doing well. Blood pressure remains moderately elevated with readings 133/77-169/90 over the past 24 hours. Continue to monitor on low-dose Cozaar for an additional 1-2 days and if no improvement will increase dose. Repeat CBC, renal panel, and CRP ordered for Wednesday to monitor antibiotic therapy, anemia, and hyperphosphatemia. DVT Prophylaxis: Lovenox Code Status Full Code Hospital Course Summary Disclaimer The hospital course summary below is not to be considered part of the above Progress Note. Hospital Course Summary 01/12/17 - Admitted to swing bed status under the hospitalist service. Hospitalized from 12/27/16 through 01/11/17 as an inpatient at [facility] [place]. 1. Right ischial stage IV decub ulcer with possible osteomyelitis -Continue Rocephin and Flagyl through 02/04/[address] Palma. -Wound care and wound VAC management per Dr. Tyson. 2. T9 paraplegia with neurogenic bowel and bladder. -Pinto catheter in place. 3. Recent sepsis and Escherichia coli UTI - resolved 4. Recent acute kidney injury thought to be secondary to vancomycin administration - resolved. 5. Hyperphosphatemia -Hold PhosLo for now. -Check phosphorus level tomorrow morning, along with CBC and BMP 6. Iron deficiency anemia -Continue ferrous sulfate and vitamin C 01/13/17-Divine Tolerating antibiotics well, continue same for probable osteomyelitis/wound infection. Wound care notes reviewed, good granulation tissue described and wound on the right upper thigh measured 4.2 x 3.6 x 5.6 cm today. Renal function has improved from acute stay and sodium has normalized. Mild hyperphosphatemia persists, continue PhosLo and reassess early next week. Hemoglobin stable, known iron deficiency with anemia developing since March 2016. Patient denies chronic indigestion or heartburn but requires chronic digital stimulation for bowel movements. He is unaware of any chronic rectal bleeding however and has never had a colonoscopy. May need to pursue in the future if ongoing anemia. Denies family history of colon cancer or other chronic bowel disease. 01/14/17 Right ischial stage IV decub ulcer with possible osteomyelitis-Continue Rocephin and Flagyl through 02/04/17 MANDY resolved and renal function at baseline Elevated BP - will discuss starting an AntiHTN with Dr. Haskins. 01/16/17 Doing well. Blood pressure remains moderately elevated with readings 133/77-169/90 over the past 24 hours. Continue to monitor on low-dose Cozaar for an additional 1-2 days and if no improvement will increase dose. Repeat CBC, renal panel, and CRP ordered for Wednesday to monitor antibiotic therapy, anemia, and hyperphosphatemia. BLAKE HASKINS MD Jan 16, 2017 15:52
[2017-01-16 16:05] VITALS: BP 150/87; PULSE 92; RESP 16; TEMP 97.3; O2SAT 98
--- NOTE | 2017-01-16 18:30 | NUR ---
UPDATE DUNCAN HAS BEEN PLEASANT ALL DAY. HAS NOT COMPLAINED OF PAIN. THE DRAIN TO THE WOUND VAC WAS REPLACED TODAY. WOUND IS STILL CLEAN AND INTACT. WILL CONTINUE TO MONITOR.
[2017-01-16 20:00] VITALS: PULSE 92; RESP 16
[2017-01-17] VITALS: BP 136/81; PULSE 91; RESP 18; TEMP 97.1; O2SAT 97
--- NOTE | 2017-01-17 04:23 | NUR ---
STATUS PT A/O X 3. WATCHING TV AND PLAYING GAMES ON HIS PHONE. WOUND VAC. INTACT. PT IS ABLE TO ASSIST WITH POSITIONING WHEN CARES ARE PROVIDED. CALLS WITH NEEDS PRN. CONTINUES ON AIR FLOW MATTRESS. INCONTINENT OF SMALL BM. CALL LIGHT WITH IN REACH.
[2017-01-17 08:00] VITALS: BP 170/95; PULSE 87; RESP 16; TEMP 97.2; O2SAT 97
[2017-01-17] MEDS: CEFTRIAXONE 2 G in NORMAL SALINE 100 ML IV SCH (09:11)
[2017-01-17] MEDS: POLYETHYL.GLYCOL 3350 PACKET 17gm PO SCH (09:12)
[2017-01-17] MEDS: ENOXAPARIN 40 MG/0.4 ML INJECTION SQ SCH (09:12)
[2017-01-17] MEDS: VITAMIN B COMP + C TABLET PO SCH (09:13)
[2017-01-17] MEDS: ASCORBIC ACID 500 MG TABLET PO SCH (09:13)
[2017-01-17] MEDS: LOSARTAN 50 MG TABLET PO SCH (09:13)
[2017-01-17] MEDS: METRONIDAZOLE 500 MG TABLET PO SCH ×2 (09:13→22:10)
[2017-01-17] MEDS: FERROUS SULFATE 324 MG TABLET PO SCH (09:14)
[2017-01-17] MEDS: NYSTATIN POWDER 15gm BOTTLE TOP SCH ×4 (09:15→22:10)
--- NOTE | 2017-01-17 15:37 | PNPDOC ---
CLARENCE DUTTA [employer] 01/17/17 1529: Subjective Date DATE: 01/17/17 TIME: 15:26 Subjective Joe was watching television. He has no complaints and has been feeling well. His appetite has returned - his has been bringing him meals like pizza, sub sandwiches, and hamburgers. No constipation or nausea. He denies SOA. We discussed BP trends and that we will increase Cozaar dose. Objective Vital Signs Vital signs Vital Signs Date Time Temp Pulse Resp B/P Pulse Ox O2 Delivery O2 Flow Rate FiO2 01/17/17 08:00 97.2 87 16 170/95 97 Room Air Height (Feet): 5 Height (Inches): 9.00 Weight (Kilograms): 106.200 General General Appearance: Alert, Obese, Orientated x 3, Well Nourished, Well Developed, No Acute Distress Eyes (Brief) Eyes: FOUND: PERRL, NOT FOUND: scleral icterus ENMT (Brief) ENMT: FOUND: mucosa moist, NOT FOUND: pharnyx erythema Respiratory (Brief) Respiratory: FOUND: clear all burroughs, equal bilaterally Cardiovascular (Brief) Cardiac: FOUND: regular rate, regular rhythm Abdomen (Brief) Abdominal: FOUND: BS normo active x4, soft, NOT FOUND: distended, tender (Brief) Comments Pinto to DD Extremities (Brief) Extremity : Extremity Finding: NOT FOUND: edema Musculoskeletal (Brief) Musculoskeletal: FOUND: loss of motion (T9 paraplegia), NOT FOUND: tenderness Integumentary (Brief) Integumentary: FOUND: dry, pink, warm Comments wound vac Psychiatric (Brief) Psychiatric: FOUND: alert, attentive, normal affect, oriented Assessment & Plan Problems: (1) Pressure ulcer of left buttock, stage 4 Assessment & Plan: Possible osteomyelitis, Rocephin and Flagyl through 02/04/17 (2) Hypertension Status: Acute (3) Hyperphosphatemia Status: Acute (4) Microcytic anemia Status: Chronic Assessment & Plan: Iron deficiency anemia. Iron 12, TIBC 325, saturation 4% on 12/25/16. Continue ferrous sulfate (5) Paraplegia at T9 level Status: Chronic (6) Neurogenic bladder Status: Chronic (7) Neurogenic bowel Status: Chronic (8) Chronic urinary tract infection Status: Chronic (9) Obesity (BMI 30-39.9) Status: Chronic (10) Thrombocytosis Status: Chronic Assessment & Plan: c/w iron deficiency (11) E. coli UTI Status: Resolved (12) MANDY (acute kidney injury) Status: Resolved (13) Sepsis Status: Resolved (14) Hypernatremia Status: Resolved Plan/Intensity of Service Overall stable with exception of continued elevated BP Increase Cozaar to 50 mg daily. Check Renal panel with labs in am. Continue Rocephin + Flagyl. DVT Prophylaxis: SCD'S Code Status Full Code Hospital Course Summary Disclaimer The hospital course summary below is not to be considered part of the above Progress Note. Hospital Course Summary 01/12/17 - Admitted to swing bed status under the hospitalist service. Hospitalized from 12/27/16 through 01/11/17 as an inpatient at [facility] [place]. 1. Right ischial stage IV decub ulcer with possible osteomyelitis -Continue Rocephin and Flagyl through 02/04/[address] Palma. -Wound care and wound VAC management per Dr. Tyson. 2. T9 paraplegia with neurogenic bowel and bladder. -Pinto catheter in place. 3. Recent sepsis and Escherichia coli UTI - resolved 4. Recent acute kidney injury thought to be secondary to vancomycin administration - resolved. 5. Hyperphosphatemia -Hold PhosLo for now. -Check phosphorus level tomorrow morning, along with CBC and BMP 6. Iron deficiency anemia -Continue ferrous sulfate and vitamin C 01/13/17-Divine Tolerating antibiotics well, continue same for probable osteomyelitis/wound infection. Wound care notes reviewed, good granulation tissue described and wound on the right upper thigh measured 4.2 x 3.6 x 5.6 cm today. Renal function has improved from acute stay and sodium has normalized. Mild hyperphosphatemia persists, continue PhosLo and reassess early next week. Hemoglobin stable, known iron deficiency with anemia developing since March 2016. Patient denies chronic indigestion or heartburn but requires chronic digital stimulation for bowel movements. He is unaware of any chronic rectal bleeding however and has never had a colonoscopy. May need to pursue in the future if ongoing anemia. Denies family history of colon cancer or other chronic bowel disease. 01/14/17 Right ischial stage IV decub ulcer with possible osteomyelitis-Continue Rocephin and Flagyl through 02/04/17 MANDY resolved and renal function at baseline Elevated BP - will discuss starting an AntiHTN with Dr. Haskins. 01/16/17 Doing well. Blood pressure remains moderately elevated with readings 133/77-169/90 over the past 24 hours. Continue to monitor on low-dose Cozaar for an additional 1-2 days and if no improvement will increase dose. Repeat CBC, renal panel, and CRP ordered for Wednesday to monitor antibiotic therapy, anemia, and hyperphosphatemia. 01/17/17 - Increase Cozaar to 50 mg daily. BLAKE HASKINS MD 01/17/17 1747: Assessment & Plan Assessment I have independently evaluated and examined this patient. I reviewed the chart, the patient's history, and the P[employer]ING [employer]ER's documented findings as above. We discussed and formulated the assessment and plan as above with additions as below: Doing well, no concerns. NAD, alert, fluent speech. Benign abdomen. Agree with increase Cozaar. May need addition of diuretic for control. CLARENCE DUTTA [employer] Jan 17, 2017 15:29 BLAKE HASKINS MD Jan 17, 2017 17:47
[2017-01-17 16:00] VITALS: BP 172/96; PULSE 92; RESP 16; TEMP 97.5; O2SAT 97
--- NOTE | 2017-01-17 18:31 | NUR ---
UPDATE PTS BLOOD PRESSURES HAVE BEEN MORE ELEVATED THAN USUAL TODAY, THUS HIS BP MED DOSAGE WAS INCREASED. THE WOUND VAC CANISTER WAS REPLACED. PT IS PLEASANT AND COOPERATIVE WITH CARE. WILL CONTINUE TO MONITOR.
[2017-01-17 20:00] VITALS: PULSE 92; RESP 16
[2017-01-18] VITALS: BP 134/86; PULSE 85; RESP 18; TEMP 97.4; O2SAT 96
--- NOTE | 2017-01-18 05:21 | NUR ---
STATUS PT ALERT AND ORIENTED X 3. CALLS FOR ASSIST NEEDED. PT ENJOYS WATCHING TV OR PLAYING GAMES ON HIS CELL PHONE. WOUND VAC INTACT, NO LEAKING NOTED. PT HAD INCONTINENT FORM, SOFT BM. DENIES PAIN OR SOA. PICC PORTS FLUSH WITHOUT DIFFICULT, NEW GREEN CAPS IN PLACE. [place] DD, URINE LIGHT JENN, CLOUDY. ADEQUATE AMOUNT OF URINE OUT.
[2017-01-18 06:18] LABS: BASOPHILS # (AUTO) 0.1 T/MM3 (0-0.2); BASOPHILS % (AUTO) 0.9 % (0-2); EOSINOPHILS # (AUTO) 0.4 T/MM3 (0-0.5); EOSINOPHILS % (AUTO) 5.7 % (0-4); HCT - HEMATOCRIT 34.8 % (41-53); IMMATURE GRANULOCYTE # (AUTO) 0.01 T/MM3 (0.00-0.03); IMMATURE GRANULOCYTE % (AUTO) 0.1 % (0.0-0.5); LYMPHOCYTES # (AUTO) 2.4 T/MM3 (1-4.8); LYMPHOCYTES % (AUTO) 34.9 % (23-45); MEAN CORPUSCULAR HGB 25.4 UUG (26-34); MEAN CORPUSCULAR HGB CONC(MCHC 31.6 GM/DL (31-37); MEAN CORPUSCULAR VOLUME 80.4 UM3 (80-100); MEAN PLATELET VOLUME 9.7 UM3 (9.4-12.4); MONOCYTES # (AUTO) 0.5 T/MM3 (0-0.8); NEUTROPHILS #(AUTO)-ABSOLUTE 3.5 T/MM3 (1.8-7.7); NEUTROPHILS % (AUTO) 51.4 % (33-66); RED BLOOD COUNT 4.33 M/MM3 (4.50-5.90); WBC - WHITE BLOOD COUNT 6.8 T/MM3 (4.5-11.0)
[2017-01-18 06:32] LABS: ALBUMIN 3.3 G/DL (3.5-5.0); ANION GAP 13 MEQ/L (5-15); BUN/CREATININE RATIO 25 RATIO (6-26); C-REACTIVE PROTEIN 13.4 MG/L (0-9); CALCIUM 8.7 MG/DL (8.4-10.2); CHLORIDE 105 MEQ/L (98-107); CO2 - CARBON DIOXIDE 25 MEQ/L (22-30); CREATININE 0.8 MG/DL (0.8-1.5); GLOMERULAR FILTRATION RATE 108; GLUCOSE 95 MG/DL (75-110); POTASSIUM 4.5 MEQ/L (3.6-5); SODIUM 143 MEQ/L (134-144)
[2017-01-18 08:00] VITALS: BP 152/97; PULSE 70; PULSE 98; RESP 16; RESP 18; TEMP 96.5; O2SAT 99
[2017-01-18 08:07] LABS: PHOSPHORUS 4.6 MG/DL (2.5-4.5)
[2017-01-18] MEDS: METRONIDAZOLE 500 MG TABLET PO SCH ×2 (09:57→22:03)
[2017-01-18] MEDS: VITAMIN B COMP + C TABLET PO SCH (09:57)
[2017-01-18] MEDS: FERROUS SULFATE 324 MG TABLET PO SCH (09:57)
[2017-01-18] MEDS: NYSTATIN POWDER 15gm BOTTLE TOP SCH ×4 (09:57→22:03)
[2017-01-18] MEDS: LOSARTAN 50 MG TABLET PO SCH (09:58)
[2017-01-18] MEDS: ASCORBIC ACID 500 MG TABLET PO SCH (09:58)
[2017-01-18] MEDS: ENOXAPARIN 40 MG/0.4 ML INJECTION SQ SCH (09:58)
[2017-01-18] MEDS: POLYETHYL.GLYCOL 3350 PACKET 17gm PO SCH (09:58)
[2017-01-18] MEDS: CEFTRIAXONE 2 G in NORMAL SALINE 100 ML IV SCH (09:58)
[2017-01-18] MEDS: NS 500 ML IV PRN (09:59)
--- NOTE | 2017-01-18 12:01 | PDWOUND ---
Wound Documentation Wound Management Wound : Location Modifier: Right, Upper Wound Location: Thigh Wound Type: Pressure Ulcer Wound Dressing Frequency: three times per week Wound Duration: > one month Wound Dressing Status: FOUND: Changed Wound Drainage Amount: Moderate Wound Drainage Description: Serous Wound Drainage Odor: None/Absent Wound General Appearance: FOUND Muscle Visible Wound Bed: gran red Periwound Description: Clear Wound Length (cm): 3.2 Wound Width (cm): 2.2 Wound Depth (cm): 4 Exposed: muscle Wound Cleanser: soap and water Wound Packing Type: FOUND: Black Foam Wound Primary Dressing Type: Clear Adhesive Cover Wound Tunneling : Sinus/Tunnels (cm): 8 Tunneling Location (o'clock): [address] Tyson in to see pt, wound measured and assessed. At this time changed treatment to just NPWT with Camille to wound in tunnel. Pt tolerated well. TATUM RIZO RN Jan 18, 2017 12:01
[2017-01-18 15:25] VITALS: BP 151/96; PULSE 90; RESP 18; TEMP 96.9; O2SAT 98
--- NOTE | 2017-01-18 16:08 | PNF ---
DATE OF SERVICE 01/18/2017 FINDINGS Joe was in good spirits today. He was without complaints. EXAM Vitals: Afebrile, normotensive. Current vitals include temperature 96.5, pulse 70, respirations 98, respiratory rate 16, blood pressure 152/97, SAO2 99% on CHEST: Clear to auscultation bilaterally. HEART: Regular rate and rhythm. Normal S1 and S2 without gallops, murmurs or clicks. EXTREMITIES/BUTTOCKS: Attention was focused to the area of concern overlying the right buttocks. The patient does have an open wound with excellent granulation tissue throughout the wound bed. The wound continues to become smaller in its overall diameter. Unfortunately, upon placing a finger within the opening of the wound the wound still tunnels fairly significantly at the 12 o'clock position about 5 cm. The actual size of the area that is tunneling, however, has decreased in size. There is no evidence for necrotic tissue within the wound. No evidence of periwound erythema. ASSESSMENT 41-year-old gentleman status post creation of myocutaneous flap to provide coverage of stage IV right ischial pressure ulceration. Patient with the misfortune of developing necrosis of a portion of myocutaneous flap. Patient showing improvement from wound standpoint with utilization of wound VAC. PLAN Will go ahead and DC the infusion wound VAC and proceed with utilization of "normal wound VAC " and place some collagen dressing within the portion of the wound that is tunneling in an attempt to facilitate closure. Will otherwise continue with current wound care management with negative wound pressure therapy. [facility]
--- NOTE | 2017-01-18 16:19 | NUR ---
wound vac changed out by wound team. pt in good spirits moved out into hobbs in bed using extension cord to keep bed inflated. posionted by windows to look out.
--- NOTE | 2017-01-18 17:50 | CONSF ---
DATE OF CONSULTATION January 18, 2017 CHIEF COMPLAINT Infectious Disease consultation was requested by Dr. Herbert for antibiotic recommendations for osteomyelitis. HISTORY OF PRESENT ILLNESS Mr. Cosby is a 41-year-old man with a history of paraplegia from an accident that occurred in 2001. He has a history of right ischial decubitus ulcer and osteomyelitis in the summer. He had a wound culture obtained last March which had multiple organisms including Proteus, Serratia, Pseudomonas and Klebsiella as well as Bacteroides fragilis. However, none of the organisms were particularly drug resistant. He underwent debridement by Dr. Tyson. He had a bone culture April 23 that showed Staph epidermis, Enterococcus faecalis group D, Bacteroides fragilis and Klebsiella oxytoca. In the summer I saw Mr. Cosby in the outpatient setting and started him initially on Invanz and vancomycin. However, he was [place] [facility] [place] received the rest of his course of six weeks of antibiotics at [facility] I am not sure exactly which antibiotics he received there. After that hospitalization he was placed on oral Keflex and he had some red bumps that apparently were thought to be from the Keflex. He underwent a flap procedure of the right ischium [address] Gore. He did well until about October when he had an area on the flap that looked like a scratch. This continued to worsen and he reports that there was an area that looked like the skin . He has continued to follow with Dr. Tyson in the wound clinic and this wound has continued to progressively become deeper with some necrotic tissue present. He was seen in the wound clinic and the wound was felt to go down to bone on the day of his hospitalization which was December 25, 2016. Wound culture from that date grew Proteus vulgaris, Enterococcus faecalis group D, Bacteroides fragilis, Enterococcus and Diphtheroid bacillus. The Proteus vulgaris was resistant to ampicillin and cefazolin but sensitive to all other agents tested. The Enterococcus faecalis was sensitive to ampicillin. Also on admission both of his blood cultures were positive for Streptococcus intermedius which was sensitive to penicillin. He had a urine culture on admission that had greater than 100,000 colonies of E-coli which was pansensitive. However, he does have a chronic Pinto catheter in place. He was initially treated with vancomycin and Zosyn. However, his creatinine went from 0.8 up to 2.0. He had peripheral eosinophilia and his urine eosinophils were positive on January 04. His antibiotics were changed to ceftriaxone and Flagyl and his creatinine has returned to normal. He had a PICC line placed. He has had a wound VAC placed which has been managed by Dr. Tyson. I do not believe he has undergone any formal operative debridement. He was transferred from acute inpatient to swing bed status on January 12. PAST MEDICAL HISTORY Complete paraplegia at T9 level since 2001 following an accident when he was pinned between a forklift and a wall. History of neurogenic bladder and neurogenic bowel. History of chronic urinary tract infection. Obesity. History of decubitus ulcer of the buttock involving the right ischium, stage IV, status post six weeks of IV antibiotics during the summer of 2015. History of Clostridium difficile colitis in approximately 2001 associated with Levaquin. PAST SURGICAL HISTORY Right knee scope. Maxx placement T7 to T9 in 2001. Right ischial flap procedure in approximately August [address] Gore. ALLERGIES Levaquin is listed. However, this was associated with Clostridium difficile in 2001. Keflex caused a rash. However, he appears to be tolerating ceftriaxone. SOCIAL HISTORY He is and lives in [place]. 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 No history of tobacco, alcohol or drug use. FAMILY HISTORY Both parents are alive. His great-grandfather had diabetes. CURRENT MEDICATIONS Reviewed. He is on ceftriaxone 2 g IV daily and Flagyl 500 mg p.o. q.12h. REVIEW OF SYSTEMS He denies any recent fevers, chills or sweats. He denies any nausea, vomiting or diarrhea. Denies any pain. Denies any itching or rashes. His appetite is good. The rest of the review of systems is negative other than that mentioned above. PHYSICAL EXAMINATION VITAL SIGNS: Temperature 96.5. Blood pressure is 136/81. Pulse 70. Respirations 18. Oxygen saturation is 99% on room air. His height is 69 inches. Weight is 107 kg. GENERAL: He appears comfortable and is in no acute distress. HEENT: Pupils equal, round, reactive to light. Extraocular movements intact. Oropharynx is clear. NECK: Supple. HEART: Regular rate and rhythm. No murmurs noted. LUNGS: Clear to auscultation bilaterally anteriorly. ABDOMEN: Soft, nontender. He has bowel sounds present. EXTREMITIES: No edema noted. : He has a chronic Pinto catheter in place. SKIN: He has a wound over the right ischium which is covered with a wound VAC. No rashes. PSYCHIATRIC: His mood and affect are appropriate. IMPRESSION 1. Right ischial decubitus ulcer stage IV with osteomyelitis, wound cultures with Proteus vulgaris, Enterococcus faecalis, Bacteroides fragilis. Enterococcus and Diphtheroids bacillus 2. Sepsis with sepsis/septicemia with Streptococcus intermedius in blood cultures December 25, 2016. 3. Acute interstitial nephritis on Zosyn and vancomycin, I suspect it was the Zosyn more so than the vancomycin. 4. History of osteomyelitis of the right ischium status post debridement and six weeks of IV antibiotics followed by flap procedure August 2016. 5. Paraplegia at T9 from an accident that occurred in 2001. 6. Neurogenic bladder with self-catheterization 7. Neurogenic bowel. 8. History of urinary tract infections. 9. History of Clostridium difficile infection related to levofloxacin. 9. History of allergy to Keflex with rash, although he is currently tolerating ceftriaxone. RECOMMENDATIONS I would continue with the ceftriaxone and Flagyl to complete six weeks of therapy. He will need these antibiotics through February 04, 2017. I would continue to check a CBC with differential, CMP and CRP weekly while he is on the antibiotics. Thank you for allowing me to participate in the care of this patient. LOREE
--- NOTE | 2017-01-18 19:26 | NUR ---
BACK IN ROOM LITTLE DRAINAGE IN WOUND VAC.
[2017-01-19 00:30] VITALS: BP 138/92; PULSE 88; RESP 18; TEMP 95.9; O2SAT 98
--- NOTE | 2017-01-19 04:40 | NUR ---
SUMMARY PT ALERT AND ORIENTED. VSS. URINE CLEAR AND JENN IN COLOR GOOD OUT PUT FOR SHIFT. MINIMAL DRAINAGE IN WOUND VAC. PT PLEASANT AND COOPERATIVE, NO ISSUES THIS SHIFT. CONTINUOUSLY ROTATED BY BED.
[2017-01-19 08:00] VITALS: PULSE 89
[2017-01-19 08:47] VITALS: BP 148/95; PULSE 86; RESP 18; TEMP 97.4; O2SAT 99
[2017-01-19] MEDS: POLYETHYL.GLYCOL 3350 PACKET 17gm PO SCH (08:56)
[2017-01-19] MEDS: CEFTRIAXONE 2 G in NORMAL SALINE 100 ML IV SCH (08:56)
[2017-01-19] MEDS: VITAMIN B COMP + C TABLET PO SCH (08:57)
[2017-01-19] MEDS: FERROUS SULFATE 324 MG TABLET PO SCH (08:57)
[2017-01-19] MEDS: ASCORBIC ACID 500 MG TABLET PO SCH (08:57)
[2017-01-19] MEDS: LOSARTAN 50 MG TABLET PO SCH (08:57)
[2017-01-19] MEDS: METRONIDAZOLE 500 MG TABLET PO SCH ×2 (08:57→21:29)
[2017-01-19] MEDS: ENOXAPARIN 40 MG/0.4 ML INJECTION SQ SCH (08:57)
[2017-01-19] MEDS: NYSTATIN POWDER 15gm BOTTLE TOP SCH ×4 (08:58→21:31)
--- NOTE | 2017-01-19 13:32 | NUR ---
CM THIS WORKER VISITED PT IN ROOM, PT STATED HIS FAMILY HAS CAME TO VISIT HIM. PT DENIES NEEDING EXTRA ACTIVITIES, STATED HE MIGHT HAVE HIS BRING HIS XBOX. PT STATED HE HAS BEEN USING HIS DUMBBELLS EVERYDAY EXCEPT FOR TWO. PT ENCOURAGED TO CALL WITH ANY QUESTIONS OR CONCERNS. Addendum: 01/19/17 at 1335 by TATUM BAUTISTA Amended: Links added.
[2017-01-19 16:00] VITALS: BP 151/91; PULSE 97; RESP 18; TEMP 97.9; O2SAT 97
--- NOTE | 2017-01-19 17:24 | PNPDOC ---
Subjective Date DATE: 01/19/17 TIME: 17:13 Subjective F/U: Stage 4 pressure ulcer of left buttock Doing well. No new problems of concerns. Eating well-no nausea. Breathing well. Objective Vital Signs Vital signs Vital Signs Date Time Temp Pulse Resp B/P Pulse Ox O2 Delivery O2 Flow Rate FiO2 01/19/17 16:00 97.9 97 18 151/91 97 Room Air Height (Feet): 5 Height (Inches): 9.00 Weight (Kilograms): 107.000 General General Appearance: Alert, Obese, Orientated x 3, Well Nourished, Well Developed, Looks Stated Age Eyes (Brief) Eyes: FOUND: EOMI, PERRL, NOT FOUND: scleral icterus ENMT (Brief) ENMT: FOUND: hearing intact, mucosa moist Neck (Brief) Neck: FOUND: midline, NOT FOUND: nuchal rigidity, spasm Respiratory (Brief) Respiratory: FOUND: clear all burroughs, equal bilaterally, NOT FOUND: rales, wheezes Cardiovascular (Brief) Cardiac: FOUND: regular rate, regular rhythm Abdomen (Brief) Abdominal: FOUND: BS normo active x4, soft, NOT FOUND: distended, tender Neurologic (Brief) Neurological: FOUND: cranial 2-12 intact, motor (Upper motor intact ) Psychiatric (Brief) Psychiatric: FOUND: alert, attentive, normal affect, oriented Laboratory Laboratory Laboratory Tests 01/18/17 06:05 Laboratory Tests 01/18/17 06:05 Assessment & Plan Problems: (1) Pressure ulcer of left buttock, stage 4 Assessment & Plan: Possible osteomyelitis, Rocephin and Flagyl through 02/04/17 (2) Hypertension Status: Acute (3) Hyperphosphatemia Status: Acute (4) Microcytic anemia Status: Chronic Assessment & Plan: Iron deficiency anemia. Iron 12, TIBC 325, saturation 4% on 12/25/16. Continue ferrous sulfate (5) Paraplegia at T9 level Status: Chronic (6) Neurogenic bladder Status: Chronic (7) Neurogenic bowel Status: Chronic (8) Chronic urinary tract infection Status: Chronic (9) Obesity (BMI 30-39.9) Status: Chronic (10) Thrombocytosis Status: Chronic Assessment & Plan: c/w iron deficiency (11) E. coli UTI Status: Resolved (12) MANDY (acute kidney injury) Status: Resolved (13) Sepsis Status: Resolved (14) Hypernatremia Status: Resolved Plan/Intensity of Service Continue wound vac and wound care. Continue Rocephin + Flagyl. Continue Cozaar at 50mg daily. Weekly CMP, CBC, and CRP ordered. Check BMP on 01/21 secondary to recent MANDY and ARB use. DVT Prophylaxis: SCD'S Code Status Full Code Hospital Course Summary Disclaimer The hospital course summary below is not to be considered part of the above Progress Note. Hospital Course Summary 01/12/17 - Admitted to swing bed status under the hospitalist service. Hospitalized from 12/27/16 through 01/11/17 as an inpatient [place] [facility] [place] 1. Right ischial stage IV decub ulcer with possible osteomyelitis -Continue Rocephin and Flagyl through 02/04/[address] Palma. -Wound care and wound VAC management per Dr. Tyson. 2. T9 paraplegia with neurogenic bowel and bladder. -Pinto catheter in place. 3. Recent sepsis and Escherichia coli UTI - resolved 4. Recent acute kidney injury thought to be secondary to vancomycin administration - resolved. 5. Hyperphosphatemia -Hold PhosLo for now. -Check phosphorus level tomorrow morning, along with CBC and BMP 6. Iron deficiency anemia -Continue ferrous sulfate and vitamin C 01/13/17-Divine Tolerating antibiotics well, continue same for probable osteomyelitis/wound infection. Wound care notes reviewed, good granulation tissue described and wound on the right upper thigh measured 4.2 x 3.6 x 5.6 cm today. Renal function has improved from acute stay and sodium has normalized. Mild hyperphosphatemia persists, continue PhosLo and reassess early next week. Hemoglobin stable, known iron deficiency with anemia developing since March 2016. Patient denies chronic indigestion or heartburn but requires chronic digital stimulation for bowel movements. He is unaware of any chronic rectal bleeding however and has never had a colonoscopy. May need to pursue in the future if ongoing anemia. Denies family history of colon cancer or other chronic bowel disease. 01/14/17 Right ischial stage IV decub ulcer with possible osteomyelitis-Continue Rocephin and Flagyl through 02/04/17 MANDY resolved and renal function at baseline Elevated BP - will discuss starting an AntiHTN with Dr. Haskins. 01/16/17 Doing well. Blood pressure remains moderately elevated with readings 133/77-169/90 over the past 24 hours. Continue to monitor on low-dose Cozaar for an additional 1-2 days and if no improvement will increase dose. Repeat CBC, renal panel, and CRP ordered for Wednesday to monitor antibiotic therapy, anemia, and hyperphosphatemia. 01/17/17 - Increase Cozaar to 50 mg daily. 01/19 Doing well. No new problems or concerns. Continue wound vac and wound care. Continue Rocephin + Flagyl. Continue Cozaar at 50mg daily. Weekly CMP, CBC, and CRP ordered. Check BMP on 01/21 secondary to recent MANDY and ARB use. LENY SO MD Jan 19, 2017 17:17
--- NOTE | 2017-01-19 18:50 | NUR ---
no change in status wound vac patent dari minimal amt of light brown fluid.
[2017-01-20 00:22] VITALS: BP 129/80; PULSE 95; RESP 16; TEMP 96.7; O2SAT 97
--- NOTE | 2017-01-20 08:00 | NUR ---
STATUS PT ALERT AND ORIENTED X3. PT DENIED PAIN AND SOA. PT ASSISTED WITH CARE NEEDED. WOUND VAC IN PLACE ORDER. VS CHARTED. SPECIAL MATTRESS IN PLACE. CALL LIGHT WITHIN REACH.
[2017-01-20 08:09] VITALS: BP 141/93; PULSE 81; RESP 15; TEMP 97.3; O2SAT 97
[2017-01-20 08:10] VITALS: PULSE 81; RESP 15
[2017-01-20] MEDS: ASCORBIC ACID 500 MG TABLET PO SCH (08:18)
[2017-01-20] MEDS: METRONIDAZOLE 500 MG TABLET PO SCH ×2 (08:18→20:57)
[2017-01-20] MEDS: VITAMIN B COMP + C TABLET PO SCH (08:18)
[2017-01-20] MEDS: LOSARTAN 50 MG TABLET PO SCH (08:19)
[2017-01-20] MEDS: FERROUS SULFATE 324 MG TABLET PO SCH (08:19)
[2017-01-20] MEDS: POLYETHYL.GLYCOL 3350 PACKET 17gm PO SCH (09:10)
[2017-01-20] MEDS: CEFTRIAXONE 2 G in NORMAL SALINE 100 ML IV SCH (09:20)
[2017-01-20] MEDS: ENOXAPARIN 40 MG/0.4 ML INJECTION SQ SCH (09:21)
[2017-01-20] MEDS: NYSTATIN POWDER 15gm BOTTLE TOP SCH ×4 (11:29→20:57)
--- NOTE | 2017-01-20 13:42 | NUR ---
OT NOTE: OT gave 6# dumbbell to pt a couple weeks ago per request of SARAHI Coley, to help with B UE strength. At that time, pt states feels comfortable with 6# dumbbell and knows what exercises need to be done. OT checked on pt again this date (01/20/17) and pt states is still comfortable with 6# dumbbell, and is performing his own exercises "but not daily". Pt declines any need for reminders to perform exercises and declines any other equipment other than the 6# dumbbell. Will check in again in two weeks. Any questions, please call [phone]. Thank you.
--- NOTE | 2017-01-20 15:09 | PDWOUND ---
Wound Documentation Wound Management Wound : Location Modifier: Right, Upper Wound Location: Thigh Wound Type: Pressure Ulcer Wound Dressing Frequency: three times per week Wound Duration: > one month Wound Dressing Status: FOUND: Changed Wound Drainage Amount: Moderate Wound Drainage Description: Serous Wound Drainage Odor: None/Absent Wound General Appearance: FOUND Muscle Visible Wound Bed: gran red Periwound Description: Clear Wound Length (cm): 2.8 Wound Width (cm): 2.8 Wound Depth (cm): 3.4 Exposed: muscle Wound Cleanser: soap and water Wound Packing Type: FOUND: Black Foam Wound Primary Dressing Type: Clear Adhesive Cover Wound Tunneling : Sinus/Tunnels (cm): 8 Tunneling Location (o'clock): 12 Comments Changed wound vac today. Most measurements smaller except the tunnel remains the same. TATUM RIZO RN Jan 20, 2017 15:08
--- NOTE | 2017-01-20 15:43 | NUR ---
CM SPOKE WITH WOUND CARE; SHE SAID PT WAS SWITCHED TO A NORMAL WOUND VAC BUT SHE WANTS TO ASSESS THE PROGRESS WITH IT ON WEDNESDAY. SPOKE WITH PT. REVIEWED HIS CURRENT PLAN OF CARE AND HE SIGNED IT. DISCUSSED THE POSSIBILITY OF HIM RETURNING HOME ONCE HE IS ON THE REGULAR WOUND VAC AND CONTINUE THE IV ANTIBIOTICS AT HOME OR AT [facility]ION [facility]ENTER. HE SAID HE WOULD BE AGREEABLE TO THIS. REVIEWED THE SPECIALTY MATTRESS AT HOME; HE SAID HE WOULD NOT WANT THIS. HE SAID THE PROBLEM THAT CAUSED THE WOUND WAS HIS OLD POWER CHAIR, AND THIS IS GETTING FIXED SO IT WILL NOT BE A PROBLEM ANYMORE. THIS WORKER OFFERED ACTIVITIES OR ANY TYPE OF ASSISTANCE, AND HE DECLINED THIS. HE SAID HE IS DOING FINE. HE HAD NO QUESTIONS/NEEDS FOR THIS WORKER.
[2017-01-20 16:30] VITALS: BP 129/74; PULSE 98; RESP 16; TEMP 97.9; O2SAT 97
[2017-01-20 20:00] VITALS: PULSE 82; RESP 16
[2017-01-21] VITALS: BP 131/87; PULSE 90; RESP 16; TEMP 97.6; O2SAT 98
--- NOTE | 2017-01-21 05:05 | NUR ---
SHIFT SUMMARY: PT IS A&OX3, FRIENDLY AND COOPERATIVE; SLEPT WELL DURING THE NIGHT, DENIES N/V, CHEST PAIN OR SOA; PT HAS A LEFT UPPER ARM PICC (DOUBLE LUMEN) THAT ASPIRATES AND FLUSHES WELL; PT HAS AN INDWELLING DE SOUZA THAT HAS GOOD OUTPUT; WOUND VAC HAS MINIMAL DRAINAGE; CONTINUOUSLY ROTATING BED. CALL LIGHT WITHIN REACH, BED ALARM ON.
[2017-01-21 05:38] LABS: ANION GAP 15 MEQ/L (5-15); BUN/CREATININE RATIO 24 RATIO (6-26); CALCIUM 8.8 MG/DL (8.4-10.2); CHLORIDE 103 MEQ/L (98-107); CO2 - CARBON DIOXIDE 25 MEQ/L (22-30); CREATININE 0.7 MG/DL (0.8-1.5); GLOMERULAR FILTRATION RATE 126; GLUCOSE 91 MG/DL (75-110); POTASSIUM 4.1 MEQ/L (3.6-5); SODIUM 143 MEQ/L (134-144)
[2017-01-21] MEDS: VITAMIN B COMP + C TABLET PO SCH (08:43)
[2017-01-21] MEDS: METRONIDAZOLE 500 MG TABLET PO SCH ×2 (08:43→21:48)
[2017-01-21] MEDS: ASCORBIC ACID 500 MG TABLET PO SCH (08:43)
[2017-01-21] MEDS: FERROUS SULFATE 324 MG TABLET PO SCH (08:43)
[2017-01-21] MEDS: ENOXAPARIN 40 MG/0.4 ML INJECTION SQ SCH (08:44)
[2017-01-21] MEDS: POLYETHYL.GLYCOL 3350 PACKET 17gm PO SCH (08:44)
[2017-01-21] MEDS: LOSARTAN 50 MG TABLET PO SCH (08:44)
[2017-01-21] MEDS: CEFTRIAXONE 2 G in NORMAL SALINE 100 ML IV SCH (08:45)
[2017-01-21] MEDS: NYSTATIN POWDER 15gm BOTTLE TOP SCH ×4 (08:48→21:47)
[2017-01-21 10:40] VITALS: BP 145/101; PULSE 79; RESP 16; TEMP 97.3; O2SAT 99
--- NOTE | 2017-01-21 15:46 | NUR ---
CM ASSESSMENT COMPLETED WITH PT ON 01-20-17. PT WILL MOST LIKELY NEED ON-GOING WOUND CARE ON AN OUTPT BASIS, AND POSSIBLY IV ANTIBIOTIC ARRANGED AT HOME OR THROUGH THE OUTPT CLINIC. Addendum: 01/21/17 at 1547 by TRINITY BAUTISTA Amended: Links added.
--- NOTE | 2017-01-21 15:51 | NUR ---
CM ASSESSMENT COMPLETED 01-20-17. Addendum: 01/21/17 at 1551 by TRINITY BAUTISTA Amended: Links added.
--- NOTE | 2017-01-21 15:52 | NUR ---
CM ASSESSMENT COMPLETED WITH PT ON 01-20-17 Addendum: 01/21/17 at 1552 by TRINITY BAUTISTA Amended: Links added.
--- NOTE | 2017-01-21 15:52 | NUR ---
CM ASSESSMENT COMPLETED ON 01-20-17 WITH PT Addendum: 01/21/17 at 1553 by TRINITY BAUTISTA Amended: Links added.
--- NOTE | 2017-01-21 15:55 | NUR ---
CM ASSESSMENT COMPLETED WITH PT ON 01-20-17. QUESTION REGARDING TROUBLE FALLING ASLEEP OR STAYING ASLEEP; PT STATED HE HAS A HARD TIME STAYING ASLEEP ONLY BECAUSE OF THE AUTOMATIC TURNING MATTRESS. Addendum: 01/21/17 at 1557 by TRINITY BAUTISTA Amended: Links added.
[2017-01-21 16:00] VITALS: BP 143/99; PULSE 89; RESP 16; TEMP 98; O2SAT 98
--- NOTE | 2017-01-21 19:44 | PNPDOC ---
Subjective Date DATE: 01/21/17 TIME: 19:40 Subjective F/U: Stage 4 pressure ulcer of left buttock Doing well overall, except very tired (usually much more energetic at home). Eating well. Breathing well. No f/c. Objective Vital Signs Vital signs Vital Signs Date Time Temp Pulse Resp B/P Pulse Ox O2 Delivery O2 Flow Rate FiO2 01/21/17 16:00 98.0 89 16 143/99 98 Room Air Height (Feet): 5 Height (Inches): 9.00 Weight (Kilograms): 106.500 General General Appearance: Alert, Obese, Orientated x 3, Well Nourished, Well Developed, Cooperative, Looks Stated Age Eyes (Brief) Eyes: FOUND: EOMI, PERRL, NOT FOUND: scleral icterus ENMT (Brief) ENMT: FOUND: hearing intact, mucosa moist Neck (Brief) Neck: FOUND: midline, NOT FOUND: nuchal rigidity, spasm Respiratory (Brief) Respiratory: FOUND: clear all burroughs, equal bilaterally, NOT FOUND: rales, wheezes Cardiovascular (Brief) Cardiac: FOUND: regular rate, regular rhythm Abdomen (Brief) Abdominal: FOUND: BS normo active x4, soft, NOT FOUND: distended, tender Psychiatric (Brief) Psychiatric: FOUND: alert, attentive, normal affect, oriented Laboratory Laboratory Laboratory Tests 01/21/17 05:13 Assessment & Plan Problems: (1) Pressure ulcer of left buttock, stage 4 Assessment & Plan: Possible osteomyelitis, Rocephin and Flagyl through 02/04/17 (2) Hypertension Status: Acute (3) Hyperphosphatemia Status: Acute (4) Microcytic anemia Status: Chronic Assessment & Plan: Iron deficiency anemia. Iron 12, TIBC 325, saturation 4% on 12/25/16. Continue ferrous sulfate (5) Paraplegia at T9 level Status: Chronic (6) Neurogenic bladder Status: Chronic (7) Neurogenic bowel Status: Chronic (8) Chronic urinary tract infection Status: Chronic (9) Obesity (BMI 30-39.9) Status: Chronic (10) Thrombocytosis Status: Chronic Assessment & Plan: c/w iron deficiency (11) E. coli UTI Status: Resolved (12) MANDY (acute kidney injury) Status: Resolved (13) Sepsis Status: Resolved (14) Hypernatremia Status: Resolved Plan/Intensity of Service Continue wound vac and wound care. Wound vac change tomorrow - may need to return to the prior vac if not healing. Continue Rocephin + Flagyl. Continue Cozaar at 50mg daily. Weekly CMP, CBC, and CRP ordered. Check BMP on 01/21 secondary to recent MANDY and ARB use. DVT Prophylaxis: SCD'S, Lovenox Code Status Full Code Hospital Course Summary Disclaimer The hospital course summary below is not to be considered part of the above Progress Note. Hospital Course Summary 01/12/17 - Admitted to swing bed status under the hospitalist service. Hospitalized from 12/27/16 through 01/11/17 as an inpatient at [facility] [place]. 1. Right ischial stage IV decub ulcer with possible osteomyelitis -Continue Rocephin and Flagyl through 02/04/[address] Palma. -Wound care and wound VAC management per Dr. Tyson. 2. T9 paraplegia with neurogenic bowel and bladder. -Pinto catheter in place. 3. Recent sepsis and Escherichia coli UTI - resolved 4. Recent acute kidney injury thought to be secondary to vancomycin administration - resolved. 5. Hyperphosphatemia -Hold PhosLo for now. -Check phosphorus level tomorrow morning, along with CBC and BMP 6. Iron deficiency anemia -Continue ferrous sulfate and vitamin C 01/13/17-Divine Tolerating antibiotics well, continue same for probable osteomyelitis/wound infection. Wound care notes reviewed, good granulation tissue described and wound on the right upper thigh measured 4.2 x 3.6 x 5.6 cm today. Renal function has improved from acute stay and sodium has normalized. Mild hyperphosphatemia persists, continue PhosLo and reassess early next week. Hemoglobin stable, known iron deficiency with anemia developing since March 2016. Patient denies chronic indigestion or heartburn but requires chronic digital stimulation for bowel movements. He is unaware of any chronic rectal bleeding however and has never had a colonoscopy. May need to pursue in the future if ongoing anemia. Denies family history of colon cancer or other chronic bowel disease. 01/14/17 Right ischial stage IV decub ulcer with possible osteomyelitis-Continue Rocephin and Flagyl through 02/04/17 MANDY resolved and renal function at baseline Elevated BP - will discuss starting an AntiHTN with Dr. Haskins. 01/16/17 Doing well. Blood pressure remains moderately elevated with readings 133/77-169/90 over the past 24 hours. Continue to monitor on low-dose Cozaar for an additional 1-2 days and if no improvement will increase dose. Repeat CBC, renal panel, and CRP ordered for Wednesday to monitor antibiotic therapy, anemia, and hyperphosphatemia. 01/17/17 - Increase Cozaar to 50 mg daily. 01/19 Doing well. No new problems or concerns. Continue wound vac and wound care. Continue Rocephin + Flagyl. Continue Cozaar at 50mg daily. Weekly CMP, CBC, and CRP ordered. Check BMP on 01/21 secondary to recent MANDY and ARB use. 01/21 Doing well overall, except very tired (usually much more energetic at home). Eating well. Breathing well. No f/c. Continue wound vac and wound care. Wound vac change tomorrow - may need to return to the prior vac if not healing. Continue Rocephin + Flagyl. Continue Cozaar at 50mg daily. Weekly CMP, CBC, and CRP ordered. LENY SO MD Jan 21, 2017 19:44
[2017-01-21 23:30] VITALS: PULSE 83; RESP 16
--- NOTE | 2017-01-21 23:32 | NUR ---
status Pt A/O x3, V/S stable on RA. Wound vac intact, no leaks, minimal drainage. Pt denies pain and no PRN meds given. Pt eating well. Pinto to DD, good output.
[2017-01-22] VITALS: BP 132/83; PULSE 83; RESP 18; TEMP 97.8; O2SAT 97
--- NOTE | 2017-01-22 06:31 | NUR ---
SHIFT SUMMARY PT A&O X3. PT ON RA. PT DENIES PAIN. PT HAS WOUND VAC NO COMPLICATION MINIMAL DRAINAGE DRESSING INTACT. NO PAIN NO PRNS GIVEN PT SLEPT WELL THROUGH THE NIGHT. PT HAD SMALL SMEAR BM. PT HAS PATENT DE SOUZA WITH GOOD OUTPUT. PT ABLE TO MAKE NEEDS KNOWN.
--- NOTE | 2017-01-22 06:56 | NUR ---
REPORT HANDOFF REPORT TO [facility].
[2017-01-22 08:35] VITALS: BP 137/92; PULSE 73; RESP 15; TEMP 97.3; O2SAT 100
[2017-01-22] MEDS: POLYETHYL.GLYCOL 3350 PACKET 17gm PO SCH (09:22)
[2017-01-22] MEDS: LOSARTAN 50 MG TABLET PO SCH (09:23)
[2017-01-22] MEDS: FERROUS SULFATE 324 MG TABLET PO SCH (09:23)
[2017-01-22] MEDS: METRONIDAZOLE 500 MG TABLET PO SCH ×2 (09:23→23:15)
[2017-01-22] MEDS: NYSTATIN POWDER 15gm BOTTLE TOP SCH ×4 (09:23→23:15)
[2017-01-22] MEDS: ASCORBIC ACID 500 MG TABLET PO SCH (09:23)
[2017-01-22] MEDS: ENOXAPARIN 40 MG/0.4 ML INJECTION SQ SCH (09:23)
[2017-01-22] MEDS: VITAMIN B COMP + C TABLET PO SCH (09:23)
[2017-01-22] MEDS: CEFTRIAXONE 2 G in NORMAL SALINE 100 ML IV SCH (09:24)
[2017-01-22] MEDS: NS 500 ML IV PRN (09:24)
--- NOTE | 2017-01-22 11:34 | NUR ---
CM SPOKE WITH WOUND CARE; SHE SAID PT WILL BE SWITCHED BACK TO THE SPECIAL WOUND VAC.
[2017-01-22] MEDS: NORMAL SALINE 1,000 ML IV PRN (12:00)
--- NOTE | 2017-01-22 12:00 | NUR ---
wound Dressing changed today with 2 students and wound RN. Pt tolerated well. Dressing C/D/I, back on NS flushing through. Addendum: 01/22/17 at 1618 by ASHLEE BREWSTER RN back on [place] wound vac 40ml w/ NS
--- NOTE | 2017-01-22 12:45 | PDWOUND ---
Wound Documentation Wound Management Wound : Location Modifier: Right, Upper Wound Location: Thigh Wound Type: Pressure Ulcer Wound Dressing Frequency: three times per week Wound Duration: > one month Wound Dressing Status: FOUND: Changed Wound Drainage Amount: Moderate Wound Drainage Description: Serous Wound Drainage Odor: None/Absent Wound General Appearance: FOUND Muscle Visible Wound Bed: gran red Periwound Description: Clear Wound Length (cm): 3.2 Wound Width (cm): 2.5 Wound Depth (cm): 3.5 Exposed: muscle Wound Cleanser: soap and water Wound Solution/Irrigant: Saline Irrigant Wound Packing Type: FOUND: Black Foam Wound Primary Dressing Type: Clear Adhesive Cover Wound Tunneling : Sinus/Tunnels (cm): 8 Tunneling Location (o'clock): 12 Comments Changed pt back to [place] hospital settings 40ml instill, 15mins dwell and q 1 hr. Will reassess Wednesday, pt continues to be on a LALM on rotation. TATUM RIZO RN Jan 22, 2017 12:45
[2017-01-22 16:00] VITALS: BP 144/90; PULSE 108; RESP 16; TEMP 97.9; O2SAT 100
--- NOTE | 2017-01-22 18:39 | NUR ---
status Pt A/O x3, V/S stable on RA. No air leaks or wetness around new dressing on buttock. Wound vac suction to 150 with NS flush bag hanging. Pt denies any pain and no PRN meds given. Bed rotating him q30min, except for meals. Pt did have a copious BM, wick to DD with good output. 2 PICC flushing well, red port harder to aspirate, positional. Pt eating well, no N/V noted.
[2017-01-23] VITALS: BP 134/84; PULSE 93; RESP 18; TEMP 97.4; O2SAT 99
--- NOTE | 2017-01-23 05:32 | NUR ---
SUMMARY PT ALERT AND ORIENTED, VSS, DE SOUZA PATENT TO DD AND DRAINING YELLOW URINE GOOD OUTPUT. WOUND VAC SET TO INTERMITTED SUCTION WITH SALINE FLUSH, CANISTER CHANGED. DOUBLE LUMEN PICC LINE TO UPPER LEFT ARM BOTH LUMENS FLUSH AND ASPIRATE WELL. PT IN GOOD SPIRITS THIS SHIFT, FAMILY WAS AT BEDSIDE TILL AROUND 2300 LAST NIGHT.
[2017-01-23 08:40] VITALS: BP 147/94; PULSE 76; RESP 16; TEMP 96.9; O2SAT 99
[2017-01-23] MEDS: POLYETHYL.GLYCOL 3350 PACKET 17gm PO SCH (09:00)
[2017-01-23] MEDS: ENOXAPARIN 40 MG/0.4 ML INJECTION SQ SCH (09:00)
[2017-01-23] MEDS: NYSTATIN POWDER 15gm BOTTLE TOP SCH ×4 (09:00→21:11)
[2017-01-23] MEDS: CEFTRIAXONE 2 G in NORMAL SALINE 100 ML IV SCH (09:00)
[2017-01-23] MEDS: METRONIDAZOLE 500 MG TABLET PO SCH ×2 (09:01→21:11)
[2017-01-23] MEDS: VITAMIN B COMP + C TABLET PO SCH (09:01)
[2017-01-23] MEDS: LOSARTAN 50 MG TABLET PO SCH (09:01)
[2017-01-23] MEDS: ASCORBIC ACID 500 MG TABLET PO SCH (09:01)
[2017-01-23] MEDS: FERROUS SULFATE 324 MG TABLET PO SCH (09:01)
[2017-01-23] MEDS: NORMAL SALINE 1,000 ML IV PRN (10:51)
[2017-01-23 16:00] VITALS: BP 136/88; PULSE 89; RESP 14; TEMP 96.8; O2SAT 98
--- NOTE | 2017-01-23 18:15 | PNPDOC ---
Subjective Date DATE: 01/23/17 TIME: 18:03 Subjective He reports he is doing well. He denies dyspnea, nausea, or pain. Wound VAC was changed back to Veracleanse yesterday Objective Vital Signs Vital signs Vital Signs Date Time Temp Pulse Resp B/P Pulse Ox O2 Delivery O2 Flow Rate FiO2 01/23/17 16:00 96.8 89 14 136/88 98 Room Air NAD, alert, fluent speech Respirations nonlabored, anterior lung burroughs clear Regular cardiac rhythm, S1-S2 Abdomen soft and nontender Height (Feet): 5 Height (Inches): 9.00 Weight (Kilograms): 107.600 Assessment & Plan Problems: (1) Pressure ulcer of right buttock, stage 4 Status: Acute Assessment & Plan: Polymicrobial with osteomyelitis, Rocephin and Flagyl through 02/04/17 (2) Osteomyelitis Status: Acute Qualifiers: Laterality: left Assessment & Plan: Right ischium (3) Hypertension Status: Acute (4) Hyperphosphatemia Status: Acute (5) Microcytic anemia Status: Chronic Assessment & Plan: Iron deficiency anemia. Iron 12, TIBC 325, saturation 4% on 12/25/16. Continue ferrous sulfate (6) Paraplegia at T9 level Status: Chronic (7) Neurogenic bladder Status: Chronic (8) Neurogenic bowel Status: Chronic (9) Chronic urinary tract infection Status: Chronic (10) Obesity (BMI 30-39.9) Status: Chronic (11) Thrombocytosis Status: Resolved Assessment & Plan: c/w iron deficiency (12) E. coli UTI Status: Resolved (13) MANDY (acute kidney injury) Status: Resolved (14) Sepsis Status: Resolved (15) Hypernatremia Status: Resolved Assessment Stable. Continues to require inpatient care for wound VAC being utilized. Recheck labs on Wednesday to monitor antibiotic use. Blood pressure improved with losartan. Plan/Intensity of Service Recent laboratory data reviewed, wound care notes reviewed. Code Status Full Code Hospital Course Summary Disclaimer The hospital course summary below is not to be considered part of the above Progress Note. Hospital Course Summary 01/12/17 - Admitted to swing bed status under the hospitalist service. Hospitalized from 12/27/16 through 01/11/17 as an inpatient at [facility]. 1. Right ischial stage IV decub ulcer with possible osteomyelitis -Continue Rocephin and Flagyl through 02/04/[address] Palma. -Wound care and wound VAC management per Dr. Tyson. 2. T9 paraplegia with neurogenic bowel and bladder. -Pinto catheter in place. 3. Recent sepsis and Escherichia coli UTI - resolved 4. Recent acute kidney injury thought to be secondary to vancomycin administration - resolved. 5. Hyperphosphatemia -Hold PhosLo for now. -Check phosphorus level tomorrow morning, along with CBC and BMP 6. Iron deficiency anemia -Continue ferrous sulfate and vitamin C 01/13/17-Divine Tolerating antibiotics well, continue same for probable osteomyelitis/wound infection. Wound care notes reviewed, good granulation tissue described and wound on the right upper thigh measured 4.2 x 3.6 x 5.6 cm today. Renal function has improved from acute stay and sodium has normalized. Mild hyperphosphatemia persists, continue PhosLo and reassess early next week. Hemoglobin stable, known iron deficiency with anemia developing since March 2016. Patient denies chronic indigestion or heartburn but requires chronic digital stimulation for bowel movements. He is unaware of any chronic rectal bleeding however and has never had a colonoscopy. May need to pursue in the future if ongoing anemia. Denies family history of colon cancer or other chronic bowel disease. 01/14/17 Right ischial stage IV decub ulcer with possible osteomyelitis-Continue Rocephin and Flagyl through 02/04/17 MANDY resolved and renal function at baseline Elevated BP - will discuss starting an AntiHTN with Dr. Haskins. 01/16/17 Doing well. Blood pressure remains moderately elevated with readings 133/77-169/90 over the past 24 hours. Continue to monitor on low-dose Cozaar for an additional 1-2 days and if no improvement will increase dose. Repeat CBC, renal panel, and CRP ordered for Wednesday to monitor antibiotic therapy, anemia, and hyperphosphatemia. 01/17/17 - Increase Cozaar to 50 mg daily. 01/19 Doing well. No new problems or concerns. Continue wound vac and wound care. Continue Rocephin + Flagyl. Continue Cozaar at 50mg daily. Weekly CMP, CBC, and CRP ordered. Check BMP on 01/21 secondary to recent MANDY and ARB use. 01/21 Doing well overall, except very tired (usually much more energetic at home). Eating well. Breathing well. No f/c. Continue wound vac and wound care. Wound vac change tomorrow - may need to return to the prior vac if not healing. Continue Rocephin + Flagyl. Continue Cozaar at 50mg daily. Weekly CMP, CBC, and CRP ordered. 01/23/17 Stable. Continues to require inpatient care for wound VAC being utilized. Recheck labs on Wednesday to monitor antibiotic use. Blood pressure improved with losartan. BLAKE HASKINS MD Jan 23, 2017 18:06
--- NOTE | 2017-01-23 19:12 | NUR ---
status Pt A/O x3, V/S stable on RA. Pinto to DD with good output, no BM today. Pt denies pain and no PRN meds given. Eating well, denies N/V. PICC flushing and aspirating well with blood return. Wound vac canister changed, no leaks or fluid. Pt has no new concerns.
[2017-01-23 23:16] VITALS: BP 140/92; PULSE 98; RESP 14; TEMP 98.5; O2SAT 97
--- NOTE | 2017-01-24 04:40 | NUR ---
SUMMARY PT ALERT AND ORIENTED. VSS. DOUBLE LUMEN PICC IN THE UPPER LEFT ARM BOTH PORTS FLUSH AND ASPIRATE WELL. DENIES PAIN, DENIES SOA. DE SOUZA IN PLACE AND DRAINING YELLOW URINE. CANISTER ON WOUND VAC CHANGED.
[2017-01-24 08:00] VITALS: BP 134/92; PULSE 81; RESP 16; TEMP 96.8; O2SAT 98
[2017-01-24] MEDS: ASCORBIC ACID 500 MG TABLET PO SCH (09:32)
[2017-01-24] MEDS: POLYETHYL.GLYCOL 3350 PACKET 17gm PO SCH (09:32)
[2017-01-24] MEDS: NS 500 ML IV PRN (09:32)
[2017-01-24] MEDS: LOSARTAN 50 MG TABLET PO SCH (09:33)
[2017-01-24] MEDS: METRONIDAZOLE 500 MG TABLET PO SCH ×2 (09:33→21:54)
[2017-01-24] MEDS: NYSTATIN POWDER 15gm BOTTLE TOP SCH ×4 (09:33→21:54)
[2017-01-24] MEDS: VITAMIN B COMP + C TABLET PO SCH (09:33)
[2017-01-24] MEDS: CEFTRIAXONE 2 G in NORMAL SALINE 100 ML IV SCH (09:34)
[2017-01-24] MEDS: ENOXAPARIN 40 MG/0.4 ML INJECTION SQ SCH (09:34)
[2017-01-24] MEDS: FERROUS SULFATE 324 MG TABLET PO SCH (09:34)
[2017-01-24] MEDS: NORMAL SALINE 1,000 ML IV PRN (13:16)
[2017-01-24 15:51] VITALS: BP 134/91; PULSE 92; RESP 18; TEMP 97.6; O2SAT 99
--- NOTE | 2017-01-24 18:38 | NUR ---
status Pt A/O x3, V/S stable on RA. Pt eating and drinking well, no N/V noted. Pt denies pain at this time, no PRN meds given. Pinto to DD good output, no BM today. Pt was taken by bed to ER door way to receive fresh air, pt stated it did a lot for his mental health. No new concerns at this time.
[2017-01-24 23:44] VITALS: BP 139/92; PULSE 103; RESP 22; TEMP 98.3; O2SAT 98
[2017-01-25] VITALS (24 sets, daily range): BP systolic 110–154; BP diastolic 56–93; PULSE 83–108; RESP 10–20; TEMP 96.2–98.3; O2SAT 93–100
[2017-01-25 04:42] LABS: BASOPHILS % (AUTO) 0.4 % (0-2); EOSINOPHILS # (AUTO) 0.3 T/MM3 (0-0.5); EOSINOPHILS % (AUTO) 3.9 % (0-4); HGB - HEMOGLOBIN 10.9 GM/DL (13.5-17.5); IMMATURE GRANULOCYTE # (AUTO) 0.01 T/MM3 (0.00-0.03); IMMATURE GRANULOCYTE % (AUTO) 0.1 % (0.0-0.5); LYMPHOCYTES # (AUTO) 2.8 T/MM3 (1-4.8); LYMPHOCYTES % (AUTO) 41.2 % (23-45); MEAN CORPUSCULAR HGB 26.2 UUG (26-34); MEAN CORPUSCULAR HGB CONC(MCHC 32.1 GM/DL (31-37); MEAN CORPUSCULAR VOLUME 81.7 UM3 (80-100); MEAN PLATELET VOLUME 10.2 UM3 (9.4-12.4); MONOCYTES # (AUTO) 0.7 T/MM3 (0-0.8); MONOCYTES % (AUTO) 9.8 % (0-9.0); NEUTROPHILS #(AUTO)-ABSOLUTE 3.1 T/MM3 (1.8-7.7); NEUTROPHILS % (AUTO) 44.6 % (33-66); RED BLOOD COUNT 4.16 M/MM3 (4.50-5.90); WBC - WHITE BLOOD COUNT 6.9 T/MM3 (4.5-11.0)
[2017-01-25 04:56] LABS: ALBUMIN 3.3 G/DL (3.5-5.0); ALBUMIN/GLOBULIN RATIO 0.9 RATIO (1.1-2.2); ALKALINE PHOSPHATASE 72 U/L (38-126); ALT (SGPT) 43 U/L (21-72); ANION GAP 12 MEQ/L (5-15); AST (SGOT) 29 U/L (17-59); BUN/CREATININE RATIO 33 RATIO (6-26); C-REACTIVE PROTEIN 11.4 MG/L (0-9); CALCIUM 8.7 MG/DL (8.4-10.2); CHLORIDE 106 MEQ/L (98-107); CO2 - CARBON DIOXIDE 25 MEQ/L (22-30); CREATININE 0.6 MG/DL (0.8-1.5); GLOMERULAR FILTRATION RATE 150; GLUCOSE 93 MG/DL (75-110); POTASSIUM 4.3 MEQ/L (3.6-5); SODIUM 143 MEQ/L (134-144)
[2017-01-25 05:15] LABS: PHOSPHORUS 4.9 MG/DL (2.5-4.5)
--- NOTE | 2017-01-25 05:27 | NUR ---
summary pt is a&o x3. room air. vss. denies pain, n/v, soa. small bm this shift. wick patent, good output. no new concerns.
[2017-01-25] MEDS: VITAMIN B COMP + C TABLET PO SCH (08:52)
[2017-01-25] MEDS: CEFTRIAXONE 2 G in NORMAL SALINE 100 ML IV SCH (08:52)
[2017-01-25] MEDS: ENOXAPARIN 40 MG/0.4 ML INJECTION SQ SCH (08:52)
[2017-01-25] MEDS: METRONIDAZOLE 500 MG TABLET PO SCH ×2 (08:52→21:37)
[2017-01-25] MEDS: POLYETHYL.GLYCOL 3350 PACKET 17gm PO SCH (08:52)
[2017-01-25] MEDS: FERROUS SULFATE 324 MG TABLET PO SCH (08:53)
[2017-01-25] MEDS: ASCORBIC ACID 500 MG TABLET PO SCH (08:53)
[2017-01-25] MEDS: LOSARTAN 50 MG TABLET PO SCH (08:53)
[2017-01-25] MEDS: NYSTATIN POWDER 15gm BOTTLE TOP SCH ×4 (08:53→21:38)
--- NOTE | 2017-01-25 10:41 | PDWOUND ---
Wound Documentation Wound Management Wound : Location Modifier: Right, Upper Wound Location: Thigh Wound Type: Pressure Ulcer Wound Dressing Frequency: three times per week Wound Duration: > one month Wound Dressing Status: FOUND: Changed Wound Drainage Amount: Moderate Wound Drainage Description: Serous Wound Drainage Odor: None/Absent Wound General Appearance: FOUND Muscle Visible Wound Bed: gran red Periwound Description: Clear Wound Length (cm): 3.2 Wound Width (cm): 2.8 Wound Depth (cm): 2.8 Exposed: muscle Wound Cleanser: soap and water Wound Solution/Irrigant: Saline Irrigant Wound Packing Type: FOUND: Black Foam Wound Primary Dressing Type: Clear Adhesive Cover Wound Tunneling : Sinus/Tunnels (cm): 8 Tunneling Location (o'clock): [address] Tyson in and at this time will take pt to OR to assess tunnel. Wound Vac off however, will be replaced after OR. TATUM RIZO RN Jan 25, 2017 10:33
--- NOTE | 2017-01-25 17:52 | PNPDOC ---
Subjective Date DATE: 01/25/17 TIME: 17:46 Subjective F/U: Stage 4 pressure ulcer of left buttock Doing well today. Anticipating wound exploration with Dr Tyson this evening. NPO for Sx-feeling hungry. Breathing well. No ab pain or nausea. Objective Vital Signs Vital signs Vital Signs Date Time Temp Pulse Resp B/P Pulse Ox O2 Delivery O2 Flow Rate FiO2 01/25/17 15:41 97.7 96 16 147/93 100 Room Air Height (Feet): 5 Height (Inches): 9.00 Weight (Kilograms): 108.200 General General Appearance: Alert, Obese, Orientated x 3, Well Nourished, Well Developed, Cooperative, Looks Stated Age Eyes (Brief) Eyes: FOUND: EOMI, PERRL, NOT FOUND: scleral icterus ENMT (Brief) ENMT: FOUND: hearing intact, mucosa moist Neck (Brief) Neck: FOUND: midline, NOT FOUND: nuchal rigidity, spasm Respiratory (Brief) Respiratory: FOUND: clear all burroughs, equal bilaterally, NOT FOUND: rales, wheezes Cardiovascular (Brief) Cardiac: FOUND: regular rate, regular rhythm Abdomen (Brief) Abdominal: FOUND: BS normo active x4, soft, NOT FOUND: distended, tender Neurologic (Brief) Neurological: FOUND: cranial 2-12 intact, motor (Upper ext intact ) Psychiatric (Brief) Psychiatric: FOUND: alert, attentive, normal affect, oriented Laboratory Laboratory Laboratory Tests 01/25/17 04:04 Laboratory Tests 01/25/17 04:04 Assessment & Plan Problems: (1) Pressure ulcer of right buttock, stage 4 Status: Acute Assessment & Plan: Polymicrobial with osteomyelitis, Rocephin and Flagyl through 02/04/17 (2) Osteomyelitis Status: Acute Qualifiers: Laterality: left Assessment & Plan: Right ischium (3) Hypertension Status: Acute (4) Hyperphosphatemia Status: Acute (5) Microcytic anemia Status: Chronic Assessment & Plan: Iron deficiency anemia. Iron 12, TIBC 325, saturation 4% on 12/25/16. Continue ferrous sulfate (6) Paraplegia at T9 level Status: Chronic (7) Neurogenic bladder Status: Chronic (8) Neurogenic bowel Status: Chronic (9) Chronic urinary tract infection Status: Chronic (10) Obesity (BMI 30-39.9) Status: Chronic (11) Thrombocytosis Status: Resolved Assessment & Plan: c/w iron deficiency (12) E. coli UTI Status: Resolved (13) MANDY (acute kidney injury) Status: Resolved (14) Sepsis Status: Resolved (15) Hypernatremia Status: Resolved Plan/Intensity of Service Wound exploration today. Anticipate replacement of Varacleans post exploration. Continue Rocephin and metronidazole for antimicrobial coverage. BP and lab stable on valsartan. Encourage upper ext activities to help strength. Continue supportive care on Swing bed. DVT Prophylaxis: Lovenox Code Status Full Code Hospital Course Summary Disclaimer The hospital course summary below is not to be considered part of the above Progress Note. Hospital Course Summary 01/12/17 - Admitted to swing bed status under the hospitalist service. Hospitalized from 12/27/16 through 01/11/[address] [facility]. 1. Right ischial stage IV decub ulcer with possible osteomyelitis -Continue Rocephin and Flagyl through 02/04/[address] Palma. -Wound care and wound VAC management per Dr. Tyson. 2. T9 paraplegia with neurogenic bowel and bladder. -Pinto catheter in place. 3. Recent sepsis and Escherichia coli UTI - resolved 4. Recent acute kidney injury thought to be secondary to vancomycin administration - resolved. 5. Hyperphosphatemia -Hold PhosLo for now. -Check phosphorus level tomorrow morning, along with CBC and BMP 6. Iron deficiency anemia -Continue ferrous sulfate and vitamin C 01/13/17-Divine Tolerating antibiotics well, continue same for probable osteomyelitis/wound infection. Wound care notes reviewed, good granulation tissue described and wound on the right upper thigh measured 4.2 x 3.6 x 5.6 cm today. Renal function has improved from acute stay and sodium has normalized. Mild hyperphosphatemia persists, continue PhosLo and reassess early next week. Hemoglobin stable, known iron deficiency with anemia developing since March 2016. Patient denies chronic indigestion or heartburn but requires chronic digital stimulation for bowel movements. He is unaware of any chronic rectal bleeding however and has never had a colonoscopy. May need to pursue in the future if ongoing anemia. Denies family history of colon cancer or other chronic bowel disease. 01/14/17 Right ischial stage IV decub ulcer with possible osteomyelitis-Continue Rocephin and Flagyl through 02/04/17 MANDY resolved and renal function at baseline Elevated BP - will discuss starting an AntiHTN with Dr. Haskins. 01/16/17 Doing well. Blood pressure remains moderately elevated with readings 133/77-169/90 over the past 24 hours. Continue to monitor on low-dose Cozaar for an additional 1-2 days and if no improvement will increase dose. Repeat CBC, renal panel, and CRP ordered for Wednesday to monitor antibiotic therapy, anemia, and hyperphosphatemia. 01/17/17 - Increase Cozaar to 50 mg daily. 01/19 Doing well. No new problems or concerns. Continue wound vac and wound care. Continue Rocephin + Flagyl. Continue Cozaar at 50mg daily. Weekly CMP, CBC, and CRP ordered. Check BMP on 01/21 secondary to recent MANDY and ARB use. 01/21 Doing well overall, except very tired (usually much more energetic at home). Eating well. Breathing well. No f/c. Continue wound vac and wound care. Wound vac change tomorrow - may need to return to the prior vac if not healing. Continue Rocephin + Flagyl. Continue Cozaar at 50mg daily. Weekly CMP, CBC, and CRP ordered. 01/23/17 Stable. Continues to require inpatient care for wound VAC being utilized. Recheck labs on Wednesday to monitor antibiotic use. Blood pressure improved with losartan. 01/25 Doing well today. Anticipating wound exploration with Dr Tyson this evening. NPO for Sx-feeling hungry. Breathing well. No ab pain or nausea. Wound exploration today. Anticipate replacement of Varacleans post exploration. Continue Rocephin and metronidazole for antimicrobial coverage. BP and lab stable on valsartan. Encourage upper ext activities to help strength. Continue supportive care on Swing bed. LENY SO MD Jan 25, 2017 17:51
--- NOTE | 2017-01-25 18:24 | NUR ---
PATIENT TO OR
[2017-01-25] MEDS ORDERED: BUPIVACAINE 0.25%/EPI 1:200,000 30ml SDV ONE (18:25)
--- NOTE | 2017-01-25 18:26 | NUR ---
SHIFT SUMMARY VSS. RA. DENIES PAIN. WOUND VAC CURRENTLY OFF UNTIL TOMORROW DUE TO DEBRIDEMENT THIS EVENING. NPO MOST OF DAY FOR DEBRIDEMENT, GOOD BREAKFAST INTAKE. GOOD URINE OUTPUT IN DE SOUZA. BM TODAY. DOUBLE LUMEN PICC CONTINUES TO FLUSH AND ASPIRATE WELL.
--- NOTE | 2017-01-25 18:37 | ANESPREOP ---
Anesthesia Record Date and Time DATE: 01/25/17 TIME: 18:31 Proposed Surgical Procedure wound exploration on buttocks Allergies: Coded Allergies: piperacillin (Verified Allergy, Intermediate, acute interstitial nephritis , 01/11/17) tazobactam (Verified Allergy, Intermediate, acute interstitial nephritis, 01/11/17) cephalexin (Verified Allergy, Unknown, HIVES, 07/10/16) levofloxacin (Verified Adverse Reaction, Unknown, SEVERE GI DISTRESS, 12/25) Ht/Wt/BMI Height: 5 ' 9.00 " Weight: kg BMI: kg/m2 Medications Acetaminophen (Tylenol Extra Strength) 500 Mg Tablet, 500 MG PO Q4H PRN for PAIN Ascorbic Acid (Vitamin C) 500 Mg Tablet, 500 MG PO WB Bisacodyl (Bisacodyl) 10 Mg Supp.rect, 10 MG RECTALLY DAILY PRN for CONSTIPATION Ceftriaxone Na/Dextrose,Iso (Ceftriaxone 2 gm Piggyback) 2 Gm/50 Ml Froz.piggy, 2 G IV DAILY Ferrous Sulfate (Ferrous Sulfate) 324 Mg Tablet.dr, 324 MG PO WB Magnesium Hydroxide (Milk of Magnesia) 400 Mg/5 Ml Oral.susp, 30 ML PO BID PRN for CONSTIPATION Metronidazole (Flagyl) 500 Mg Tablet, 500 MG PO Q12HR Nystatin (Nystatin) 50,000,000 Unit Powder.ea., 1 APPLIC TOP QID Polyethylene Glycol 3350 (Healthylax) 17 Gm Powd.pack, 17 G PO DAILY Vitamin B Comp W-C (Total B with C) 1 Tab Tablet, 1 TAB PO DAILY [Calcium Acetate] 667 MG CAPSULE, 1,334 MG PO TIDWM Currently on Beta Rod: No Medical/Surgical History Anesthesia PMH: Reports: *Hypertension (at times), Back Problems (rods back), Blood Transfusion Reac, Obesity (morbidly), Sleep Apnea (per patient, but not diagnosed ), Denies: *Diabetes, *HI, Anesthesia Reactions (NO AIRWAY ISSUES), Asthma, CHF, COPD, CVA/Stroke/TIA, Cancer, Clotting Problems, Deep Vein Thrombosis, Glaucoma, Pacemaker, Renal Disease, Seizures Smoking Status: Never smoker Use Chewing Tobacco?: No Substance Use Type: does not use Alcohol Intake: none Last Drink: hours (ago) (8) Past Surgical History Orthopedic Surgeries: Yes - rods in back Abdominal Surgeries: No Genitourinary Surgeries: No Cardiac Surgeries: No Endocrine Surgeries: No Reproductive Surgeries: No Neurological Surgeries: No Ear Surgeries: No Nose Surgeries: No Throat Surgeries: No Other Surgeries: Yes - plastic surgery from buttocks pressure ulcer Anesthesia Adverse Reactions: FOUND none Family Hx of Anesthesia Advers: none Hx of Motion Sickness: No Physical Exam Respiratory: Lungs clear Cardiovascular: FOUND Regular rate, rhythm Airway Assessment Mallampati Score: II TMD: 3 Fingerbreadths Neck Extension: Good Overall Assessment: No Airway Concerns ASA: 3 Plan Anesthesia Plan: MAC Discussion Discussed risks/options/alternatives of anesthesia and questions answered. Patient consents. Nursing pain assessment noted. Attestation Statement Prior to the delivery of any anesthetic medication, I examined the patient, developed the plan, obtained the patient's consent and discussed the risk and benefits of the procedure with the patient/guardian. KARI PEREZ CRNA Jan 25, 2017 18:37
[2017-01-25] MEDS ORDERED: LR 1,000 ML IV PRN (18:44)
[2017-01-25] MEDS ORDERED: ONDANSETRON ODT 4 MG TAB PO PRN (18:45)
--- NOTE | 2017-01-25 19:13 | GSPOSTPROC ---
Immediate Operative Note DATE: 01/25/17 TIME: 19:12 Postop Diagnosis: Stage 4 pressure ulcer tight ischium Surgery Type: Open Surgery Lateral: Right Surgical Procedure: Other (debridement of stage 4 pressure ulcer right ischium) Surgeon: SHARRI Grande APRN Jan 25, 2017 19:13
--- NOTE | 2017-01-25 19:48 | ANESPO ---
Post-Op Note Date 01/25/17 Time: 19:47 Status Pt Participated in Evaluation: Pt participated in person Respiratory Function: Airway patent, Regular respirations Cardiovascular Function: Regular pulse Mental Status: Alert/oriented Pain Level Intensity: 0 Hydration: IV infusing Complications during Recovery None apparent Follow-Up Instructions Instructions Per Surgeon DARVIN OLIVARES CRNA Jan 25, 2017 19:48
--- NOTE | 2017-01-25 20:15 | NUR ---
STATUS PT BACK IN THE ROOM FROM WOUND DEBRIDEMENT. WOUND DRESSING ON HIS RIGHT ISCHIUM INTACT. NO BLEEDING NOTED. FAMILY AT BEDSIDE. PT ALERT AND ORIENTED. DENIED ANY PAIN BECAUSE HE DOESN'T HAVE ANY FEELING ON HIS LOWER SIDE. EATING HIS PIZZA AT THE MOMENT. WILL CONTINUE TO MONITOR.
[2017-01-26] VITALS (8 sets, daily range): BP systolic 123–135; BP diastolic 56–81; PULSE 86–124; RESP 18–20; TEMP 96.3–98.1; O2SAT 97–99
--- NOTE | 2017-01-26 06:29 | NUR ---
SUMMARY PT HAS NO CHANGES THIS SHIFT. SLEPT WELL ALL NIGHT. NO COMPLAIN OF PAIN. WOUND DRESSING INTACT. PT IS A&O. ABLE TO VOICE NEEDS TO THE STAFFS. BED REPOSITIONS THE PT. DE SOUZA INTACT AND DRAINING. JAKNI FLUSHES AND ASPIRATES.
--- NOTE | 2017-01-26 07:28 | OPNOTEF ---
DATE OF PROCEDURE 01/25/2017 SURGEON Sourav Tyson MD PREOPERATIVE DIAGNOSIS Nonhealing stage IV pressure ulceration involving right buttock/ischium. POSTOPERATIVE DIAGNOSIS Nonhealing stage IV pressure ulceration involving right buttock/ischium. PROCEDURE Exploration of stage IV pressure ulceration involving right ischium/right buttock with excisional surgical debridement of nonviable fascia. ANESTHESIA TIVA/local BRIEF HISTORY/INDICATIONS Mr. Cosby is a 41-year-old gentleman who is well known my surgical practice. The patient has a history of having a stage IV pressure ulceration and in the past has undergone a myocutaneous flap. Unfortunately, the patient did develop breakdown at the site of his prior myocutaneous flap. He recently was admitted as the result of a grossly infected necrotic recurrent stage IV pressure ulceration. The opening on the surface of his pressure ulceration is fairly small, on the order about to 2-3 cm in greatest diameter. Unfortunately, the wound does tunnel about 7-8 cm in a cephalad fashion. It was thought that perhaps there was some nonviable tissue beneath this area of tunneling that was impeding healing. Despite advanced wound therapy/utilization of negative wound pressure therapy, the patient has not made marked improvement in regards to the area of tunneling involving his wound. As a result of the above indications, it was recommended that he be taken to the operative suite and undergo exploration of this wound with additional debridement as indicated. For completeness, please refer to notes included in the patient's chart. DESCRIPTION OF PROCEDURE After informed consent was obtained, the patient was brought to the operative suite and placed on the table in left lateral decubitus position. The area of concern involving the right buttock/right ischial region was then prepped and draped in sterile fashion. Formal time-out was then completed. Next, 0.25% Marcaine with epinephrine was injected overlying the area of tunneling. Next, a 4-5 cm incision was then made overlying the area of analgesia from the surface of the wound upward in a cephalad fashion. Dissection was then carried down through the deep subcuticular tissues and the underlying muscle that was present was divided so that one could see the underlying wound. The wound did track along the ischium. Fortunately there was no bone that was exposed. There was good granulation tissue throughout the majority of the wound. There was one small focus where the fascia did not contain good granulation tissue and had some fibrinous material overlying it. This area of concern was debrided sharply with a surgical curette until a minimal amount of bleeding began to occur within underlying fascia. Fortunately, the area of necrosis was fairly superficial in nature upon the fascia. Following debridement, bone was still not visible. Meticulous hemostasis was obtained within the wound. A moistened Kerlix roll was then placed within the wound followed by a Tegaderm dressing. The patient is in the process of awakening from his conscious sedation and will be sent back to recovery room once deemed in stable condition. LOREE
[2017-01-26] MEDS: CEFTRIAXONE 2 G in NORMAL SALINE 100 ML IV SCH (08:36)
[2017-01-26] MEDS: ASCORBIC ACID 500 MG TABLET PO SCH (08:37)
[2017-01-26] MEDS: POLYETHYL.GLYCOL 3350 PACKET 17gm PO SCH (08:37)
[2017-01-26] MEDS: VITAMIN B COMP + C TABLET PO SCH (08:37)
[2017-01-26] MEDS: ENOXAPARIN 40 MG/0.4 ML INJECTION SQ SCH (08:37)
[2017-01-26] MEDS: METRONIDAZOLE 500 MG TABLET PO SCH ×2 (08:37→21:24)
[2017-01-26] MEDS: FERROUS SULFATE 324 MG TABLET PO SCH (08:37)
[2017-01-26] MEDS: LOSARTAN 50 MG TABLET PO SCH (08:37)
[2017-01-26] MEDS: NYSTATIN POWDER 15gm BOTTLE TOP SCH ×4 (08:40→21:24)
--- NOTE | 2017-01-26 12:01 | PNPDOC ---
CLARENCE DUTTA GROCERY CLERK CHECKING 01/26/17 1156: Subjective Date DATE: 01/26/17 TIME: 11:52 Subjective Joe is doing fairly well, though is still recovering from having the anesthesia yesterday - he's still tired and groggy. He is a bit disappointed that the tunnel hadn't improved, but is at least pleased that the wound didn't appear worse. He denies any acute concerns such as chest pain or difficulty breathing. His appetite has been very good (he would love to have a meal from [email or web address]). Objective Vital Signs Vital signs Vital Signs Date Time Temp Pulse Resp B/P Pulse Ox O2 Delivery O2 Flow Rate FiO2 01/26/17 11:32 97.5 99 18 126/71 99 Room Air Height (Feet): 5 Height (Inches): 9.00 Weight (Kilograms): 109.000 General General Appearance: Alert, Orientated x 3, Well Nourished, Well Developed, No Acute Distress Eyes (Brief) Eyes: FOUND: PERRL, NOT FOUND: scleral icterus ENMT (Brief) ENMT: FOUND: mucosa moist, NOT FOUND: pharnyx erythema Respiratory (Brief) Respiratory: FOUND: clear all burroughs, equal bilaterally Cardiovascular (Brief) Cardiac: FOUND: regular rate, regular rhythm Abdomen (Brief) Abdominal: FOUND: BS normo active x4, soft, NOT FOUND: distended, tender Extremities (Brief) Extremity : Extremity Finding: NOT FOUND: edema Musculoskeletal (Brief) Musculoskeletal: FOUND: loss of motion (paraplegia at T9) Integumentary (Brief) Integumentary: FOUND: dry, pink, warm Comments vac intact Psychiatric (Brief) Psychiatric: FOUND: alert, attentive, normal affect, oriented Laboratory Laboratory Laboratory Tests 01/25/17 04:04 Laboratory Tests 01/25/17 04:04 Assessment & Plan Problems: (1) Pressure ulcer of right buttock, stage 4 Status: Acute Assessment & Plan: Polymicrobial with osteomyelitis, Rocephin and Flagyl through 02/04/17 Debridement on 01/25/17 (2) Osteomyelitis Status: Acute Qualifiers: Laterality: left Assessment & Plan: Right ischium (3) Hyperphosphatemia Status: Acute (4) Hypertension Status: Acute (5) Microcytic anemia Status: Chronic Assessment & Plan: Iron deficiency anemia. Iron 12, TIBC 325, saturation 4% on 12/25/16. Continue ferrous sulfate (6) Paraplegia at T9 level Status: Chronic (7) Neurogenic bladder Status: Chronic (8) Neurogenic bowel Status: Chronic (9) Chronic urinary tract infection Status: Chronic (10) Obesity (BMI 30-39.9) Status: Chronic (11) Thrombocytosis Status: Resolved Assessment & Plan: c/w iron deficiency (12) E. coli UTI Status: Resolved (13) MANDY (acute kidney injury) Status: Resolved (14) Sepsis Status: Resolved (15) Hypernatremia Status: Resolved Plan/Intensity of Service POD #1 Wound debridement Continue Rocephin + metronidazole - scheduled through 02/04/17. Continue wound care per Dr. Tyson. BP under good control on losartan 50 mg daily. Phos still elevated - cont. Phoslo. Recheck CBC and BMP in am for postop assessment. DVT Prophylaxis: Lovenox Code Status Full Code Hospital Course Summary Disclaimer The hospital course summary below is not to be considered part of the above Progress Note. Hospital Course Summary 01/12/17 - Admitted to swing bed status under the hospitalist service. Hospitalized from 12/27/16 through 01/11/17 as an inpatient at [facility] [place]. 1. Right ischial stage IV decub ulcer with possible osteomyelitis -Continue Rocephin and Flagyl through 02/04/[address] Palma. -Wound care and wound VAC management per Dr. Tyson. 2. T9 paraplegia with neurogenic bowel and bladder. -Pinto catheter in place. 3. Recent sepsis and Escherichia coli UTI - resolved 4. Recent acute kidney injury thought to be secondary to vancomycin administration - resolved. 5. Hyperphosphatemia -Hold PhosLo for now. -Check phosphorus level tomorrow morning, along with CBC and BMP 6. Iron deficiency anemia -Continue ferrous sulfate and vitamin C 01/13/17-Divine Tolerating antibiotics well, continue same for probable osteomyelitis/wound infection. Wound care notes reviewed, good granulation tissue described and wound on the right upper thigh measured 4.2 x 3.6 x 5.6 cm today. Renal function has improved from acute stay and sodium has normalized. Mild hyperphosphatemia persists, continue PhosLo and reassess early next week. Hemoglobin stable, known iron deficiency with anemia developing since March 2016. Patient denies chronic indigestion or heartburn but requires chronic digital stimulation for bowel movements. He is unaware of any chronic rectal bleeding however and has never had a colonoscopy. May need to pursue in the future if ongoing anemia. Denies family history of colon cancer or other chronic bowel disease. 01/14/17 Right ischial stage IV decub ulcer with possible osteomyelitis-Continue Rocephin and Flagyl through 02/04/17 MANDY resolved and renal function at baseline Elevated BP - will discuss starting an AntiHTN with Dr. Haskins. 01/16/17 Doing well. Blood pressure remains moderately elevated with readings 133/77-169/90 over the past 24 hours. Continue to monitor on low-dose Cozaar for an additional 1-2 days and if no improvement will increase dose. Repeat CBC, renal panel, and CRP ordered for Wednesday to monitor antibiotic therapy, anemia, and hyperphosphatemia. 01/17/17 - Increase Cozaar to 50 mg daily. 01/19 Doing well. No new problems or concerns. Continue wound vac and wound care. Continue Rocephin + Flagyl. Continue Cozaar at 50mg daily. Weekly CMP, CBC, and CRP ordered. Check BMP on 01/21 secondary to recent MANDY and ARB use. 01/21 Doing well overall, except very tired (usually much more energetic at home). Eating well. Breathing well. No f/c. Continue wound vac and wound care. Wound vac change tomorrow - may need to return to the prior vac if not healing. Continue Rocephin + Flagyl. Continue Cozaar at 50mg daily. Weekly CMP, CBC, and CRP ordered. 01/23/17 Stable. Continues to require inpatient care for wound VAC being utilized. Recheck labs on Wednesday to monitor antibiotic use. Blood pressure improved with losartan. 01/25 Wound exploration today. Anticipate replacement of Varacleans post exploration. Continue Rocephin and metronidazole for antimicrobial coverage. BP and lab stable on valsartan. 01/26 POD #1 Wound debridement Continue Rocephin + metronidazole - scheduled through 02/04/17. Continue wound care per Dr. Tyson. BP under good control on losartan 50 mg daily. Phos still elevated - cont. Phoslo. LENY SO MD 01/26/17 8314: Assessment & Plan Plan/Intensity of Service Have independently interviewed and examined pt. Chart reviewed. Case discussed with my GROCERY CLERK CHECKING. Care plan developed with my supervision; agree with above. Doing well this afternoon. Tired from Sx yesterday. Breathing doing well post op -not having SOA, cough or congestion. No nausea or ab pain. No f/c. Lungs: clear bilaterally CV: regular AB: soft nt/nd BS present MSE: awake alert appropriate Plan; Continue antibiotics and wound vac. Encourage bed activities for strengthening. Monitor lab. CLARENCE DUTTA GROCERY CLERK CHECKING Jan 26, 2017 11:56 LENY SO MD Jan 26, 2017 13:54
--- NOTE | 2017-01-26 12:50 | PNF ---
DATE OF SERVICE 01/25/2017 FINDINGS Joe was seen earlier this morning on rounds with the wound care staff. Joe was in good spirits. VAC was removed without difficulty. EXAM Vitals: Afebrile, normotensive. Vitals when seen earlier today include temperature 96.2, pulse 83, respirations 20, blood pressure 131/91, SAO2 100% on room air. CHEST: Clear to auscultation bilaterally. HEART: Regular rate and rhythm. Normal S1 and S2 without gallops, murmurs or clicks. BUTTOCKS: The patient was placed in left lateral decubitus position and the wound involving the right buttock/ischial region was carefully inspected. One could see good granulation tissue around the wound opening. The wound opening has become smaller and is perhaps on the order of about 2 cm in greatest diameter. A finger was then placed within the wound and unfortunately the wound does tunnel in a cephalad fashion about 7-8 cm in total length. One could not visualize the area of tunneling given its extent. ASSESSMENT 41-year-old paraplegic gentleman with nonhealing stage IV pressure ulceration involving right ischium/buttocks. PLAN Exploration of wound and additional debridement as indicated. I informed the patient that given the failure of this wound to granulate in along the portion that tunnels in a cephalad fashion, I would recommend that we take him later in the day to the operative suite and "open up" the area that is tunneling and explore the underlying tissues. If indeed there is a component of necrosis within the wound that is tunneling, will then proceed accordingly with additional debridement. The above proposed plan was discussed with the patient earlier today. He understood and wished to proceed. Potential risks associated with the procedure were discussed with the patient as well which included but were not inclusive of, bleeding and/or infection. LOREE
--- NOTE | 2017-01-26 14:10 | PDWOUND ---
Wound Documentation Wound Management Wound : Location Modifier: Right, Upper Wound Location: Thigh Wound Type: Pressure Ulcer Wound Dressing Frequency: three times per week Wound Duration: > one month Wound Dressing Status: FOUND: Changed Wound Drainage Amount: Moderate Wound Drainage Description: Serous Wound Drainage Odor: None/Absent Wound General Appearance: FOUND Muscle Visible Wound Bed: gran red Periwound Description: Clear Wound Length (cm): 3.2 Wound Width (cm): 12 Wound Depth (cm): 4 Exposed: muscle Wound Cleanser: soap and water Wound Solution/Irrigant: Saline Irrigant Wound Packing Type: FOUND: Black Foam Wound Primary Dressing Type: Clear Adhesive Cover Wound Tunneling : Sinus/Tunnels (cm): 8 Tunneling Location (o'clock): 12 Comments Post op day 1 from debridment , applied and instill vac again with NS infusing. Wound is clean in appearance however, it was made larger through surgery. Will monitor for bleeding post application. TATUM RIZO RN Jan 26, 2017 14:10
--- NOTE | 2017-01-26 16:49 | NUR ---
SHIFT PT HAS BEEN PLEASANT AND COOPERATIVE ALL SHIFT. PT IS ON ROOM AIR, DENIES SOA, PAIN AND N/V. BED TURNS PT [id number]. NO CHANGES, SWING ASSESSMENTS DONE. ALARMS IN USE AND CALL LIGHT WITH IN REACH. WOUND VAC PLACED BY WOUND CARE TEAM THIS SHIFT WELL.
--- NOTE | 2017-01-27 00:28 | NUR ---
Heart Rate HR sustained between 115 and 130 BPM from 1999 to 2199. Sinus Tachy with 1st degree block. BP 125/70 at 2132. RR 20. Pt denies palpitations, chest pain, and states that he is not aware of how fast his heart is going. Notified Dr. Alexander who reviewed chart, asked to be updated if any changes occurred, and gave no new orders at this time. Since then HR has remained below 115 as reviewed on telemetry [id number]. Will continue to monitor.
--- NOTE | 2017-01-27 05:18 | NUR ---
Status Pt HR averaged 70-100 BPM since 0000. Denied pain, N/V during shift. Pt had one incontinent small hard BM at 2200. Bed turns pt q30 minute during shift. Will continue to monitor.
[2017-01-27 05:30] LABS: BASOPHILS % (AUTO) 0.3 % (0-2); EOSINOPHILS # (AUTO) 0.2 T/MM3 (0-0.5); EOSINOPHILS % (AUTO) 3.4 % (0-4); HCT - HEMATOCRIT 34.2 % (41-53); HGB - HEMOGLOBIN 10.7 GM/DL (13.5-17.5); IMMATURE GRANULOCYTE # (AUTO) 0.02 T/MM3 (0.00-0.03); IMMATURE GRANULOCYTE % (AUTO) 0.3 % (0.0-0.5); LYMPHOCYTES # (AUTO) 2.5 T/MM3 (1-4.8); MEAN CORPUSCULAR HGB 25.5 UUG (26-34); MEAN CORPUSCULAR HGB CONC(MCHC 31.3 GM/DL (31-37); MEAN CORPUSCULAR VOLUME 81.4 UM3 (80-100); MONOCYTES # (AUTO) 0.7 T/MM3 (0-0.8); MONOCYTES % (AUTO) 12.6 % (0-9.0); NEUTROPHILS #(AUTO)-ABSOLUTE 2.4 T/MM3 (1.8-7.7); NEUTROPHILS % (AUTO) 41.4 % (33-66); WBC - WHITE BLOOD COUNT 5.9 T/MM3 (4.5-11.0)
[2017-01-27 05:53] LABS: ANION GAP 12 MEQ/L (5-15); BUN/CREATININE RATIO 26 RATIO (6-26); CALCIUM 8.6 MG/DL (8.4-10.2); CHLORIDE 105 MEQ/L (98-107); CO2 - CARBON DIOXIDE 26 MEQ/L (22-30); CREATININE 0.7 MG/DL (0.8-1.5); GLOMERULAR FILTRATION RATE 126; GLUCOSE 96 MG/DL (75-110); SODIUM 143 MEQ/L (134-144)
[2017-01-27 07:42] VITALS: PULSE 78; RESP 20
[2017-01-27 08:37] VITALS: BP 121/63; PULSE 88; RESP 20; TEMP 96.8; O2SAT 99
[2017-01-27] MEDS: ASCORBIC ACID 500 MG TABLET PO SCH (08:47)
[2017-01-27] MEDS: POLYETHYL.GLYCOL 3350 PACKET 17gm PO SCH (08:47)
[2017-01-27] MEDS: ENOXAPARIN 40 MG/0.4 ML INJECTION SQ SCH (08:47)
[2017-01-27] MEDS: VITAMIN B COMP + C TABLET PO SCH (08:47)
[2017-01-27] MEDS: CEFTRIAXONE 2 G in NORMAL SALINE 100 ML IV SCH (08:47)
[2017-01-27] MEDS: METRONIDAZOLE 500 MG TABLET PO SCH ×2 (08:47→21:01)
[2017-01-27] MEDS: LOSARTAN 50 MG TABLET PO SCH (08:48)
[2017-01-27] MEDS: FERROUS SULFATE 324 MG TABLET PO SCH (08:48)
[2017-01-27] MEDS: NYSTATIN POWDER 15gm BOTTLE TOP SCH ×3 (08:48→16:17)
--- NOTE | 2017-01-27 09:26 | PNPDOC ---
Subjective Date DATE: 01/27/17 TIME: 09:20 Subjective Mr. Cosby had surgical debridement on 01/25. He reports that yesterday he had an elevated heart rate, but denies any other symptoms, such as chest pain, dyspnea, fever or chills. He reports his appetite is good. Denies itching or rashes. Objective Vital Signs: RN Vital Signs have been reviewed: Yes, Temperature: 96.8, Heart Rate: 88, Respiratory Rate: 20, BP: 121/63, Pulse Oximetry: 99 Height (Feet): 5 Height (Inches): 9.00 General: FOUND: Alert, NOT FOUND: Acute Distress Skin: NOT FOUND: Rash HEENT: FOUND NC/AT, NOT FOUND Oral Lesions Neck: NOT FOUND: Meningismus Cardiac: FOUND: Regular Rate/Rhythm, NOT FOUND: Murmur, Pitting Edema Lungs: FOUND: Clear to Auscultation, Symmetrical Expansion, NOT FOUND: Wheezes Abdomen: FOUND: Non-tender, Soft, NOT FOUND: Distended : NOT FOUND: Pinto Extremities: NOT FOUND Edema (Bilateral Lower Extremitites) Neurological: FOUND A/A/A, NOT FOUND Focal Deficits Psychological: FOUND Intact and Appropriate Wound wound VAC on R buttock wound IV Site: PICC (RUE) Antbiotics Vancomycin and Zosyn . Ceftriaxone and po flagyl since 01/04 Laboratory Laboratory Tests 01/27/17 05:04 Laboratory Tests 01/27/17 05:04 Cultures Blood cultures / on 12/25 with S. intermedius sensitive to PCN S INTERMED INTERP MAKAYLA ------ --------- AMPICILLIN S <=0.25 CLINDAMYCIN S <=0.25 ERYTHROMYCIN S <=0.12 LEVOFLOXACIN S <=0.25 LINEZOLID S <=2 BENZYLPENICILL S <=0.06 TETRACYCLINE S 0.5 VANCOMYCIN S 0.25 Wound culture 12/25: Specimen: [id number] Collected: 12/25/16 Received: 12/25/16-[address]: NATHANIEL QUINTANILLA MD, FACS, CWS Source: UNKNOWN Procedure Result Verified MICROBIOLOGY GRAM STAIN Final 12/26/16-1504 RESULT FEW GRAM NEGATIVE RODS FEW GRAM POSITIVE RODS FEW GRAM POSITIVE COCCI MANY NEUTROPHILS WOUND CULTURE DEEP TISS-AER/AN Final 01/01/17-1032 Organism 1 PROTEUS VULGARIS GROUP QUANTITY: MODERATE GROWTH Organism 2 ENTEROCOC FAECALIS - (GROUP D) QUANTITY: MODERATE GROWTH Organism 3 BACTEROIDES FRAGILIS QUANTITY: MODERATE GROWTH Organism 4 ANAEROCOCCUS PREVOTII QUANTITY: MODERATE GROWTH Organism 5 DIPHTHEROID BACILLUS ORGANISM COMMENT: SENSITIVITY NOT PERFORMED Reviewed: Medications, Consult/Progress Notes Assessment & Plan Assessment IMPRESSION 1. Right ischial decubitus ulcer stage IV with osteomyelitis, wound cultures with Proteus vulgaris, Enterococcus faecalis, Bacteroides fragilis. Enterococcus and Diphtheroids bacillus. S/p I&D down to fascia on 01/25/17. 2. Sepsis with sepsis/septicemia with Streptococcus intermedius in blood cultures December 25, 2016. 3. Acute interstitial nephritis on Zosyn and vancomycin, I suspect it was the Zosyn more so than the vancomycin. 4. History of osteomyelitis of the right ischium status post debridement and six weeks of IV antibiotics followed by flap procedure August 2016. 5. Paraplegia at T9 from an accident that occurred in 2001. 6. Neurogenic bladder with self-catheterization 7. Neurogenic bowel. 8. History of urinary tract infections. 9. History of Clostridium difficile infection related to levofloxacin. 9. History of allergy to Keflex with rash, although he is currently tolerating ceftriaxone. Plan/Intensity of Service RECOMMENDATIONS I would continue with the ceftriaxone and Flagyl to complete six weeks of therapy. He will need these antibiotics through February 04, 2017. I would continue to follow weekly CBC with differential, CMP and CRP weekly while he is on the antibiotics. I don't feel that his IV antibiotics will need to be extended since his debridement did not go down to bone. CLAYTON ACOSTA MD Jan 27, 2017 09:23
[2017-01-27 15:00] VITALS: BP 146/80; PULSE 109; RESP 20; TEMP 97.6; O2SAT 100
[2017-01-27] MEDS ORDERED: NYSTATIN POWDER 15gm BOTTLE TOP PRN (17:00)
--- NOTE | 2017-01-27 17:46 | NUR ---
SHIFT PT HAS BEEN PLEASANT AND COOPERATIVE ALL SHIFT. PT IS A&OX3, TURNED BY BED [id number]. PT DENIES PAIN, N/V AND SOA. PT IS ON ROOM AIR. PT HAD ONE MODERATE BM THIS SHIFT. WOUND VAC IN PLACE, KITA. THIS VAC WAS PLACED 01/26 POST I&D. NO OTHER CHANGES SINCE PREVIOUS NOTE. PT REMAINS TACHYCARDIC AT TIMES. RECEIVED ORDER FOR TELEMETRY. ALARMS IN USE AND CALL LIGHT WITH IN REACH.
[2017-01-27 20:54] VITALS: PULSE 107
[2017-01-27 22:19] VITALS: BP 142/90; PULSE 111; RESP 12; TEMP 98.2; O2SAT 98
[2017-01-28 00:09] VITALS: BP 132/84; PULSE 105; RESP 12; TEMP 99.1; O2SAT 98
--- NOTE | 2017-01-28 07:00 | NUR ---
rest sleeps for long intervals, resp. unlabored. Repositioned by rotating mattress
[2017-01-28 08:20] VITALS: BP 139/88; PULSE 94; RESP 14; TEMP 97.1; O2SAT 95
[2017-01-28] MEDS: CEFTRIAXONE 2 G in NORMAL SALINE 100 ML IV SCH (09:33)
[2017-01-28] MEDS: METRONIDAZOLE 500 MG TABLET PO SCH ×2 (09:34→21:11)
[2017-01-28] MEDS: FERROUS SULFATE 324 MG TABLET PO SCH (09:34)
[2017-01-28] MEDS: LOSARTAN 50 MG TABLET PO SCH (09:34)
[2017-01-28] MEDS: VITAMIN B COMP + C TABLET PO SCH (09:34)
[2017-01-28] MEDS: ASCORBIC ACID 500 MG TABLET PO SCH (09:34)
[2017-01-28] MEDS: POLYETHYL.GLYCOL 3350 PACKET 17gm PO SCH (09:36)
[2017-01-28] MEDS: ENOXAPARIN 40 MG/0.4 ML INJECTION SQ SCH (09:36)
[2017-01-28 15:28] VITALS: BP 123/60; PULSE 117; RESP 16; TEMP 97.9; O2SAT 99
--- NOTE | 2017-01-28 16:11 | PNPDOC ---
Subjective Date DATE: 01/28/17 TIME: 16:04 Subjective F/U: Stage 4 pressure ulcer of left buttock Doing well. No new problems. Appetite stable. No nausea. Breathing well. No f/ c. Urine output has been greater than intake - creatinine stable. Possible mobilizing fluid from hydration given with MANDY Objective Vital Signs Vital signs Vital Signs Date Time Temp Pulse Resp B/P Pulse Ox O2 Delivery O2 Flow Rate FiO2 01/28/17 15:28 97.9 117 16 123/60 99 Room Air Height (Feet): 5 Height (Inches): 9.00 Weight (Kilograms): 106.400 General General Appearance: Alert, Obese, Orientated x 3, Well Nourished, Well Developed, No Acute Distress, Looks Stated Age Eyes (Brief) Eyes: FOUND: EOMI, PERRL, NOT FOUND: scleral icterus ENMT (Brief) ENMT: FOUND: hearing intact, mucosa moist Neck (Brief) Neck: FOUND: midline, NOT FOUND: nuchal rigidity, spasm Respiratory (Brief) Respiratory: FOUND: clear all burroughs, equal bilaterally, NOT FOUND: rales, wheezes Cardiovascular (Brief) Cardiac: FOUND: regular rhythm, NOT FOUND: regular rate (Tachy ) Abdomen (Brief) Abdominal: FOUND: BS normo active x4, soft, NOT FOUND: distended, tender (Brief) Male: FOUND: other (Pinto ) Extremities (Brief) Extremity : Side: Bilateral Extremity: leg Extremity Finding: FOUND: other (SCD ) Musculoskeletal (Brief) Musculoskeletal: FOUND: loss of motion (LE ), NOT FOUND: spasm Neurologic (Brief) Neurological: FOUND: cranial 2-12 intact, motor (Upper ext intact ) Psychiatric (Brief) Psychiatric: FOUND: alert, attentive, normal affect, oriented Laboratory Laboratory Laboratory Tests 01/27/17 05:04 Laboratory Tests 01/27/17 05:04 Assessment & Plan Problems: (1) Pressure ulcer of right buttock, stage 4 Status: Acute Assessment & Plan: Polymicrobial with osteomyelitis, Rocephin and Flagyl through 02/04/17 Debridement on 01/25/17 (2) Osteomyelitis Status: Acute Qualifiers: Laterality: left Assessment & Plan: Right ischium (3) Hyperphosphatemia Status: Acute (4) Hypertension Status: Acute (5) Microcytic anemia Status: Chronic Assessment & Plan: Iron deficiency anemia. Iron 12, TIBC 325, saturation 4% on 12/25/16. Continue ferrous sulfate (6) Paraplegia at T9 level Status: Chronic (7) Neurogenic bladder Status: Chronic (8) Neurogenic bowel Status: Chronic (9) Chronic urinary tract infection Status: Chronic (10) Obesity (BMI 30-39.9) Status: Chronic (11) Thrombocytosis Status: Resolved Assessment & Plan: c/w iron deficiency (12) E. coli UTI Status: Resolved (13) MANDY (acute kidney injury) Status: Resolved (14) Sepsis Status: Resolved (15) Hypernatremia Status: Resolved Plan/Intensity of Service Continue ceftriaxone and metronidazole to complete six weeks of therapy - need through February 04, 2017. Continue with wound vac and offloading for wound healing. Continue with Cozaar for BP control. Monitor volume status - watch for overdiuresis. DVT Prophylaxis: SCD'S Code Status Full Code Hospital Course Summary Disclaimer The hospital course summary below is not to be considered part of the above Progress Note. Hospital Course Summary 01/12/17 - Admitted to swing bed status under the hospitalist service. Hospitalized from 12/27/16 through 01/11/17 as an inpatient at [facility] [place]. 1. Right ischial stage IV decub ulcer with possible osteomyelitis -Continue Rocephin and Flagyl through 02/04/[address] Palma. -Wound care and wound VAC management per Dr. Tyson. 2. T9 paraplegia with neurogenic bowel and bladder. -Pinto catheter in place. 3. Recent sepsis and Escherichia coli UTI - resolved 4. Recent acute kidney injury thought to be secondary to vancomycin administration - resolved. 5. Hyperphosphatemia -Hold PhosLo for now. -Check phosphorus level tomorrow morning, along with CBC and BMP 6. Iron deficiency anemia -Continue ferrous sulfate and vitamin C 01/13/17-Divine Tolerating antibiotics well, continue same for probable osteomyelitis/wound infection. Wound care notes reviewed, good granulation tissue described and wound on the right upper thigh measured 4.2 x 3.6 x 5.6 cm today. Renal function has improved from acute stay and sodium has normalized. Mild hyperphosphatemia persists, continue PhosLo and reassess early next week. Hemoglobin stable, known iron deficiency with anemia developing since March 2016. Patient denies chronic indigestion or heartburn but requires chronic digital stimulation for bowel movements. He is unaware of any chronic rectal bleeding however and has never had a colonoscopy. May need to pursue in the future if ongoing anemia. Denies family history of colon cancer or other chronic bowel disease. 01/14/17 Right ischial stage IV decub ulcer with possible osteomyelitis-Continue Rocephin and Flagyl through 02/04/17 MANDY resolved and renal function at baseline Elevated BP - will discuss starting an AntiHTN with Dr. Haskins. 01/16/17 Doing well. Blood pressure remains moderately elevated with readings 133/77-169/90 over the past 24 hours. Continue to monitor on low-dose Cozaar for an additional 1-2 days and if no improvement will increase dose. Repeat CBC, renal panel, and CRP ordered for Wednesday to monitor antibiotic therapy, anemia, and hyperphosphatemia. 01/17/17 - Increase Cozaar to 50 mg daily. 01/19 Doing well. No new problems or concerns. Continue wound vac and wound care. Continue Rocephin + Flagyl. Continue Cozaar at 50mg daily. Weekly CMP, CBC, and CRP ordered. Check BMP on 01/21 secondary to recent MANDY and ARB use. 01/21 Doing well overall, except very tired (usually much more energetic at home). Eating well. Breathing well. No f/c. Continue wound vac and wound care. Wound vac change tomorrow - may need to return to the prior vac if not healing. Continue Rocephin + Flagyl. Continue Cozaar at 50mg daily. Weekly CMP, CBC, and CRP ordered. 01/23/17 Stable. Continues to require inpatient care for wound VAC being utilized. Recheck labs on Wednesday to monitor antibiotic use. Blood pressure improved with losartan. 01/25 Wound exploration today. Anticipate replacement of Varacleans post exploration. Continue Rocephin and metronidazole for antimicrobial coverage. BP and lab stable on valsartan. 01/26 POD #1 Wound debridement Continue Rocephin + metronidazole - scheduled through 02/04/17. Continue wound care per Dr. Tyson. BP under good control on losartan 50 mg daily. Phos still elevated - cont. Phoslo. 01/27-Dr Palma RECOMMENDATIONS I would continue with the ceftriaxone and Flagyl to complete six weeks of therapy. He will need these antibiotics through February 04, 2017. I would continue to follow weekly CBC with differential, CMP and CRP weekly while he is on the antibiotics. I don't feel that his IV antibiotics will need to be extended since his debridement did not go down to bone. 01/28 Doing well. No new problems. Appetite stable. No nausea. Breathing well. No f/ c. Urine output has been greater than intake - creatinine stable. Possible mobilizing fluid from hydration given with MANDY Continue ceftriaxone and metronidazole to complete six weeks of therapy - need through February 04, 2017. Continue with wound vac and offloading for wound healing. Continue with Cozaar for BP control. Monitor volume status - watch for overdiuresis. LENY SO MD Jan 28, 2017 16:07
--- NOTE | 2017-01-28 17:28 | NUR ---
Status Patient has been on a rotating mattress that is set to turn him. Denies pain/SOA. Tele -ST. Good appeitite. Wound Vac continues to foot.
[2017-01-28 20:00] VITALS: PULSE 95
[2017-01-28 23:35] VITALS: BP 123/67; PULSE 95; RESP 16; TEMP 97.5; O2SAT 96
[2017-01-29] VITALS (7 sets, daily range): BP systolic 104–142; BP diastolic 65–86; PULSE 90–130; RESP 14–18; TEMP 96.9–98; O2SAT 97–100
[2017-01-29] MEDS: NORMAL SALINE 1,000 ML IV PRN (02:40)
--- NOTE | 2017-01-29 08:16 | NUR ---
SUMMARY ALERT AND ORIENTED. DENIES PAIN, NAUSEA, OR SOA. ON A MATTRESS THAT TURN Q30MIN, WOUND TO RIGHT BUTTOCK, WOUND VAC WITH SALINE FLUSH. PICC TO UPPER LEFT ARM FLUSHES AND ASPIRATES.
[2017-01-29] MEDS: LOSARTAN 50 MG TABLET PO SCH (09:50)
[2017-01-29] MEDS: METRONIDAZOLE 500 MG TABLET PO SCH ×2 (09:50→20:56)
[2017-01-29] MEDS: VITAMIN B COMP + C TABLET PO SCH (09:50)
[2017-01-29] MEDS: FERROUS SULFATE 324 MG TABLET PO SCH (09:51)
[2017-01-29] MEDS: ENOXAPARIN 40 MG/0.4 ML INJECTION SQ SCH (09:51)
[2017-01-29] MEDS: POLYETHYL.GLYCOL 3350 PACKET 17gm PO SCH (09:51)
[2017-01-29] MEDS: CEFTRIAXONE 2 G in NORMAL SALINE 100 ML IV SCH (09:51)
[2017-01-29] MEDS: ASCORBIC ACID 500 MG TABLET PO SCH (09:51)
--- NOTE | 2017-01-29 13:41 | PDWOUND ---
Wound Documentation Wound Management Wound : Location Modifier: Right, Upper Wound Location: Thigh Wound Type: Pressure Ulcer Wound Dressing Frequency: three times per week Wound Duration: > one month Wound Dressing Status: FOUND: Changed Wound Drainage Amount: Moderate Wound Drainage Description: Serous Wound Drainage Odor: None/Absent Wound General Appearance: FOUND Muscle Visible Wound Bed: gran red Periwound Description: Clear Wound Length (cm): 5.5 Wound Width (cm): 10 Wound Depth (cm): 3.3 Exposed: muscle Wound Cleanser: soap and water Wound Solution/Irrigant: Saline Irrigant Wound Packing Type: FOUND: Black Foam Wound Primary Dressing Type: Clear Adhesive Cover Wound Tunneling : Sinus/Tunnels (cm): 6 (centimeters) Tunneling Location (o'clock): 12 Comments Changed wound vac again remains all settings on the Instill side the same. Tolerated well. TATUM RIZO RN Jan 29, 2017 13:41
--- NOTE | 2017-01-29 14:45 | PNPDOC ---
Subjective Date DATE: 01/29/17 TIME: 14:41 Subjective F/U: Stage 4 pressure ulcer of left buttock Doing well overall. Appetite fair-eats well when family brings in food from outside. Drinking well. No nausea or ab pain. Breathing stable. No f/c. Encourage that his wound is healing. Urine output greater than intake. Objective Vital Signs Vital signs Vital Signs Date Time Temp Pulse Resp B/P Pulse Ox O2 Delivery O2 Flow Rate FiO2 01/29/17 07:39 96.9 90 14 142/86 100 Room Air Height (Feet): 5 Height (Inches): 9.00 Weight (Kilograms): 106.200 General General Appearance: Alert, Obese, Orientated x 3, Cooperative, Looks Stated Age Eyes (Brief) Eyes: FOUND: EOMI, PERRL, NOT FOUND: scleral icterus ENMT (Brief) ENMT: FOUND: hearing intact, mucosa moist Neck (Brief) Neck: FOUND: midline, NOT FOUND: nuchal rigidity, spasm Respiratory (Brief) Respiratory: FOUND: clear all burroughs, equal bilaterally, NOT FOUND: rales, wheezes Cardiovascular (Brief) Cardiac: FOUND: regular rate, regular rhythm Abdomen (Brief) Abdominal: FOUND: BS normo active x4, soft, NOT FOUND: distended, tender Neurologic (Brief) Neurological: FOUND: cranial 2-12 intact, motor (Upper ext intact ) Psychiatric (Brief) Psychiatric: FOUND: alert, attentive, normal affect, oriented Assessment & Plan Problems: (1) Pressure ulcer of right buttock, stage 4 Status: Acute Assessment & Plan: Polymicrobial with osteomyelitis, Rocephin and Flagyl through 02/04/17 Debridement on 01/25/17 (2) Osteomyelitis Status: Acute Qualifiers: Laterality: left Assessment & Plan: Right ischium (3) Hyperphosphatemia Status: Acute (4) Hypertension Status: Acute (5) Microcytic anemia Status: Chronic Assessment & Plan: Iron deficiency anemia. Iron 12, TIBC 325, saturation 4% on 12/25/16. Continue ferrous sulfate (6) Paraplegia at T9 level Status: Chronic (7) Neurogenic bladder Status: Chronic (8) Neurogenic bowel Status: Chronic (9) Chronic urinary tract infection Status: Chronic (10) Obesity (BMI 30-39.9) Status: Chronic (11) Thrombocytosis Status: Resolved Assessment & Plan: c/w iron deficiency (12) E. coli UTI Status: Resolved (13) MANDY (acute kidney injury) Status: Resolved (14) Sepsis Status: Resolved (15) Hypernatremia Status: Resolved Plan/Intensity of Service Continue ceftriaxone and metronidazole to complete six weeks of therapy - need through February 04, 2017. Continue with wound vac and offloading for wound healing. Encourage intake of fluids/liquids. Will check BMP, phos and vitamin D level in am. DVT Prophylaxis: SCD'S Code Status Full Code Hospital Course Summary Disclaimer The hospital course summary below is not to be considered part of the above Progress Note. Hospital Course Summary 01/12/17 - Admitted to swing bed status under the hospitalist service. Hospitalized from 12/27/16 through 01/11/17 as an inpatient at [facility] [place]. 1. Right ischial stage IV decub ulcer with possible osteomyelitis -Continue Rocephin and Flagyl through 02/04/[address] Palma. -Wound care and wound VAC management per Dr. Tyson. 2. T9 paraplegia with neurogenic bowel and bladder. -Pinto catheter in place. 3. Recent sepsis and Escherichia coli UTI - resolved 4. Recent acute kidney injury thought to be secondary to vancomycin administration - resolved. 5. Hyperphosphatemia -Hold PhosLo for now. -Check phosphorus level tomorrow morning, along with CBC and BMP 6. Iron deficiency anemia -Continue ferrous sulfate and vitamin C 01/13/17-Divine Tolerating antibiotics well, continue same for probable osteomyelitis/wound infection. Wound care notes reviewed, good granulation tissue described and wound on the right upper thigh measured 4.2 x 3.6 x 5.6 cm today. Renal function has improved from acute stay and sodium has normalized. Mild hyperphosphatemia persists, continue PhosLo and reassess early next week. Hemoglobin stable, known iron deficiency with anemia developing since March 2016. Patient denies chronic indigestion or heartburn but requires chronic digital stimulation for bowel movements. He is unaware of any chronic rectal bleeding however and has never had a colonoscopy. May need to pursue in the future if ongoing anemia. Denies family history of colon cancer or other chronic bowel disease. 01/14/17 Right ischial stage IV decub ulcer with possible osteomyelitis-Continue Rocephin and Flagyl through 02/04/17 MANDY resolved and renal function at baseline Elevated BP - will discuss starting an AntiHTN with Dr. Haskins. 01/16/17 Doing well. Blood pressure remains moderately elevated with readings 133/77-169/90 over the past 24 hours. Continue to monitor on low-dose Cozaar for an additional 1-2 days and if no improvement will increase dose. Repeat CBC, renal panel, and CRP ordered for Wednesday to monitor antibiotic therapy, anemia, and hyperphosphatemia. 01/17/17 - Increase Cozaar to 50 mg daily. 01/19 Doing well. No new problems or concerns. Continue wound vac and wound care. Continue Rocephin + Flagyl. Continue Cozaar at 50mg daily. Weekly CMP, CBC, and CRP ordered. Check BMP on 01/21 secondary to recent MANDY and ARB use. 01/21 Doing well overall, except very tired (usually much more energetic at home). Eating well. Breathing well. No f/c. Continue wound vac and wound care. Wound vac change tomorrow - may need to return to the prior vac if not healing. Continue Rocephin + Flagyl. Continue Cozaar at 50mg daily. Weekly CMP, CBC, and CRP ordered. 01/23/17 Stable. Continues to require inpatient care for wound VAC being utilized. Recheck labs on Wednesday to monitor antibiotic use. Blood pressure improved with losartan. 01/25 Wound exploration today. Anticipate replacement of Varacleans post exploration. Continue Rocephin and metronidazole for antimicrobial coverage. BP and lab stable on valsartan. 01/26 POD #1 Wound debridement Continue Rocephin + metronidazole - scheduled through 02/04/17. Continue wound care per Dr. Tyson. BP under good control on losartan 50 mg daily. Phos still elevated - cont. Phoslo. 01/27-Dr Palma RECOMMENDATIONS I would continue with the ceftriaxone and Flagyl to complete six weeks of therapy. He will need these antibiotics through February 04, 2017. I would continue to follow weekly CBC with differential, CMP and CRP weekly while he is on the antibiotics. I don't feel that his IV antibiotics will need to be extended since his debridement did not go down to bone. 01/28 Doing well. No new problems. Appetite stable. No nausea. Breathing well. No f/ c. Urine output has been greater than intake - creatinine stable. Possible mobilizing fluid from hydration given with MANDY Continue ceftriaxone and metronidazole to complete six weeks of therapy - need through February 04, 2017. Continue with wound vac and offloading for wound healing. Continue with Cozaar for BP control. Monitor volume status - watch for overdiuresis. 01/29 Doing well overall. Appetite fair-eats well when family brings in food from outside. Drinking well. No nausea or ab pain. Breathing stable. No f/c. Encourage that his wound is healing. Urine output greater than intake. Continue ceftriaxone and metronidazole to complete six weeks of therapy - need through February 04, 2017. Continue with wound vac and offloading for wound healing. Encourage intake of fluids/liquids. Will check BMP, phos and vitamin D level in am. LENY SO MD Jan 29, 2017 14:45
--- NOTE | 2017-01-29 18:28 | NUR ---
STATUS PT CURRENTLY IN BED WITH NO COMPLAINTS. WOUND VAC CHANGED TO DAY BY WOUND TEAM AT 1400. DRESSING IS CLEAN/DRY/INTACT. AIR BED ON TURNING PT CONTINUOUSLY. ALERT AND ORIENTED X3. DENIES PAIN. DOUBLE LUMEN PICC TO LEFT UPPER ARM FLUSHES AND ASPIRATES WELL. FOAM BOOTS TO BILATERAL HEELS, SCDS ON. WILL CONTINUE TO MONITOR. WOUND VAC CONTAINER DRAINING RED BLOODY DRAINAGE. WILL CONTINUE TO MONITOR.
--- NOTE | 2017-01-29 18:53 | NUR ---
NOTIFIED DR SO PT HR 130-120 MAINTAINING. READ BACK CURRENT SET OF VITAL SIGNS. DR SO NOTIFIED ME HE WOULD PUT IN AN ORDER FOR IV LOPRESSOR 5MG IV PUSH ONE TIME. ORDERS IMPLEMENTED. NOTIFIED ONCOMING RN. WILL ADMINISTER MEDICATION.
[2017-01-29] MEDS ORDERED: METOPROLOL 5mg/5ml INJECTION IV ONE (19:00)
[2017-01-30 05:31] LABS: ANION GAP 12 MEQ/L (5-15); BUN/CREATININE RATIO 23 RATIO (6-26); CHLORIDE 104 MEQ/L (98-107); CO2 - CARBON DIOXIDE 25 MEQ/L (22-30); CREATININE 0.7 MG/DL (0.8-1.5); GLOMERULAR FILTRATION RATE 126; GLUCOSE 100 MG/DL (75-110); PHOSPHORUS 5.4 MG/DL (2.5-4.5); SODIUM 141 MEQ/L (134-144)
--- NOTE | 2017-01-30 07:45 | NUR ---
SHIFT SUMMARY: PT IS A&OX3, FRIENDLY AND COOPERATIVE; SLEPT WELL DURING THE NIGHT, DENIES N/V, CHEST PAIN OR SOA; PT HAS A LEFT UPPER ARM PICC (DOUBLE LUMEN) THAT ASPIRATES AND FLUSHES WELL; PT IS ON TELEMETRY; PT HAS AN INDWELLING DE SOUZA CATHETER THAT HAS GOOD OUTPUT; WOUND VAC HAS MODERATE-LARGE AMOUNTS DRAINAGE; CONTINUOUSLY ROTATING BED. CALL LIGHT WITHIN REACH, BED ALARM ON.
[2017-01-30 09:48] VITALS: BP 105/68; PULSE 90; RESP 16; TEMP 97.4; O2SAT 100
[2017-01-30] MEDS: METRONIDAZOLE 500 MG TABLET PO SCH ×2 (10:02→22:27)
[2017-01-30] MEDS: ASCORBIC ACID 500 MG TABLET PO SCH (10:02)
[2017-01-30] MEDS: LOSARTAN 50 MG TABLET PO SCH (10:02)
[2017-01-30] MEDS: POLYETHYL.GLYCOL 3350 PACKET 17gm PO SCH (10:02)
[2017-01-30] MEDS: VITAMIN B COMP + C TABLET PO SCH (10:02)
[2017-01-30] MEDS: FERROUS SULFATE 324 MG TABLET PO SCH (10:03)
[2017-01-30] MEDS: ENOXAPARIN 40 MG/0.4 ML INJECTION SQ SCH (10:04)
[2017-01-30] MEDS: CEFTRIAXONE 2 G in NORMAL SALINE 100 ML IV SCH (10:04)
[2017-01-30] MEDS: NORMAL SALINE 1,000 ML IV PRN (11:14)
--- NOTE | 2017-01-30 14:46 | PNPDOC ---
HANS HUGO V IMMIGRATION CASE MANAGER 01/30/17 1444: Subjective Date DATE: 01/30/17 TIME: 14:38 Subjective Joe is seen this afternoon while relaxing with family visiting. He denies having any pain or feeling short of breath. He continues to be mildly tachycardic at times currently at 100/min. BP stable at 105/68. Pinto cath intact and bowels last moved yesterday. Objective Vital Signs Vital signs Vital Signs Date Time Temp Pulse Resp B/P Pulse Ox O2 Delivery O2 Flow Rate FiO2 01/30/17 09:48 97.4 90 16 105/68 100 Room Air Height (Feet): 5 Height (Inches): 9.00 Weight (Kilograms): 105.300 General General Appearance: Alert, Orientated x 3, Cooperative, No Acute Distress Eyes (Brief) Eyes: FOUND: EOMI ENMT (Brief) ENMT: FOUND: mucosa moist, normal dentition, NOT FOUND: pharnyx erythema Neck (Brief) Neck: FOUND: midline, NOT FOUND: adenopathy, carotid bruits, tracheal deviation Respiratory (Brief) Respiratory: FOUND: clear all burroughs, equal bilaterally, NOT FOUND: wheezes Cardiovascular (Brief) Cardiac: FOUND: regular rate, regular rhythm, NOT FOUND: murmur, pedal edema Capillary Refill: <2 sec Abdomen (Brief) Abdominal: FOUND: BS normo active x4, soft, NOT FOUND: distended, tender Lymphatic (Brief) Lymphatic: NOT FOUND: adenopathy Musculoskeletal (Brief) Musculoskeletal: NOT FOUND: tenderness Integumentary (Brief) Integumentary: FOUND: dry, pink, warm Neurologic (Brief) Neurological: FOUND: cranial 2-12 intact Psychiatric (Brief) Psychiatric: FOUND: alert, attentive, normal affect, oriented Laboratory Laboratory Laboratory Tests 01/30/17 04:32 Assessment & Plan Problems: (1) Pressure ulcer of right buttock, stage 4 Status: Acute Assessment & Plan: Polymicrobial with osteomyelitis, Rocephin and Flagyl through 02/04/17 Debridement on 01/25/17 (2) Osteomyelitis Status: Acute Qualifiers: Laterality: left Assessment & Plan: Right ischium (3) Hyperphosphatemia Status: Acute (4) Hypertension Status: Acute (5) Microcytic anemia Status: Chronic Assessment & Plan: Iron deficiency anemia. Iron 12, TIBC 325, saturation 4% on 12/25/16. Continue ferrous sulfate (6) Paraplegia at T9 level Status: Chronic (7) Neurogenic bladder Status: Chronic (8) Neurogenic bowel Status: Chronic (9) Chronic urinary tract infection Status: Chronic (10) Obesity (BMI 30-39.9) Status: Chronic (11) Thrombocytosis Status: Resolved Assessment & Plan: c/w iron deficiency (12) E. coli UTI Status: Resolved (13) MANDY (acute kidney injury) Status: Resolved (14) Sepsis Status: Resolved (15) Hypernatremia Status: Resolved Plan/Intensity of Service 01/30/17 Continue ceftriaxone and metronidazole to complete six weeks of therapy - need through February 04, 2017. Continue with wound vac and offloading for wound healing. Monitor tachycardia. Encourage intake of fluids/liquids. BMP normal this morning. Vitamin D studies pending. Code Status Full Code Hospital Course Summary Disclaimer The hospital course summary below is not to be considered part of the above Progress Note. Hospital Course Summary 01/12/17 - Admitted to swing bed status under the hospitalist service. Hospitalized from 12/27/16 through 01/11/[address] [facility] [place]. 1. Right ischial stage IV decub ulcer with possible osteomyelitis -Continue Rocephin and Flagyl through 02/04/[address] Palma. -Wound care and wound VAC management per Dr. Tyson. 2. T9 paraplegia with neurogenic bowel and bladder. -Pinto catheter in place. 3. Recent sepsis and Escherichia coli UTI - resolved 4. Recent acute kidney injury thought to be secondary to vancomycin administration - resolved. 5. Hyperphosphatemia -Hold PhosLo for now. -Check phosphorus level tomorrow morning, along with CBC and BMP 6. Iron deficiency anemia -Continue ferrous sulfate and vitamin C 01/13/17-Divine Tolerating antibiotics well, continue same for probable osteomyelitis/wound infection. Wound care notes reviewed, good granulation tissue described and wound on the right upper thigh measured 4.2 x 3.6 x 5.6 cm today. Renal function has improved from acute stay and sodium has normalized. Mild hyperphosphatemia persists, continue PhosLo and reassess early next week. Hemoglobin stable, known iron deficiency with anemia developing since March 2016. Patient denies chronic indigestion or heartburn but requires chronic digital stimulation for bowel movements. He is unaware of any chronic rectal bleeding however and has never had a colonoscopy. May need to pursue in the future if ongoing anemia. Denies family history of colon cancer or other chronic bowel disease. 01/14/17 Right ischial stage IV decub ulcer with possible osteomyelitis-Continue Rocephin and Flagyl through 02/04/17 MANDY resolved and renal function at baseline Elevated BP - will discuss starting an AntiHTN with Dr. Haskins. 01/16/17 Doing well. Blood pressure remains moderately elevated with readings 133/77-169/90 over the past 24 hours. Continue to monitor on low-dose Cozaar for an additional 1-2 days and if no improvement will increase dose. Repeat CBC, renal panel, and CRP ordered for Wednesday to monitor antibiotic therapy, anemia, and hyperphosphatemia. 01/17/17 - Increase Cozaar to 50 mg daily. 01/19 Doing well. No new problems or concerns. Continue wound vac and wound care. Continue Rocephin + Flagyl. Continue Cozaar at 50mg daily. Weekly CMP, CBC, and CRP ordered. Check BMP on 01/21 secondary to recent MANDY and ARB use. 01/21 Doing well overall, except very tired (usually much more energetic at home). Eating well. Breathing well. No f/c. Continue wound vac and wound care. Wound vac change tomorrow - may need to return to the prior vac if not healing. Continue Rocephin + Flagyl. Continue Cozaar at 50mg daily. Weekly CMP, CBC, and CRP ordered. 01/23/17 Stable. Continues to require inpatient care for wound VAC being utilized. Recheck labs on Wednesday to monitor antibiotic use. Blood pressure improved with losartan. 01/25 Wound exploration today. Anticipate replacement of Varacleans post exploration. Continue Rocephin and metronidazole for antimicrobial coverage. BP and lab stable on valsartan. 01/26 POD #1 Wound debridement Continue Rocephin + metronidazole - scheduled through 02/04/17. Continue wound care per Dr. Tyson. BP under good control on losartan 50 mg daily. Phos still elevated - cont. Phoslo. 01/27-Dr Palma RECOMMENDATIONS I would continue with the ceftriaxone and Flagyl to complete six weeks of therapy. He will need these antibiotics through February 04, 2017. I would continue to follow weekly CBC with differential, CMP and CRP weekly while he is on the antibiotics. I don't feel that his IV antibiotics will need to be extended since his debridement did not go down to bone. 01/28 Doing well. No new problems. Appetite stable. No nausea. Breathing well. No f/ c. Urine output has been greater than intake - creatinine stable. Possible mobilizing fluid from hydration given with MANDY Continue ceftriaxone and metronidazole to complete six weeks of therapy - need through February 04, 2017. Continue with wound vac and offloading for wound healing. Continue with Cozaar for BP control. Monitor volume status - watch for overdiuresis. 01/29 Doing well overall. Appetite fair-eats well when family brings in food from outside. Drinking well. No nausea or ab pain. Breathing stable. No f/c. Encourage that his wound is healing. Urine output greater than intake. Continue ceftriaxone and metronidazole to complete six weeks of therapy - need through February 04, 2017. Continue with wound vac and offloading for wound healing. Encourage intake of fluids/liquids. Will check BMP, phos and vitamin D level in am. 01/30/17 Continue ceftriaxone and metronidazole to complete six weeks of therapy - need through February 04, 2017. Continue with wound vac and offloading for wound healing. Monitor tachycardia. Encourage intake of fluids/liquids. BMP normal this morning. Vitamin D studies pending. LENY SO MD 01/30/17 193: Assessment & Plan Plan/Intensity of Service Have independently interviewed and examined pt. Chart reviewed. Case discussed with my IMMIGRATION CASE MANAGER. Care plan developed with my supervision; agree with above. Doing well. Did note episode of palpitation-reports occasional will have those. Feels well overall. Eating and drinking well (trying to drink less soda and more water). Not thirsty. No nausea or ab pain. Breathing feels well. No f/c. Lungs: clear CV: regular AB: soft nt/nd +BS MSE: awake alert appropriate Plan: Continue antibiotics. Continue wound vac. Will try low dose Toprol XL - monitor HR and BP. Encourage continued good intake of nutrients and fluids. Monitor urine output. HANS HUGO APRN Jan 30, 2017 14:44 LENY SO MD Jan 30, 2017 19:31
[2017-01-30] MEDS ORDERED: METOPROLOL 5mg/5ml INJECTION IV ONE (15:45)
[2017-01-30 16:19] VITALS: BP 86/64; PULSE 106; RESP 16; O2SAT 99
--- NOTE | 2017-01-30 19:10 | NUR ---
status Pt A/O x3, V/S stable on RA. 153 pt stated hrt elevated, called dr Matamoros and received N.O. for IV lopressor. After receiving pt has not c/o hrt. Pt eating and drinking well, no N/V. Pinto to DD, good output, lg BM this shift. Pt denies pain and no PRN meds given. Wound vac no leaks and flushing well.
[2017-01-30 20:00] VITALS: RESP 18
[2017-01-30 20:32] VITALS: BP 106/65; PULSE 112; RESP 16; TEMP 98.9; O2SAT 98
[2017-01-31] VITALS: BP 128/73; PULSE 95; RESP 16; TEMP 97.5; O2SAT 93
[2017-01-31 09:45] VITALS: PULSE 92; RESP 18
[2017-01-31 09:59] VITALS: BP 115/85; PULSE 89; RESP 18; TEMP 96.4; O2SAT 98
[2017-01-31] MEDS: ASCORBIC ACID 500 MG TABLET PO SCH (10:04)
[2017-01-31] MEDS: FERROUS SULFATE 324 MG TABLET PO SCH (10:04)
[2017-01-31] MEDS: METRONIDAZOLE 500 MG TABLET PO SCH ×2 (10:04→21:49)
[2017-01-31] MEDS: VITAMIN B COMP + C TABLET PO SCH (10:05)
[2017-01-31] MEDS: METOPROLOL XL 25 MG TABLET PO SCH (10:05)
[2017-01-31] MEDS: ENOXAPARIN 40 MG/0.4 ML INJECTION SQ SCH (10:05)
[2017-01-31] MEDS: LOSARTAN 50 MG TABLET PO SCH (10:05)
[2017-01-31] MEDS: POLYETHYL.GLYCOL 3350 PACKET 17gm PO SCH (10:05)
[2017-01-31] MEDS: CEFTRIAXONE 2 G in NORMAL SALINE 100 ML IV SCH (10:06)
--- NOTE | 2017-01-31 13:33 | PNPDOC ---
JESSICA CORDERO [employer] WASHER HAND 01/31/17 1328: Subjective Date DATE: 01/31/17 TIME: 13:25 Subjective Joe is seen today in follow up. He is doing well with no c/o. He remains a bit hypotensive and tachycardic. He was started on low-dose metoprolol for HR controlled. Chart is reviewed. Objective Vital Signs Vital signs Vital Signs Date Time Temp Pulse Resp B/P Pulse Ox O2 Delivery O2 Flow Rate FiO2 01/31/17 09:59 96.4 89 18 115/85 98 Room Air Height (Feet): 5 Height (Inches): 9.00 Weight (Kilograms): 105.500 General General Appearance: Alert, Orientated x 3, Cooperative, No Acute Distress Eyes (Brief) Eyes: FOUND: EOMI, PERRL Neck (Brief) Neck: FOUND: midline, NOT FOUND: JVD, nuchal rigidity, spasm Respiratory (Brief) Respiratory: FOUND: clear all burroughs, equal bilaterally, symmetrical, NOT FOUND : rales, wheezes Cardiovascular (Brief) Cardiac: FOUND: regular rate, regular rhythm, NOT FOUND: murmur, pedal edema Abdomen (Brief) Abdominal: FOUND: BS normo active x4, soft, NOT FOUND: distended, tender Extremities (Brief) Extremity : Side: Bilateral Extremity Finding: NOT FOUND: edema Musculoskeletal (Brief) Musculoskeletal: FOUND: loss of motion Integumentary (Brief) Integumentary: FOUND: dry, warm Psychiatric (Brief) Psychiatric: FOUND: alert, attentive, oriented Laboratory Laboratory Laboratory Tests 01/30/17 04:32 Assessment & Plan Problems: (1) Pressure ulcer of right buttock, stage 4 Status: Acute Assessment & Plan: Polymicrobial with osteomyelitis, Rocephin and Flagyl through 02/04/17 Debridement on 01/25/17 (2) Osteomyelitis Status: Acute Qualifiers: Laterality: left Assessment & Plan: Right ischium (3) Hyperphosphatemia Status: Acute (4) Hypertension Status: Acute (5) Microcytic anemia Status: Chronic Assessment & Plan: Iron deficiency anemia. Iron 12, TIBC 325, saturation 4% on 12/25/16. Continue ferrous sulfate (6) Paraplegia at T9 level Status: Chronic (7) Neurogenic bladder Status: Chronic (8) Neurogenic bowel Status: Chronic (9) Chronic urinary tract infection Status: Chronic (10) Obesity (BMI 30-39.9) Status: Chronic (11) Thrombocytosis Status: Resolved Assessment & Plan: c/w iron deficiency (12) E. coli UTI Status: Resolved (13) MANDY (acute kidney injury) Status: Resolved (14) Sepsis Status: Resolved (15) Hypernatremia Status: Resolved Plan/Intensity of Service 01/31/17-SWING STATUS Patient is feeling well overall. Continue wound care, Ceftriaxone & Flagyl. He remains tachycardic- suspect some hypovolemia. Give two liters of IVF to see if this improves his symptoms. His weight is down about 4kg this week, and he is having quite a bit of drainage from wound vac. Hold Cozaar for now since we have started metoprolol to control HR. Assess UA to ensure that is not contributing to his symptoms of new tachycardia. Pinto is documented to have good output, so urinary retention is less of a concern. BM are documented as well. Will continue supportive care. Code Status Full Code Hospital Course Summary Disclaimer The hospital course summary below is not to be considered part of the above Progress Note. Hospital Course Summary 01/12/17 - Admitted to swing bed status under the hospitalist service. Hospitalized from 12/27/16 through 01/11/17 as an inpatient at [facility] [place]. 1. Right ischial stage IV decub ulcer with possible osteomyelitis -Continue Rocephin and Flagyl through 02/04/[address] Palma. -Wound care and wound VAC management per Dr. Tyson. 2. T9 paraplegia with neurogenic bowel and bladder. -Pinto catheter in place. 3. Recent sepsis and Escherichia coli UTI - resolved 4. Recent acute kidney injury thought to be secondary to vancomycin administration - resolved. 5. Hyperphosphatemia -Hold PhosLo for now. -Check phosphorus level tomorrow morning, along with CBC and BMP 6. Iron deficiency anemia -Continue ferrous sulfate and vitamin C 01/13/17-Divine Tolerating antibiotics well, continue same for probable osteomyelitis/wound infection. Wound care notes reviewed, good granulation tissue described and wound on the right upper thigh measured 4.2 x 3.6 x 5.6 cm today. Renal function has improved from acute stay and sodium has normalized. Mild hyperphosphatemia persists, continue PhosLo and reassess early next week. Hemoglobin stable, known iron deficiency with anemia developing since March 2016. Patient denies chronic indigestion or heartburn but requires chronic digital stimulation for bowel movements. He is unaware of any chronic rectal bleeding however and has never had a colonoscopy. May need to pursue in the future if ongoing anemia. Denies family history of colon cancer or other chronic bowel disease. 01/14/17 Right ischial stage IV decub ulcer with possible osteomyelitis-Continue Rocephin and Flagyl through 02/04/17 MANDY resolved and renal function at baseline Elevated BP - will discuss starting an AntiHTN with Dr. Haskins. 01/16/17 Doing well. Blood pressure remains moderately elevated with readings 133/77-169/90 over the past 24 hours. Continue to monitor on low-dose Cozaar for an additional 1-2 days and if no improvement will increase dose. Repeat CBC, renal panel, and CRP ordered for Wednesday to monitor antibiotic therapy, anemia, and hyperphosphatemia. 01/17/17 - Increase Cozaar to 50 mg daily. 01/19 Doing well. No new problems or concerns. Continue wound vac and wound care. Continue Rocephin + Flagyl. Continue Cozaar at 50mg daily. Weekly CMP, CBC, and CRP ordered. Check BMP on 01/21 secondary to recent MANDY and ARB use. 01/21 Doing well overall, except very tired (usually much more energetic at home). Eating well. Breathing well. No f/c. Continue wound vac and wound care. Wound vac change tomorrow - may need to return to the prior vac if not healing. Continue Rocephin + Flagyl. Continue Cozaar at 50mg daily. Weekly CMP, CBC, and CRP ordered. 01/23/17 Stable. Continues to require inpatient care for wound VAC being utilized. Recheck labs on Wednesday to monitor antibiotic use. Blood pressure improved with losartan. 01/25 Wound exploration today. Anticipate replacement of Varacleans post exploration. Continue Rocephin and metronidazole for antimicrobial coverage. BP and lab stable on valsartan. 01/26 POD #1 Wound debridement Continue Rocephin + metronidazole - scheduled through 02/04/17. Continue wound care per Dr. Tyson. BP under good control on losartan 50 mg daily. Phos still elevated - cont. Phoslo. 01/27-Dr Palma RECOMMENDATIONS I would continue with the ceftriaxone and Flagyl to complete six weeks of therapy. He will need these antibiotics through February 04, 2017. I would continue to follow weekly CBC with differential, CMP and CRP weekly while he is on the antibiotics. I don't feel that his IV antibiotics will need to be extended since his debridement did not go down to bone. 01/28 Doing well. No new problems. Appetite stable. No nausea. Breathing well. No f/ c. Urine output has been greater than intake - creatinine stable. Possible mobilizing fluid from hydration given with MANDY Continue ceftriaxone and metronidazole to complete six weeks of therapy - need through February 04, 2017. Continue with wound vac and offloading for wound healing. Continue with Cozaar for BP control. Monitor volume status - watch for overdiuresis. 01/29 Doing well overall. Appetite fair-eats well when family brings in food from outside. Drinking well. No nausea or ab pain. Breathing stable. No f/c. Encourage that his wound is healing. Urine output greater than intake. Continue ceftriaxone and metronidazole to complete six weeks of therapy - need through February 04, 2017. Continue with wound vac and offloading for wound healing. Encourage intake of fluids/liquids. Will check BMP, phos and vitamin D level in am. 01/30/17 Continue ceftriaxone and metronidazole to complete six weeks of therapy - need through February 04, 2017. Continue with wound vac and offloading for wound healing. Monitor tachycardia. Encourage intake of fluids/liquids. BMP normal this morning. Vitamin D studies pending. 01/31/17-SWING STATUS Patient is feeling well overall. Continue wound care, Ceftriaxone & Flagyl. He remains tachycardic- suspect some hypovolemia. Give two liters of IVF to see if this improves his symptoms. His weight is down about 4kg this week, and he is having quite a bit of drainage from wound vac. Hold Cozaar for now since we have started metoprolol to control HR. Assess UA to ensure that is not contributing to his symptoms of new tachycardia. Pinto is documented to have good output, so urinary retention is less of a concern. BM are documented as well. Will continue supportive care. LENY SO MD 01/31/17 4915: Assessment & Plan Plan/Intensity of Service Have independently interviewed and examined pt. Chart reviewed. Case discussed with my PAN WASH[employer]. Care plan developed with my supervision; agree with above. Doing well. No new problems. Breathing stable. No chest pain. Appetite fair- tired of the food as it's always the same. No nausea. Lungs: clear CV: regular AB: soft nt/nd +BS MSE: awake alert appropriate Plan: IVF. Continue antibiotics and wound vac. Recheck lab in am. JESSICA CORDERO APRN Jan 31, 2017 13:28 LENY SO MD Jan 31, 2017 18:15
[2017-01-31] MEDS: NORMAL SALINE 1,000 ML IV SCH ×2 (14:22→22:31)
[2017-01-31 15:53] VITALS: BP 102/59; PULSE 101; RESP 16; TEMP 98; O2SAT 98
--- NOTE | 2017-01-31 19:36 | NUR ---
STATUS pt is alert and oriented X3. pt has denied pain. pt lays in a bed that rotates him. pt is on room air. wound vac running. IV fluids restarted X2 bags. pt denies needing anything at this time.
[2017-01-31 20:26] VITALS: PULSE 88; RESP 18
[2017-01-31 20:52] LABS: BLOOD, URINE NEGATIVE (NEGATIVE); COLOR,URINE YELLOW (YELLOW); LEUKOCYTE ESTERASE ,URINE 2+ (NEGATIVE); NITRITE,URINE NEGATIVE (NEGATIVE); UROBILINOGEN,URINE 0.2 EU/DL (NORMAL)
[2017-01-31 21:04] LABS: RBC,URINE 0-1 /HPF (0-3)
[2017-01-31 21:05] LABS: BACTERIA,URINE 1+ (NEGATIVE); YEAST,URINE 1+ (NEGATIVE)
[2017-02-01] VITALS: BP 123/67; PULSE 89; RESP 16; TEMP 97.9; O2SAT 98
--- NOTE | 2017-02-01 01:52 | NUR ---
WOUND VAC: PT'S WOUND VAC ALARM WENT OFF DUE TO "LINE LEAK." I ASSESSED THE LINE FOR A LEAK; STEWART (AGENCY RN) ASSISTED ME BY APPLYING THE CLEAR BARRIER PEEL AND STICK SHIELD TO PT'S RIGHT BUTTOCK. ALSO FOUND THAT A SMALL DRAINAGE TUBE WAS DISCONNECTED TO THE WOUND VAC. REATTACHED SMALL DRAINAGE LINE AND FOUND THIS TO BE THE SOURCE OF THE LEAK. WILL CONTINUE TO MONITOR.
[2017-02-01 05:26] LABS: BASOPHILS % (AUTO) 0.6 % (0-2); EOSINOPHILS # (AUTO) 0.2 T/MM3 (0-0.5); EOSINOPHILS % (AUTO) 3.5 % (0-4); HCT - HEMATOCRIT 31.3 % (41-53); IMMATURE GRANULOCYTE # (AUTO) 0.01 T/MM3 (0.00-0.03); IMMATURE GRANULOCYTE % (AUTO) 0.2 % (0.0-0.5); LYMPHOCYTES # (AUTO) 2.6 T/MM3 (1-4.8); LYMPHOCYTES % (AUTO) 48.9 % (23-45); MEAN CORPUSCULAR HGB 26.5 UUG (26-34); MEAN CORPUSCULAR HGB CONC(MCHC 31.9 GM/DL (31-37); MEAN CORPUSCULAR VOLUME 82.8 UM3 (80-100); MEAN PLATELET VOLUME 9.7 UM3 (9.4-12.4); MONOCYTES # (AUTO) 0.7 T/MM3 (0-0.8); MONOCYTES % (AUTO) 12.9 % (0-9.0); NEUTROPHILS #(AUTO)-ABSOLUTE 1.8 T/MM3 (1.8-7.7); NEUTROPHILS % (AUTO) 33.9 % (33-66); RED BLOOD COUNT 3.78 M/MM3 (4.50-5.90); WBC - WHITE BLOOD COUNT 5.2 T/MM3 (4.5-11.0)
--- NOTE | 2017-02-01 05:28 | NUR ---
SHIFT SUMMARY: PT IS A&OX3, FRIENDLY AND COOPERATIVE; SLEPT WELL DURING THE NIGHT, DENIES N/V, CHEST PAIN OR SOA; ON ROOM AIR; HAS A LEFT UPPER ARM PICC (DOUBLE LUMEN) THAT ASPIRATES AND FLUSHES WELL; ON TELEMETRY; HAS INDWELLING DE SOUZA CATHETER WITH GOOD OUTPUT; WOUND VAC PUTTING OUT SMALLER AMOUNT LAST NIGHT THAN PAST TWO NIGHTS; IV FLUIDS RUNNING; CONTINUOUSLY ROTATING BED. CALL LIGHT WITHIN REACH, BED ALARM ON.
[2017-02-01 05:34] LABS: ALBUMIN/GLOBULIN RATIO 0.9 RATIO (1.1-2.2); ALKALINE PHOSPHATASE 61 U/L (38-126); ALT (SGPT) 31 U/L (21-72); ANION GAP 11 MEQ/L (5-15); AST (SGOT) 21 U/L (17-59); BUN/CREATININE RATIO 21 RATIO (6-26); CALCIUM 8.7 MG/DL (8.4-10.2); CHLORIDE 109 MEQ/L (98-107); CO2 - CARBON DIOXIDE 24 MEQ/L (22-30); CREATININE 0.7 MG/DL (0.8-1.5); GLOMERULAR FILTRATION RATE 126; GLUCOSE 98 MG/DL (75-110); PHOSPHORUS 4.4 MG/DL (2.5-4.5); POTASSIUM 3.9 MEQ/L (3.6-5); SODIUM 144 MEQ/L (134-144); TOTAL PROTEIN 6.4 G/DL (6.3-8.2)
[2017-02-01 05:59] LABS: C-REACTIVE PROTEIN 28.8 MG/L (0-9)
[2017-02-01 07:24] VITALS: BP 116/68; PULSE 79; RESP 14; TEMP 96.7; O2SAT 98
[2017-02-01] MEDS: CEFTRIAXONE 2 G in NORMAL SALINE 100 ML IV SCH (09:15)
[2017-02-01] MEDS: POLYETHYL.GLYCOL 3350 PACKET 17gm PO SCH (09:15)
[2017-02-01] MEDS: METRONIDAZOLE 500 MG TABLET PO SCH ×2 (09:16→21:05)
[2017-02-01] MEDS: METOPROLOL XL 25 MG TABLET PO SCH (09:16)
[2017-02-01] MEDS: VITAMIN B COMP + C TABLET PO SCH (09:16)
[2017-02-01] MEDS: ENOXAPARIN 40 MG/0.4 ML INJECTION SQ SCH (09:16)
[2017-02-01] MEDS: ASCORBIC ACID 500 MG TABLET PO SCH (09:17)
[2017-02-01] MEDS: LOSARTAN 50 MG TABLET PO SCH (09:18)
[2017-02-01] MEDS: FERROUS SULFATE 324 MG TABLET PO SCH (09:18)
--- NOTE | 2017-02-01 09:38 | PNPDOC ---
Subjective Date DATE: 02/01/17 TIME: 09:33 Subjective Mr. Cosby reports feeling tired, but denies other complaints. He denies any N /V/D, fever or chills. He has had some tachycardia and hypotension. He was given IVF yesterday and his anti-hypertensives were held. His UA was checked yesterday, which looked okay. Objective Vital Signs: RN Vital Signs have been reviewed: Yes, Temperature: 96.7, Heart Rate: 79, Respiratory Rate: 14, BP: 116/68, Pulse Oximetry: 98 Height (Feet): 5 Height (Inches): 9.00 General: FOUND: Alert, NOT FOUND: Acute Distress Skin: NOT FOUND: Rash HEENT: FOUND NC/AT, NOT FOUND Oral Lesions Neck: NOT FOUND: Meningismus Cardiac: FOUND: Regular Rate/Rhythm, NOT FOUND: Murmur, Pitting Edema Lungs: FOUND: Clear to Auscultation, Symmetrical Expansion, NOT FOUND: Wheezes Abdomen: FOUND: Non-tender, Soft, NOT FOUND: Distended : NOT FOUND: Pinto Extremities: NOT FOUND Edema (Bilateral Lower Extremitites) Neurological: FOUND A/A/A, NOT FOUND Focal Deficits Psychological: FOUND Intact and Appropriate IV Site: PICC (RUE) Antbiotics Vancomycin and Zosyn . Ceftriaxone and po flagyl since 01/04 Laboratory Laboratory Tests 02/01/17 04:02 Laboratory Tests 02/01/17 04:02 CRP today is 28.8, which is increased Cultures Blood cultures 2/2 on 12/25 with S. intermedius sensitive to PCN S INTERMED INTERP MAKAYLA ------ --------- AMPICILLIN S <=0.25 CLINDAMYCIN S <=0.25 ERYTHROMYCIN S <=0.12 LEVOFLOXACIN S <=0.25 LINEZOLID S <=2 BENZYLPENICILL S <=0.06 TETRACYCLINE S 0.5 VANCOMYCIN S 0.25 Wound culture 12/25: Specimen: [id number] Collected: 12/25/16 Received: 12/25/16-[address]: NATHANIEL QUINTANILLA MD, FACS, CWS Source: UNKNOWN Procedure Result Verified MICROBIOLOGY GRAM STAIN Final 12/26/16-1504 RESULT FEW GRAM NEGATIVE RODS FEW GRAM POSITIVE RODS FEW GRAM POSITIVE COCCI MANY NEUTROPHILS WOUND CULTURE DEEP TISS-AER/AN Final 01/01/17-1032 Organism 1 PROTEUS VULGARIS GROUP QUANTITY: MODERATE GROWTH Organism 2 ENTEROCOC FAECALIS - (GROUP D) QUANTITY: MODERATE GROWTH Organism 3 BACTEROIDES FRAGILIS QUANTITY: MODERATE GROWTH Organism 4 ANAEROCOCCUS PREVOTII QUANTITY: MODERATE GROWTH Organism 5 DIPHTHEROID BACILLUS ORGANISM COMMENT: SENSITIVITY NOT PERFORMED Reviewed: Medications, Consult/Progress Notes Assessment & Plan Assessment IMPRESSION 1. Right ischial decubitus ulcer stage IV with osteomyelitis, wound cultures with Proteus vulgaris, Enterococcus faecalis, Bacteroides fragilis. Enterococcus and Diphtheroids bacillus. S/p I&D down to fascia on 01/25/17. 2. Sepsis with sepsis/septicemia with Streptococcus intermedius in blood cultures December 25, 2016. 3. Acute interstitial nephritis on Zosyn and vancomycin, I suspect it was the Zosyn more so than the vancomycin. 4. History of osteomyelitis of the right ischium status post debridement and six weeks of IV antibiotics followed by flap procedure August 2016. 5. Paraplegia at T9 from an accident that occurred in 2001. 6. Neurogenic bladder with self-catheterization 7. Neurogenic bowel. 8. History of urinary tract infections. 9. History of Clostridium difficile infection related to levofloxacin. 9. History of allergy to Keflex with rash, although he is currently tolerating ceftriaxone. Plan/Intensity of Service I would continue with the ceftriaxone and Flagyl to complete six weeks of therapy. He will need these antibiotics through February 04, 2017. I would continue to follow weekly CBC with differential, CMP and CRP weekly while he is on the antibiotics. I don't feel that his IV antibiotics will need to be extended since his debridement did not go down to bone. Will repeat blood cultures since his CRP is up and he's been having hypotension. CLAYTON ACOSTA MD Feb 01, 2017 09:36
[2017-02-01 10:48] VITALS: PULSE 90; RESP 18
--- NOTE | 2017-02-01 13:15 | PNPDOC ---
CLARENCE DUTTA HYDRAULIC TECHNICIAN 02/01/17 1310: Subjective Date DATE: 02/01/17 TIME: 13:07 Subjective Joe has no complaints. He rested well last night. He is looking forward to the - last day of abx. No fever/chills. We discussed his BP and HR - both have improved. Objective Vital Signs Vital signs Vital Signs Date Time Temp Pulse Resp B/P Pulse Ox O2 Delivery O2 Flow Rate FiO2 02/01/17 10:48 90 18 02/01/17 09:38 98 02/01/17 07:24 96.7 116/68 Room Air Height (Feet): 5 Height (Inches): 9.00 Weight (Kilograms): 107.100 General General Appearance: Alert, Obese, Orientated x 3, Well Nourished, Well Developed, No Acute Distress Eyes (Brief) Eyes: FOUND: PERRL, NOT FOUND: scleral icterus ENMT (Brief) ENMT: FOUND: mucosa moist, NOT FOUND: pharnyx erythema Respiratory (Brief) Respiratory: FOUND: clear all burroughs, equal bilaterally Cardiovascular (Brief) Cardiac: FOUND: regular rate, regular rhythm Abdomen (Brief) Abdominal: FOUND: BS normo active x4, soft, NOT FOUND: distended, tender Musculoskeletal (Brief) Musculoskeletal: FOUND: loss of motion (T9 paraplegia) Integumentary (Brief) Integumentary: FOUND: dry, pink, warm Psychiatric (Brief) Psychiatric: FOUND: alert, attentive, normal affect, oriented Laboratory Laboratory Laboratory Tests 02/01/17 04:02 Laboratory Tests 02/01/17 04:02 Microbiology Microbiology Microbiology Date/Time Source Procedure Growth Status 02/01/17 10:16 Cath/Port/Line/Picc Blood Culture - Preliminary CULTURE INITIATED - RESULTS PENDING Resulted 02/01/17 10:13 Cath/Port/Line/Picc Blood Culture - Preliminary CULTURE INITIATED - RESULTS PENDING Resulted Assessment & Plan Problems: (1) Pressure ulcer of right buttock, stage 4 Status: Acute Assessment & Plan: Polymicrobial with osteomyelitis, Rocephin and Flagyl through 02/04/17 Debridement on 01/25/17 (2) Vitamin D deficiency Status: Chronic (3) Osteomyelitis Status: Acute Qualifiers: Laterality: left Assessment & Plan: Right ischium (4) Hypertension Status: Chronic (5) Hyperphosphatemia Status: Resolved (6) Microcytic anemia Status: Chronic Assessment & Plan: Iron deficiency anemia. Iron 12, TIBC 325, saturation 4% on 12/25/16. Continue ferrous sulfate (7) Paraplegia at T9 level Status: Chronic (8) Neurogenic bladder Status: Chronic (9) Neurogenic bowel Status: Chronic (10) Chronic urinary tract infection Status: Chronic (11) Obesity (BMI 30-39.9) Status: Chronic (12) Thrombocytosis Status: Resolved Assessment & Plan: c/w iron deficiency (13) E. coli UTI Status: Resolved (14) MANDY (acute kidney injury) Status: Resolved (15) Sepsis Status: Resolved (16) Hypernatremia Status: Resolved Plan/Intensity of Service Hypotension and tachycardia have improved since having IVF and being on BB. Discussed with Dr. Matamoros - will DC BB and monitor response. Continue Cozaar [address] Palma, continue ceftriaxone and Flagyl to complete six weeks of therapy (through February 04, 2017). Blood cultures repeated d/t hypotension and elevated CRP (28). Follow weekly CBC with differential, CMP and CRP weekly while he is on antibiotics. Phos back to normal level. Code Status Full Code Hospital Course Summary Disclaimer The hospital course summary below is not to be considered part of the above Progress Note. Hospital Course Summary 01/12/17 - Admitted to swing bed status under the hospitalist service. [place] 12/27[place]16 [place]/11/17 [place] [facility] [place]. Right ischial stage IV decub ulcer with possible osteomyelitis -Continue Rocephin and Flagyl through 02/04/[address] Palma. -Wound care and wound VAC management per Dr. Tyson. 2. T9 paraplegia with neurogenic bowel and bladder. -Pinto catheter in place. 3. Recent sepsis and Escherichia coli UTI - resolved 4. Recent acute kidney injury thought to be secondary to vancomycin administration - resolved. 5. Hyperphosphatemia -Hold PhosLo for now. -Check phosphorus level tomorrow morning, along with CBC and BMP 6. Iron deficiency anemia -Continue ferrous sulfate and vitamin C 01/13/17-Divine Tolerating antibiotics well, continue same for probable osteomyelitis/wound infection. Wound care notes reviewed, good granulation tissue described and wound on the right upper thigh measured 4.2 x 3.6 x 5.6 cm today. Renal function has improved from acute stay and sodium has normalized. Mild hyperphosphatemia persists, continue PhosLo and reassess early next week. Hemoglobin stable, known iron deficiency with anemia developing since March 2016. Patient denies chronic indigestion or heartburn but requires chronic digital stimulation for bowel movements. He is unaware of any chronic rectal bleeding however and has never had a colonoscopy. May need to pursue in the future if ongoing anemia. Denies family history of colon cancer or other chronic bowel disease. 01/14/17 Right ischial stage IV decub ulcer with possible osteomyelitis-Continue Rocephin and Flagyl through 02/04/17 MANDY resolved and renal function at baseline Elevated BP - will discuss starting an AntiHTN with Dr. Haskins. 01/16/17 Doing well. Blood pressure remains moderately elevated with readings 133/77-169/90 over the past 24 hours. Continue to monitor on low-dose Cozaar for an additional 1-2 days and if no improvement will increase dose. Repeat CBC, renal panel, and CRP ordered for Wednesday to monitor antibiotic therapy, anemia, and hyperphosphatemia. 01/17/17 - Increase Cozaar to 50 mg daily. 01/19 Doing well. No new problems or concerns. Continue wound vac and wound care. Continue Rocephin + Flagyl. Continue Cozaar at 50mg daily. Weekly CMP, CBC, and CRP ordered. Check BMP on 01/21 secondary to recent MANDY and ARB use. 01/21 Doing well overall, except very tired (usually much more energetic at home). Eating well. Breathing well. No f/c. Continue wound vac and wound care. Wound vac change tomorrow - may need to return to the prior vac if not healing. Continue Rocephin + Flagyl. Continue Cozaar at 50mg daily. Weekly CMP, CBC, and CRP ordered. 01/23/17 Stable. Continues to require inpatient care for wound VAC being utilized. Recheck labs on Wednesday to monitor antibiotic use. Blood pressure improved with losartan. 01/25 Wound exploration today. Anticipate replacement of Varacleans post exploration. Continue Rocephin and metronidazole for antimicrobial coverage. BP and lab stable on valsartan. 01/26 POD #1 Wound debridement Continue Rocephin + metronidazole - scheduled through 02/04/17. Continue wound care per Dr. Tyson. BP under good control on losartan 50 mg daily. Phos still elevated - cont. Phoslo. 01/27-Dr Palma RECOMMENDATIONS I would continue with the ceftriaxone and Flagyl to complete six weeks of therapy. He will need these antibiotics through February 04, 2017. I would continue to follow weekly CBC with differential, CMP and CRP weekly while he is on the antibiotics. I don't feel that his IV antibiotics will need to be extended since his debridement did not go down to bone. 01/28 Doing well. No new problems. Appetite stable. No nausea. Breathing well. No f/ c. Urine output has been greater than intake - creatinine stable. Possible mobilizing fluid from hydration given with MANDY Continue ceftriaxone and metronidazole to complete six weeks of therapy - need through February 04, 2017. Continue with wound vac and offloading for wound healing. Continue with Cozaar for BP control. Monitor volume status - watch for overdiuresis. 01/29 Doing well overall. Appetite fair-eats well when family brings in food from outside. Drinking well. No nausea or ab pain. Breathing stable. No f/c. Encourage that his wound is healing. Urine output greater than intake. Continue ceftriaxone and metronidazole to complete six weeks of therapy - need through February 04, 2017. Continue with wound vac and offloading for wound healing. Encourage intake of fluids/liquids. Will check BMP, phos and vitamin D level in am. 01/30/17 Continue ceftriaxone and metronidazole to complete six weeks of therapy - need through February 04, 2017. Continue with wound vac and offloading for wound healing. Monitor tachycardia. Encourage intake of fluids/liquids. BMP normal this morning. Vitamin D studies pending. 01/31/17-SWING STATUS Patient is feeling well overall. Continue wound care, Ceftriaxone & Flagyl. He remains tachycardic- suspect some hypovolemia. Give two liters of IVF to see if this improves his symptoms. His weight is down about 4kg this week, and he is having quite a bit of drainage from wound vac. Hold Cozaar for now since we have started metoprolol to control HR. Assess UA to ensure that is not contributing to his symptoms of new tachycardia. Pinto is documented to have good output, so urinary retention is less of a concern. BM are documented as well. 02/01/17 Hypotension and tachycardia have improved since having IVF and being on BB. Discussed with Dr. Matamoros - will DC BB and monitor response. Continue Cozaar [address] Palma, continue ceftriaxone and Flagyl to complete six weeks of therapy (through February 04, 2017). Blood cultures repeated d/t hypotension and elevated CRP (28). Follow weekly CBC with differential, CMP and CRP weekly while he is on antibiotics. Phos back to normal level. LENY MATAMOROS MD 02/01/17 1443: Assessment & Plan Problems: (1) Pressure ulcer of right buttock, stage 4 Status: Acute Assessment & Plan: Polymicrobial with osteomyelitis, Rocephin and Flagyl through 02/04/17 Debridement on 01/25/17 (2) Vitamin D deficiency Status: Chronic Assessment & Plan: 02/01: Vit D Level <17 (3) Osteomyelitis Status: Acute Qualifiers: Laterality: left Assessment & Plan: Right ischium (4) Hypertension Status: Chronic (5) Hyperphosphatemia Status: Resolved (6) Microcytic anemia Status: Chronic Assessment & Plan: Iron deficiency anemia. Iron 12, TIBC 325, saturation 4% on 12/25/16. Continue ferrous sulfate (7) Paraplegia at T9 level Status: Chronic (8) Neurogenic bladder Status: Chronic (9) Neurogenic bowel Status: Chronic (10) Chronic urinary tract infection Status: Chronic (11) Thrombocytosis Status: Resolved Assessment & Plan: c/w iron deficiency (12) E. coli UTI Status: Resolved (13) MANDY (acute kidney injury) Status: Resolved (14) Sepsis Status: Resolved (15) Hypernatremia Status: Resolved (16) Obesity (BMI 30-39.9) Status: Chronic Plan/Intensity of Service Have independently interviewed and examined pt. Chart reviewed. Case discussed with my HYDRAULIC TECHNICIAN. Care plan developed with my supervision; agree with above. Doing well. No new problems. Breathing well. No nausea. Appetite stable. No f/ c. Lungs: clear CV: regular AB: soft nt/nd +BS MSE: awake alert appropriate Plan: Continue Rocephin and metronidazole. Will start Vitamin D 15316 units weekly due to vitamin D deficiency. Additionally with start Calcium 600mg BID for bone health. Recheck BMP and phos in two days. Continue wound vac. Hope for discharge to home in near future. Hospital Course Summary Hospital Course Summary 01/12/17 - Admitted to swing bed status under the hospitalist service. [place] 12/27/16 [place] 01/11/17 [place] [facility] [place]. Right ischial stage IV decub ulcer with possible osteomyelitis -Continue Rocephin and Flagyl through 02/04/[address] Palma. -Wound care and wound VAC management per Dr. Tyson. 2. T9 paraplegia with neurogenic bowel and bladder. -Pinto catheter in place. 3. Recent sepsis and Escherichia coli UTI - resolved 4. Recent acute kidney injury thought to be secondary to vancomycin administration - resolved. 5. Hyperphosphatemia -Hold PhosLo for now. -Check phosphorus level tomorrow morning, along with CBC and BMP 6. Iron deficiency anemia -Continue ferrous sulfate and vitamin C 01/13/17-Divine Tolerating antibiotics well, continue same for probable osteomyelitis/wound infection. Wound care notes reviewed, good granulation tissue described and wound on the right upper thigh measured 4.2 x 3.6 x 5.6 cm today. Renal function has improved from acute stay and sodium has normalized. Mild hyperphosphatemia persists, continue PhosLo and reassess early next week. Hemoglobin stable, known iron deficiency with anemia developing since March 2016. Patient denies chronic indigestion or heartburn but requires chronic digital stimulation for bowel movements. He is unaware of any chronic rectal bleeding however and has never had a colonoscopy. May need to pursue in the future if ongoing anemia. Denies family history of colon cancer or other chronic bowel disease. 01/14/17 Right ischial stage IV decub ulcer with possible osteomyelitis-Continue Rocephin and Flagyl through 02/04/17 MANDY resolved and renal function at baseline Elevated BP - will discuss starting an AntiHTN with Dr. Haskins. 01/16/17 Doing well. Blood pressure remains moderately elevated with readings 133/77-169/90 over the past 24 hours. Continue to monitor on low-dose Cozaar for an additional 1-2 days and if no improvement will increase dose. Repeat CBC, renal panel, and CRP ordered for Wednesday to monitor antibiotic therapy, anemia, and hyperphosphatemia. 01/17/17 - Increase Cozaar to 50 mg daily. 01/19 Doing well. No new problems or concerns. Continue wound vac and wound care. Continue Rocephin + Flagyl. Continue Cozaar at 50mg daily. Weekly CMP, CBC, and CRP ordered. Check BMP on 01/21 secondary to recent MANDY and ARB use. 01/21 Doing well overall, except very tired (usually much more energetic at home). Eating well. Breathing well. No f/c. Continue wound vac and wound care. Wound vac change tomorrow - may need to return to the prior vac if not healing. Continue Rocephin + Flagyl. Continue Cozaar at 50mg daily. Weekly CMP, CBC, and CRP ordered. 01/23/17 Stable. Continues to require inpatient care for wound VAC being utilized. Recheck labs on Wednesday to monitor antibiotic use. Blood pressure improved with losartan. 01/25 Wound exploration today. Anticipate replacement of Varacleans post exploration. Continue Rocephin and metronidazole for antimicrobial coverage. BP and lab stable on valsartan. 01/26 POD #1 Wound debridement Continue Rocephin + metronidazole - scheduled through 02/04/17. Continue wound care per Dr. Tyson. BP under good control on losartan 50 mg daily. Phos still elevated - cont. Phoslo. 01/27-Dr Palma RECOMMENDATIONS I would continue with the ceftriaxone and Flagyl to complete six weeks of therapy. He will need these antibiotics through February 04, 2017. I would continue to follow weekly CBC with differential, CMP and CRP weekly while he is on the antibiotics. I don't feel that his IV antibiotics will need to be extended since his debridement did not go down to bone. 01/28 Doing well. No new problems. Appetite stable. No nausea. Breathing well. No f/ c. Urine output has been greater than intake - creatinine stable. Possible mobilizing fluid from hydration given with MANDY Continue ceftriaxone and metronidazole to complete six weeks of therapy - need through February 04, 2017. Continue with wound vac and offloading for wound healing. Continue with Cozaar for BP control. Monitor volume status - watch for overdiuresis. 01/29 Doing well overall. Appetite fair-eats well when family brings in food from outside. Drinking well. No nausea or ab pain. Breathing stable. No f/c. Encourage that his wound is healing. Urine output greater than intake. Continue ceftriaxone and metronidazole to complete six weeks of therapy - need through February 04, 2017. Continue with wound vac and offloading for wound healing. Encourage intake of fluids/liquids. Will check BMP, phos and vitamin D level in am. 01/30/17 Continue ceftriaxone and metronidazole to complete six weeks of therapy - need through February 04, 2017. Continue with wound vac and offloading for wound healing. Monitor tachycardia. Encourage intake of fluids/liquids. BMP normal this morning. Vitamin D studies pending. 01/31/17-SWING STATUS Patient is feeling well overall. Continue wound care, Ceftriaxone & Flagyl. He remains tachycardic- suspect some hypovolemia. Give two liters of IVF to see if this improves his symptoms. His weight is down about 4kg this week, and he is having quite a bit of drainage from wound vac. Hold Cozaar for now since we have started metoprolol to control HR. Assess UA to ensure that is not contributing to his symptoms of new tachycardia. Pinto is documented to have good output, so urinary retention is less of a concern. BM are documented as well. 02/01/17 Hypotension and tachycardia have improved since having IVF and being on BB. Discussed with Dr. Matamoros - will DC BB and monitor response. Continue Cozaar [address] Palma, continue ceftriaxone and Flagyl to complete six weeks of therapy (through February 04, 2017). Blood cultures repeated d/t hypotension and elevated CRP (28). Follow weekly CBC with differential, CMP and CRP weekly while he is on antibiotics. Phos back to normal level. Vit D <17. Will start Vit D 18032 units weekly. Initiate calcium 600mg BID for bone health. CLARENCE DUTTA APRN Feb 01, 2017 13:10 LENY MATAMOROS MD Feb 01, 2017 14:43
[2017-02-01] MEDS: ERGOCALCIFEROL 50,000 UNIT CAPSULE PO SCH (15:50)
--- NOTE | 2017-02-01 16:07 | PDWOUND ---
Wound Documentation Wound Management Wound : Location Modifier: Right, Upper Wound Location: Thigh Wound Type: Pressure Ulcer Wound Dressing Frequency: three times per week Wound Duration: > one month Wound Dressing Status: FOUND: Changed Wound Drainage Amount: Moderate Wound Drainage Description: Serous Wound Drainage Odor: None/Absent Wound General Appearance: FOUND Unapproximated Wound Bed: gran red Periwound Description: Clear Wound Length (cm): 6.7 Wound Width (cm): 2.5 Wound Depth (cm): 3 Exposed: subtissue Wound Cleanser: soap and water Wound Solution/Irrigant: Saline Irrigant Wound Packing Type: FOUND: Black Foam Wound Primary Dressing Type: Clear Adhesive Cover Wound Tunneling : Sinus/Tunnels (cm): 5 (centimeters) Tunneling Location (o'clock): 12 Comments This wound is very vascular and has keanu bleeding, beefy red base, At this time the tunnel is measuring better. Continue to keep pt on Veraflow with the veracleanse drsg. Insilling NS and pt tolerating well. Pt continues to be on a rotation bed. TATUM RIZO RN Feb 01, 2017 16:07
[2017-02-01 16:30] VITALS: BP 127/71; PULSE 98; RESP 16; TEMP 96.3; O2SAT 97
--- NOTE | 2017-02-01 18:50 | NUR ---
STATUS PT IS CURRENTLY RESTING IN BED EATING HIS DINNER. PT ON ROOM AIR AND IV LOCKED IN PICC. DOUBLE LUMEN PICC FLUSHES AND ASPIRATES WELL. PT DENIES NEEDS AT THIS TIME. CONTINUOS ROTATION ON AIR MATTRESS. WOUND VAC DRAINING WELL. WILL CONTINUE TO MONITOR. SCDS AND HEEL PROTECTORS ON.
[2017-02-01 20:00] VITALS: PULSE 86; RESP 18
[2017-02-01] MEDS: CALCIUM CARBONATE 600 MG TABLET PO SCH (21:05)
[2017-02-01 23:03] VITALS: BP 118/67; PULSE 86; RESP 14; TEMP 98.3; O2SAT 95
--- NOTE | 2017-02-02 05:33 | NUR ---
Shift Pt rested well tonight. WV intact with 400ml output to canister. PICC CDI and saline locked.
[2017-02-02 07:58] VITALS: BP 105/64; PULSE 84; RESP 16; TEMP 96.2; O2SAT 98
[2017-02-02 08:30] VITALS: PULSE 84; RESP 16
[2017-02-02] MEDS: CEFTRIAXONE 2 G in NORMAL SALINE 100 ML IV SCH (08:54)
[2017-02-02] MEDS: ENOXAPARIN 40 MG/0.4 ML INJECTION SQ SCH (09:28)
[2017-02-02] MEDS: POLYETHYL.GLYCOL 3350 PACKET 17gm PO SCH (09:28)
[2017-02-02] MEDS: METRONIDAZOLE 500 MG TABLET PO SCH ×2 (09:29→21:45)
[2017-02-02] MEDS: FERROUS SULFATE 324 MG TABLET PO SCH (09:29)
[2017-02-02] MEDS: CALCIUM CARBONATE 600 MG TABLET PO SCH ×2 (09:29→21:45)
[2017-02-02] MEDS: LOSARTAN 50 MG TABLET PO SCH (09:29)
[2017-02-02] MEDS: ASCORBIC ACID 500 MG TABLET PO SCH (09:30)
[2017-02-02] MEDS: VITAMIN B COMP + C TABLET PO SCH (09:30)
--- NOTE | 2017-02-02 12:07 | PNPDOC ---
Subjective Date DATE: 02/02/17 TIME: 12:00 Subjective Patient states he's feeling okay. He denies any pain. He is eating okay. He has not had any recurrence of hypotension or tachycardia. Objective Vital Signs Vital signs Vital Signs Date Time Temp Pulse Resp B/P Pulse Ox O2 Delivery O2 Flow Rate FiO2 02/02/17 08:30 84 16 02/02/17 07:58 96.2 105/64 98 Room Air GEN-alert, oriented, no acute distress CV-regular rate and rhythm without murmur CHEST-clear to auscultation bilaterally ABD-soft, nontender, nondistended with positive bowel sounds -Pinto with normal urine output EXT-no edema, SCDs in place NEURO- paraplegia chronic, no acute findings SKIN-warm and dry and without rashes Height (Feet): 5 Height (Inches): 9.00 Weight (Kilograms): 107.100 Laboratory Laboratory Laboratory Tests 02/01/17 04:02 Laboratory Tests 02/01/17 04:02 Microbiology Microbiology Microbiology Date/Time Source Procedure Growth Status 02/01/17 10:16 Cath/Port/Line/Picc Blood Culture - Preliminary NO GROWTH AFTER 24 HOURS Resulted 02/01/17 10:13 Cath/Port/Line/Picc Blood Culture - Preliminary NO GROWTH AFTER 24 HOURS Resulted Assessment & Plan Problems: (1) Pressure ulcer of right buttock, stage 4 Status: Acute Assessment & Plan: Polymicrobial with osteomyelitis, Rocephin and Flagyl through 02/04/17 Debridement on 01/25/17 (2) Vitamin D deficiency Status: Chronic Assessment & Plan: 02/01: Vit D Level <17 (3) Osteomyelitis Status: Acute Qualifiers: Laterality: left Assessment & Plan: Right ischium (4) Hypertension Status: Chronic (5) Hyperphosphatemia Status: Resolved (6) Microcytic anemia Status: Chronic Assessment & Plan: Iron deficiency anemia. Iron 12, TIBC 325, saturation 4% on 12/25/16. Continue ferrous sulfate (7) Paraplegia at T9 level Status: Chronic (8) Neurogenic bladder Status: Chronic (9) Neurogenic bowel Status: Chronic (10) Chronic urinary tract infection Status: Chronic (11) Thrombocytosis Status: Resolved Assessment & Plan: c/w iron deficiency (12) E. coli UTI Status: Resolved (13) MANDY (acute kidney injury) Status: Resolved (14) Sepsis Status: Resolved (15) Hypernatremia Status: Resolved (16) Obesity (BMI 30-39.9) Status: Chronic Assessment Impression Infected Pressure ulcer of right buttock, stage IV is healing well with antibiotics and wound VAC. Plan to discontinue antibiotics after 02/04/2017 if blood cultures obtained yesterday are negative and no signs of recurrent infection. 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 Continue antibiotics for now. Continue to monitor for hypotension or tachycardia. Continue to monitor urine output. DVT Prophylaxis: Lovenox Code Status Full Code Hospital Course Summary Disclaimer The hospital course summary below is not to be considered part of the above Progress Note. Hospital Course Summary 01/12/17 - Admitted to swing bed status under the hospitalist service. Hospitalized from 12/27/16 through 01/11/17 as an inpatient at [facility]. 1. Right ischial stage IV decub ulcer with possible osteomyelitis -Continue Rocephin and Flagyl through 02/04/[address] Palma. -Wound care and wound VAC management per Dr. Tyson. 2. T9 paraplegia with neurogenic bowel and bladder. -Pinto catheter in place. 3. Recent sepsis and Escherichia coli UTI - resolved 4. Recent acute kidney injury thought to be secondary to vancomycin administration - resolved. 5. Hyperphosphatemia -Hold PhosLo for now. -Check phosphorus level tomorrow morning, along with CBC and BMP 6. Iron deficiency anemia -Continue ferrous sulfate and vitamin C 01/13/17-Divine Tolerating antibiotics well, continue same for probable osteomyelitis/wound infection. Wound care notes reviewed, good granulation tissue described and wound on the right upper thigh measured 4.2 x 3.6 x 5.6 cm today. Renal function has improved from acute stay and sodium has normalized. Mild hyperphosphatemia persists, continue PhosLo and reassess early next week. Hemoglobin stable, known iron deficiency with anemia developing since March 2016. Patient denies chronic indigestion or heartburn but requires chronic digital stimulation for bowel movements. He is unaware of any chronic rectal bleeding however and has never had a colonoscopy. May need to pursue in the future if ongoing anemia. Denies family history of colon cancer or other chronic bowel disease. 01/14/17 Right ischial stage IV decub ulcer with possible osteomyelitis-Continue Rocephin and Flagyl through 02/04/17 MANDY resolved and renal function at baseline Elevated BP - will discuss starting an AntiHTN with Dr. Haskins. 01/16/17 Doing well. Blood pressure remains moderately elevated with readings 133/77-169/90 over the past 24 hours. Continue to monitor on low-dose Cozaar for an additional 1-2 days and if no improvement will increase dose. Repeat CBC, renal panel, and CRP ordered for Wednesday to monitor antibiotic therapy, anemia, and hyperphosphatemia. 01/17/17 - Increase Cozaar to 50 mg daily. 01/19 Doing well. No new problems or concerns. Continue wound vac and wound care. Continue Rocephin + Flagyl. Continue Cozaar at 50mg daily. Weekly CMP, CBC, and CRP ordered. Check BMP on 01/21 secondary to recent MANDY and ARB use. 01/21 Doing well overall, except very tired (usually much more energetic at home). Eating well. Breathing well. No f/c. Continue wound vac and wound care. Wound vac change tomorrow - may need to return to the prior vac if not healing. Continue Rocephin + Flagyl. Continue Cozaar at 50mg daily. Weekly CMP, CBC, and CRP ordered. 01/23/17 Stable. Continues to require inpatient care for wound VAC being utilized. Recheck labs on Wednesday to monitor antibiotic use. Blood pressure improved with losartan. 01/25 Wound exploration today. Anticipate replacement of Varacleans post exploration. Continue Rocephin and metronidazole for antimicrobial coverage. BP and lab stable on valsartan. 01/26 POD #1 Wound debridement Continue Rocephin + metronidazole - scheduled through 02/04/17. Continue wound care per Dr. Tyson. BP under good control on losartan 50 mg daily. Phos still elevated - cont. Phoslo. 01/27-Dr Palma RECOMMENDATIONS I would continue with the ceftriaxone and Flagyl to complete six weeks of therapy. He will need these antibiotics through February 04, 2017. I would continue to follow weekly CBC with differential, CMP and CRP weekly while he is on the antibiotics. I don't feel that his IV antibiotics will need to be extended since his debridement did not go down to bone. 01/28 Doing well. No new problems. Appetite stable. No nausea. Breathing well. No f/ c. Urine output has been greater than intake - creatinine stable. Possible mobilizing fluid from hydration given with MANDY Continue ceftriaxone and metronidazole to complete six weeks of therapy - need through February 04, 2017. Continue with wound vac and offloading for wound healing. Continue with Cozaar for BP control. Monitor volume status - watch for overdiuresis. 01/29 Doing well overall. Appetite fair-eats well when family brings in food from outside. Drinking well. No nausea or ab pain. Breathing stable. No f/c. Encourage that his wound is healing. Urine output greater than intake. Continue ceftriaxone and metronidazole to complete six weeks of therapy - need through February 04, 2017. Continue with wound vac and offloading for wound healing. Encourage intake of fluids/liquids. Will check BMP, phos and vitamin D level in am. 01/30/17 Continue ceftriaxone and metronidazole to complete six weeks of therapy - need through February 04, 2017. Continue with wound vac and offloading for wound healing. Monitor tachycardia. Encourage intake of fluids/liquids. BMP normal this morning. Vitamin D studies pending. 01/31/17-SWING STATUS Patient is feeling well overall. Continue wound care, Ceftriaxone & Flagyl. He remains tachycardic- suspect some hypovolemia. Give two liters of IVF to see if this improves his symptoms. His weight is down about 4kg this week, and he is having quite a bit of drainage from wound vac. Hold Cozaar for now since we have started metoprolol to control HR. Assess UA to ensure that is not contributing to his symptoms of new tachycardia. Pinto is documented to have good output, so urinary retention is less of a concern. BM are documented as well. 02/01/17 Hypotension and tachycardia have improved since having IVF and being on BB. Discussed with Dr. Matamoros - derick DC BB and monitor response. Continue Cozaar [address] Palma, continue ceftriaxone and Flagyl to complete six weeks of therapy (through February 04, 2017). Blood cultures repeated d/t hypotension and elevated CRP (28). Follow weekly CBC with differential, CMP and CRP weekly while he is on antibiotics. Phos back to normal level. Vit D <17. Will start Vit D 37489 units weekly. Initiate calcium 600mg BID for bone health. CARLOS ALBERTO GLASGOW MD Feb 02, 2017 12:03
--- NOTE | 2017-02-02 13:28 | NUR ---
High Risk Screen F/U Diet: Regular When asked about his appetite and intake ,Patient reported "everything is fine". Patient continues to get chocolate mighty shakes for lunch and dinner and peanuts for a snack. RD available @ [phone] Addendum: 02/02/17 at [address] Student charting reviewed by Screen Making Technician.
--- NOTE | 2017-02-02 14:42 | NUR ---
THIS WORKER VISITED PT, DISCUSSED D/C POSSIBILITY FOR 12/07/16 AND HIS LAST ANTIBIOTIC WILL BE 12/07/16 WELL. PT STATED HIS EXERCISES ARE GOING WELL IN HIS ROOM. DENIED ANY NEEDS AT THIS TIME. ENCOURAGED TO CALL IF HE HAS QUESTIONS/CONCERNS. Addendum: 02/02/17 at 1535 by TATUM BAUTISTA FAXED CLINICAL INFORMATION TO [facility] ATT: [facility] TO [phone] REGARDING AN ALTERNATING PRESSURE PAD FOR PT ONCE HE D/C. CONFIRMATION RECEIVED. Addendum: 02/02/17 at 4679 by TATUM BAUTISTA RECEIVED A CALL FROM [employer] STATING PT IS OUT OF JURISDICTION FOR PT TO RECEIVE ALT. PRESSURE PAD. THIS WORKER CALLED [facility] AND SPOKE WITH MAE AT [phone]. FAXED CLINICAL INFORMATION TO [facility] ATTN: KRISTAL AT [phone] AND SHE WOULD CHECK PT'S INSURANCE AND WILL GIVE CASE MANAGEMENT A CALL TOMORROW MORNING.
[2017-02-02 15:28] VITALS: BP 124/67; PULSE 105; RESP 18; TEMP 98.7; O2SAT 97
--- NOTE | 2017-02-02 17:45 | NUR ---
SHIFT SUMMARY PT IS ALERT AND ORIENTED X3. PT DENIED SOA AND/OR CHEST PAIN. LEFT UPPER ARM MIDLINE IV WAS FLUSHED AND ASPIRATED. VS STABLE CHARTED. ADEQUATE URINE OUTPUT. ADEQUATE FOOD INTAKE, A NEW CANISTER WAS PLACED IN THE AFTERNOON. PT IS USING A SELF-TURNING MATTRESS. PT CALLS FOR ASSIST NEEDED. CALL LIGHT WITHIN REACH.
[2017-02-02 20:00] VITALS: PULSE 105; RESP 18
[2017-02-02 23:47] VITALS: BP 125/74; PULSE 92; RESP 18; TEMP 98.2; O2SAT 96
[2017-02-03 05:58] LABS: BASOPHILS % (AUTO) 0.5 % (0-2); EOSINOPHILS # (AUTO) 0.2 T/MM3 (0-0.5); EOSINOPHILS % (AUTO) 3.1 % (0-4); HCT - HEMATOCRIT 34.5 % (41-53); HGB - HEMOGLOBIN 10.9 GM/DL (13.5-17.5); IMMATURE GRANULOCYTE # (AUTO) 0.02 T/MM3 (0.00-0.03); IMMATURE GRANULOCYTE % (AUTO) 0.3 % (0.0-0.5); LYMPHOCYTES # (AUTO) 2.8 T/MM3 (1-4.8); LYMPHOCYTES % (AUTO) 48.4 % (23-45); MEAN CORPUSCULAR HGB 26.1 UUG (26-34); MEAN CORPUSCULAR HGB CONC(MCHC 31.6 GM/DL (31-37); MEAN CORPUSCULAR VOLUME 82.7 UM3 (80-100); MEAN PLATELET VOLUME 9.4 UM3 (9.4-12.4); MONOCYTES # (AUTO) 0.7 T/MM3 (0-0.8); MONOCYTES % (AUTO) 11.6 % (0-9.0); NEUTROPHILS #(AUTO)-ABSOLUTE 2.1 T/MM3 (1.8-7.7); NEUTROPHILS % (AUTO) 36.1 % (33-66); RED BLOOD COUNT 4.17 M/MM3 (4.50-5.90); WBC - WHITE BLOOD COUNT 5.8 T/MM3 (4.5-11.0)
[2017-02-03 06:05] LABS: SODIUM 143 MEQ/L (134-144)
[2017-02-03 06:06] LABS: ALBUMIN 3.4 G/DL (3.5-5.0); ANION GAP 13 MEQ/L (5-15); BUN/CREATININE RATIO 25 RATIO (6-26); CALCIUM 9.2 MG/DL (8.4-10.2); CHLORIDE 103 MEQ/L (98-107); CO2 - CARBON DIOXIDE 27 MEQ/L (22-30); CREATININE 0.8 MG/DL (0.8-1.5); GLOMERULAR FILTRATION RATE 108; GLUCOSE 95 MG/DL (75-110); MAGNESIUM 1.8 MG/DL (1.6-2.3); PHOSPHORUS 5.5 MG/DL (2.5-4.5); POTASSIUM 4.1 MEQ/L (3.6-5)
[2017-02-03 06:26] LABS: C-REACTIVE PROTEIN 16.1 MG/L (0-9)
[2017-02-03 08:00] VITALS: BP 117/74; PULSE 87; RESP 18; TEMP 97.1; O2SAT 100
--- NOTE | 2017-02-03 08:35 | PNPDOC ---
Subjective Date DATE: 02/03/17 TIME: 08:34 Subjective Mr. Cosby denies any complaints. No fevers. He denies any problems with hypotension. He's eating ok. Objective Vital Signs: RN Vital Signs have been reviewed: Yes, Temperature: 98.2, Heart Rate: 92, Respiratory Rate: 18, BP: 125/74, Pulse Oximetry: 96 Height (Feet): 5 Height (Inches): 9.00 General: FOUND: Alert, NOT FOUND: Acute Distress Skin: NOT FOUND: Rash HEENT: FOUND NC/AT, NOT FOUND Oral Lesions Neck: NOT FOUND: Meningismus Cardiac: FOUND: Regular Rate/Rhythm, NOT FOUND: Murmur, Pitting Edema Lungs: FOUND: Clear to Auscultation, Symmetrical Expansion, NOT FOUND: Wheezes Abdomen: FOUND: Non-tender, Soft, NOT FOUND: Distended : NOT FOUND: Pinto Extremities: NOT FOUND Edema (Bilateral Lower Extremitites) Neurological: FOUND A/A/A, NOT FOUND Focal Deficits Psychological: FOUND Intact and Appropriate IV Site: PICC (RUE) Antbiotics Vancomycin and Zosyn . Ceftriaxone and po flagyl since 01/04 Laboratory Laboratory Tests 02/03/17 05:16 Laboratory Tests 02/03/17 05:16 Cultures Blood cultures 11/12 on 12/25 with S. intermedius sensitive to PCN S INTERMED INTERP MAKAYLA ------ --------- AMPICILLIN S <=0.25 CLINDAMYCIN S <=0.25 ERYTHROMYCIN S <=0.12 LEVOFLOXACIN S <=0.25 LINEZOLID S <=2 BENZYLPENICILL S <=0.06 TETRACYCLINE S 0.5 VANCOMYCIN S 0.25 Wound culture 12/25: Specimen: [id number] Collected: 12/25/16-1104 Received: 12/25/16-[address]: NATHANIEL QUINTANILLA MD, FACS, CWS Source: UNKNOWN Procedure Result Verified MICROBIOLOGY GRAM STAIN Final 12/26/16-1504 RESULT FEW GRAM NEGATIVE RODS FEW GRAM POSITIVE RODS FEW GRAM POSITIVE COCCI MANY NEUTROPHILS WOUND CULTURE DEEP TISS-AER/AN Final 01/01/17-1032 Organism 1 PROTEUS VULGARIS GROUP QUANTITY: MODERATE GROWTH Organism 2 ENTEROCOC FAECALIS - (GROUP D) QUANTITY: MODERATE GROWTH Organism 3 BACTEROIDES FRAGILIS QUANTITY: MODERATE GROWTH Organism 4 ANAEROCOCCUS PREVOTII QUANTITY: MODERATE GROWTH Organism 5 DIPHTHEROID BACILLUS ORGANISM COMMENT: SENSITIVITY NOT PERFORMED Blood cultures 02/01: NGTD Reviewed: Medications, Consult/Progress Notes, Other (wound care notes) Assessment & Plan Assessment IMPRESSION 1. Right ischial decubitus ulcer stage IV with osteomyelitis, wound cultures with Proteus vulgaris, Enterococcus faecalis, Bacteroides fragilis. Enterococcus and Diphtheroids bacillus. S/p I&D down to fascia on 01/25/17. 2. Sepsis with sepsis/septicemia with Streptococcus intermedius in blood cultures December 25, 2016. 3. Acute interstitial nephritis on Zosyn and vancomycin, I suspect it was the Zosyn more so than the vancomycin. 4. History of osteomyelitis of the right ischium status post debridement and six weeks of IV antibiotics followed by flap procedure August 2016. 5. Paraplegia at T9 from an accident that occurred in 2001. 6. Neurogenic bladder with self-catheterization 7. Neurogenic bowel. 8. History of urinary tract infections. 9. History of Clostridium difficile infection related to levofloxacin. 9. History of allergy to Keflex with rash, although he is currently tolerating ceftriaxone. Plan/Intensity of Service He completes 6 weeks of ceftriaxone and Flagyl tomorrow. Recommend stopping and continuing with wound VAC and wound care, and monitoring off antibiotics. I 'd be happy to see in follow up in the wound clinic if needed. CLAYTON ACOSTA MD Feb 03, 2017 08:35 CLAYTON ACOSTA MD Feb 03, 2017 08:35
[2017-02-03] MEDS: ASCORBIC ACID 500 MG TABLET PO SCH (09:33)
[2017-02-03] MEDS: FERROUS SULFATE 324 MG TABLET PO SCH (09:33)
[2017-02-03] MEDS: CALCIUM CARBONATE 600 MG TABLET PO SCH ×2 (09:33→22:11)
[2017-02-03] MEDS: VITAMIN B COMP + C TABLET PO SCH (09:34)
[2017-02-03] MEDS: ENOXAPARIN 40 MG/0.4 ML INJECTION SQ SCH (09:34)
[2017-02-03] MEDS: METRONIDAZOLE 500 MG TABLET PO SCH ×2 (09:34→22:10)
[2017-02-03] MEDS: POLYETHYL.GLYCOL 3350 PACKET 17gm PO SCH (09:34)
[2017-02-03] MEDS: LOSARTAN 50 MG TABLET PO SCH (09:34)
[2017-02-03] MEDS: CEFTRIAXONE 2 G in NORMAL SALINE 100 ML IV SCH (09:34)
[2017-02-03] MEDS: NORMAL SALINE 1,000 ML IV PRN ×2 (09:38→10:21)
[2017-02-03] MEDS: NS 500 ML IV PRN (10:21)
--- NOTE | 2017-02-03 10:45 | PDWOUND ---
Wound Documentation Wound Management Wound : Location Modifier: Right, Upper Wound Location: Thigh Wound Type: Pressure Ulcer Wound Dressing Frequency: three times per week Wound Duration: > one month Wound Dressing Status: FOUND: Changed Wound Drainage Amount: Moderate Wound Drainage Description: Serous Wound Drainage Odor: None/Absent Wound General Appearance: FOUND Unapproximated Wound Bed: gran red Periwound Description: Clear Wound Length (cm): 7 Wound Width (cm): 2 Wound Depth (cm): 3 Exposed: subtissue Wound Cleanser: soap and water Wound Solution/Irrigant: Saline Irrigant Wound Packing Type: FOUND: Black Foam Wound Primary Dressing Type: Clear Adhesive Cover Wound Tunneling : Sinus/Tunnels (cm): 5 (centimeters) Tunneling Location (o'clock): 12 Comments Changed wound vac, will continue instill vac, wound bed is red beefy new granulation, ends of wound I can see new skin crawling into wound bed. Will continue instill wound vac until decision is made for pt to be dismissed. At that time he will need home wound vac. TATUM RIZO RN Feb 03, 2017 10:45
--- NOTE | 2017-02-03 13:42 | NUR ---
TACHYCARDIA DR. GLASGOW NOTIFIED OF PATIENT'S HR RUNNING IN THE 130-140'S ORDERS RECEIVED FOR AN EKG.
[2017-02-03 14:49] VITALS: BP 139/83; PULSE 128; RESP 16; TEMP 97.7; O2SAT 98
--- NOTE | 2017-02-03 15:41 | NUR ---
CM THIS WORKER IS ARRANGING FOR A HOME WOUND VAC THROUGH [facility] AND AN ALTERNATING PRESSURE MATTRESS VS PRESSURE PAD THROUGH [facility] [employer]. PT'S INSURANCE HAS CHANGED TO MEDICARE PRIMARY. THIS WAS RELAYED TO DOREEN WITH [facility].
--- NOTE | 2017-02-03 16:52 | NUR ---
STATUS PT IS A&OX3. CONTINUES WITH SPECIAL BED ROTATING PATIENT AUTOMATICALLY. PT IS ON RA. DENIES PAIN. WOUND VAC CHANGED BY NADIA DAVENPORT TODAY. PT CALLS FOR NEEDS. HAS A GOOD APPETITE. NO PRN'S NEEDED. Addendum: 02/03/17 at 1654 by JEANCARLOS PAULINO RN HR HAS DECREASED TO LOW 100'S. DR. GLASGOW IS AWARE. WILL NOTIFY IF CONSISTENTLY RUNS IN 130'S.
--- NOTE | 2017-02-03 19:47 | PNPDOC ---
Subjective Date DATE: 02/03/17 TIME: 19:42 Subjective The patient was seen this afternoon in his room. He was having some tachycardia with heart rate up to 130s. He was completely asymptomatic. He denies any chest pain, palpitations or lightheadedness. He denies any shortness of breath. He denies any recent fevers, chills or sweats. He has been having normal bowel movements. He has been eating and drinking well. He denies any new complaints. Objective Vital Signs Vital signs Vital Signs Date Time Temp Pulse Resp B/P Pulse Ox O2 Delivery O2 Flow Rate FiO2 02/03/17 14:49 97.7 128 16 139/83 98 Room Air EKG shows sinus tachycardia. EKG was reviewed with cardiology. GEN-alert, oriented, no acute distress HEENT-sclera anicteric, oropharynx is moist NECK-supple CV-tachycardic rate with irregular rhythm CHEST-clear to auscultation bilaterally ABD-soft, nontender with positive bowel sounds -Pinto in place with good urine output EXT-no significant edema NEURO-paraplegia SKIN-warm and dry and without rashes Height (Feet): 5 Height (Inches): 9.00 Weight (Kilograms): 107.100 Laboratory Laboratory Laboratory Tests 02/03/17 05:16 Laboratory Tests 02/03/17 05:16 Microbiology Microbiology Microbiology Date/Time Source Procedure Growth Status 02/01/17 10:16 Cath/Port/Line/Picc Blood Culture - Preliminary NO GROWTH AFTER 48 HOURS Resulted 02/01/17 10:13 Cath/Port/Line/Picc Blood Culture - Preliminary NO GROWTH AFTER 48 HOURS Resulted Assessment & Plan Problems: (1) Pressure ulcer of right buttock, stage 4 Status: Acute Assessment & Plan: Polymicrobial with osteomyelitis, Rocephin and Flagyl through 02/04/17 Debridement on 01/25/17 (2) Vitamin D deficiency Status: Chronic Assessment & Plan: 02/01: Vit D Level <17 (3) Osteomyelitis Status: Acute Qualifiers: Laterality: left Assessment & Plan: Right ischium (4) Hypertension Status: Chronic (5) Hyperphosphatemia Status: Resolved (6) Microcytic anemia Status: Chronic Assessment & Plan: Iron deficiency anemia. Iron 12, TIBC 325, saturation 4% on 12/25/16. Continue ferrous sulfate (7) Paraplegia at T9 level Status: Chronic (8) Neurogenic bladder Status: Chronic (9) Neurogenic bowel Status: Chronic (10) Chronic urinary tract infection Status: Chronic (11) Thrombocytosis Status: Resolved Assessment & Plan: c/w iron deficiency (12) E. coli UTI Status: Resolved (13) MANDY (acute kidney injury) Status: Resolved (14) Sepsis Status: Resolved (15) Hypernatremia Status: Resolved (16) Obesity (BMI 30-39.9) Status: Chronic Assessment 02/03/2017 -Dr. Herbert Impression Infected Pressure ulcer of right buttock, stage IV is healing well with antibiotics and wound VAC. Plan to discontinue antibiotics after 02/04/2017 if blood cultures obtained 02/01/2017 are negative and no signs of recurrent infection. Paraplegia Sinus tachycardia -likely secondary to autonomic dysfunction with paraplegia. No hypotension no fever no anemia. We'll monitor. If heart rate is sustained in the 120s or higher would give IV fluids. 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 Continue antibiotics for now. Continue to monitor for hypotension. Consider IV fluids if having continued sustained tachycardia. Continue to monitor urine output. DVT Prophylaxis: Lovenox Code Status Full Code Hospital Course Summary Disclaimer The hospital course summary below is not to be considered part of the above Progress Note. Hospital Course Summary 01/12/17 - Admitted to swing bed status under the hospitalist service. Hospitalized from 12/27/16 through 01/11/17 as an inpatient at [facility] [place]. 1. Right ischial stage IV decub ulcer with possible osteomyelitis -Continue Rocephin and Flagyl through 02/04/[address] Palma. -Wound care and wound VAC management per Dr. Tyson. 2. T9 paraplegia with neurogenic bowel and bladder. -Pinto catheter in place. 3. Recent sepsis and Escherichia coli UTI - resolved 4. Recent acute kidney injury thought to be secondary to vancomycin administration - resolved. 5. Hyperphosphatemia -Hold PhosLo for now. -Check phosphorus level tomorrow morning, along with CBC and BMP 6. Iron deficiency anemia -Continue ferrous sulfate and vitamin C 01/13/17-Divine Tolerating antibiotics well, continue same for probable osteomyelitis/wound infection. Wound care notes reviewed, good granulation tissue described and wound on the right upper thigh measured 4.2 x 3.6 x 5.6 cm today. Renal function has improved from acute stay and sodium has normalized. Mild hyperphosphatemia persists, continue PhosLo and reassess early next week. Hemoglobin stable, known iron deficiency with anemia developing since March 2016. Patient denies chronic indigestion or heartburn but requires chronic digital stimulation for bowel movements. He is unaware of any chronic rectal bleeding however and has never had a colonoscopy. May need to pursue in the future if ongoing anemia. Denies family history of colon cancer or other chronic bowel disease. 01/14/17 Right ischial stage IV decub ulcer with possible osteomyelitis-Continue Rocephin and Flagyl through 02/04/17 MANDY resolved and renal function at baseline Elevated BP - will discuss starting an AntiHTN with Dr. Haskins. 01/16/17 Doing well. Blood pressure remains moderately elevated with readings 133/77-169/90 over the past 24 hours. Continue to monitor on low-dose Cozaar for an additional 1-2 days and if no improvement will increase dose. Repeat CBC, renal panel, and CRP ordered for Wednesday to monitor antibiotic therapy, anemia, and hyperphosphatemia. 01/17/17 - Increase Cozaar to 50 mg daily. 01/19 Doing well. No new problems or concerns. Continue wound vac and wound care. Continue Rocephin + Flagyl. Continue Cozaar at 50mg daily. Weekly CMP, CBC, and CRP ordered. Check BMP on 01/21 secondary to recent MANDY and ARB use. 01/21 Doing well overall, except very tired (usually much more energetic at home). Eating well. Breathing well. No f/c. Continue wound vac and wound care. Wound vac change tomorrow - may need to return to the prior vac if not healing. Continue Rocephin + Flagyl. Continue Cozaar at 50mg daily. Weekly CMP, CBC, and CRP ordered. 01/23/17 Stable. Continues to require inpatient care for wound VAC being utilized. Recheck labs on Wednesday to monitor antibiotic use. Blood pressure improved with losartan. 01/25 Wound exploration today. Anticipate replacement of Varacleans post exploration. Continue Rocephin and metronidazole for antimicrobial coverage. BP and lab stable on valsartan. 01/26 POD #1 Wound debridement Continue Rocephin + metronidazole - scheduled through 02/04/17. Continue wound care per Dr. Tyson. BP under good control on losartan 50 mg daily. Phos still elevated - cont. Phoslo. 01/27-Dr Palma RECOMMENDATIONS I would continue with the ceftriaxone and Flagyl to complete six weeks of therapy. He will need these antibiotics through February 04, 2017. I would continue to follow weekly CBC with differential, CMP and CRP weekly while he is on the antibiotics. I don't feel that his IV antibiotics will need to be extended since his debridement did not go down to bone. 01/28 Doing well. No new problems. Appetite stable. No nausea. Breathing well. No f/ c. Urine output has been greater than intake - creatinine stable. Possible mobilizing fluid from hydration given with MANDY Continue ceftriaxone and metronidazole to complete six weeks of therapy - need through February 04, 2017. Continue with wound vac and offloading for wound healing. Continue with Cozaar for BP control. Monitor volume status - watch for overdiuresis. 01/29 Doing well overall. Appetite fair-eats well when family brings in food from outside. Drinking well. No nausea or ab pain. Breathing stable. No f/c. Encourage that his wound is healing. Urine output greater than intake. Continue ceftriaxone and metronidazole to complete six weeks of therapy - need through February 04, 2017. Continue with wound vac and offloading for wound healing. Encourage intake of fluids/liquids. Will check BMP, phos and vitamin D level in am. 01/30/17 Continue ceftriaxone and metronidazole to complete six weeks of therapy - need through February 04, 2017. Continue with wound vac and offloading for wound healing. Monitor tachycardia. Encourage intake of fluids/liquids. BMP normal this morning. Vitamin D studies pending. 01/31/17-SWING STATUS Patient is feeling well overall. Continue wound care, Ceftriaxone & Flagyl. He remains tachycardic- suspect some hypovolemia. Give two liters of IVF to see if this improves his symptoms. His weight is down about 4kg this week, and he is having quite a bit of drainage from wound vac. Hold Cozaar for now since we have started metoprolol to control HR. Assess UA to ensure that is not contributing to his symptoms of new tachycardia. Pinto is documented to have good output, so urinary retention is less of a concern. BM are documented as well. 02/01/17 Hypotension and tachycardia have improved since having IVF and being on BB. Discussed with Dr. Matamoros - will DC BB and monitor response. Continue Cozaar [address] Palma, continue ceftriaxone and Flagyl to complete six weeks of therapy (through February 04, 2017). Blood cultures repeated d/t hypotension and elevated CRP (28). Follow weekly CBC with differential, CMP and CRP weekly while he is on antibiotics. Phos back to normal level. Vit D <17. Will [place] Vit D 86899 units weekly. Initiate calcium 600mg BID for bone health. CARLOS ALBERTO HERBERT MD Feb 03, 2017 19:47
--- NOTE | 2017-02-03 19:59 | NUR ---
CM SPOKE WITH PT. DISCUSSED MEDICARE BEING PRIMARY. REVIEWED SWING BED POC; PT SIGNED AND HAD NO QUESTIONS/CONCERNS. DISCUSSED PROBABLE DC TOMORROW. PT WAS AGREEABLE TO RETURNING HOME BUT STATED HE WOULD BE AGREEABLE TO REMAINING HERE IN ORDER TO KEEP USING THE SPECIALTY WOUND VAC, IN ORDER FOR HIS WOUND TO KEEP HEALING. EXPLAINED BOTH OPTIONS ARE BEING EXPLORED. FOR A DC HOME, PT WILL NEED WOUND VAC, ALTERNATING PRESSURE PAD (SINCE PT STATED HE CANNOT USE THE SPECIALTY BED/AIR MATTRESS), AND HOME HEALTH (PT STATED HE WANTS TO USE [facility] AGAIN). THIS WORKER SPOKE WITH KRISTAL AT [employer], RE: PT'S INSURANCE IS NOW MEDICARE PRIMARY. RECEIVED VOICEMAIL FROM KRISTAL, STATING INSURANCE IS STILL SHOWING [employer] PRIMARY AND THEREFORE THEY CANNOT BILL MEDICARE.
[2017-02-03 20:00] VITALS: PULSE 128; RESP 16
[2017-02-03 23:34] VITALS: BP 122/74; PULSE 103; RESP 18; TEMP 98; O2SAT 98
--- NOTE | 2017-02-04 08:09 | NUR ---
SHIFT SUMMARY PT ALERT AND ORIENTED X 3. CONTINUES USING BED THAT ROTATES AUTOMATICALLY. WOUND VAC INTACT, CANISTER CHANGED. DE SOUZA DD, CLEAR/YELLOW URINE. ADEQUATE AMOUNT OUT. PT DENIES PAIN, SOA OR CHEST PAIN. PT CALLS FOR ASSIST NEEDED.
[2017-02-04 08:43] VITALS: BP 121/69; PULSE 82; RESP 14; TEMP 97.8; O2SAT 98
[2017-02-04 09:32] VITALS: PULSE 82; RESP 14
[2017-02-04] MEDS: CEFTRIAXONE 2 G in NORMAL SALINE 100 ML IV SCH (09:39)
[2017-02-04] MEDS: NS 500 ML IV PRN (09:39)
[2017-02-04] MEDS: ENOXAPARIN 40 MG/0.4 ML INJECTION SQ SCH (10:03)
[2017-02-04] MEDS: POLYETHYL.GLYCOL 3350 PACKET 17gm PO SCH (10:03)
[2017-02-04] MEDS: VITAMIN B COMP + C TABLET PO SCH (10:04)
[2017-02-04] MEDS: LOSARTAN 50 MG TABLET PO SCH (10:04)
[2017-02-04] MEDS: FERROUS SULFATE 324 MG TABLET PO SCH (10:04)
[2017-02-04] MEDS: CALCIUM CARBONATE 600 MG TABLET PO SCH ×2 (10:05→21:17)
[2017-02-04] MEDS: METRONIDAZOLE 500 MG TABLET PO SCH ×2 (10:05→21:17)
[2017-02-04] MEDS: ASCORBIC ACID 500 MG TABLET PO SCH (10:05)
--- NOTE | 2017-02-04 10:39 | NUR ---
CM THIS WORKER WAS INFORMED THAT PT CAN REMAIN AT [facility] IN SWING BED STATUS FOR ONGOING WOUND CARE AND SPECIALIZED WOUND VAC. UPDATED PT ABOUT THIS, HE WAS GRATEFUL AND WANTED THIS. DISCUSSED A POSSIBILITY OF AN ADDITIONAL 2 WEEKS, AND STATED SEVERAL TIMES THAT THIS IS AN ESTIMATE. HE STATED HE UNDERSTOOD. HE SAID HE WILL UPDATE HIS . ALSO DISCUSSED THAT MEDICARE WILL BE PRIMARY AND HE SAID HE IS AWARE. UPDATED WOUND CARE (SAUNDRA, RN, AND DR. GLASGOW. CALLED CARMEN AT [facility] AND UPDATED HER. CALLED DOREEN AT [facility]; UPDATED HIM. HE ADVISED THAT THE ORDER FOR THE HOME WOUND VAC BE PUT ON HOLD. PRIOR TO DC, PT'S NEEDS WILL BE REASSESSED.
[2017-02-04] MEDS: NORMAL SALINE 1,000 ML IV SCH (16:21)
[2017-02-04 16:29] VITALS: BP 116/64; PULSE 106; RESP 18; TEMP 96.7; O2SAT 95
--- NOTE | 2017-02-04 17:15 | PNPDOC ---
CLARENCE DUTTA CLOTH SHRINKING MACHINE OPERATOR HELPER 02/04/17 1701: Subjective Date DATE: 02/04/17 TIME: 16:57 Subjective Joe is without complaints - no pain, no abdominal c/o or GI distress. He has been eating well and enjoyed the [employer] bar today for lunch. He has been reading on his Robin and watching television. We discussed some of his lab findings - low vit. D and high phos. He states that typically, at home, he's outside quite a bit. Objective Vital Signs Vital signs Vital Signs Date Time Temp Pulse Resp B/P Pulse Ox O2 Delivery O2 Flow Rate FiO2 02/04/17 16:29 96.7 106 18 116/64 95 Room Air Height (Feet): 5 Height (Inches): 9.00 Weight (Kilograms): 107.000 General General Appearance: Alert, Obese, Orientated x 3, Well Nourished, Well Developed, No Acute Distress Eyes (Brief) Eyes: FOUND: PERRL, NOT FOUND: scleral icterus ENMT (Brief) ENMT: FOUND: mucosa moist, NOT FOUND: pharnyx erythema Respiratory (Brief) Respiratory: FOUND: clear all burroughs, equal bilaterally Cardiovascular (Brief) Cardiac: FOUND: regular rate, regular rhythm Abdomen (Brief) Abdominal: FOUND: BS normo active x4, soft, NOT FOUND: distended, tender Extremities (Brief) Extremity : Extremity Finding: NOT FOUND: edema Musculoskeletal (Brief) Musculoskeletal: FOUND: loss of motion (paraplegia @ t9) Integumentary (Brief) Integumentary: FOUND: dry, pink, warm Comments wound vac Psychiatric (Brief) Psychiatric: FOUND: alert, attentive, normal affect, oriented Laboratory Laboratory Laboratory Tests 02/03/17 05:16 Laboratory Tests 02/03/17 05:16 Assessment & Plan Problems: (1) Pressure ulcer of right buttock, stage 4 Status: Acute Assessment & Plan: Polymicrobial with osteomyelitis, Rocephin and Flagyl through 02/04/17 Debridement on 01/25/17 (2) Vitamin D deficiency Status: Chronic Assessment & Plan: 02/01: Vit D Level <17 (3) Osteomyelitis Status: Acute Qualifiers: Laterality: left Assessment & Plan: Right ischium (4) Hypertension Status: Chronic (5) Hyperphosphatemia Status: Resolved (6) Microcytic anemia Status: Chronic Assessment & Plan: Iron deficiency anemia. Iron 12, TIBC 325, saturation 4% on 12/25/16. Continue ferrous sulfate (7) Paraplegia at T9 level Status: Chronic (8) Neurogenic bladder Status: Chronic (9) Neurogenic bowel Status: Chronic (10) Chronic urinary tract infection Status: Chronic (11) Thrombocytosis Status: Resolved Assessment & Plan: c/w iron deficiency (12) E. coli UTI Status: Resolved (13) MANDY (acute kidney injury) Status: Resolved (14) Sepsis Status: Resolved (15) Hypernatremia Status: Resolved (16) Obesity (BMI 30-39.9) Status: Chronic Assessment Impression Infected Pressure ulcer of right buttock, stage IV is healing well with antibiotics and wound VAC. Plan to discontinue antibiotics after 02/04/2017 if blood cultures obtained 02/01/2017 are negative and no signs of recurrent infection. Paraplegia Sinus tachycardia -likely secondary to autonomic dysfunction with paraplegia. No hypotension no fever no anemia. If heart rate is sustained in the 120s or higher would give IV fluids. 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 Rates not nearly as high, ranging from 82-106 Hyperphosphatemia, Vitamin D deficiency - discussed with Dr. Logan. There is a relationship between these levels, but typically is best worked up in an outpatient setting. Elevated phos levels could be d/t genetic mutations, but this needs to be tested when he's in steady state and not acutely ill. With a normal calcium level, vitamin D deficiency isn't as much of a concern, but it's reasonable to treat. This also is best worked up in steady state. She recommended to change diet to a low-phos diet and the phos binder isn't hurting anything, but she isn't terribly concerned about an elevated phos level at this time. Continue abx for now and check with Dr Palma tomorrow about discontinuation. BP stable on current regimen. Discussed with Dr. Herbert. Code Status Full Code Hospital Course Summary Disclaimer The hospital course summary below is not to be considered part of the above Progress Note. Hospital Course Summary 01/12/17 - Admitted to [facility] bed status under the hospitalist service. Hospitalized from 12/27/16 through 01/11/17 as an inpatient at [facility] [place]. 1. Right ischial stage IV decub ulcer with possible osteomyelitis -Continue Rocephin and Flagyl through 02/04/[address] Palma. -Wound care and wound VAC management per Dr. Tyson. 2. T9 paraplegia with neurogenic bowel and bladder. -Pinto catheter in place. 3. Recent sepsis and Escherichia coli UTI - resolved 4. Recent acute kidney injury thought to be secondary to vancomycin administration - resolved. 5. Hyperphosphatemia -Hold PhosLo for now. -Check phosphorus level tomorrow morning, along with CBC and BMP 6. Iron deficiency anemia -Continue ferrous sulfate and vitamin C 01/13/17-Divine Tolerating antibiotics well, continue same for probable osteomyelitis/wound infection. Wound care notes reviewed, good granulation tissue described and wound on the right upper thigh measured 4.2 x 3.6 x 5.6 cm today. Renal function has improved from acute stay and sodium has normalized. Mild hyperphosphatemia persists, continue PhosLo and reassess early next week. Hemoglobin stable, known iron deficiency with anemia developing since March 2016. Patient denies chronic indigestion or heartburn but requires chronic digital stimulation for bowel movements. He is unaware of any chronic rectal bleeding however and has never had a colonoscopy. May need to pursue in the future if ongoing anemia. Denies family history of colon cancer or other chronic bowel disease. 01/14/17 Right ischial stage IV decub ulcer with possible osteomyelitis-Continue Rocephin and Flagyl through 02/04/17 MANDY resolved and renal function at baseline Elevated BP - will discuss starting an AntiHTN with Dr. Haskins. 01/16/17 Doing well. Blood pressure remains moderately elevated with readings 133/77-169/90 over the past 24 hours. Continue to monitor on low-dose Cozaar for an additional 1-2 days and if no improvement will increase dose. Repeat CBC, renal panel, and CRP ordered for Wednesday to monitor antibiotic therapy, anemia, and hyperphosphatemia. 01/17/17 - Increase Cozaar to 50 mg daily. 01/19 Doing well. No new problems or concerns. Continue wound vac and wound care. Continue Rocephin + Flagyl. Continue Cozaar at 50mg daily. Weekly CMP, CBC, and CRP ordered. Check BMP on 01/21 secondary to recent MANDY and ARB use. 01/21 Doing well overall, except very tired (usually much more energetic at home). Eating well. Breathing well. No f/c. Continue wound vac and wound care. Wound vac change tomorrow - may need to return to the prior vac if not healing. Continue Rocephin + Flagyl. Continue Cozaar at 50mg daily. Weekly CMP, CBC, and CRP ordered. 01/23/17 Stable. Continues to require inpatient care for wound VAC being utilized. Recheck labs on Wednesday to monitor antibiotic use. Blood pressure improved with losartan. 01/25 Wound exploration today. Anticipate replacement of Varacleans post exploration. Continue Rocephin and metronidazole for antimicrobial coverage. BP and lab stable on valsartan. 01/26 POD #1 Wound debridement Continue Rocephin + metronidazole - scheduled through 02/04/17. Continue wound care per Dr. Tyson. BP under good control on losartan 50 mg daily. Phos still elevated - cont. Phoslo. 01/27-Dr Palma RECOMMENDATIONS I would continue with the ceftriaxone and Flagyl to complete six weeks of therapy. He will need these antibiotics through February 04, 2017. I would continue to follow weekly CBC with differential, CMP and CRP weekly while he is on the antibiotics. I don't feel that his IV antibiotics will need to be extended since his debridement did not go down to bone. 01/28 Doing well. No new problems. Appetite stable. No nausea. Breathing well. No f/ c. Urine output has been greater than intake - creatinine stable. Possible mobilizing fluid from hydration given with MANDY Continue ceftriaxone and metronidazole to complete six weeks of therapy - need through February 04, 2017. Continue with wound vac and offloading for wound healing. Continue with Cozaar for BP control. Monitor volume status - watch for overdiuresis. 01/29 Doing well overall. Appetite fair-eats well when family brings in food from outside. Drinking well. No nausea or ab pain. Breathing stable. No f/c. Encourage that his wound is healing. Urine output greater than intake. Continue ceftriaxone and metronidazole to complete six weeks of therapy - need through February 04, 2017. Continue with wound vac and offloading for wound healing. Encourage intake of fluids/liquids. Will check BMP, phos and vitamin D level in am. 01/30/17 Continue ceftriaxone and metronidazole to complete six weeks of therapy - need through February 04, 2017. Continue with wound vac and offloading for wound healing. Monitor tachycardia. Encourage intake of fluids/liquids. BMP normal this morning. Vitamin D studies pending. 01/31/17-SWING STATUS Patient is feeling well overall. Continue wound care, Ceftriaxone & Flagyl. He remains tachycardic- suspect some hypovolemia. Give two liters of IVF to see if this improves his symptoms. His weight is down about 4kg this week, and he is having quite a bit of drainage from wound vac. Hold Cozaar for now since we have started metoprolol to control HR. Assess UA to ensure that is not contributing to his symptoms of new tachycardia. Pinto is documented to have good output, so urinary retention is less of a concern. BM are documented as well. 02/01/17 Hypotension and tachycardia have improved since having IVF and being on BB. Discussed with Dr. Matamoros - will DC BB and monitor response. Continue Cozaar [address] Palma, continue ceftriaxone and Flagyl to complete six weeks of therapy (through February 04, 2017). Blood cultures repeated d/t hypotension and elevated CRP (28). Follow weekly CBC with differential, CMP and CRP weekly while he is on antibiotics. Phos back to normal level. Vit D <17. [place] 07317 units weekly. Initiate calcium 600mg BID for bone health. 02/04/17 Tachycardia - improved today. Rates not nearly as high, ranging from 82-106 Hyperphosphatemia, Vitamin D deficiency - discussed with Dr. Logan. There is a relationship between these levels, but typically is best worked up in an outpatient setting. Elevated phos levels could be d/t genetic mutations, but this needs to be tested when he's in steady state and not acutely ill. With a normal calcium level, vitamin D deficiency isn't as much of a concern, but it's reasonable to treat. This also is best worked up in steady state. She recommended to change diet to a low-phos diet and the phos binder isn't hurting anything, but she isn't terribly concerned about an elevated phos level at this time. Continue abx for now and check with Dr Palma tomorrow about discontinuation. BP stable on current regimen. CARLOS ALBERTO HERBERT MD 02/04/17 1750: Assessment & Plan Assessment 02/04/2017-I reviewed this chart, the patient history, and the CLOTH SHRINKING MACHINE OPERATOR HELPER's/PA's documented findings as above. We discussed and formulated the assessment and plan as above with the additions below.-Keon Patient is feeling well and has no complaints. He denies any shortness of breath , chest pains or palpitations. He has had no nausea or vomiting. He denies any pain. He is eating well. On exam he is alert and oriented and in no acute distress. Chest is clear to auscultation. Cardiovascular reveals regular rate and rhythm. Abdomen is soft and nontender. Extremities are free of edema. Antibiotics have finished today. Continue with wound VAC and specialty bed. Agree with low phosphorus diet if tolerated. DVT Prophylaxis: CLARENCE Contreras APRN Feb 04, 2017 17:01 CARLOS ALBERTO HERBERT MD Feb 04, 2017 17:50
--- NOTE | 2017-02-04 17:51 | NUR ---
SHIFT SUMMARY PT IS A&OX3. PT DENIED PAIN. PT IS ON RA. CONTINUES WITH SPECIAL ROTATING MATTRESS. PT DENIED PAIN. PT IS ON RA. PT HAS ADEQUATE PO INTAKE. WOUND VAC CANISTER WAS CHANGED TODAY. PT HAS A PICC LINE IN HIS LEFT UPPER ARM LINES ARE PATENT AND ABLE TO ASPIRATE. CALL LIGHT IS WITHIN REACH AND PT CALLS WHEN HE NEEDED.
--- NOTE | 2017-02-04 18:03 | NUR ---
IMPORTANT NOTE PT IS ON SWING BED. PLEASE BE SURE THAT YOU ARE CHARTING EACH SHIFT ON: WOUND VAC DRESSING: INTACT, GOOD SEAL, NO LEAKS INSTILLATION VAC: INSTILLING PROPERLY WOUND APPEARANCE: ANY CHANGE IN APPEARANCE OD WOUND OR DRAINAGE IN BAG. WOUND TEAM NEED A GOOD DOCUMENTATION OF CONSTANT OBSERVATION AND EVALUATION OF THE WOUND. Addendum: 02/04/17 at 1913 by ROHIT VERGARA RN WOUND VAC DRESSING CLEAN, DRY AND INTACT. VAC SET UP TO 150 MMHG WITH A GOOD SEAL. DRAINAGE HAS BECOME MORE SEROUS THROUGH THE SHIFT. NEW NORMAL SALINE BAG HUNG TODAY. PT BED SET TO STATIC FOR MEALS OTHERWISE, TURNING AUTOMATIC.
[2017-02-04 21:35] VITALS: PULSE 101; RESP 16
[2017-02-05 00:48] VITALS: BP 135/65; PULSE 98; RESP 16; TEMP 96.7; O2SAT 97
--- NOTE | 2017-02-05 06:13 | NUR ---
SUMMARY PT IN BED SLEEPING AT THE MOMENT. ALERT AND ORIENTED. DENIED ANY PAIN. SLEPT WELL ALL NIGHT. PT NPWT INTACT. DRAPE INTACT. NO AIR LEAK NOTED. DRESSING HAS A GOOD SEAL. NPWT INSTILLING PROPERLY. PT BED REPOSITIONS HIM. EDUCATED CURTAIN CLEANER LIGHT USE. JANKI INTACT ON THE LEFT ARM.
[2017-02-05 08:00] VITALS: BP 116/66; PULSE 78; RESP 17; TEMP 96.6; O2SAT 98
[2017-02-05] MEDS: POLYETHYL.GLYCOL 3350 PACKET 17gm PO SCH (09:10)
[2017-02-05] MEDS: FERROUS SULFATE 324 MG TABLET PO SCH (09:10)
[2017-02-05] MEDS: ASCORBIC ACID 500 MG TABLET PO SCH (09:11)
[2017-02-05] MEDS: METRONIDAZOLE 500 MG TABLET PO SCH ×2 (09:11→21:22)
[2017-02-05] MEDS: ENOXAPARIN 40 MG/0.4 ML INJECTION SQ SCH (09:11)
[2017-02-05] MEDS: LOSARTAN 50 MG TABLET PO SCH (09:11)
[2017-02-05] MEDS: VITAMIN B COMP + C TABLET PO SCH (09:11)
[2017-02-05] MEDS: CALCIUM CARBONATE 600 MG TABLET PO SCH ×2 (09:12→21:22)
[2017-02-05 09:17] VITALS: PULSE 84
--- NOTE | 2017-02-05 15:12 | NUR ---
STATUS PT IS A&OX3. WOUND VAC DRESSING WAS CHANGED TODAY WITH WOUND CARE. PT HAS RED GRANULATION TISSUE TO THE SITE, DR. QUINTANILLA WAS IN TO SEE THE ULCER WHILE THE VAC WAS OFF TODAY. NEW DRESSING WAS PLACED WITH WOUND CARE, DRAPE WITHOUT LEAKS, GOOD SEAL, SUCTION AT 150MMHG. CANNISTER CHANGED. PT CONTINUES TO HAVE SEROSANG. DRAINAGE THAT OVER THE LAST FEW DAYS IS BECOMING MORE SEROUS. WOUND VAC INSTILLING WITH NS. WOUND CARE OBTAINED MEASUREMENTS. PT HAS A GOOD APPETITE. IS ABLE TO ASSIST WITH CARES, PULLS HIMSELF UP IN BED WITH 1 STAFF ASSIST. BED ON STATIC WHILE EATING AND ELEVATED, OTHERWISE ROTATES PATIENT AUTOMATICALLY. PT IS ON RA. CALLS FOR NEEDS. BED ALARM ON.
[2017-02-05 15:25] VITALS: BP 123/66; PULSE 99; RESP 18; TEMP 97.2; O2SAT 99
--- NOTE | 2017-02-05 16:30 | PNF ---
DATE 02/05/2017 FINDINGS Joe today was without complaints. Nursing staff did notice that during his back change there was a "sharp area" noted in the area of his wound that tunnels in a cephalad fashion. I was therefore requested to evaluate the patient in regards to this "sharp area" noted within his wound. OBJECTIVE VITALS: Afebrile. Normotensive. Current vitals include temperature 96.6, pulse 78, respirations 17, blood pressure 116/66. HEENT: Normocephalic. Pupils are equally round and react to light and accommodation. CHEST: Clear to auscultation bilaterally. HEART: Regular rate and rhythm. Normal S1, S2, without gallops, murmurs or clicks. EXTREMITIES: Attention was focused to area of concern involving the wound upon the right lateral hip. The wound contains excellent granulation tissue throughout. The wound is granulating in to a greater extent. A finger was then placed within the portion of the wound that still tunnels along the cephalad aspect. One can actually feel a probable piece of bone that is within the subcutaneous tissues in this area that tunnels. The bone itself is not exposed posteriorly within the wound bed. ASSESSMENT 41-year-old gentleman with stage IV pressure ulceration involving right hip. PLAN A sterile hemostat was placed within the portion of the wound that was tunneled and advanced next to this sharp area that could be palpated. The piece of bone that was within the subcutaneous tissues was grasped and removed in its entirety. One could see what appeared to be a small fragment of bone that was on the order of about 1.5 to 2 cm in diameter. A finger was then replaced back within the wound and no residual sharpness was noted or no evidence for residual subcutaneous mass was present. Will continue with utilizing VeraFlo wound VAC at this time. GUTH[facility] MEDICAL CENTERKhang
[2017-02-05] MEDS: NORMAL SALINE 1,000 ML IV SCH (16:46)
--- NOTE | 2017-02-05 18:42 | NUR ---
status Pt A/o x3. Denies pain at this time. Eating dinner, able to call for needs.
[2017-02-05 20:00] VITALS: PULSE 84
[2017-02-05 23:30] VITALS: BP 109/59; PULSE 90; RESP 18; TEMP 98.3; O2SAT 96
--- NOTE | 2017-02-06 07:32 | NUR ---
SHIFT SUMMARY PT IS ALERT AND ORIENTED X 3. PLEASANT AND COOPERATIVE WITH CARES. PT'S BED ROTATES PT AUTOMATICALLY. ROTATING IS PLACED ON HOLD WHEN PT IS EATING OR WHEN CARES ARE PROVIDED. CONTINUES TO HAVE A WOUND VAC. TO HIS RIGHT BUTTOCK AREA, NO LEAKING NOTED, GOOD SEAL AND SUCTION IS 150 MMHG. 385 ML IN CANISTER OF SEROSANG, MORE SEROUS. PT DENIES PAIN, SOA OR CHEST PAIN. SCHEDULE MEDICATIONS GIVEN, NO PRN'S. PT HAD INCONTINENT BM LAST NIGHT. PT TALKS ABOUT GOING HOME FEBRUARY 12. CALL LIGHT WITHIN REACH. PT CALLS PRN.
[2017-02-06 08:00] VITALS: PULSE 90; RESP 18
[2017-02-06 08:53] VITALS: BP 123/77; PULSE 82; RESP 16; TEMP 97.4; O2SAT 99
[2017-02-06] MEDS: ENOXAPARIN 40 MG/0.4 ML INJECTION SQ SCH (08:57)
[2017-02-06] MEDS: FERROUS SULFATE 324 MG TABLET PO SCH (08:57)
[2017-02-06] MEDS: LOSARTAN 50 MG TABLET PO SCH (08:57)
[2017-02-06] MEDS: METRONIDAZOLE 500 MG TABLET PO SCH ×2 (08:57→20:56)
[2017-02-06] MEDS: ASCORBIC ACID 500 MG TABLET PO SCH (08:57)
[2017-02-06] MEDS: VITAMIN B COMP + C TABLET PO SCH (08:57)
[2017-02-06] MEDS: CALCIUM CARBONATE 600 MG TABLET PO SCH ×2 (08:57→20:56)
[2017-02-06] MEDS: POLYETHYL.GLYCOL 3350 PACKET 17gm PO SCH (09:11)
--- NOTE | 2017-02-06 13:55 | NUR ---
WOUND VAC/INSTILLATION VAC/WOUND APPEARANCE PTS WOUND VAC DRESSING IS C/D/INTACT. NO LEAKS AND HAS A TIGHT SEAL. NORMAL SALINE IS INSTILLING AND FLUSHING, NO LEAKS. WOUND VAC DRAINAGE CONTINUES TO BE SEROUS SANGUINOUS AND CANISTER WAS CHANGED THIS SHIFT. NO OTHER CHANGES SINCE PREVIOUS SHIFT IN THE WAY OF THE WOUND VAC.
[2017-02-06 15:13] VITALS: BP 136/68; PULSE 109; RESP 18; TEMP 97.6; O2SAT 99
[2017-02-06] MEDS ORDERED: ALTEPLASE (Cathflo*) 2mg vial Injection IV ONE (16:15)
[2017-02-06] MEDS: NORMAL SALINE 1,000 ML IV SCH (16:30)
--- NOTE | 2017-02-06 17:02 | PNPDOC ---
Subjective Date DATE: 02/06/17 TIME: 16:54 Subjective F/U: Stage 4 pressure ulcer of left buttock Doing well. No new problems or concerns. Breathing well. No chest pain. Appetite stable (glad when has food brought in from outside). No f/c. Objective Vital Signs Vital signs Vital Signs Date Time Temp Pulse Resp B/P Pulse Ox O2 Delivery O2 Flow Rate FiO2 02/06/17 15:13 97.6 109 18 136/68 99 Room Air Height (Feet): 5 Height (Inches): 9.00 Weight (Kilograms): 108.700 General General Appearance: Alert, Obese, Orientated x 3, Well Nourished, Well Developed, Looks Stated Age Eyes (Brief) Eyes: FOUND: EOMI, PERRL, NOT FOUND: scleral icterus ENMT (Brief) ENMT: FOUND: hearing intact, mucosa moist Neck (Brief) Neck: FOUND: midline, NOT FOUND: nuchal rigidity, spasm Respiratory (Brief) Respiratory: FOUND: clear all burroughs, equal bilaterally, NOT FOUND: rales, wheezes Cardiovascular (Brief) Cardiac: FOUND: regular rate, regular rhythm Abdomen (Brief) Abdominal: FOUND: BS normo active x4, soft, NOT FOUND: distended, tender Neurologic (Brief) Neurological: FOUND: cranial 2-12 intact, motor (Upper ext intact ) Psychiatric (Brief) Psychiatric: FOUND: alert, attentive, normal affect, oriented Assessment & Plan Problems: (1) Pressure ulcer of right buttock, stage 4 Status: Acute Assessment & Plan: Polymicrobial with osteomyelitis, Rocephin and Flagyl through 02/04/17 Debridement on 01/25/17 (2) Vitamin D deficiency Status: Chronic Assessment & Plan: 02/01: Vit D Level <17 (3) Osteomyelitis Status: Acute Qualifiers: Laterality: left Assessment & Plan: Right ischium (4) Hypertension Status: Chronic (5) Hyperphosphatemia Status: Resolved (6) Microcytic anemia Status: Chronic Assessment & Plan: Iron deficiency anemia. Iron 12, TIBC 325, saturation 4% on 12/25/16. Continue ferrous sulfate (7) Paraplegia at T9 level Status: Chronic (8) Neurogenic bladder Status: Chronic (9) Neurogenic bowel Status: Chronic (10) Chronic urinary tract infection Status: Chronic (11) Thrombocytosis Status: Resolved Assessment & Plan: c/w iron deficiency (12) E. coli UTI Status: Resolved (13) MANDY (acute kidney injury) Status: Resolved (14) Sepsis Status: Resolved (15) Hypernatremia Status: Resolved (16) Obesity (BMI 30-39.9) Status: Chronic Plan/Intensity of Service Continue Wound vac and offloading of wound. Continue Cozaar for BP control. Monitor for temp elevation off antibiotics. DVT Prophylaxis: Lovenox Code Status Full Code Hospital Course Summary Disclaimer The hospital course summary below is not to be considered part of the above Progress Note. Hospital Course Summary 01/12/17 - Admitted to swing bed status under the hospitalist service. Hospitalized from 12/27/16 through 01/11/17 as an inpatient at [facility] [place]. 1. Right ischial stage IV decub ulcer with possible osteomyelitis -Continue Rocephin and Flagyl through 02/04/[address] Palma. -Wound care and wound VAC management per Dr. Tyson. 2. T9 paraplegia with neurogenic bowel and bladder. -Pinto catheter in place. 3. Recent sepsis and Escherichia coli UTI - resolved 4. Recent acute kidney injury thought to be secondary to vancomycin administration - resolved. 5. Hyperphosphatemia -Hold PhosLo for now. -Check phosphorus level tomorrow morning, along with CBC and BMP 6. Iron deficiency anemia -Continue ferrous sulfate and vitamin C 01/13/17-Divine Tolerating antibiotics well, continue same for probable osteomyelitis/wound infection. Wound care notes reviewed, good granulation tissue described and wound on the right upper thigh measured 4.2 x 3.6 x 5.6 cm today. Renal function has improved from acute stay and sodium has normalized. Mild hyperphosphatemia persists, continue PhosLo and reassess early next week. Hemoglobin stable, known iron deficiency with anemia developing since March 2016. Patient denies chronic indigestion or heartburn but requires chronic digital stimulation for bowel movements. He is unaware of any chronic rectal bleeding however and has never had a colonoscopy. May need to pursue in the future if ongoing anemia. Denies family history of colon cancer or other chronic bowel disease. 01/14/17 Right ischial stage IV decub ulcer with possible osteomyelitis-Continue Rocephin and Flagyl through 02/04/17 MANDY resolved and renal function at baseline Elevated BP - will discuss starting an AntiHTN with Dr. Haskins. 01/16/17 Doing well. Blood pressure remains moderately elevated with readings 133/77-169/90 over the past 24 hours. Continue to monitor on low-dose Cozaar for an additional 1-2 days and if no improvement will increase dose. Repeat CBC, renal panel, and CRP ordered for Wednesday to monitor antibiotic therapy, anemia, and hyperphosphatemia. 01/17/17 - Increase Cozaar to 50 mg daily. 01/19 Doing well. No new problems or concerns. Continue wound vac and wound care. Continue Rocephin + Flagyl. Continue Cozaar at 50mg daily. Weekly CMP, CBC, and CRP ordered. Check BMP on 01/21 secondary to recent MANDY and ARB use. 01/21 Doing well overall, except very tired (usually much more energetic at home). Eating well. Breathing well. No f/c. Continue wound vac and wound care. Wound vac change tomorrow - may need to return to the prior vac if not healing. Continue Rocephin + Flagyl. Continue Cozaar at 50mg daily. Weekly CMP, CBC, and CRP ordered. 01/23/17 Stable. Continues to require inpatient care for wound VAC being utilized. Recheck labs on Wednesday to monitor antibiotic use. Blood pressure improved with losartan. 01/25 Wound exploration today. Anticipate replacement of Varacleans post exploration. Continue Rocephin and metronidazole for antimicrobial coverage. BP and lab stable on valsartan. 01/26 POD #1 Wound debridement Continue Rocephin + metronidazole - scheduled through 02/04/17. Continue wound care per Dr. Tyson. BP under good control on losartan 50 mg daily. Phos still elevated - cont. Phoslo. 01/27-Dr Palma RECOMMENDATIONS I would continue with the ceftriaxone and Flagyl to complete six weeks of therapy. He will need these antibiotics through February 04, 2017. I would continue to follow weekly CBC with differential, CMP and CRP weekly while he is on the antibiotics. I don't feel that his IV antibiotics will need to be extended since his debridement did not go down to bone. 01/28 Doing well. No new problems. Appetite stable. No nausea. Breathing well. No f/ c. Urine output has been greater than intake - creatinine stable. Possible mobilizing fluid from hydration given with MANDY Continue ceftriaxone and metronidazole to complete six weeks of therapy - need through February 04, 2017. Continue with wound vac and offloading for wound healing. Continue with Cozaar for BP control. Monitor volume status - watch for overdiuresis. 01/29 Doing well overall. Appetite fair-eats well when family brings in food from outside. Drinking well. No nausea or ab pain. Breathing stable. No f/c. Encourage that his wound is healing. Urine output greater than intake. Continue ceftriaxone and metronidazole to complete six weeks of therapy - need through February 04, 2017. Continue with wound vac and offloading for wound healing. Encourage intake of fluids/liquids. Will check BMP, phos and vitamin D level in am. 01/30 Continue ceftriaxone and metronidazole to complete six weeks of therapy - need through February 04, 2017. Continue with wound vac and offloading for wound healing. Monitor tachycardia. Encourage intake of fluids/liquids. BMP normal this morning. Vitamin D studies pending. 01/31 Patient is feeling well overall. Continue wound care, Ceftriaxone & Flagyl. He remains tachycardic- suspect some hypovolemia. Give two liters of IVF to see if this improves his symptoms. His weight is down about 4kg this week, and he is having quite a bit of drainage from wound vac. Hold Cozaar for now since we have started metoprolol to control HR. Assess UA to ensure that is not contributing to his symptoms of new tachycardia. Pinto is documented to have good output, so urinary retention is less of a concern. BM are documented as well. 02/01/17 Hypotension and tachycardia have improved since having IVF and being on BB. Discussed with Dr. Matamoros - will DC BB and monitor response. Continue Cozaar [address] Pamla, continue ceftriaxone and Flagyl to complete six weeks of therapy (through February 04, 2017). Blood cultures repeated d/t hypotension and elevated CRP (28). Follow weekly CBC with differential, CMP and CRP weekly while he is on antibiotics. Phos back to normal level. Vit D <17. Will start Vit D 35349 units weekly. Initiate calcium 600mg BID for bone health. 02/02 Continue with wound care. Continue antibiotics for now. Continue to monitor for hypotension or tachycardia. Continue to monitor urine output. 02/03 Continue with wound care. Continue antibiotics for now. Continue to monitor for hypotension. Consider IV fluids if having continued sustained tachycardia. Continue to monitor urine output. 02/04/17 Tachycardia - improved today. Rates not nearly as high, ranging from 82-106 Hyperphosphatemia, Vitamin D deficiency - discussed with Dr. Logan. There is a relationship between these levels, but typically is best worked up in an outpatient setting. Elevated phos levels could be d/t genetic mutations, but this needs to be tested when he's in steady state and not acutely ill. With a normal calcium level, vitamin D deficiency isn't as much of a concern, but it's reasonable to treat. This also is best worked up in steady state. She recommended to change diet to a low-phos diet and the phos binder isn't hurting anything, but she isn't terribly concerned about an elevated phos level at this time. Continue abx for now and check with Dr Palma tomorrow about discontinuation. BP stable on current regimen. 02/06 Doing well. No new problems or concerns. Breathing well. No chest pain. Appetite stable (glad when has food brought in from outside). No f/c. Continue Wound vac and offloading of wound. Continue Cozaar for BP control. Monitor for temp elevation off antibiotics. LENY MATAMOROS MD Feb 06, 2017 16:57
--- NOTE | 2017-02-06 17:35 | NUR ---
Cath Bhavin instilled in PICC catheter with difficulty, after manipulating arm and catheter. Solution went in very slowly.
--- NOTE | 2017-02-06 17:48 | NUR ---
SHIFT PT HAS BEEN PLEASANT AND COOPERATIVE ALL SHIFT. PT IS A&OX3, TURNED IN BED [id number] BY BED. PT DENIES PAIN, N/V AND SOA. PT IS ON ROOM AIR. WOUND VAC IN PLACE, SEE PREVIOUS NOTE. PICC LINE HAS TWO LUMENS, BOTH OF WHICH ARE OCCLUDED. RECEIVED ORDER FOR CATH DG GALINDO RN, MICHEAL, ADMINISTERED AND AWAITING RESULTS. FAMILY HAS BEEN AT BEDSIDE. NO OTHER CHANGES SINCE PREVIOUS SHIFT. ALARMS IN USE AND CALL LIGHT WITH IN REACH.
--- NOTE | 2017-02-06 18:35 | NUR ---
Cathronnio has been in PICC catheter for one hour, now flushes well and aspirates properly.
[2017-02-06 20:00] VITALS: RESP 18
[2017-02-07] VITALS: BP 124/72; PULSE 91; RESP 18; TEMP 97; O2SAT 96
[2017-02-07 08:15] VITALS: PULSE 68; RESP 16
[2017-02-07] MEDS: FERROUS SULFATE 324 MG TABLET PO SCH (09:31)
[2017-02-07] MEDS: METRONIDAZOLE 500 MG TABLET PO SCH ×2 (09:31→20:17)
[2017-02-07] MEDS: ENOXAPARIN 40 MG/0.4 ML INJECTION SQ SCH (09:31)
[2017-02-07] MEDS: POLYETHYL.GLYCOL 3350 PACKET 17gm PO SCH (09:31)
[2017-02-07] MEDS: ASCORBIC ACID 500 MG TABLET PO SCH (09:31)
[2017-02-07] MEDS: CALCIUM CARBONATE 600 MG TABLET PO SCH ×2 (09:31→20:17)
[2017-02-07] MEDS: VITAMIN B COMP + C TABLET PO SCH (09:32)
[2017-02-07] MEDS: LOSARTAN 50 MG TABLET PO SCH (09:32)
[2017-02-07 09:37] VITALS: BP 151/93; PULSE 84; RESP 16; TEMP 96.4; O2SAT 100
--- NOTE | 2017-02-07 14:05 | PNPDOC ---
Subjective Date DATE: 02/07/17 TIME: 13:58 Subjective F/U: Stage 4 pressure ulcer of left buttock No new problems. Trying to eat well and fine foods that are appealing. No nausea or ab pain. Breathing well. Objective Vital Signs Vital signs Vital Signs Date Time Temp Pulse Resp B/P Pulse Ox O2 Delivery O2 Flow Rate FiO2 02/07/17 09:37 96.4 84 16 151/93 100 Room Air Height (Feet): 5 Height (Inches): 9.00 Weight (Kilograms): 109.000 General General Appearance: Alert, Obese, Orientated x 3, Well Nourished, Well Developed, Looks Stated Age Eyes (Brief) Eyes: FOUND: EOMI, PERRL, NOT FOUND: scleral icterus ENMT (Brief) ENMT: FOUND: hearing intact, mucosa moist Neck (Brief) Neck: FOUND: midline, NOT FOUND: nuchal rigidity, spasm Respiratory (Brief) Respiratory: FOUND: clear all burroughs, equal bilaterally, NOT FOUND: rales, wheezes Cardiovascular (Brief) Cardiac: FOUND: regular rate, regular rhythm Abdomen (Brief) Abdominal: FOUND: BS normo active x4, soft, NOT FOUND: distended, tender Integumentary (Brief) Integumentary: FOUND: dry, warm Neurologic (Brief) Neurological: FOUND: cranial 2-12 intact, motor (Upper ext intact ) Psychiatric (Brief) Psychiatric: FOUND: alert, attentive, normal affect, oriented Assessment & Plan Problems: (1) Pressure ulcer of right buttock, stage 4 Status: Acute Assessment & Plan: Polymicrobial with osteomyelitis, Rocephin and Flagyl through 02/04/17 Debridement on 01/25/17 (2) Vitamin D deficiency Status: Chronic Assessment & Plan: 02/01: Vit D Level <17 (3) Osteomyelitis Status: Acute Qualifiers: Laterality: left Assessment & Plan: Right ischium (4) Hypertension Status: Chronic (5) Hyperphosphatemia Status: Resolved (6) Microcytic anemia Status: Chronic Assessment & Plan: Iron deficiency anemia. Iron 12, TIBC 325, saturation 4% on 12/25/16. Continue ferrous sulfate (7) Paraplegia at T9 level Status: Chronic (8) Neurogenic bladder Status: Chronic (9) Neurogenic bowel Status: Chronic (10) Chronic urinary tract infection Status: Chronic (11) Thrombocytosis Status: Resolved Assessment & Plan: c/w iron deficiency (12) E. coli UTI Status: Resolved (13) MANDY (acute kidney injury) Status: Resolved (14) Sepsis Status: Resolved (15) Hypernatremia Status: Resolved (16) Obesity (BMI 30-39.9) Status: Chronic Plan/Intensity of Service Continue Wound vac and offloading of wound. Continue Cozaar for BP control. Encourage oral intake of foods to help wound healing. Monitor for temp elevation off antibiotics. Will check CBC, CRP, CMP, and Phos in am to monitor status off of antibiotics. DVT Prophylaxis: Lovenox Code Status Full Code Hospital Course Summary Disclaimer The hospital course summary below is not to be considered part of the above Progress Note. Hospital Course Summary 01/12/17 - Admitted to swing bed status under the hospitalist service. Hospitalized from 12/27/16 through 01/11/17 as an inpatient at [facility]. 1. Right ischial stage IV decub ulcer with possible osteomyelitis -Continue Rocephin and Flagyl through 02/04/[address] Palma. -Wound care and wound VAC management per Dr. Tyson. 2. T9 paraplegia with neurogenic bowel and bladder. -Pinto catheter in place. 3. Recent sepsis and Escherichia coli UTI - resolved 4. Recent acute kidney injury thought to be secondary to vancomycin administration - resolved. 5. Hyperphosphatemia -Hold PhosLo for now. -Check phosphorus level tomorrow morning, along with CBC and BMP 6. Iron deficiency anemia -Continue ferrous sulfate and vitamin C 01/13/17-Divine Tolerating antibiotics well, continue same for probable osteomyelitis/wound infection. Wound care notes reviewed, good granulation tissue described and wound on the right upper thigh measured 4.2 x 3.6 x 5.6 cm today. Renal function has improved from acute stay and sodium has normalized. Mild hyperphosphatemia persists, continue PhosLo and reassess early next week. Hemoglobin stable, known iron deficiency with anemia developing since March 2016. Patient denies chronic indigestion or heartburn but requires chronic digital stimulation for bowel movements. He is unaware of any chronic rectal bleeding however and has never had a colonoscopy. May need to pursue in the future if ongoing anemia. Denies family history of colon cancer or other chronic bowel disease. 01/14/17 Right ischial stage IV decub ulcer with possible osteomyelitis-Continue Rocephin and Flagyl through 02/04/17 MANDY resolved and renal function at baseline Elevated BP - will discuss starting an AntiHTN with Dr. Haskins. 01/16/17 Doing well. Blood pressure remains moderately elevated with readings 133/77-169/90 over the past 24 hours. Continue to monitor on low-dose Cozaar for an additional 1-2 days and if no improvement will increase dose. Repeat CBC, renal panel, and CRP ordered for Wednesday to monitor antibiotic therapy, anemia, and hyperphosphatemia. 01/17/17 - Increase Cozaar to 50 mg daily. 01/19 Doing well. No new problems or concerns. Continue wound vac and wound care. Continue Rocephin + Flagyl. Continue Cozaar at 50mg daily. Weekly CMP, CBC, and CRP ordered. Check BMP on 01/21 secondary to recent MANDY and ARB use. 01/21 Doing well overall, except very tired (usually much more energetic at home). Eating well. Breathing well. No f/c. Continue wound vac and wound care. Wound vac change tomorrow - may need to return to the prior vac if not healing. Continue Rocephin + Flagyl. Continue Cozaar at 50mg daily. Weekly CMP, CBC, and CRP ordered. 01/23/17 Stable. Continues to require inpatient care for wound VAC being utilized. Recheck labs on Wednesday to monitor antibiotic use. Blood pressure improved with losartan. 01/25 Wound exploration today. Anticipate replacement of Varacleans post exploration. Continue Rocephin and metronidazole for antimicrobial coverage. BP and lab stable on valsartan. 01/26 POD #1 Wound debridement Continue Rocephin + metronidazole - scheduled through 02/04/17. Continue wound care per Dr. Tyson. BP under good control on losartan 50 mg daily. Phos still elevated - cont. Phoslo. 01/27-Dr Palma RECOMMENDATIONS I would continue with the ceftriaxone and Flagyl to complete six weeks of therapy. He will need these antibiotics through February 04, 2017. I would continue to follow weekly CBC with differential, CMP and CRP weekly while he is on the antibiotics. I don't feel that his IV antibiotics will need to be extended since his debridement did not go down to bone. 01/28 Doing well. No new problems. Appetite stable. No nausea. Breathing well. No f/ c. Urine output has been greater than intake - creatinine stable. Possible mobilizing fluid from hydration given with MANDY Continue ceftriaxone and metronidazole to complete six weeks of therapy - need through February 04, 2017. Continue with wound vac and offloading for wound healing. Continue with Cozaar for BP control. Monitor volume status - watch for overdiuresis. 01/29 Doing well overall. Appetite fair-eats well when family brings in food from outside. Drinking well. No nausea or ab pain. Breathing stable. No f/c. Encourage that his wound is healing. Urine output greater than intake. Continue ceftriaxone and metronidazole to complete six weeks of therapy - need through February 04, 2017. Continue with wound vac and offloading for wound healing. Encourage intake of fluids/liquids. Will check BMP, phos and vitamin D level in am. 01/30 Continue ceftriaxone and metronidazole to complete six weeks of therapy - need through February 04, 2017. Continue with wound vac and offloading for wound healing. Monitor tachycardia. Encourage intake of fluids/liquids. BMP normal this morning. Vitamin D studies pending. 01/31 Patient is feeling well overall. Continue wound care, Ceftriaxone & Flagyl. He remains tachycardic- suspect some hypovolemia. Give two liters of IVF to see if this improves his symptoms. His weight is down about 4kg this week, and he is having quite a bit of drainage from wound vac. Hold Cozaar for now since we have started metoprolol to control HR. Assess UA to ensure that is not contributing to his symptoms of new tachycardia. Pinto is documented to have good output, so urinary retention is less of a concern. BM are documented as well. 02/01/17 Hypotension and tachycardia have improved since having IVF and being on BB. Discussed with Dr. Matamoros - will DC BB and monitor response. Continue Cozaar [address] Palma, continue ceftriaxone and Flagyl to complete six weeks of therapy (through February 04, 2017). Blood cultures repeated d/t hypotension and elevated CRP (28). Follow weekly CBC with differential, CMP and CRP weekly while he is on antibiotics. Phos back to normal level. Vit D <17. [place] 92209 units weekly. Initiate calcium 600mg BID for bone health. 02/02 Continue with wound care. Continue antibiotics for now. Continue to monitor for hypotension or tachycardia. Continue to monitor urine output. 02/03 Continue with wound care. Continue antibiotics for now. Continue to monitor for hypotension. Consider IV fluids if having continued sustained tachycardia. Continue to monitor urine output. 02/04/17 Tachycardia - improved today. Rates not nearly as high, ranging from 82-106 Hyperphosphatemia, Vitamin D deficiency - discussed with Dr. Logan. There is a relationship between these levels, but typically is best worked up in an outpatient setting. Elevated phos levels could be d/t genetic mutations, but this needs to be tested when he's in steady state and not acutely ill. With a normal calcium level, vitamin D deficiency isn't as much of a concern, but it's reasonable to treat. This also is best worked up in steady state. She recommended to change diet to a low-phos diet and the phos binder isn't hurting anything, but she isn't terribly concerned about an elevated phos level at this time. Continue abx for now and check with Dr Palma tomorrow about discontinuation. BP stable on current regimen. 02/06 Doing well. No new problems or concerns. Breathing well. No chest pain. Appetite stable (glad when has food brought in from outside). No f/c. Continue Wound vac and offloading of wound. Continue Cozaar for BP control. Monitor for temp elevation off antibiotics. 02/07 No new problems. Trying to eat well and fine foods that are appealing. No nausea or ab pain. Breathing well. Continue Wound vac and offloading of wound. Continue Cozaar for BP control. Encourage oral intake of foods to help wound healing. Monitor for temp elevation off antibiotics. Will check CBC, CRP, CMP, and Phos in am to monitor status off of antibiotics. LENY MATAMOROS MD Feb 07, 2017 14:02
[2017-02-07 16:00] VITALS: BP 134/72; PULSE 101; RESP 16; TEMP 96.2; O2SAT 100
[2017-02-07] MEDS: NORMAL SALINE 1,000 ML IV SCH (16:00)
--- NOTE | 2017-02-07 16:25 | NUR ---
reinforced wound vac dressing dressing began leaking posterior aspect, reinforced with dressing, no leak at this time.
--- NOTE | 2017-02-07 17:47 | NUR ---
SHIFT PT HAS BEEN PLEASANT AND COOPERATIVE ALL SHIFT. PT IS A&OX3, TURNED BY BED [id number]. PT DENIES PAIN, N/V AND SOA. PT IS ON ROOM AIR. SEE PREVIOUS NOTE FOR WOUND VAC INFORMATION. FAMILY HAS BEEN AT BEDSIDE. PT EATS 100% OF MEALS AND HAS HAD A BM THIS SHIFT. NO OTHER CHANGES SINCE PREVIOUS NOTES. ALARMS IN USE AND CALL LIGHT WITH IN REACH.
[2017-02-08 00:15] VITALS: BP 124/62; PULSE 92; RESP 18; TEMP 98.6; O2SAT 97
[2017-02-08 04:47] LABS: BASOPHILS # (AUTO) 0.1 T/MM3 (0-0.2); BASOPHILS % (AUTO) 0.6 % (0-2); EOSINOPHILS # (AUTO) 0.3 T/MM3 (0-0.5); HCT - HEMATOCRIT 35.2 % (41-53); HGB - HEMOGLOBIN 11.2 GM/DL (13.5-17.5); IMMATURE GRANULOCYTE # (AUTO) 0.02 T/MM3 (0.00-0.03); IMMATURE GRANULOCYTE % (AUTO) 0.2 % (0.0-0.5); LYMPHOCYTES # (AUTO) 3.1 T/MM3 (1-4.8); LYMPHOCYTES % (AUTO) 36.4 % (23-45); MEAN CORPUSCULAR HGB 26.7 UUG (26-34); MEAN CORPUSCULAR HGB CONC(MCHC 31.8 GM/DL (31-37); MEAN CORPUSCULAR VOLUME 83.8 UM3 (80-100); MEAN PLATELET VOLUME 9.3 UM3 (9.4-12.4); MONOCYTES # (AUTO) 0.7 T/MM3 (0-0.8); MONOCYTES % (AUTO) 8.3 % (0-9.0); NEUTROPHILS #(AUTO)-ABSOLUTE 4.3 T/MM3 (1.8-7.7); NEUTROPHILS % (AUTO) 51.5 % (33-66); WBC - WHITE BLOOD COUNT 8.4 T/MM3 (4.5-11.0)
[2017-02-08 04:54] LABS: ALBUMIN 3.3 G/DL (3.5-5.0); ALBUMIN/GLOBULIN RATIO 0.9 RATIO (1.1-2.2); ALKALINE PHOSPHATASE 62 U/L (38-126); ALT (SGPT) 41 U/L (21-72); ANION GAP 13 MEQ/L (5-15); AST (SGOT) 21 U/L (17-59); BUN/CREATININE RATIO 33 RATIO (6-26); C-REACTIVE PROTEIN 11.2 MG/L (0-9); CALCIUM 9.2 MG/DL (8.4-10.2); CHLORIDE 105 MEQ/L (98-107); CO2 - CARBON DIOXIDE 25 MEQ/L (22-30); CREATININE 0.6 MG/DL (0.8-1.5); GLOMERULAR FILTRATION RATE 150; GLUCOSE 96 MG/DL (75-110); SODIUM 143 MEQ/L (134-144); TOTAL PROTEIN 6.8 G/DL (6.3-8.2)
[2017-02-08 05:36] LABS: PHOSPHORUS 5.3 MG/DL (2.5-4.5)
--- NOTE | 2017-02-08 05:43 | NUR ---
SUMMARY PT SLEEPING AT THE MOMENT. CALL LIGHT WITHIN REACH. PT IS ALERT AND ORIENTED. DENIED ANY PAIN. PT BED REPOSITIONS HIM SIDE TO SIDE. NPWT INTACT. NO LEAK THIS SHIFT. NS INSTILLING WITH NO PROBLEM. CANISTER WITH SEROSANGUINEOUS FLUID FROM THE WOUND. NO PRN MEDICATION THIS SHIFT. PT WAS EDUCATED ON THE USE OF CALL LIGHT. PICC LINE INTACT. FLUSHING AND LAB DRAWN THROUGH IT THIS MORNING.
--- NOTE | 2017-02-08 07:18 | NUR ---
NPWT PT WOUND VAC NOTED TO BE LEAKING DURING PT CLEAN UP. THE NORMAL SALINE WAS LEAKING ON THE DRAPE EDGES. DRAPE WAS ADDED BUT STILL CONTINUED TO LEAK. CHARGE NURSE WAS NOTIFIED. ANOTHER DRAPE ADDED AND THE LEAK STOPPED. DAY SHIFT TO NOTIFY THE WOUND TEAM.
[2017-02-08 09:27] VITALS: BP 129/79; PULSE 83; RESP 18; TEMP 96.7; O2SAT 100
[2017-02-08 09:30] VITALS: RESP 18
[2017-02-08] MEDS: ASCORBIC ACID 500 MG TABLET PO SCH (09:58)
[2017-02-08] MEDS: FERROUS SULFATE 324 MG TABLET PO SCH (09:58)
[2017-02-08] MEDS: LOSARTAN 50 MG TABLET PO SCH (09:59)
[2017-02-08] MEDS: VITAMIN B COMP + C TABLET PO SCH (09:59)
[2017-02-08] MEDS: POLYETHYL.GLYCOL 3350 PACKET 17gm PO SCH (09:59)
[2017-02-08] MEDS: CALCIUM CARBONATE 600 MG TABLET PO SCH ×2 (09:59→20:52)
[2017-02-08] MEDS: ENOXAPARIN 40 MG/0.4 ML INJECTION SQ SCH (10:00)
[2017-02-08] MEDS: ERGOCALCIFEROL 50,000 UNIT CAPSULE PO SCH (10:00)
--- NOTE | 2017-02-08 10:38 | PDWOUND ---
Wound Documentation Wound Management Wound : Location Modifier: Right, Upper Wound Location: Thigh Wound Type: Pressure Ulcer Wound Dressing Frequency: three times per week Wound Duration: > one month Wound Dressing Status: FOUND: Changed Wound Drainage Amount: Moderate Wound Drainage Description: Serous Wound Drainage Odor: None/Absent Wound General Appearance: FOUND Unapproximated Wound Bed: gran red Periwound Description: Clear Wound Length (cm): 7 Wound Width (cm): 2 Wound Depth (cm): 2.5 Exposed: subtissue Wound Cleanser: soap and water Wound Solution/Irrigant: Saline Irrigant Wound Packing Type: FOUND: Black Foam Wound Primary Dressing Type: Clear Adhesive Cover Wound Tunneling : Sinus/Tunnels (cm): 5 (centimeters) Tunneling Location (o'clock): 12 Comments Pt seen today by Dr Tyson and at this time asks that we reach out to the Plastic surgeon that this pt has seen before. Dr Braxton office will be called. Wound vac changed at this time Continue Veraflow Cleanse, fluid decreased to 45cc. TATUM RIZO RN February 08, 2017 10:38
--- NOTE | 2017-02-08 15:24 | PNPDOC ---
Subjective Date DATE: 02/08/17 TIME: 15:20 Subjective F/U: Stage 4 pressure ulcer of left buttock Doing well. No new problems or concerns. No f/c. Not having pains. Breathing stable. No palpitations. No ab pain or nausea. Objective Vital Signs Vital signs Vital Signs Date Time Temp Pulse Resp B/P Pulse Ox O2 Delivery O2 Flow Rate FiO2 02/08/17 09:30 18 02/08/17 09:27 96.7 83 129/79 100 Room Air Height (Feet): 5 Height (Inches): 9.00 Weight (Kilograms): 107.600 General General Appearance: Alert, Obese, Well Nourished, Well Developed, Cooperative, No Acute Distress, Looks Stated Age Eyes (Brief) Eyes: FOUND: EOMI, PERRL, NOT FOUND: scleral icterus ENMT (Brief) ENMT: FOUND: hearing intact, mucosa moist Neck (Brief) Neck: FOUND: midline, NOT FOUND: nuchal rigidity, spasm Respiratory (Brief) Respiratory: FOUND: clear all burroughs, equal bilaterally, NOT FOUND: rales, wheezes Cardiovascular (Brief) Cardiac: FOUND: regular rate, regular rhythm Abdomen (Brief) Abdominal: FOUND: BS normo active x4, soft, NOT FOUND: distended, tender Musculoskeletal (Brief) Musculoskeletal: FOUND: loss of motion (LE chronically ), NOT FOUND: spasm Neurologic (Brief) Neurological: FOUND: cranial 2-12 intact, motor (Upper intact ) Psychiatric (Brief) Psychiatric: FOUND: alert, attentive, normal affect, oriented Laboratory Laboratory Laboratory Tests 02/08/17 04:27 Laboratory Tests 02/08/17 04:27 Assessment & Plan Problems: (1) Pressure ulcer of right buttock, stage 4 Status: Acute Assessment & Plan: Polymicrobial with osteomyelitis, Rocephin and Flagyl through 02/04/17 Debridement on 01/25/17 (2) Vitamin D deficiency Status: Chronic Assessment & Plan: 02/01: Vit D Level <17 (3) Osteomyelitis Status: Resolved Qualifiers: Laterality: left Assessment & Plan: Right ischium (4) Hypertension Status: Chronic (5) Hyperphosphatemia Status: Chronic (6) Microcytic anemia Status: Chronic Assessment & Plan: Iron deficiency anemia. Iron 12, TIBC 325, saturation 4% on 12/25/16. Continue ferrous sulfate (7) Paraplegia at T9 level Status: Chronic (8) Neurogenic bladder Status: Chronic (9) Neurogenic bowel Status: Chronic (10) Chronic urinary tract infection Status: Chronic (11) Thrombocytosis Status: Resolved Assessment & Plan: c/w iron deficiency (12) E. coli UTI Status: Resolved (13) MANDY (acute kidney injury) Status: Resolved (14) Sepsis Status: Resolved (15) Hypernatremia Status: Resolved (16) Obesity (BMI 30-39.9) Status: Chronic Plan/Intensity of Service Lab stable. WBC without increase off of antibiotics. Renal status stable. Continue Wound vac and offloading of wound. Continue Cozaar for BP control. Encourage oral intake of foods to help wound healing. DVT Prophylaxis: Lovenox Code Status Full Code Hospital Course Summary Disclaimer The hospital course summary below is not to be considered part of the above Progress Note. Hospital Course Summary 01/12/17 - Admitted to swing bed status under the hospitalist service. Hospitalized from 12/27/16 through 01/11/17 as an inpatient at [facility]. 1. Right ischial stage IV decub ulcer with possible osteomyelitis -Continue Rocephin and Flagyl through 02/04/[address] Palma. -Wound care and wound VAC management per Dr. Tyson. 2. T9 paraplegia with neurogenic bowel and bladder. -Pinto catheter in place. 3. Recent sepsis and Escherichia coli UTI - resolved 4. Recent acute kidney injury thought to be secondary to vancomycin administration - resolved. 5. Hyperphosphatemia -Hold PhosLo for now. -Check phosphorus level tomorrow morning, along with CBC and BMP 6. Iron deficiency anemia -Continue ferrous sulfate and vitamin C 01/13/17-Divine Tolerating antibiotics well, continue same for probable osteomyelitis/wound infection. Wound care notes reviewed, good granulation tissue described and wound on the right upper thigh measured 4.2 x 3.6 x 5.6 cm today. Renal function has improved from acute stay and sodium has normalized. Mild hyperphosphatemia persists, continue PhosLo and reassess early next week. Hemoglobin stable, known iron deficiency with anemia developing since March 2016. Patient denies chronic indigestion or heartburn but requires chronic digital stimulation for bowel movements. He is unaware of any chronic rectal bleeding however and has never had a colonoscopy. May need to pursue in the future if ongoing anemia. Denies family history of colon cancer or other chronic bowel disease. 01/14/17 Right ischial stage IV decub ulcer with possible osteomyelitis-Continue Rocephin and Flagyl through 02/04/17 MANDY resolved and renal function at baseline Elevated BP - will discuss starting an AntiHTN with Dr. Haskins. 01/16/17 Doing well. Blood pressure remains moderately elevated with readings 133/77-169/90 over the past 24 hours. Continue to monitor on low-dose Cozaar for an additional 1-2 days and if no improvement will increase dose. Repeat CBC, renal panel, and CRP ordered for Wednesday to monitor antibiotic therapy, anemia, and hyperphosphatemia. 01/17/17 - Increase Cozaar to 50 mg daily. 01/19 Doing well. No new problems or concerns. Continue wound vac and wound care. Continue Rocephin + Flagyl. Continue Cozaar at 50mg daily. Weekly CMP, CBC, and CRP ordered. Check BMP on 01/21 secondary to recent MANDY and ARB use. 01/21 Doing well overall, except very tired (usually much more energetic at home). Eating well. Breathing well. No f/c. Continue wound vac and wound care. Wound vac change tomorrow - may need to return to the prior vac if not healing. Continue Rocephin + Flagyl. Continue Cozaar at 50mg daily. Weekly CMP, CBC, and CRP ordered. 01/23/17 Stable. Continues to require inpatient care for wound VAC being utilized. Recheck labs on Wednesday to monitor antibiotic use. Blood pressure improved with losartan. 01/25 Wound exploration today. Anticipate replacement of Varacleans post exploration. Continue Rocephin and metronidazole for antimicrobial coverage. BP and lab stable on valsartan. 01/26 POD #1 Wound debridement Continue Rocephin + metronidazole - scheduled through 02/04/17. Continue wound care per Dr. Tyson. BP under good control on losartan 50 mg daily. Phos still elevated - cont. Phoslo. 01/27-Dr Palma RECOMMENDATIONS I would continue with the ceftriaxone and Flagyl to complete six weeks of therapy. He will need these antibiotics through February 04, 2017. I would continue to follow weekly CBC with differential, CMP and CRP weekly while he is on the antibiotics. I don't feel that his IV antibiotics will need to be extended since his debridement did not go down to bone. 01/28 Doing well. No new problems. Appetite stable. No nausea. Breathing well. No f/ c. Urine output has been greater than intake - creatinine stable. Possible mobilizing fluid from hydration given with MANDY Continue ceftriaxone and metronidazole to complete six weeks of therapy - need through February 04, 2017. Continue with wound vac and offloading for wound healing. Continue with Cozaar for BP control. Monitor volume status - watch for overdiuresis. 01/29 Doing well overall. Appetite fair-eats well when family brings in food from outside. Drinking well. No nausea or ab pain. Breathing stable. No f/c. Encourage that his wound is healing. Urine output greater than intake. Continue ceftriaxone and metronidazole to complete six weeks of therapy - need through February 04, 2017. Continue with wound vac and offloading for wound healing. Encourage intake of fluids/liquids. Will check BMP, phos and vitamin D level in am. 01/30 Continue ceftriaxone and metronidazole to complete six weeks of therapy - need through February 04, 2017. Continue with wound vac and offloading for wound healing. Monitor tachycardia. Encourage intake of fluids/liquids. BMP normal this morning. Vitamin D studies pending. 01/31 Patient is feeling well overall. Continue wound care, Ceftriaxone & Flagyl. He remains tachycardic- suspect some hypovolemia. Give two liters of IVF to see if this improves his symptoms. His weight is down about 4kg this week, and he is having quite a bit of drainage from wound vac. Hold Cozaar for now since we have started metoprolol to control HR. Assess UA to ensure that is not contributing to his symptoms of new tachycardia. Pinto is documented to have good output, so urinary retention is less of a concern. BM are documented as well. 02/01/17 Hypotension and tachycardia have improved since having IVF and being on BB. Discussed with Dr. Matamoros - derick DC BB and monitor response. Continue Cozaar [address] Palma, continue ceftriaxone and Flagyl to complete six weeks of therapy (through February 04, 2017). Blood cultures repeated d/t hypotension and elevated CRP (28). Follow weekly CBC with differential, CMP and CRP weekly while he is on antibiotics. Phos back to normal level. Vit D <17. Will start Vit D 73833 units weekly. Initiate calcium 600mg BID for bone health. 02/02 Continue with wound care. Continue antibiotics for now. Continue to monitor for hypotension or tachycardia. Continue to monitor urine output. 02/03 Continue with wound care. Continue antibiotics for now. Continue to monitor for hypotension. Consider IV fluids if having continued sustained tachycardia. Continue to monitor urine output. 02/04/17 Tachycardia - improved today. Rates not nearly as high, ranging from 82-106 Hyperphosphatemia, Vitamin D deficiency - discussed with Dr. Logan. There is a relationship between these levels, but typically is best worked up in an outpatient setting. Elevated phos levels could be d/t genetic mutations, but this needs to be tested when he's in steady state and not acutely ill. With a normal calcium level, vitamin D deficiency isn't as much of a concern, but it's reasonable to treat. This also is best worked up in steady state. She recommended to change diet to a low-phos diet and the phos binder isn't hurting anything, but she isn't terribly concerned about an elevated phos level at this time. Continue abx for now and check with Dr Palma tomorrow about discontinuation. BP stable on current regimen. 02/06 Doing well. No new problems or concerns. Breathing well. No chest pain. Appetite stable (glad when has food brought in from outside). No f/c. Continue Wound vac and offloading of wound. Continue Cozaar for BP control. Monitor for temp elevation off antibiotics. 02/07 No new problems. Trying to eat well and fine foods that are appealing. No nausea or ab pain. Breathing well. Continue Wound vac and offloading of wound. Continue Cozaar for BP control. Encourage oral intake of foods to help wound healing. Monitor for temp elevation off antibiotics. Will check CBC, CRP, CMP, and Phos in am to monitor status off of antibiotics. 02/08 Doing well. No new problems or concerns. No f/c. Not having pains. Breathing stable. No palpitations. No ab pain or nausea. Lab stable. WBC without increase off of antibiotics. Renal status stable. Continue Wound vac and offloading of wound. Continue Cozaar for BP control. Encourage oral intake of foods to help wound healing. LENY MATAMOROS MD February 08, 2017 15:23
--- NOTE | 2017-02-08 16:34 | NUR ---
CM SPOKE WITH WOUND CARE. APPOINTMENT WITH PLASTIC SURGEON SCHEDULED FOR WED, 02-12-17, 10 AM. ANTICIPATED DC DATE IS 02-11-17 WITH WOUND VAC; THIS DATE/PLAN WILL BE REVIEWED FOR ONGOING APPROPRIATENESS. THIS WORKER LEFT MESSAGE WITH DOREEN AT [facility], RE: FOLLOWING UP WITH WOUND VAC ORDER.
[2017-02-08 16:59] VITALS: BP 130/70; PULSE 100; RESP 16; TEMP 97.7; O2SAT 98
[2017-02-08] MEDS: NORMAL SALINE 1,000 ML IV SCH (17:02)
--- NOTE | 2017-02-08 19:25 | NUR ---
SHIFT SUMMARY PT ALERT AND ORIENTED X3. PT ON RA, DENIES SOA. DENIES PAIN, DENIES N/V. PT'S BED REPOSITIONS PT, TURNS PT Q30MIN. DE SOUZA PATENT, ADEQUATE URINE OUTPUT. DOUBLE LUMEN PICC LINE PATENT, ABLE TO ASPIRATE FROM BOTH LUMENS. WOUND VAC IN PLACE, NO LEAKAGE NOTED. PT ABLE TO MAKE NEEDS KNOWN. CALL LIGHT WITHIN REACH.
[2017-02-08 20:00] VITALS: RESP 16
[2017-02-09] VITALS: BP 115/67; PULSE 89; RESP 16; TEMP 98.6; O2SAT 96
--- NOTE | 2017-02-09 05:20 | NUR ---
SHIFT SUMMARY: PT IS A&OX3, FRIENDLY AND COOPERATIVE; ON RA; SLEPT WELL DURING THE NIGHT; DENIES N/V, CHEST PAIN OR SOA; PT HAS A LEFT UPPER ARM PICC (DOUBLE LUMEN) THAT ASPIRATES AND FLUSHES WELL; PT IS ON TELEMETRY; PT HAS AN INDWELLING DE SOUZA CATHETER THAT HAS GOOD OUTPUT; WOUND VAC HAS SMALL TO MODERATE DRAINAGE; CONTINUOUSLY ROTATING BED. CALL LIGHT WITHIN REACH, BED ALARM ON.
[2017-02-09 09:02] VITALS: BP 118/65; PULSE 100; RESP 16; TEMP 97; O2SAT 100
[2017-02-09] MEDS: ENOXAPARIN 40 MG/0.4 ML INJECTION SQ SCH (09:27)
[2017-02-09] MEDS: VITAMIN B COMP + C TABLET PO SCH (09:37)
[2017-02-09] MEDS: POLYETHYL.GLYCOL 3350 PACKET 17gm PO SCH (09:38)
[2017-02-09] MEDS: FERROUS SULFATE 324 MG TABLET PO SCH (09:38)
[2017-02-09] MEDS: CALCIUM CARBONATE 600 MG TABLET PO SCH ×2 (09:38→20:44)
[2017-02-09] MEDS: ASCORBIC ACID 500 MG TABLET PO SCH (09:38)
[2017-02-09] MEDS: LOSARTAN 50 MG TABLET PO SCH (09:38)
--- NOTE | 2017-02-09 10:14 | PNF ---
DATE OF SERVICE 02/08/2017 FINDINGS Mr. Cosby today was without complaints. EXAM VITAL SIGNS: Afebrile, normotensive. Last recorded vitals include temperature 96.7, pulse 83, respirations 18, blood pressure 129/79, SAO2 100% on room air. CHEST: Clear to auscultation bilaterally. HEART: Regular rate and rhythm. Normal S1 and S2 without gallops, murmurs or clicks. EXTREMITIES: Attention was focused to the right lateral hip. The patient's wound continues to make marked improvement. There is good granulation tissue throughout. There is no evidence for necrotic tissue within the wound bed. Wound still tunnels in a cephalad fashion but the overall diameter of the area that is tunneling has significantly decreased. ASSESSMENT 41-year-old paraplegic gentleman with stage IV pressure ulceration involving right lateral hip following myocutaneous flap. Patient making good improvement utilizing negative wound pressure therapy. PLAN Continuation of current care. I am pleased with the patients progress. Once the patient has been discharged from the hospital we will attempt to get him back in to see his plastic surgeon to see if there is any possibility of performing repeat myocutaneous flap to facilitate closure. LOREE
[2017-02-09 11:54] VITALS: RESP 18
--- NOTE | 2017-02-09 14:08 | NUR ---
CM PER [facility] WEBSITE, PT'S HOME WOUND VAC IS APPROVED. THIS WORKER LEFT MESSSAGE WITH DOREEN, REP WITH [facility], TO CONFIRM THIS. SPOKE WITH BRITANY WITH [facility]; RE, ANTICIPATED DC DATE OF . SHE SAID THEY COULD SEE PT AND BILL MEDICARE. CALLED KRISTAL WITH [facility] [employer], TO FOLLOW UP WITH THE ALTERNATING PRESSURE PAD. SHE SAID THE SYSTEM IS SHOWING ANOTHER INSURANCE PRIMARY, THEN MEDICARE SECONDARY. SHE SAID SHE WILL FOLLOW UP WITH THIS. SHE SAID SHE WILL ALSO FAX OVER PAPERWORK THAT MUST BE SIGNED BY THE DOCTOR.
[2017-02-09] MEDS: NORMAL SALINE 1,000 ML IV SCH (16:12)
[2017-02-09 16:15] VITALS: BP 113/71; PULSE 100; RESP 18; TEMP 98; O2SAT 98
--- NOTE | 2017-02-09 19:01 | NUR ---
SHIFT SUMMARY PT ALERT AND ORIENTED X3. PT ON RA, DENIES SOA. DENIES PAIN, DENIES N/V. BED TURNS PT, BILATERAL FOAM BOOTS APPLIED. DE SOUZA PATENT, ADEQUATE URINE OUTPUT. BM THIS SHIFT, PT INCONTINENT. IVL LEFT UPPER ARM DOUBLE LUMEN PICC, ABLE TO ASPIRATE BOTH LUMENS. WOUND VAC PATENT, DRAINAGE MARKED, NO LEAKAGE THIS SHIFT. PT ABLE TO MAKE NEEDS KNOWN. CALL LIGHT WITHIN REACH.
[2017-02-09 20:00] VITALS: PULSE 100; RESP 18
[2017-02-09 23:50] VITALS: BP 119/75; PULSE 91; RESP 18; TEMP 97.6; O2SAT 97
--- NOTE | 2017-02-10 04:01 | NUR ---
STATUS PT IS ALERT AND ORIENTED X 3. DENIES CHEST PAIN OR GENERAL DISCOMFORT. REMAINS ON ROOM AIR, NO SOA. WOUND VAC TO HIS RIGHT BUTTOCK INTACT, GOOD SEAL, NO LEAKING NOTED, SUCTION IS 150 MMHG. CANISTER CHANGED, 450 ML OF SEROUS SANGUINOUS. NOTED ONE MOD. OVAL SHAPED BLISTER NOT OPEN TO PT'S RIGHT UPPER THIGH. DERMITITIS TO PREVIOUS AREA OF SKIN THAT WAS COVERED WITH TAPE. SCD'S ON AND FOAM BOOTS BILAT. PT'S BED ROTATES AUTOMATICALLY Q 30 MIN. PT TALKED ABOUT GOING HOME AND LOOKING FORWARD TO IT. CALL LIGHT WITHIN REACH.
[2017-02-10 08:42] VITALS: BP 124/71; PULSE 80; RESP 18; TEMP 96.5; O2SAT 100
[2017-02-10] MEDS: POLYETHYL.GLYCOL 3350 PACKET 17gm PO SCH (09:06)
[2017-02-10] MEDS: VITAMIN B COMP + C TABLET PO SCH (09:06)
[2017-02-10] MEDS: ENOXAPARIN 40 MG/0.4 ML INJECTION SQ SCH (09:06)
[2017-02-10] MEDS: LOSARTAN 50 MG TABLET PO SCH (09:07)
[2017-02-10] MEDS: FERROUS SULFATE 324 MG TABLET PO SCH (09:07)
[2017-02-10] MEDS: CALCIUM CARBONATE 600 MG TABLET PO SCH ×2 (09:07→21:03)
[2017-02-10] MEDS: ASCORBIC ACID 500 MG TABLET PO SCH (09:07)
--- NOTE | 2017-02-10 13:13 | PNPDOC ---
Subjective Date DATE: 02/10/17 TIME: 13:08 Subjective F/U: Stage 4 pressure ulcer of left buttock Doing well. Encourage about discharge tomorrow. CM finalizing all the arrangements. No new problems. Breathing well. No f/c. Objective Vital Signs Vital signs Vital Signs Date Time Temp Pulse Resp B/P Pulse Ox O2 Delivery O2 Flow Rate FiO2 02/10/17 08:42 96.5 80 18 124/71 100 Room Air Height (Feet): 5 Height (Inches): 9.00 Weight (Kilograms): 107.900 General General Appearance: Alert, Obese, Well Nourished, Well Developed, Cooperative, No Acute Distress, Looks Stated Age Eyes (Brief) Eyes: FOUND: EOMI, PERRL, NOT FOUND: scleral icterus ENMT (Brief) ENMT: FOUND: hearing intact, mucosa moist Neck (Brief) Neck: FOUND: nuchal rigidity, spasm, NOT FOUND: midline Respiratory (Brief) Respiratory: FOUND: clear all burroughs, equal bilaterally, NOT FOUND: rales, wheezes Cardiovascular (Brief) Cardiac: FOUND: murmur, regular rate, regular rhythm Abdomen (Brief) Abdominal: FOUND: BS normo active x4, soft, NOT FOUND: distended, tender (Brief) Male: FOUND: other (Pinto) Musculoskeletal (Brief) Musculoskeletal: FOUND: loss of motion (LE chronically ) Neurologic (Brief) Neurological: FOUND: cranial 2-12 intact, motor (Upper ext with normal ROM ) Psychiatric (Brief) Psychiatric: FOUND: alert, attentive, normal affect, oriented Assessment & Plan Problems: (1) Pressure ulcer of right buttock, stage 4 Status: Acute Assessment & Plan: Polymicrobial with osteomyelitis, Rocephin and Flagyl through 02/04/17 Debridement on 01/25/17 (2) Vitamin D deficiency Status: Chronic Assessment & Plan: 02/01: Vit D Level <17 (3) Osteomyelitis Status: Resolved Qualifiers: Laterality: left Assessment & Plan: Right ischium (4) Hypertension Status: Chronic (5) Hyperphosphatemia Status: Chronic (6) Microcytic anemia Status: Chronic Assessment & Plan: Iron deficiency anemia. Iron 12, TIBC 325, saturation 4% on 12/25/16. Continue ferrous sulfate (7) Paraplegia at T9 level Status: Chronic (8) Neurogenic bladder Status: Chronic (9) Neurogenic bowel Status: Chronic (10) Chronic urinary tract infection Status: Chronic (11) Thrombocytosis Status: Resolved Assessment & Plan: c/w iron deficiency (12) E. coli UTI Status: Resolved (13) MANDY (acute kidney injury) Status: Resolved (14) Sepsis Status: Resolved (15) Hypernatremia Status: Resolved (16) Obesity (BMI 30-39.9) Status: Chronic Plan/Intensity of Service Continue Wound vac and offloading of wound. Continue Cozaar for BP control. Hope for discharge tomorrow for continuation of wound care in outpatient setting. DVT Prophylaxis: Lovenox Code Status Full Code Hospital Course Summary Disclaimer The hospital course summary below is not to be considered part of the above Progress Note. Hospital Course Summary 01/12/17 - Admitted to swing bed status under the hospitalist service. Hospitalized from 12/27/16 through 01/11/17 as an inpatient at [facility] [place]. 1. Right ischial stage IV decub ulcer with possible osteomyelitis -Continue Rocephin and Flagyl through 02/04/[address] Palma. -Wound care and wound VAC management per Dr. Tyson. 2. T9 paraplegia with neurogenic bowel and bladder. -Pinto catheter in place. 3. Recent sepsis and Escherichia coli UTI - resolved 4. Recent acute kidney injury thought to be secondary to vancomycin administration - resolved. 5. Hyperphosphatemia -Hold PhosLo for now. -Check phosphorus level tomorrow morning, along with CBC and BMP 6. Iron deficiency anemia -Continue ferrous sulfate and vitamin C 01/13/17-Divine Tolerating antibiotics well, continue same for probable osteomyelitis/wound infection. Wound care notes reviewed, good granulation tissue described and wound on the right upper thigh measured 4.2 x 3.6 x 5.6 cm today. Renal function has improved from acute stay and sodium has normalized. Mild hyperphosphatemia persists, continue PhosLo and reassess early next week. Hemoglobin stable, known iron deficiency with anemia developing since March 2016. Patient denies chronic indigestion or heartburn but requires chronic digital stimulation for bowel movements. He is unaware of any chronic rectal bleeding however and has never had a colonoscopy. May need to pursue in the future if ongoing anemia. Denies family history of colon cancer or other chronic bowel disease. 01/14/17 Right ischial stage IV decub ulcer with possible osteomyelitis-Continue Rocephin and Flagyl through 02/04/17 MANDY resolved and renal function at baseline Elevated BP - will discuss starting an AntiHTN with Dr. Haskins. 01/16/17 Doing well. Blood pressure remains moderately elevated with readings 133/77-169/90 over the past 24 hours. Continue to monitor on low-dose Cozaar for an additional 1-2 days and if no improvement will increase dose. Repeat CBC, renal panel, and CRP ordered for Wednesday to monitor antibiotic therapy, anemia, and hyperphosphatemia. 01/17/17 - Increase Cozaar to 50 mg daily. 01/19 Doing well. No new problems or concerns. Continue wound vac and wound care. Continue Rocephin + Flagyl. Continue Cozaar at 50mg daily. Weekly CMP, CBC, and CRP ordered. Check BMP on 01/21 secondary to recent MANDY and ARB use. 01/21 Doing well overall, except very tired (usually much more energetic at home). Eating well. Breathing well. No f/c. Continue wound vac and wound care. Wound vac change tomorrow - may need to return to the prior vac if not healing. Continue Rocephin + Flagyl. Continue Cozaar at 50mg daily. Weekly CMP, CBC, and CRP ordered. 01/23/17 Stable. Continues to require inpatient care for wound VAC being utilized. Recheck labs on Wednesday to monitor antibiotic use. Blood pressure improved with losartan. 01/25 Wound exploration today. Anticipate replacement of Varacleans post exploration. Continue Rocephin and metronidazole for antimicrobial coverage. BP and lab stable on valsartan. 01/26 POD #1 Wound debridement Continue Rocephin + metronidazole - scheduled through 02/04/17. Continue wound care per Dr. Tyson. BP under good control on losartan 50 mg daily. Phos still elevated - cont. Phoslo. 01/27-Dr Palma RECOMMENDATIONS I would continue with the ceftriaxone and Flagyl to complete six weeks of therapy. He will need these antibiotics through February 04, 2017. I would continue to follow weekly CBC with differential, CMP and CRP weekly while he is on the antibiotics. I don't feel that his IV antibiotics will need to be extended since his debridement did not go down to bone. 01/28 Doing well. No new problems. Appetite stable. No nausea. Breathing well. No f/ c. Urine output has been greater than intake - creatinine stable. Possible mobilizing fluid from hydration given with MANDY Continue ceftriaxone and metronidazole to complete six weeks of therapy - need through February 04, 2017. Continue with wound vac and offloading for wound healing. Continue with Cozaar for BP control. Monitor volume status - watch for overdiuresis. 01/29 Doing well overall. Appetite fair-eats well when family brings in food from outside. Drinking well. No nausea or ab pain. Breathing stable. No f/c. Encourage that his wound is healing. Urine output greater than intake. Continue ceftriaxone and metronidazole to complete six weeks of therapy - need through February 04, 2017. Continue with wound vac and offloading for wound healing. Encourage intake of fluids/liquids. Will check BMP, phos and vitamin D level in am. 01/30 Continue ceftriaxone and metronidazole to complete six weeks of therapy - need through February 04, 2017. Continue with wound vac and offloading for wound healing. Monitor tachycardia. Encourage intake of fluids/liquids. BMP normal this morning. Vitamin D studies pending. 01/31 Patient is feeling well overall. Continue wound care, Ceftriaxone & Flagyl. He remains tachycardic- suspect some hypovolemia. Give two liters of IVF to see if this improves his symptoms. His weight is down about 4kg this week, and he is having quite a bit of drainage from wound vac. Hold Cozaar for now since we have started metoprolol to control HR. Assess UA to ensure that is not contributing to his symptoms of new tachycardia. Pinto is documented to have good output, so urinary retention is less of a concern. BM are documented as well. 02/01/17 Hypotension and tachycardia have improved since having IVF and being on BB. Discussed with Dr. Matamoros - will DC BB and monitor response. Continue Cozaar [address] Palma, continue ceftriaxone and Flagyl to complete six weeks of therapy (through February 04, 2017). Blood cultures repeated d/t hypotension and elevated CRP (28). Follow weekly CBC with differential, CMP and CRP weekly while he is on antibiotics. Phos back to normal level. Vit D <17. Will start Vit D 33136 units weekly. Initiate calcium 600mg BID for bone health. 02/02 Continue with wound care. Continue antibiotics for now. Continue to monitor for hypotension or tachycardia. Continue to monitor urine output. 02/03 Continue with wound care. Continue antibiotics for now. Continue to monitor for hypotension. Consider IV fluids if having continued sustained tachycardia. Continue to monitor urine output. 02/04/17 Tachycardia - improved today. Rates not nearly as high, ranging from 82-106 Hyperphosphatemia, Vitamin D deficiency - discussed with Dr. Logan. There is a relationship between these levels, but typically is best worked up in an outpatient setting. Elevated phos levels could be d/t genetic mutations, but this needs to be tested when he's in steady state and not acutely ill. With a normal calcium level, vitamin D deficiency isn't as much of a concern, but it's reasonable to treat. This also is best worked up in steady state. She recommended to change diet to a low-phos diet and the phos binder isn't hurting anything, but she isn't terribly concerned about an elevated phos level at this time. Continue abx for now and check with Dr Palma tomorrow about discontinuation. BP stable on current regimen. 02/06 Doing well. No new problems or concerns. Breathing well. No chest pain. Appetite stable (glad when has food brought in from outside). No f/c. Continue Wound vac and offloading of wound. Continue Cozaar for BP control. Monitor for temp elevation off antibiotics. 02/07 No new problems. Trying to eat well and fine foods that are appealing. No nausea or ab pain. Breathing well. Continue Wound vac and offloading of wound. Continue Cozaar for BP control. Encourage oral intake of foods to help wound healing. Monitor for temp elevation off antibiotics. Will check CBC, CRP, CMP, and Phos in am to monitor status off of antibiotics. 02/08 Doing well. No new problems or concerns. No f/c. Not having pains. Breathing stable. No palpitations. No ab pain or nausea. Lab stable. WBC without increase off of antibiotics. Renal status stable. Continue Wound vac and offloading of wound. Continue Cozaar for BP control. Encourage oral intake of foods to help wound healing. 02/10 Doing well. Encourage about discharge tomorrow. CM finalizing all the arrangements. No new problems. Breathing well. No f/c. Continue Wound vac and offloading of wound. Continue Cozaar for BP control. Hope for discharge tomorrow for continuation of wound care in outpatient setting. LENY MATAMOROS MD February 10, 2017 13:11
--- NOTE | 2017-02-10 15:15 | NUR ---
CM DC IS STILL ANTICIPATED FOR 02-13-17. SPOKE WITH DOREEN WITH [facility], [facility]; HE SAID THE WOUND VAC IS APPROVED AND THERE IS A VAC HERE IN THE BUILDING THAT CAN BE USED. HE SAID THE ONLY THING LEFT TO DO IS TO PRINT OFF THE PT'S SIGNATURE FORM, AND THEN FAX IT TO [facility], [facility]. HE SAID THIS IS DONE THE DAY OF DC (TOMORROW). FAXED ORDERS FOR THE ALTERNATING PRESSURE PAD TO [facility], THEN CALLED AND SPOKE WITH [employer]. SHE SAID THE PAD WILL BE DELIVERED. PT CHOSE THE OPTION TO RENT IT THROUGH [employer] (VS. PAYING PRIVATELY). THIS WAS RELAYED TO [employer]. FAXED HOME HEALTH ORDERS TO [facility]. CALLED BR[facility], REVIEWED THESE WITH HER. Addendum: 02/10/17 at 1533 by TRINITY BAUTISTA DC DATE IS ACTUALLY ANTICIPATED FOR , 02-11-17. (NOT 02-13-17). PT'S ALTERNATING PRESSURE PAD WAS DELIVERED TO PT'S ROOM THIS AFTERNOON. PT HAS AN APPOINTMENT WITH DR. HERNANDEZ ON WED, 10 AM. PT STATED HIS IS TAKING TIME OFF WORK ON WEDNESDAY AND SHE WILL BE ABLE TO TAKE HIM TO THAT APPOINTMENT.
--- NOTE | 2017-02-10 15:34 | NUR ---
CM ALSO REVIEWED PT'S SWING BED POC WITH PT, AND HE SIGNED THIS WITH NO QUESTIONS/CONCERNS.
[2017-02-10] MEDS: NORMAL SALINE 1,000 ML IV SCH (17:08)
--- NOTE | 2017-02-10 18:39 | NUR ---
status Pt A/O x3, V/S stable on RA. Denies C.P., SOA and pain , no PRN meds given. Wound vac in place, no leaks. Eating and drinking well, no N/V. Equipment here ready for his DC home tomorrow.
--- NOTE | 2017-02-10 18:40 | NUR ---
CM DIFFICULTY SLEEPING REMAINS DUE TO SPECIALTY MATTRESS. Addendum: 02/10/17 at 1840 by TRINITY BAUTISTA Amended: Links added.
[2017-02-10 20:00] VITALS: PULSE 80; RESP 18
[2017-02-10 21:35] VITALS: BP 127/78; PULSE 108; RESP 16; TEMP 96.9; O2SAT 98
--- NOTE | 2017-02-11 04:18 | NUR ---
SHIFT SUMMARY PT A/O X 3. NO NEW CHANGES WITH PT'S CARES. CONTINUES WITH WOUND VAC TO RIGHT BUTTOCK. INTACT NO LEAKING NOTED, SUCTION IS GOOD. PT LOOKING FORWARD TO GOING HOME TODAY. BLISTER TO UPPER RIGHT THIGH INTACT, NO FLUID DRAINING FROM IT. DENIES PAIN OR SOA. CALLS FOR NEEDS PRN. BED CONTINUE TO ROTATE PT Q 30 MIN CHANGING PT'S POSITION. AP DD, BAG WAS LEAKING AT 2200. BAG WAS CHANGED, NO LEAKING NOTED AFTER NEW BAG WAS ON.
[2017-02-11 05:39] LABS: BASOPHILS % (AUTO) 0.5 % (0-2); EOSINOPHILS # (AUTO) 0.3 T/MM3 (0-0.5); EOSINOPHILS % (AUTO) 3.7 % (0-4); HCT - HEMATOCRIT 35.7 % (41-53); HGB - HEMOGLOBIN 11.2 GM/DL (13.5-17.5); IMMATURE GRANULOCYTE # (AUTO) 0.03 T/MM3 (0.00-0.03); IMMATURE GRANULOCYTE % (AUTO) 0.4 % (0.0-0.5); LYMPHOCYTES # (AUTO) 2.9 T/MM3 (1-4.8); LYMPHOCYTES % (AUTO) 37.7 % (23-45); MEAN CORPUSCULAR HGB 26.4 UUG (26-34); MEAN CORPUSCULAR HGB CONC(MCHC 31.4 GM/DL (31-37); MEAN CORPUSCULAR VOLUME 84.2 UM3 (80-100); MEAN PLATELET VOLUME 9.6 UM3 (9.4-12.4); MONOCYTES # (AUTO) 0.6 T/MM3 (0-0.8); NEUTROPHILS #(AUTO)-ABSOLUTE 3.8 T/MM3 (1.8-7.7); NEUTROPHILS % (AUTO) 49.7 % (33-66); RED BLOOD COUNT 4.24 M/MM3 (4.50-5.90); WBC - WHITE BLOOD COUNT 7.7 T/MM3 (4.5-11.0)
[2017-02-11 05:47] LABS: BUN/CREATININE RATIO 26 RATIO (6-26); CO2 - CARBON DIOXIDE 27 MEQ/L (22-30); CREATININE 0.7 MG/DL (0.8-1.5); GLOMERULAR FILTRATION RATE 126
[2017-02-11 06:04] LABS: ANION GAP 14 MEQ/L (5-15); CHLORIDE 104 MEQ/L (98-107); GLUCOSE 92 MG/DL (75-110); POTASSIUM 3.9 MEQ/L (3.6-5); SODIUM 145 MEQ/L (134-144)
[2017-02-11 07:36] LABS: PHOSPHORUS 5.7 MG/DL (2.5-4.5)
[2017-02-11 09:00] VITALS: BP 122/71; PULSE 91; RESP 18; TEMP 98.6; O2SAT 99
[2017-02-11] MEDS: VITAMIN B COMP + C TABLET PO SCH (09:24)
[2017-02-11] MEDS: LOSARTAN 50 MG TABLET PO SCH (09:24)
[2017-02-11] MEDS: ASCORBIC ACID 500 MG TABLET PO SCH (09:24)
[2017-02-11] MEDS: POLYETHYL.GLYCOL 3350 PACKET 17gm PO SCH (09:24)
[2017-02-11] MEDS: ENOXAPARIN 40 MG/0.4 ML INJECTION SQ SCH (09:24)
[2017-02-11] MEDS: FERROUS SULFATE 324 MG TABLET PO SCH (09:24)
[2017-02-11] MEDS: CALCIUM CARBONATE 600 MG TABLET PO SCH (09:25)
--- NOTE | 2017-02-11 10:44 | NUR ---
CM WOUND VAC: UNIT PLACED IN PT'S ROOM. PT SIGNED PAPERWORK, THIS WAS FAXED TO [facility]. REVIEWED IM LETTER WITH PT; PT SIGNED, HAD NO QUESTIONS/CONCERNS. ALTERNATING PRESSURE PAD: DELIVERED, CURRENTLY IN PT'S ROOM. HOME HEALTH: THROUGH [facility]. ORDERS HAVE BEEN FAXED. DE [employer]: PT STATED HE HAS HAD THIS AT HOME IN THE PAST AND IS REQUESTING TO KEEP THIS WHEN HE IS DC'D HOME. RN AWARE AND FOLLOWING UP WITH DOCTOR ABOUT THIS. PT STATED HE DOES NOT HAVE ANY NEEDS REGARDING THE DE SOUZA (I.E. SUPPLIES, TEACHING) BECAUSE HE HAS HAD THIS IN THE PAST. THIS WORKER ASKED IF HE HAD ANY ADDITIONAL DC NEEDS/CONCERNS, AND HE STATED NO. PROVIDED HIM WITH THIS WORKER'S CONTACT INFO AGAIN AND ASKED THAT HE CALL IF ANYTHING DOES COME UP, AND HE SAID OK. FOLLOW UP APPOINTMENT WITH DR. HERNANDEZ; TOMORROW. PT'S WILL PROVIDE TRANSPORTATION.
--- NOTE | 2017-02-11 12:47 | PNPDOC ---
Subjective Date DATE: 02/11/17 TIME: 12:41 Subjective F/U: Stage 4 pressure ulcer of left buttock Doing well. No new problems or concerns. No f/c. Breathing well. No nausea or ab pain. Objective Vital Signs Vital signs Vital Signs Date Time Temp Pulse Resp B/P Pulse Ox O2 Delivery O2 Flow Rate FiO2 02/10/17 21:35 96.9 108 16 127/78 98 Room Air Height (Feet): 5 Height (Inches): 9.00 Weight (Kilograms): 107.900 General General Appearance: Alert, Obese, Orientated x 3, Well Nourished, Well Developed, Uncooperative, No Acute Distress, Looks Stated Age Eyes (Brief) Eyes: FOUND: EOMI, PERRL, NOT FOUND: scleral icterus ENMT (Brief) ENMT: FOUND: hearing intact, mucosa moist Neck (Brief) Neck: FOUND: midline, NOT FOUND: nuchal rigidity, spasm Respiratory (Brief) Respiratory: FOUND: clear all burroughs, equal bilaterally, NOT FOUND: rales, wheezes Cardiovascular (Brief) Cardiac: FOUND: regular rate, regular rhythm Abdomen (Brief) Abdominal: FOUND: BS normo active x4, soft, NOT FOUND: distended, tender Extremities (Brief) Extremity : Side: Bilateral Extremity: leg Extremity Finding: NOT FOUND: edema Musculoskeletal (Brief) Musculoskeletal: FOUND: loss of motion (LE chronically ) Neurologic (Brief) Neurological: FOUND: cranial 2-12 intact, motor (Upper ext intact ) Psychiatric (Brief) Psychiatric: FOUND: alert, attentive, normal affect, oriented Laboratory Laboratory Laboratory Tests 02/11/17 05:05 Laboratory Tests 02/11/17 05:05 Assessment & Plan Problems: (1) Pressure ulcer of right buttock, stage 4 Status: Acute Assessment & Plan: Polymicrobial with osteomyelitis, Rocephin and Flagyl through 02/04/17 Debridement on 01/25/17 (2) Vitamin D deficiency Status: Chronic Assessment & Plan: 02/01: Vit D Level <17 (3) Osteomyelitis Status: Resolved Qualifiers: Laterality: left Assessment & Plan: Right ischium (4) Hypertension Status: Chronic (5) Hyperphosphatemia Status: Chronic (6) Microcytic anemia Status: Chronic Assessment & Plan: Iron deficiency anemia. Iron 12, TIBC 325, saturation 4% on 12/25/16. Continue ferrous sulfate (7) Paraplegia at T9 level Status: Chronic (8) Neurogenic bladder Status: Chronic (9) Neurogenic bowel Status: Chronic (10) Chronic urinary tract infection Status: Chronic (11) Thrombocytosis Status: Resolved Assessment & Plan: c/w iron deficiency (12) E. coli UTI Status: Resolved (13) MANDY (acute kidney injury) Status: Resolved (14) Sepsis Status: Resolved (15) Hypernatremia Status: Resolved (16) Obesity (BMI 30-39.9) Status: Chronic Plan/Intensity of Service Lab stable. Home arrangements made-wound vac and specially bed. Pt to f/u with Dr Cruz on 02/12 at 1000 for plastic eval for possible wound closure. F/U with Wound Team on 02/16 ([place]) at 0830 and 02/18 (nurse) at 1330. Will d/c PICC and SCD. Medically stable for discharge to home. See orders for details. Case discussed with CM. DVT Prophylaxis: SCD'S, CARSON Hose Code Status Full Code Hospital Course Summary Disclaimer The hospital course summary below is not to be considered part of the above Progress Note. Hospital Course Summary 01/12/17 - Admitted to swing bed status under the hospitalist service. Hospitalized from 12/27/16 through 01/11/17 as an inpatient at [facility] [place]. 1. Right ischial stage IV decub ulcer with possible osteomyelitis -Continue Rocephin and Flagyl through 02/04/[address] Palma. -Wound care and wound VAC management per Dr. Tyson. 2. T9 paraplegia with neurogenic bowel and bladder. -Pinto catheter in place. 3. Recent sepsis and Escherichia coli UTI - resolved 4. Recent acute kidney injury thought to be secondary to vancomycin administration - resolved. 5. Hyperphosphatemia -Hold PhosLo for now. -Check phosphorus level tomorrow morning, along with CBC and BMP 6. Iron deficiency anemia -Continue ferrous sulfate and vitamin C 01/13/17-Divine Tolerating antibiotics well, continue same for probable osteomyelitis/wound infection. Wound care notes reviewed, good granulation tissue described and wound on the right upper thigh measured 4.2 x 3.6 x 5.6 cm today. Renal function has improved from acute stay and sodium has normalized. Mild hyperphosphatemia persists, continue PhosLo and reassess early next week. Hemoglobin stable, known iron deficiency with anemia developing since March 2016. Patient denies chronic indigestion or heartburn but requires chronic digital stimulation for bowel movements. He is unaware of any chronic rectal bleeding however and has never had a colonoscopy. May need to pursue in the future if ongoing anemia. Denies family history of colon cancer or other chronic bowel disease. 01/14/17 Right ischial stage IV decub ulcer with possible osteomyelitis-Continue Rocephin and Flagyl through 02/04/17 MANDY resolved and renal function at baseline Elevated BP - will discuss starting an AntiHTN with Dr. Haskins. 01/16/17 Doing well. Blood pressure remains moderately elevated with readings 133/77-169/90 over the past 24 hours. Continue to monitor on low-dose Cozaar for an additional 1-2 days and if no improvement will increase dose. Repeat CBC, renal panel, and CRP ordered for Wednesday to monitor antibiotic therapy, anemia, and hyperphosphatemia. 01/17/17 - Increase Cozaar to 50 mg daily. 01/19 Doing well. No new problems or concerns. Continue wound vac and wound care. Continue Rocephin + Flagyl. Continue Cozaar at 50mg daily. Weekly CMP, CBC, and CRP ordered. Check BMP on 01/21 secondary to recent MANDY and ARB use. 01/21 Doing well overall, except very tired (usually much more energetic at home). Eating well. Breathing well. No f/c. Continue wound vac and wound care. Wound vac change tomorrow - may need to return to the prior vac if not healing. Continue Rocephin + Flagyl. Continue Cozaar at 50mg daily. Weekly CMP, CBC, and CRP ordered. 01/23/17 Stable. Continues to require inpatient care for wound VAC being utilized. Recheck labs on Wednesday to monitor antibiotic use. Blood pressure improved with losartan. 01/25 Wound exploration today. Anticipate replacement of Varacleans post exploration. Continue Rocephin and metronidazole for antimicrobial coverage. BP and lab stable on valsartan. 01/26 POD #1 Wound debridement Continue Rocephin + metronidazole - scheduled through 02/04/17. Continue wound care per Dr. Tyson. BP under good control on losartan 50 mg daily. Phos still elevated - cont. Phoslo. 01/27-Dr Palma RECOMMENDATIONS I would continue with the ceftriaxone and Flagyl to complete six weeks of therapy. He will need these antibiotics through February 04, 2017. I would continue to follow weekly CBC with differential, CMP and CRP weekly while he is on the antibiotics. I don't feel that his IV antibiotics will need to be extended since his debridement did not go down to bone. 01/28 Doing well. No new problems. Appetite stable. No nausea. Breathing well. No f/ c. Urine output has been greater than intake - creatinine stable. Possible mobilizing fluid from hydration given with MANDY Continue ceftriaxone and metronidazole to complete six weeks of therapy - need through February 04, 2017. Continue with wound vac and offloading for wound healing. Continue with Cozaar for BP control. Monitor volume status - watch for overdiuresis. 01/29 Doing well overall. Appetite fair-eats well when family brings in food from outside. Drinking well. No nausea or ab pain. Breathing stable. No f/c. Encourage that his wound is healing. Urine output greater than intake. Continue ceftriaxone and metronidazole to complete six weeks of therapy - need through February 04, 2017. Continue with wound vac and offloading for wound healing. Encourage intake of fluids/liquids. Will check BMP, phos and vitamin D level in am. 01/30 Continue ceftriaxone and metronidazole to complete six weeks of therapy - need through February 04, 2017. Continue with wound vac and offloading for wound healing. Monitor tachycardia. Encourage intake of fluids/liquids. BMP normal this morning. Vitamin D studies pending. 01/31 Patient is feeling well overall. Continue wound care, Ceftriaxone & Flagyl. He remains tachycardic- suspect some hypovolemia. Give two liters of IVF to see if this improves his symptoms. His weight is down about 4kg this week, and he is having quite a bit of drainage from wound vac. Hold Cozaar for now since we have started metoprolol to control HR. Assess UA to ensure that is not contributing to his symptoms of new tachycardia. Pinto is documented to have good output, so urinary retention is less of a concern. BM are documented as well. 02/01/17 Hypotension and tachycardia have improved since having IVF and being on BB. Discussed with Dr. Matamoros - will DC BB and monitor response. Continue Cozaar [address] Palma, continue ceftriaxone and Flagyl to complete six weeks of therapy (through February 04, 2017). Blood cultures repeated d/t hypotension and elevated CRP (). Follow weekly CBC with differential, CMP and CRP weekly while he is on antibiotics. Phos back to normal level. Vit D <17. Will start Vit D 98924 units weekly. Initiate calcium 600mg BID for bone health. 02/02 Continue with wound care. Continue antibiotics for now. Continue to monitor for hypotension or tachycardia. Continue to monitor urine output. 02/03 Continue with wound care. Continue antibiotics for now. Continue to monitor for hypotension. Consider IV fluids if having continued sustained tachycardia. Continue to monitor urine output. 02/04/17 Tachycardia - improved today. Rates not nearly as high, ranging from 82-106 Hyperphosphatemia, Vitamin D deficiency - discussed with Dr. Logan. There is a relationship between these levels, but typically is best worked up in an outpatient setting. Elevated phos levels could be d/t genetic mutations, but this needs to be tested when he's in steady state and not acutely ill. With a normal calcium level, vitamin D deficiency isn't as much of a concern, but it's reasonable to treat. This also is best worked up in steady state. She recommended to change diet to a low-phos diet and the phos binder isn't hurting anything, but she isn't terribly concerned about an elevated phos level at this time. Continue abx for now and check with Dr Palma tomorrow about discontinuation. BP stable on current regimen. 02/06 Doing well. No new problems or concerns. Breathing well. No chest pain. Appetite stable (glad when has food brought in from outside). No f/c. Continue Wound vac and offloading of wound. Continue Cozaar for BP control. Monitor for temp elevation off antibiotics. 02/07 No new problems. Trying to eat well and fine foods that are appealing. No nausea or ab pain. Breathing well. Continue Wound vac and offloading of wound. Continue Cozaar for BP control. Encourage oral intake of foods to help wound healing. Monitor for temp elevation off antibiotics. Will check CBC, CRP, CMP, and Phos in am to monitor status off of antibiotics. 02/08 Doing well. No new problems or concerns. No f/c. Not having pains. Breathing stable. No palpitations. No ab pain or nausea. Lab stable. WBC without increase off of antibiotics. Renal status stable. Continue Wound vac and offloading of wound. Continue Cozaar for BP control. Encourage oral intake of foods to help wound healing. 02/10 Doing well. Encourage about discharge tomorrow. CM finalizing all the arrangements. No new problems. Breathing well. No f/c. Continue Wound vac and offloading of wound. Continue Cozaar for BP control. Hope for discharge tomorrow for continuation of wound care in outpatient setting. 02/11 Doing well. No new problems or concerns. No f/c. Breathing well. No nausea or ab pain. Lab stable. Home arrangements made-wound vac and specially bed. Pt to f/u with Dr Cruz on 02/12 at 1000 for plastic eval for possible wound closure. F/U with Wound Team on 02/16 ([place]) at 0830 and 02/18 (nurse) at 1330. Will d/c PICC and SCD. Medically stable for discharge to home. See orders for details. LENY MATAMOROS MD February 11, 2017 12:46
[2017-02-11] MEDS ORDERED: ERGO500044 PO (12:51)
[2017-02-11] MEDS ORDERED: CALC600T12 PO (12:51)
[2017-02-11] MEDS ORDERED: LOSA50TA52 PO (12:51)
--- NOTE | 2017-02-11 13:47 | NUR ---
PICC DC'd PICC line DC'd at this time. 48 CM PICC line removed. Catheter intact. Triple Antibiotic ointment applied, 4x4 and clear tegaderm pressure dressing applied. Pt tolerated removal well.
[2017-02-11] MEDS: NORMAL SALINE 1,000 ML IV SCH (16:00)
--- NOTE | 2017-02-11 17:11 | PDWOUND ---
Wound Documentation Wound Management Wound : Location Modifier: Right, Upper Wound Location: Thigh Wound Type: Pressure Ulcer Wound Dressing Frequency: three times per week Wound Duration: > one month Wound Dressing Status: FOUND: Changed Wound Drainage Amount: Moderate Wound Drainage Description: Serous Wound Drainage Odor: None/Absent Wound General Appearance: FOUND Unapproximated Wound Bed: gran red Periwound Description: Clear Wound Length (cm): 7 Wound Width (cm): 1.6 Wound Depth (cm): 2.5 Exposed: subtissue Wound Cleanser: soap and water Wound Packing Type: FOUND: Black Foam Wound Primary Dressing Type: Clear Adhesive Cover Wound Tunneling : Sinus/Tunnels (cm): 5 (centimeters) Tunneling Location (o'clock): 12 Wound Undermining : Wound Undermining (cm): 2 Undermining Location (o'clock): 10-2 Comments [facility] will [facility] Dr Ruiz tomorrow regarding possible surgery. Pt also has an appointment at the wound clinic on Wednesday. TATUM RIZO RN February 11, 2017 17:11
--- NOTE | 2017-02-11 18:28 | NUR ---
status Wick changed to have clean new wick for DC to home to continue to keep marlys area dry from urine. Pt tolerated well.
--- NOTE | 2017-02-11 18:29 | NUR ---
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 Pt denies pain, urine output has been good all day, eating and drinking well. Wound vac changed to home version by wound ct team RN, tegaderm applied to blister per same RN. DC instructions given to pt and , no questions at this time. Taken to front door via his WC at 1815.
--- NOTE | 2017-02-14 10:39 | DSF ---
ADMITTING DIAGNOSIS 1. Stage IV pressure ulcer right buttocks. DISCHARGE DIAGNOSIS Stage IV pressure ulcer right buttocks, improved. ASSOCIATED CONDITIONS AND COMPLICATIONS 1. Suspect osteomyelitis, resolved. 2. Hypertension. 3. Hyperphosphatemia. 4. Paraplegia at T9. 5. Neurogenic bladder. 6. Vitamin D deficiency. 7. Recent urinary tract infection., resolved. 8. Recent acute kidney injury, resolved. 9. Hypernatremia. 10. Microcytic anemia. 11. Obesity. CONSULTS 1. Sourav Tyson M.D. - surgery. 2. Wound team. 3. Dr. Palma - infectious disease. 4. Occupational therapy. PROCEDURES 01/25/2017: Debridement of wound. CLINICAL RESUME Joe Cosby is a 41-year-old gentleman with paraplegia who was admitted to [facility] on 12/27/2016 secondary to sepsis due to right ischial stage IV decubitus ulcer with possible osteomyelitis. During that hospitalization, Dr. Tyson was consulted for wound management and wound vac was placed. Dr. Palma was consulted for infectious disease recommendations. PICC line was placed. He was initiated on vancomycin and Zosyn. As he has a neurogenic bladder a Pinto catheter was placed. He was initially found to have E-coli UTI which was treated. During acute stay did develop acute kidney injury with creatinine elevating up to two. With IV fluids and antibiotic changing renal function did improve. He did have wound debridement and wound vac placement. A specialty bed was ordered to help offload wound. His medical status did stabilize well on acute and ultimately we were able to discharge him to swing bed at [facility] for continuation of IV antibiotic therapy and wound care. For complete details of the acute chart refer to that document and also complete details of the H&P refer to that document. LABORATORY White blood count is 9.5 with hemoglobin 10.7, hematocrit 34.7, MCV 97.9 and platelets 268,000. Serum sodium is 143, potassium 4.2, chloride 106, CO2 26, BUN 24 with creatinine 1.0, GFR 83 and blood glucose 93. Phosphorus is 4.8. Transaminases are unremarkable. C-reactive protein is 13.3. 25 hydroxy vitamin D is decreased at 17. UA reveals low specific gravity of less 1.005. 2+ leukocyte esterase is noted. HOSPITAL COURSE The patient was placed in swing bed status at [facility] under the care of the hospitalist service. We did continue with Rocephin 1 gm IV daily along with metronidazole orally as recommended by Dr. Palma. Wound vac was continued as per Dr. Tyson's recommendation. Dr. Palma, Dr. Tyson and the wound team were consulted and did follow along with the patient during the hospitalization. Overall his hospital course was one of good improvement. Lab was monitored during halfway status and overall remained quite stable. His white count remained normal and hemoglobin was stable. Additionally, his renal function remained at baseline of 0.6 to 7. We did reinitiate Cozaar during the hospitalization but at a lower dose of 25 mg and blood pressure responded nicely to this medication. In light of his persistent elevated phosphorus we did check vitamin D level and this was found to be low; vitamin D was initiated at 50,000 units weekly. Additionally, calcium with vitamin D was started. His wound did make gradual improvements during the hospitalization. Indeed on the , Dr. Tyson did take patient to operating room for wound debridement. Unfortunately it looked as though was a little bit more tunneling so the Instill wound vac was restarted. This was continued for the remainder of the hospitalization but able to be transitioned to regular wound vac towards discharge. He did complete course of antimicrobial therapy and his blood counts and C-reactive protein remained stable off of antibiotics. Respiratory status did well. By time of discharge he was eating and drinking well. His vitals were stable and he was afebrile. He will need continued outpatient wound care and arrangements were made. Additionally an appointment was set up for him to follow with plastic surgeon for possibility of flap closure in near future. Narrative disclaimed: Above narrative is a brief summary of the patient's hospitalization; for complete details of hospital course, refer the medical record. DISCHARGE CONDITION Stable/good. DIET Regular. ACTIVITIES Continue to offload wound. MEDICATIONS 1. Losartan 25 mg daily. 2. Vitamin D 50,000 units weekly. 3. Calcium with vitamin D 600 mg b.i.d. 4. Tylenol 500 mg q.4h. p.r.n. pain. 5. Vitamin C 500 mg with breakfast. 6. Dulcolax 10 mg p.r.n. daily p.r.n. constipation. 7. Ferrous sulfate 324 mg with breakfast. 8. MOM 30 ml b.i.d. p.r.n. 9. MiraLAX 17 gm daily. 10. Vitamin B tablet daily. FOLLOW UP 1. The patient will follow with Dr. Cruz on Wednesday02/12/17 at 10 o'clock a.m. for potential wound flap evaluation. 2. Patient will follow with at Wound Clinic on at 08:30. 3. Patient will follow at Wound Clinic on 02/18/17 at 13:30. 4. Patient will follow with Dr. Patton in approximately one week. INSTRUCTIONS TO PATIENT Patient was instructed on his diagnosis and treatments provided. He received informed consent prior to incisional debridement of his wound. He was encouraged to work to off load his wound. He was encouraged to be adherent with wound vac He will watch for temperature elevation or increased drainage or bleeding from his wound. Should these or other problems or need occur he can be in contact with his care providers. If symptoms become quite dire he can present to emergency room for acute evaluation. He voiced understanding of the above. Time spent with discharge greater than 35 minutes. FLAQUITOD
== END 2017-02-11 18:30 | disposition home health service (06) | DRG 570 ==
LOC: MED 15:16
PROVIDERS: ADMIT Internal Medicine; ATTEND Internal Medicine
PROC: 0JB90ZZ Excision of Buttock Subcutaneous Tissue and Fascia, Open Approach (ICD-10-PCS; principal; 2017-01-25 19:09)
DX: L89.314 Pressure ulcer of right buttock, stage 4 (principal); M86.9 Osteomyelitis, unspecified; G82.20 Paraplegia, unspecified; K59.2 Neurogenic bowel, not elsewhere classified; E87.0 Hyperosmolality and hypernatremia; N31.9 Neuromuscular dysfunction of bladder, unspecified; E83.39 Other disorders of phosphorus metabolism; E66.9 Obesity, unspecified; D50.9 Iron deficiency anemia, unspecified; D47.3 Essential (hemorrhagic) thrombocythemia; B95.2 Enterococcus as the cause of diseases classified elsewhere; B96.6 Bacteroides fragilis [B. fragilis] as the cause of diseases classified elsewhere; B96.89 Other specified bacterial agents as the cause of diseases classified elsewhere; Z68.35 Body mass index [BMI] 35.0-35.9, adult
CPT/HCPCS: 36415; 80048; 80053; 80069; 81001; 82306; 83735; 84100; 85025; 86140; 87040; 93005

== ENCOUNTER → 2017-01-25 | Day surgery (SDC) | payer MEDICARE, OTHER ==
[~2017-01-25] MED LIST changes: +FENTANYL 100mcg/2ml INJECTION ONE; +MIDAZOLAM 2mg/2ml INJECTION ONE
--- OUTSIDE RECORDS SUMMARY | 2017-01-25 15:14 | XMS REPORT | Continuity of Care Document ---
Author Author [facility] Address Unknown Phone Unavailable Allergies Active Description Code Type Severity Reaction Onset Reported/Identified Relationship to Patient Clinical Status Yes Levaquin NKMA N/A N/A 04/17/2014 Yes levofloxacin [id number] Drug Allergy Severe Severe Diarrhea 05/25/2015 Yes Keflex NKMA N/A Rash 07/03/2016 Medications Problems Procedures Results Encounters ACCT No. Visit Date/Time Discharge Status Pt. Type Provider Facility Loc./Unit Complaint [id number] 05/25/2015 19:48:00 2014 20:41:00 [facility]
--- OUTSIDE RECORDS SUMMARY | 2017-01-25 15:14 | XMS REPORT | Continuity of Care Document ---
Author Author [facility] Organization [facility] Address Unknown Phone Unavailable Support Name Relationship Address Phone EREN SO MD Caregiver [address] [place] [address] JENNIFER CLIVE Next Of Kin [address] [place] [address] Insurance Providers Payer Name Policy Number Subscriber Name Relationship Self Pay JenniferDuncan V 18 Self / Same As Patient Chief Complaint and Reason for Visit Chief Complaint Skin Condition Reason for Visit [id number] Problems Medical Problems Problem Onset Date Status [...] worrisome symptoms. * Emergency Department phone number: [phone], x [phone] MEDICAL RECORD If you need copies of your X-rays, call [phone] x [phone]. If you need copies of [...] the billing parties for services. SERVICE BILLING [employer]STITUTION [employer] Emergency Room Services [facility] Physician Services [facility] X-rays [facility] Patients will receive bills for services from the appropriate provider. If you have any questions about your [facility] bill, our staff will be happy to assist you. Please call [phone], and ask for the billing department. THANK YOU for choosing [facility] as your emergency care provider! Functional [...] Encounters Encounter Location Date/Time Departed Emergency Room [facility] 05/25/15 7:48pm Recent Diagnosis
--- NOTE | 2017-01-26 14:09 | NUR ---
CM THIS WORKER VISITED PT, PT STATED HE IS READY TO GO HOME " CAN'T COME SOON ENOUGH". PT DENIED ANY NEEDS AT THIS TIME, STATED HIS FAMILY HAS BEEN COMING TO VISIT HIM. THIS WORKER ENCOURAGED PT TO CONTACT WITH ANY NEEDS/QUESTIONS.
--- NOTE | 2017-01-27 14:05 | NUR ---
High Risk Screen Diet: Regular Patient states his appetite has normalized since last RD visit. Patient reports he's been getting all of his dietary request fulfilled and is satisfied. RD available @ [phone] Addendum: 01/27/17 at [address] Student charting reviewed by Director Education.
--- NOTE | 2017-01-28 16:33 | NUR ---
CM THIS WORKER REVIEWED CARE PLAN WITH PT, PT REVIEWED AND SIGNED. PT DENIED ANY NEEDS AT THIS TIME.
== END ==
LOC: SCU 15:09
PROVIDERS: ATTEND Surgery
DX: Z53.8 Procedure and treatment not carried out for other reasons (principal)